=== PATIENT | female | born 1935 | race Asian ===

== ENCOUNTER 2017-03-17 13:05 | Inpatient (IN) | payer MEDICARE ==
--- NOTE | 2017-03-17 13:46 | ED Physician Chart ---
ED Chief Complaint/HPI - Patient Information Date Seen:: 03/17/17 Time Seen:: 13:20 Chief Complaint:: patient of both feet History of Present Illness:: Patient's had 8 out of 10 pain in both feet for 2 years. No trauma. She states she gets dizzy in the shower so she hasn't taken a shower more than one year. No recent falls. Historian:: Patient, Family Member Review:: Nurse's Note Reviewed ED Review of Systems - Review of Systems General/Constitutional: No fever, No chills Skin: No skin lesions Head: No headache Eyes: No loss of vision ENT: No earache Neck: No neck pain Cardio Vascular: No chest pain, No palpitations Pulmonary: No SOB GI: No nausea, No vomiting, No diarrhea G/U: No dysuria Musculoskeletal: Bone or joint pain Endocrine: No polyuria, No polydipsia Psychiatric: No prior psych history Hematopoietic: No bruising, No lymphadenopathy Allergic/Immuno: No urticaria Neurological: No syncope, No focal symptoms ED Past Medical History - Past Medical History Past Medical History: Asthma/COPD, Seizures Family History: None Social History: Non Smoker, No Alcohol Surgical History: Hysterectomy Psychiatricy History: None Medication: Reviewed ED Physical Exam - Physical Examination General/Constitutional: Well-developed, well-nourished, Alert, No distress Head: Atraumatic Eyes: Lids, conjuctiva normal, PERRL Other Eyes comments:: Arcus senilis Skin: Nl inspection, No rash, No skin lesions, No ecchymosis ENMT: External ears, nose nl, TM canals nl, Nasal exam nl, Lips, teeth, gums nl Neck: No nuchal rigidity Respiratory: Nl effort/Exclusion Other Respiratory comments:: 1 out of 4 mid and basilar rales and 1.5 out of 4 wheezing Cardio Vascular: RRR GI: No tenderness/rebounding/guarding : No CVA tenderness Other Extremities comments:: Left large toe is deviated laterally Neuro/Psych: Alert/oriented ED Septic Shock - . Is Septic Shock (SBP<90, OR Lactate>4 mmol\L) present?: No ED Reassessment (Disposition) - Reassessment Reassessment:: Patient ambulated normally during her stay in the emergency department. Patient was oriented to the correct year but not to the correct month stated it was August. Reassessment Condition:: Unchanged - Diagnosis Diagnosis:: Altered mental status - Patient Disposition Admitted to:: Med/Surg Spoke to:: Mustapha Vargas Admitting Medical Physician:: Mustapha Vargas Condition at Disposition:: Stable, Unchanged
[2017-03-17 13:56] LABS: % BASOPHILS 0.7 % (0.0-2.0); % EOSINOPHILS 14.3 % (0.0-5.0); % LYMPHOCYTES 24.7 % (20.0-50.0); % NEUTROPHILS 52.3 % (40.0-80.0); BASOPHILE ABSOLUTE 0.1 Th/cumm (0-0.2); EOSINOPHILE ABSOLUTE 1.1 Th/cmm (0.1-0.4); HEMATOCRIT 36.2 % (41.0-60); HEMOGLOBIN 12.2 gm/dL (12-16); LYMPHOCYTE ABSOLUTE 1.9 Th/cmm (1.5-3.0); MEAN CELL VOLUME 90.1 fl (81-100); MEAN CORPUSCULAR HEMOGLOBIN 30.3 pg (27.0-31.0); MEAN CORPUSCULAR HGB CONC 33.7 pg (28.0-36.0); MEAN PLATELET VOLUME 7.5 fl; MONOCYTE ABSOLUTE 0.6 Th/cmm (0.3-1.0); PLATELET COUNT 320 Th/cmm (150-400); RED BLOOD COUNT 4.01 Mil/cmm (3.80-5.20); RED CELL DISTRIBUTION WIDTH 12.4 % (11.5-20.0); WHITE BLOOD COUNT 7.7 Th/cmm (4.8-10.8)
[2017-03-17 14:12] LABS: ANION GAP 10.6 (7.0-16.0); BUN - UREA NITROGEN 31 mg/dL (7-25); CALCIUM SERUM 9.7 mg/dL (8.6-10.3); CARBON DIOXIDE 27.3 mEq/L (21.0-31.0); CHLORIDE 106 mEq/L (98-107); CREATININE - SERUM 0.8 mg/dL (0.6-1.2); GLUCOSE 106 mg/dL (70-105); MAGNESIUM 2.2 mg/dL (1.9-2.7); POTASSIUM SERUM 3.9 mEq/L (3.5-5.1); SODIUM SERUM 140 mEq/L (136-145)
[2017-03-17 14:34] LABS: URINE MICROSCOPIC INDICATED? YES; URINE SOURCE CLEAN C
[2017-03-17 14:45] LABS: URINE BILIRUBIN NEGATIVE (NEGATIVE); URINE BLOOD SMALL (NEGATIVE); URINE GLUCOSE (UA) NEGATIVE (NEGATIVE); URINE KETONE NEGATIVE (NEGATIVE); URINE LEUKOCYTE ESTERASE TRACE (NEGATIVE); URINE NITRATE NEGATIVE (NEGATIVE); URINE PH 6.5 (4.6 - 8.0); URINE PROTEIN NEGATIVE (NEGATIVE); URINE UROBILINOGEN 0.2 E.U./dL (0.2 - 1.0)
[2017-03-17 14:47] LABS: URINE CLARITY CLEAR (CLEAR); URINE COLOR YELLOW
[2017-03-17 15:25] LABS: URINE BACTERIA NONE SEEN /hpf (NONE SEEN); URINE EPITHELIAL CELLS FEW /lpf (FEW)
[2017-03-17] MEDS ORDERED: Non-Formulary Item 1 EA (Albuterol Sulfate [Proair Respiclick] 90 MCG) IH PRN (20:10)
[2017-03-17] MEDS: Albuterol Nebulizer 2.5mg/3mL HHN PRN (21:57)
[2017-03-18 00:15] VITALS: BP 136/74
[2017-03-18] MEDS ORDERED: Influenza Vaccine 0.5 mL Syr IM ONE (00:33)
[2017-03-18] MEDS ORDERED: Pneumococcal Vaccine 0.5 mL Vial IM ONE (00:33)
[2017-03-18] MEDS: Albuterol Nebulizer 2.5mg/3mL HHN PRN ×6 (01:17→20:43)
[2017-03-18 07:00] LABS: HEMATOCRIT 35.5 % (41.0-60); HEMOGLOBIN 12.1 gm/dL (12-16); MEAN CELL VOLUME 90.5 fl (81-100); MEAN CORPUSCULAR HEMOGLOBIN 30.9 pg (27.0-31.0); MEAN CORPUSCULAR HGB CONC 34.1 pg (28.0-36.0); MEAN PLATELET VOLUME 7.9 fl; PLATELET COUNT 322 Th/cmm (150-400); RED BLOOD COUNT 3.92 Mil/cmm (3.80-5.20); RED CELL DISTRIBUTION WIDTH 12.7 % (11.5-20.0); WHITE BLOOD COUNT 6.3 Th/cmm (4.8-10.8)
[2017-03-18 07:30] LABS: LYMPHOCYTE 19 % (20-50); MONOCYTE 12 % (2-10); NEUTROPHILS 54 % (40-80); TOTAL CELLS COUNTED 100
[2017-03-18 07:31] LABS: BASOPHIL 1 % (0-3); EOSINOPHIL 14 % (0-5); PLATELET ESTIMATE ADEQUATE (NORMAL)
[2017-03-18 07:45] LABS: ANION GAP 12.2 (7.0-16.0); BUN - UREA NITROGEN 20 mg/dL (7-25); CALCIUM SERUM 9.5 mg/dL (8.6-10.3); CARBON DIOXIDE 23.3 mEq/L (21.0-31.0); CHLORIDE 106 mEq/L (98-107); GLUCOSE 113 mg/dL (70-105); POTASSIUM SERUM 3.5 mEq/L (3.5-5.1); SODIUM SERUM 138 mEq/L (136-145)
[2017-03-18 07:59] LABS: CREATININE - SERUM 0.6 mg/dL (0.6-1.2)
--- NOTE | 2017-03-18 10:24 | Diagnostic Imaging Report ---
Carotid ultrasound HISTORY: Altered level of consciousness COMPARISON: None Technique: Longitudinal and transverse sonographic sector images of the carotid arteries were obtained with doppler analysis. FINDINGS: Exam of the right side demonstrates intimal thickening and mild generalized atherosclerotic vascular disease. Exam of the left side demonstrates intimal thickening and mild generalized atherosclerotic vascular disease. No evidence of elevated velocities or velocity ratios. Antegrade vertebral artery flow is demonstrated bilaterally. IMPRESSION: Mild bilateral atherosclerotic vascular disease. No evidence of hemodynamically significant stenosis.
--- NOTE | 2017-03-18 17:18 | Cardiology ---
03/18/2017 ECHOCARDIOGRAM REPORT The patient of Dr. Vargas. M-MODE ECHOCARDIOGRAM: Mitral valve, anterior leaflet of mitral valve shows normal excursion, EF velocity. Posterior leaflet of the mitral valve shows normal excursion. Left ventricular posterior shows increased thickness, normal excursion. Interventricular septum shows increased thickness, normal excursion, hypertrophy of the left ventricle, ejection fraction 55%. Left atrium normal. Aortic root shows normal dimension, normal excursion of aortic leaflets. CONCLUSION: Hypertrophy of the left ventricle, ejection fraction 55%. 2D echo on the same patient, long axis view showed normal-sized left ventricle with hypertrophy of the left ventricle. Left atrium normal. Aortic root shows normal dimension, normal excursion of aortic leaflets. Short axis view of mitral valve normal. Short axis view of aortic valve normal. Apical four chamber view showed normal-sized left ventricle, left atrium, right ventricle, right atrium, tricuspid and mitral valve. Ejection fraction 55%. CONCLUSION: Hypertrophy of the left ventricle, ejection fraction 55%. Doppler study showed trace mitral regurgitation, tricuspid regurgitation, pulmonary regurgitation, aortic regurgitation. [facility]# [id number]
--- NOTE | 2017-03-18 20:39 | History and Physical ---
History of Present Illness - HPI Chief Complaint: bilateral feet pain , weakness, frequent falls, poor oral intake HPI: This is a 81 year old female with who is well known to me from my clinic. Patient has been having frequent falls, confusion, and dizziness. Patient has not been able to take her medications. Vital Signs: Last Vital Signs Temp 96.8 F 03/18/17 04:00 Pulse 83 03/18/17 14:12 Resp 18 03/18/17 14:12 BP 129/59 03/18/17 04:00 Pulse Ox 94 03/18/17 14:12 Past Medical History Other History: asthma copd seizures - Past Surgical History Past Surgical History: Other (hysterectomy) Family Medical History - Family Member Mother History Unknown: Yes Social History Smoke: No Alcohol: None Drugs: None Lives: With Family Domestic Violence: Negative - Medications Home Medications: Home Medication Medication Instructions Recorded Type Albuterol Sulfate [Proair 90 mcg IH PRN PRN 03/17/17 History Respiclick] Levetiracetam 250 mg PO HS 03/17/17 History - Allergies Allergies/Adverse Reactions: Allergies Allergy/AdvReac Type Severity Reaction Status Date / Time No Known Allergies Allergy Verified 03/17/17 14:00 Review of Systems - Review of Systems Constitutional: Report: Weakness Eyes: Report: No Significant ENT: Report: No Significant Respiratory: Report: No Significant Cardiovascular: Report: No Significant Gastrointestinal: Report: No Significant Genitourinary: Report: No Significant Neurological: Report: Weakness Physical Exam - Physical Exam HEENT: Report: Ears Nose Throat within normal limits Neck: Report: Within normal limits Cardiovascular Systems: Report: +s1/s2 noted Respiratory: Report: Breath Sounds are within normal limits Abdomen: Report: Non-tender to palpation Back: Report: Inspection of back is within normal limits. Extremities: Report: Non-tender to palpation. 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 Monocytes % LIBRARY MEDIA TECHNICIAN Eosinophils % LIBRARY MEDIA TECHNICIAN Basophils % LIBRARY MEDIA TECHNICIAN Neutrophils (Manual) 54 Lymphocytes 19 L Monocytes 12 H Eosinophils 14 H Basophils 1 Platelet Estimate ADEQUATE Sodium 138 Potassium 3.5 Chloride 106 Carbon Dioxide 23.3 Anion Gap 12.2 BUN 20 Creatinine 0.6 Est GFR ( Amer) TNP Est GFR (Non-Af Amer) TNP BUN/Creatinine Ratio 33.3 Glucose 113 H Calcium 9.5 - Assessment Assessment: Current Active Problems Problem Status Onset POOR ORAL INTAKE WITH FOOT PAIN Acute failure to thrive altered mental status generalized weakness confusion htn copd - Plan Plan: neurology consultation cardiology consultation 2d echo fall precautions continue current orders
[2017-03-18] MEDS ORDERED: D5-0.45NS 1,000 ML IV SCH (20:40)
[2017-03-19] MEDS: Albuterol Nebulizer 2.5mg/3mL HHN PRN ×5 (02:18→23:18)
--- NOTE | 2017-03-19 07:45 | Consultation ---
DATE OF CONSULTATION: 03/18/2017 NEUROLOGY CONSULT The patient is an 81-year-old. The initial complaint of the patient was having lot of pain in the feet. However, the patient says she does not get any pain. Recently, also complained the patient did say that she fell in the shower. The patient is not taking showers recently. No recent fall. The patient apparently then noted to be confused. PAST MEDICAL HISTORY: Confusion. History of asthma. History of chronic obstructive pulmonary disease, seizures. No recent seizures. PAST SURGICAL HISTORY: Hysterectomy. SOCIAL HISTORY: Does not smoke or drink. REVIEW OF SYSTEMS: The patient will answer. She has no headache. Speech okay. The patient definitely disoriented, but able to answer questions. No chest pain, no shortness of breath. No cough, sputum, or hemoptysis. No abdominal pain. PHYSICAL EXAMINATION: VITAL SIGNS: Temperature 96.8, blood pressure 129/60, pulse is 73. NECK: Supple, no bruits. HEART: Sounds S1, S2. LUNGS: Clear. NEUROLOGIC: The patient is awake. She speaks Spanish. She gives me her name, her age. She does not know what day it is. She does not know what month. She does not know what year. She is able to name simple objects such as pen and glasses. CRANIAL: Pupils react to light. No facial weakness. MOTOR: She will lift both arms up. She will lift both legs up. Reflexes: 1-2+ upper extremity, about 2+ knees, one ankle. Gait: She actually walks quite well, able to get up by herself off the bed and walks without any aid. INVESTIGATIONS: Carotid Doppler is negative. No stenosis. LABORATORY DATA: WBC 6.3, hemoglobin 12.1, platelets normal. Sodium, potassium okay. UA, WBCs 2-5. ASSESSMENT: 1. Encephalopathy. 2. Dementia. 3. Neuropathy, paresthesias. 4. Asthma. 5. Seizures. PLAN: Continue present treatment. The patient is on Keppra, continue with that. The patient will have CT scan of the head, lab studies. Recommend patient follow up outpatient with Neurology. JOB# [id number]
[2017-03-19 08:11] LABS: HEMATOCRIT 35.6 % (41.0-60); MEAN CELL VOLUME 91.5 fl (81-100); MEAN CORPUSCULAR HEMOGLOBIN 30.7 pg (27.0-31.0); MEAN CORPUSCULAR HGB CONC 33.6 pg (28.0-36.0); PLATELET COUNT 268 Th/cmm (150-400); RED CELL DISTRIBUTION WIDTH 12.5 % (11.5-20.0); WHITE BLOOD COUNT 7.1 Th/cmm (4.8-10.8)
[2017-03-19 08:25] LABS: ALB/GLOB RATIO 1.2 (1.0-1.8); ALBUMIN 3.5 gm/dL (3.7-5.3); ALKALINE PHOSPHATASE 53 U/L (34-104); ANION GAP 8.6 (7.0-16.0); BILIRUBIN,TOTAL 0.4 mg/dL (0.3-1.0); BUN - UREA NITROGEN 20 mg/dL (7-25); CALCIUM SERUM 9.1 mg/dL (8.6-10.3); CARBON DIOXIDE 26.9 mEq/L (21.0-31.0); CHLORIDE 107 mEq/L (98-107); CREATININE - SERUM 0.6 mg/dL (0.6-1.2); GLUCOSE 121 mg/dL (70-105); POTASSIUM SERUM 3.5 mEq/L (3.5-5.1); SGOT 14 U/L (13-39); SGPT/ALT 8 U/L (7-52); SODIUM SERUM 139 mEq/L (136-145); TOTAL PROTEIN,SERUM 6.5 gm/dL (6.0-8.3)
[2017-03-19 09:04] LABS: BASOPHIL 2 % (0-3); EOSINOPHIL 17 % (0-5); LYMPHOCYTE 28 % (20-50); MONOCYTE 5 % (2-10); NEUTROPHILS 48 % (40-80); PLATELET ESTIMATE ADEQUATE (NORMAL)
--- NOTE | 2017-03-19 12:18 | Consultation ---
DATE OF CONSULTATION: 03/19/2017 REQUESTING CONSULTATION: Isidro Vargas MD REASON FOR CONSULTATION: Confusion. HISTORY OF PRESENT ILLNESS: This patient is an 81-year-old woman admitted over here for altered level of mental status. A psychiatric consultation is called to address the issue. Staff was spoken to. The patient is interviewed. The patient at this time is very drowsy and stating that she does not have any problem. She needs to go home. The patient is reported to have been confused for the past couple of years and lately it has been becoming difficult for the family to care for her because she has been possibly having a sundowning syndrome and has been acting out towards the end of the day. Sleep and appetite prior to the hospitalization are reported to be fair to okay. PAST PSYCHIATRIC HISTORY: Details are not known. MEDICAL HISTORY: Significant for the patient having history of asthma and obstructive pulmonary disease, and seizures. PAST SURGICAL HISTORY: Significant for hysterectomy. SOCIAL HISTORY: There is no history of any alcohol use. The patient has supportive family and family is reported to have been looking for placement of this patient because they are not able to care for her. The patient at this time is undergoing the neurological workup. MENTAL STATUS EXAMINATION: The patient is an 81-year-old, looking her stated age, superficially cooperative. Eye contact is poor. Mood is irritable. Affect is constricted. The patient is fixated on going home. The patient has paranoia, but denies any command hallucinations. The patient's short and long-term are noted to be impaired. The patient is not able to recall her date of and the reason why she has been in the hospital and the patient is stating that she is okay. DIAGNOSTIC IMPRESSION: Dementia and behavioral changes secondary to it, history of seizure disorder and asthma and chronic obstructive pulmonary disease. TREATMENT/PLAN: Plan to closely monitor the patient and use a lower dose of antipsychotic medication to help her with the agitation and sleep. There is 12.5 mg of the Seroquel and follow the patient with the supportive therapy. Once the patient is stabilized, the patient is going to be possibly placed in a Jail Facility. JOB# [id number]
--- NOTE | 2017-03-19 12:27 | Diagnostic Imaging Report ---
CT scan of the brain without intravenous contrast HISTORY: Stroke, CVA Total DLP equals 545 CTDI equals 32.1 Axial sections were obtained from the base of the skull to the vertex. There is enlargement of the ventricular system along with enlargement of cerebral sulci and subarachnoid cisterns reflecting atrophy. Hypodensity seen throughout the supratentorial periventricular white matter regions without mass effect. The findings may be associated with chronic small vessel ischemic disease. No acute intracerebral hemorrhage. Again, no mass effect or shift of midline structures. No extra-axial masses or abnormal fluid collections. IMPRESSION: 1. No acute focal abnormalities 2. Cerebral atrophy 3. Supratentorial white matter changes. The findings may be associated with chronic small vessel ischemic disease.
--- NOTE | 2017-03-19 17:33 | Internal Medicine Prog Note ---
Internal Medicine Subjective - Subjective Service Date: 03/19/17 Patient seen and examined:: with staff Patient is:: awake Per staff patient has:: tolerating meds Internal Medicine Objective - Results Result Diagrams: 03/19/17 07:40 03/19/17 07:40 Recent Labs: Laboratory Last Values WBC 7.1 Th/cmm (4.8-10.8) 03/19/17 07:40 RBC 3.90 Mil/cmm (3.80-5.20) 03/19/17 07:40 Hgb 12.0 gm/dL (12-16) 03/19/17 07:40 Hct 35.6 % (41.0-60) L 03/19/17 07:40 MCV 91.5 fl (81-100) 03/19/17 07:40 MCH 30.7 pg (27.0-31.0) 03/19/17 07:40 MCHC Differential 33.6 pg (28.0-36.0) 03/19/17 07:40 RDW 12.5 % (11.5-20.0) 03/19/17 07:40 Plt Count 268 Th/cmm (150-400) 03/19/17 07:40 MPV 8.0 fl 03/19/17 07:40 Neutrophils % FLY FISHING GUIDE 03/18/17 06:43 Lymphocytes % FLY FISHING GUIDE 03/18/17 06:43 Monocytes % FLY FISHING GUIDE 03/18/17 06:43 Eosinophils % FLY FISHING GUIDE 03/18/17 06:43 Basophils % FLY FISHING GUIDE 03/18/17 06:43 Neutrophils (Manual) 48 % (40-80) 03/19/17 07:40 Lymphocytes 28 % (20-50) 03/19/17 07:40 Monocytes 5 % (2-10) 03/19/17 07:40 Eosinophils 17 % (0-5) H 03/19/17 07:40 Basophils 2 % (0-3) 03/19/17 07:40 Platelet Estimate ADEQUATE (NORMAL) 03/19/17 07:40 ESR 48 mm/hr (0-30) H 03/19/17 07:40 Sodium 139 mEq/L (136-145) 03/19/17 07:40 Potassium 3.5 mEq/L (3.5-5.1) 03/19/17 07:40 Chloride 107 mEq/L (98-107) 03/19/17 07:40 Carbon Dioxide 26.9 mEq/L (21.0-31.0) 03/19/17 07:40 Anion Gap 8.6 (7.0-16.0) 03/19/17 07:40 BUN 20 mg/dL (7-25) 03/19/17 07:40 Creatinine 0.6 mg/dL (0.6-1.2) 03/19/17 07:40 Est GFR ( Amer) TNP 03/19/17 07:40 Est GFR (Non-Af Amer) TNP 03/19/17 07:40 BUN/Creatinine Ratio 33.3 03/19/17 07:40 Glucose 121 mg/dL (70-105) H 03/19/17 07:40 Calcium 9.1 mg/dL (8.6-10.3) 03/19/17 07:40 Magnesium 2.2 mg/dL (1.9-2.7) 03/17/17 10:49 Total Bilirubin 0.4 mg/dL (0.3-1.0) 03/19/17 07:40 AST 14 U/L (13-39) 03/19/17 07:40 ALT 8 U/L (7-52) 03/19/17 07:40 Alkaline Phosphatase 53 U/L (34-104) 03/19/17 07:40 C-Reactive Protein 0.5 mg/dL (0.0-0.9) 03/19/17 07:40 Total Protein 6.5 gm/dL (6.0-8.3) 03/19/17 07:40 Albumin 3.5 gm/dL (3.7-5.3) L 03/19/17 07:40 Globulin 3.0 gm/dL 03/19/17 07:40 Albumin/Globulin Ratio 1.2 (1.0-1.8) 03/19/17 07:40 Folic Acid >20.0 ng/mL (>3.0) 03/18/17 06:48 Urine Source CLEAN C 03/17/17 14:30 Urine Color YELLOW 03/17/17 14:30 Urine Clarity CLEAR (CLEAR) 03/17/17 14:30 Urine pH 6.5 (4.6 - 8.0) 03/17/17 14:30 Ur Specific [place] 1.015 (1.005-1.030) 03/17/17 14:30 Urine Protein NEGATIVE mg/dL (NEGATIVE) 03/17/17 14:30 Urine Glucose (UA) NEGATIVE mg/dL (NEGATIVE) 03/17/17 14:30 Urine Ketones NEGATIVE mg/dL (NEGATIVE) 03/17/17 14:30 Urine Blood SMALL (NEGATIVE) H 03/17/17 14:30 Urine Nitrate NEGATIVE (NEGATIVE) 03/17/17 14:30 Urine Bilirubin NEGATIVE (NEGATIVE) 03/17/17 14:30 Urine Urobilinogen 0.2 E.U./dL (0.2 - 1.0) 03/17/17 14:30 Ur Leukocyte Esterase TRACE (NEGATIVE) H 03/17/17 14:30 Urine RBC 2-5 /hpf (0-5) 03/17/17 14:30 Urine WBC 2-5 /hpf (0-5) 03/17/17 14:30 Ur Epithelial Cells FEW /lpf (FEW) 03/17/17 14:30 Urine Bacteria NONE SEEN /hpf (NONE SEEN) 03/17/17 14:30 - Physical Exam Vitals and I&O: Vital Signs Temp 98.1 F 03/19/17 15:35 Pulse 85 03/19/17 16:15 Resp 18 03/19/17 16:15 BP 169/70 03/19/17 15:35 Pulse Ox 96 03/19/17 16:15 Intake & Output 03/18/17 03/19/17 03/19/17 18:59 06:59 18:59 Intake Total 720 300 Balance 720 300 Weight (lbs) 110 lb 110 lb Intake: Oral 720 300 Other: # Voids 3 3 # Bowel Movements 0 Active Medications: Current Medications Albuterol Sulfate (Albuterol 2.5mg/3ml Neb Ud) 2.5 mg HHN Q4HRT PRN PRN Reason: Shortness of Breath Stop: 05/16/17 20:49 Last Admin: 03/19/17 16:15 Dose: 2.5 mg Dextrose/Sodium Chloride (D5-0.45ns) 1,000 mls @ 75 mls/hr IV .[id number] BALWINDER Stop: 05/17/17 20:39 Last Admin: 03/19/17 05:41 Dose: 75 mls/hr Levetiracetam (Keppra) 250 mg PO HS BALWINDER Stop: 05/16/17 20:59 Last Admin: 03/18/17 21:19 Dose: 250 mg Lorazepam (Ativan) 0.5 mg IVP Q4HR PRN; Protocol PRN Reason: Seizures Stop: 05/17/17 20:40 Last Admin: 03/19/17 15:28 Dose: 0.5 mg Methylprednisolone Sodium Succinate (Solu-Medrol) 100 mg IVP Q6HR PRN PRN Reason: Shortness of Breath or Wheeze Stop: 05/18/17 17:59 Last Admin: 03/19/17 14:23 Dose: 100 mg Quetiapine Fumarate (Seroquel) 12.5 mg PO HS BALWINDER PRN Reason: Protocol Stop: 05/18/17 20:59 General: alert HEENT: NC/AT, PERRLA Neck: Supple Lungs: CTAB Neurological: no change Internal Medicine Assmt/Plan - Assessment Assessment: failure to thrive altered mental status generalized weakness confusion htn copd - Plan Plan: ivf for hydration follow up labs in am continue current plan of care
--- NOTE | 2017-03-19 23:48 | Consultation ---
DATE OF CONSULTATION: 03/18/[address] Vargas. Date of consultation is 03/18/2017. HISTORY AND PHYSICAL: This is an 81-year-old female patient who had a fall in the bathroom. Following this, the patient has been complaining of pain in both the feet. The patient came to the Emergency Room complaining of shortness of breath. The patient had acute exacerbation of asthma. The patient is admitted. Cardiac consult requested. PAST MEDICAL HISTORY: Asthma, COPD, seizure disorder, dementia, peripheral neuropathy. FAMILY HISTORY: Unremarkable. SOCIAL HISTORY: No history of smoking, alcohol abuse. ALLERGIES: No known allergies. PHYSICAL EXAMINATION: VITAL SIGNS: Blood pressure 130/80, pulse 70, respirations 20. HEAD: Normocephalic. No lumps or bumps. EYES: Pupils equal, reactive to light. Fundi show AV nicking, sclerae white, conjunctivae pink. NECK: Carotid 2+. Normal upstroke. JVD 10 cm above sternal angle. Thyroid not palpable. Lymph nodes not palpable. CHEST: Shows increased AP diameter. No kyphosis, scoliosis. LUNGS: Bilateral bronchovesicular breath sounds. Bilateral wheezing, rhonchi, prolonged expiration. HEART: PMI fifth intercostal space with lateral to midclavicular line. S1, S2, S3, S4, soft systolic murmur. ABDOMEN: Soft. Liver and spleen not palpable. No organomegaly. Bowel sounds active. NEUROLOGIC: Unremarkable. EXTREMITIES: Peripheral pulse is 2+. No pedal edema. CLINICAL IMPRESSION: 1. Acute exacerbation of asthma. 2. Chronic obstructive pulmonary disease. 3. Hypertension. 4. Seizure disorder. 5. Dementia. 6. Peripheral neuropathy. PLAN: The patient to continue present care. The patient's echocardiogram showed normal ejection fraction with mild mitral regurgitation, tricuspid regurgitation, aortic regurgitation, pulmonary regurgitation. The patient to be started on steroids and handheld nebulizer. [facility]# [id number]
[2017-03-20 16:11] LABS: FOLIC ACID 17.9 ng/mL (>3.0)
--- NOTE | 2017-03-20 21:06 | Progress Notes ---
DATE: 03/20/2017 SUBJECTIVE: The patient was seen in her room having dinner. Per patient, she feels better. Denies any pain or discomfort at this time. Otherwise, the patient appears to be in no acute distress. OBJECTIVE: VITAL SIGNS: Temperature 96.8, heart rate of 99, respirations of 20, blood pressure 128/60, and 97% on room air. HEENT: Head is atraumatic and normocephalic. Eyes: Bilateral conjunctivae are clear. Bilateral pupils equally round and reactive. NECK: Supple. No JVD. CARDIOVASCULAR: S1 and S2 without murmur. PULMONARY: Clear to auscultation. GASTROINTESTINAL: Soft and nontender without guarding. Positive bowel sounds. MUSCULOSKELETAL: No clubbing. No cyanosis noted. ASSESSMENT: 1. Altered level of consciousness, resolved. 2. Dementia. 3. Hypertension. 4. Chronic obstructive pulmonary disease. PLAN: The patient is stable for discharge. The patient will be discharged to intermediate facility to go to [facility]. We will continue same medication and Dr. Vargas to follow the patient. Treatment plans were discussed with the patient's nurse. Treatment plans were discussed with Dr. Vargas. JOB# [id number]
--- NOTE | 2017-04-03 17:51 | Discharge Summary ---
DATE OF DISCHARGE: 03/20/2017 The patient was admitted on 03/17/2017, discharged on 03/20/2017. The patient was admitted because of increased agitation, history of recurrent falls, failure to thrive, confusion, history of hypertension and exacerbation of chronic obstructive pulmonary disease. The patient was worked up and the patient has had Neurology, Cardiology consultation. Echo was done and also physical therapy was instituted. The patient still has problem with the gait disorder and it was deemed that this patient should go to skilled care and the patient has a final diagnosis of history of recurrent fall, history of confusion, history of hypertension, history of COPD. The patient was sent to [place] where I will be following the patient. CONDITION AT THE TIME OF DISCHARGE: Stable. JOB# [id number]
== END 2017-03-20 19:26 | disposition home or self-care (01) | DRG 202 ==
LOC: ER 13:05 → MSI 18:30
PROVIDERS: ADMIT Internal Medicine; ATTEND Internal Medicine
DX: J45.901 Unspecified asthma with (acute) exacerbation (principal); G93.40 Encephalopathy, unspecified; G62.9 Polyneuropathy, unspecified; F03.91 Unspecified dementia, unspecified severity, with behavioral disturbance; R62.7 Adult failure to thrive; J44.9 Chronic obstructive pulmonary disease, unspecified; I08.3 Combined rheumatic disorders of mitral, aortic and tricuspid valves; G40.909 Epilepsy, unspecified, not intractable, without status epilepticus; I10 Essential (primary) hypertension; W18.30XA Fall on same level, unspecified, initial encounter; Y93.89 Activity, other specified; Y92.041 Bathroom in boarding-house as the place of occurrence of the external cause; Y99.8 Other external cause status; Z90.710 Acquired absence of both cervix and uterus; Z79.51 Long term (current) use of inhaled steroids
CPT/HCPCS: 36415-UA; 70450-TC; 80048-TC; 80053-TC; 81001-TC; 82607-90; 82746-90; 83735-TC; 85007-TC; 85025-TC; 85027-TC; 85652-TC; 86141-TC; 93005; 93880-TC; 94640; 94760; J2060; J2930; J7613; X3401; X3904; Z7610

== ENCOUNTER 2017-06-30 00:12 | Inpatient (IN) | payer MEDICARE ==
--- NOTE | 2017-06-30 00:54 | ED Physician Chart ---
ED Chief Complaint/HPI - Patient Information Date Seen:: 06/30/17 Time Seen:: 00:53 Chief Complaint:: Agitation History of Present Illness:: 81 yo female was brought from SNF to ER for evaluation of increased agitation. At ER, patient was noticed to have wheezing and cough. Allergies:: Allergies Allergy/AdvReac Type Severity Reaction Status Date / Time No Known Allergies Allergy Verified 03/17/17 14:00 ED Review of Systems - Review of Systems General/Constitutional: No fever Skin: No bruising Head: No headache Eyes: No pain ENT: No nasal drainage Neck: No neck pain Cardio Vascular: No chest pain Pulmonary: SOB, Cough, Wheezing GI: No nausea, No vomiting Musculoskeletal: No bone or joint pain Neurological: No focal symptoms, Weakness ED Past Medical History - Past Medical History Past Medical History: DM, Asthma/COPD, Seizures, Dementia, Other (CKD) Social History: Non Smoker, No Alcohol, No Drug Use Family Medical History - Family Member Mother History Unknown: Yes ED Physical Exam - Physical Examination General/Constitutional: Awake, Alert Head: Atraumatic Eyes: PERRL Skin: No ecchymosis ENMT: Nasal exam nl Neck: No nuchal rigidity Other Respiratory comments:: Wheezing bilateral lungs Cardio Vascular: RRR, No murmur, gallop, rubs, NL S1 S2 GI: No tenderness/rebounding/guarding Extremities: normal strength in all extremities Neuro/Psych: No focal deficits ED Labs/Radiology/EKG Results - Lab Results Results: Laboratory Last Values WBC 13.3 Th/cmm (4.8-10.8) H 06/30/17 00:57 RBC 3.92 Mil/cmm (3.80-5.20) 06/30/17 00:57 Hgb 11.4 gm/dL (12-16) L 06/30/17 00:57 Hct 34.5 % (41.0-60) L 06/30/17 00:57 MCV 88.0 fl (81-100) 06/30/17 00:57 MCH 29.0 pg (27.0-31.0) 06/30/17 00:57 MCHC Differential 33.0 pg (28.0-36.0) 06/30/17 00:57 RDW 13.5 % (11.5-20.0) 06/30/17 00:57 Plt Count 263 Th/cmm (150-400) 06/30/17 00:57 MPV 8.8 fl 06/30/17 00:57 Band Neutrophils % 2 % (0-10) 06/30/17 00:57 Neutrophils (Manual) 71 % (40-80) 06/30/17 00:57 Lymphocytes 20 % (20-50) 06/30/17 00:57 Monocytes 6 % (2-10) 06/30/17 00:57 Eosinophils 1 % (0-5) 06/30/17 00:57 Platelet Estimate ADEQUATE (NORMAL) 06/30/17 00:57 D-Dimer 3490 ng/mL (100-400) H 06/30/17 00:52 Specimen Source arterial 06/30/17 02:50 Sample Site Left Radial 06/30/17 02:50 pH 7.45 (7.35-7.45) 06/30/17 02:50 pCO2 42.0 mmHg (35.0-45.0) 06/30/17 02:50 pO2 61.0 mmHg (80.0-100.0) L 06/30/17 02:50 HCO3 28.5 mEq/L (20.0-26.0) H 06/30/17 02:50 Base Excess 4.7 mEq/L (-3.0-3.0) H 06/30/17 02:50 O2 Saturation 92.0 % (92.0-100.0) 06/30/17 02:50 Martinez Test YES 06/30/17 02:50 Vent Rate N/A 06/30/17 02:50 Inspired O2 21 06/30/17 02:50 Tidal Volume N/A 06/30/17 02:50 PEEP N/A 06/30/17 02:50 Pressure (ins/psv/peep) N/A 06/30/17 02:50 Critical Value ABROEDEL 06/30/17 02:50 Sodium 137 mEq/L (136-145) 06/30/17 00:57 Potassium 4.2 mEq/L (3.5-5.1) 06/30/17 00:57 Chloride 103 mEq/L (98-107) 06/30/17 00:57 Carbon Dioxide 27.8 mEq/L (21.0-31.0) 06/30/17 00:57 Anion Gap 10.4 (7.0-16.0) 06/30/17 00:57 BUN 16 mg/dL (7-25) 06/30/17 00:57 Creatinine 0.7 mg/dL (0.6-1.2) 06/30/17 00:57 Est GFR ( Amer) TNP 06/30/17 00:57 Est GFR (Non-Af Amer) TNP 06/30/17 00:57 BUN/Creatinine Ratio 22.9 06/30/17 00:57 Glucose 152 mg/dL (70-105) H 06/30/17 00:57 Whole Bld Lactic Acid 0.98 mmol/L (0.60-1.99) 06/30/17 00:57 Calcium 9.7 mg/dL (8.6-10.3) 06/30/17 00:57 Total Bilirubin 0.3 mg/dL (0.3-1.0) 06/30/17 00:57 AST 11 U/L (13-39) L 06/30/17 00:57 ALT 5 U/L (7-52) L 06/30/17 00:57 Alkaline Phosphatase 73 U/L (34-104) 06/30/17 00:57 Troponin I < 0.01 ng/mL (0.01-0.05) L 06/30/17 00:57 B-Natriuretic Peptide 82.3 pg/mL (5.0-100.0) 06/30/17 00:52 Total Protein 7.8 gm/dL (6.0-8.3) 06/30/17 00:57 Albumin 3.2 gm/dL (3.7-5.3) L 06/30/17 00:57 Globulin 4.6 gm/dL 06/30/17 00:57 Albumin/Globulin Ratio 0.7 (1.0-1.8) L 06/30/17 00:57 TSH 2.48 uIU/ml (0.34-5.60) 06/30/17 00:57 Urine Source RANDOM 06/30/17 00:20 Urine Color YELLOW 06/30/17 00:20 Urine Clarity CLEAR (CLEAR) 06/30/17 00:20 Urine pH 7.0 (4.6 - 8.0) 06/30/17 00:20 Ur Specific Severy 1.015 (1.005-1.030) 06/30/17 00:20 Urine Protein NEGATIVE mg/dL (NEGATIVE) 06/30/17 00:20 Urine Glucose (UA) NEGATIVE mg/dL (NEGATIVE) 06/30/17 00:20 Urine Ketones NEGATIVE mg/dL (NEGATIVE) 06/30/17 00:20 Urine Blood NEGATIVE (NEGATIVE) 06/30/17 00:20 Urine Nitrate NEGATIVE (NEGATIVE) 06/30/17 00:20 Urine Bilirubin NEGATIVE (NEGATIVE) 06/30/17 00:20 Urine Urobilinogen 0.2 E.U./dL (0.2 - 1.0) 06/30/17 00:20 Ur Leukocyte Esterase MODERATE (NEGATIVE) H 06/30/17 00:20 Urine RBC 0-2 /hpf (0-5) 06/30/17 00:20 Urine WBC 10-25 /hpf (0-5) H 06/30/17 00:20 Ur Epithelial Cells OCCASIONAL /lpf (FEW) 06/30/17 00:20 Urine Bacteria FEW /hpf (NONE SEEN) 06/30/17 00:20 - Radiology Results Results: CXR: increased interstitial lung markings, right side worse than the left ED Assessment - Assessment General Assessment: Hypoxic respiratory failure Leukocytosis Elevated D-Dimer Normocytic anemia UTI Assessment/Comments:: CBC, CMP, UA CXR, EKG ABG Jeb Antonio Admit to telemetry ED Septic Shock - . Is Septic Shock (SBP<90, OR Lactate>4 mmol\L) present?: No ED Reassessment (Disposition) - Reassessment Reassessment Condition:: Improved - Patient Disposition Discharge/Transfer:: Acute Care w/in [facility] hosp Admitting Medical Physician:: Mustapha Vargas ED Discharge Plan - Patient Disposition Admit/Discharge/Transfer: Acute Care w/in this hosp
[2017-06-30 01:07] LABS: URINE MICROSCOPIC INDICATED? YES; URINE SOURCE RANDOM
[2017-06-30 01:07] LABS: HEMATOCRIT 34.5 % (41.0-60); HEMOGLOBIN 11.4 gm/dL (12-16)
[2017-06-30] MEDS ORDERED: Albuterol/Ipratropium Neb 3 ML AERS HHN ONE ×2 (01:08→01:24)
[2017-06-30 01:13] LABS: MEAN PLATELET VOLUME 8.8 fl; PLATELET COUNT 263 Th/cmm (150-400); RED BLOOD COUNT 3.92 Mil/cmm (3.80-5.20); RED CELL DISTRIBUTION WIDTH 13.5 % (11.5-20.0)
[2017-06-30 01:14] LABS: URINE BILIRUBIN NEGATIVE (NEGATIVE); URINE BLOOD NEGATIVE (NEGATIVE); URINE GLUCOSE (UA) NEGATIVE (NEGATIVE); URINE KETONE NEGATIVE (NEGATIVE); URINE LEUKOCYTE ESTERASE MODERATE (NEGATIVE); URINE NITRATE NEGATIVE (NEGATIVE); URINE PROTEIN NEGATIVE (NEGATIVE); URINE UROBILINOGEN 0.2 E.U./dL (0.2 - 1.0)
[2017-06-30 01:15] LABS: MANUAL DIFF REQUIRED? YES; WHITE BLOOD COUNT 13.3 Th/cmm (4.8-10.8)
[2017-06-30 01:19] LABS: URINE CLARITY CLEAR (CLEAR); URINE COLOR YELLOW
[2017-06-30 01:20] LABS: URINE BACTERIA FEW /hpf (NONE SEEN); URINE EPITHELIAL CELLS OCCASIONAL /lpf (FEW); URINE RBC 0-2 /hpf (0-5)
[2017-06-30 01:22] LABS: ALB/GLOB RATIO 0.7 (1.0-1.8); ALBUMIN 3.2 gm/dL (3.7-5.3); ALKALINE PHOSPHATASE 73 U/L (34-104); ANION GAP 10.4 (7.0-16.0); BILIRUBIN,TOTAL 0.3 mg/dL (0.3-1.0); BUN - UREA NITROGEN 16 mg/dL (7-25); CALCIUM SERUM 9.7 mg/dL (8.6-10.3); CARBON DIOXIDE 27.8 mEq/L (21.0-31.0); CHLORIDE 103 mEq/L (98-107); CREATININE - SERUM 0.7 mg/dL (0.6-1.2); GLUCOSE 152 mg/dL (70-105); POTASSIUM SERUM 4.2 mEq/L (3.5-5.1); SGOT 11 U/L (13-39); SGPT/ALT 5 U/L (7-52); SODIUM SERUM 137 mEq/L (136-145); TOTAL PROTEIN,SERUM 7.8 gm/dL (6.0-8.3)
[2017-06-30] MEDS ORDERED: cefTRIAXone 1 GM in Sodium Chloride 0.9% 50 ML IV ONE (01:38)
[2017-06-30 01:45] LABS: BAND NEUTROPHILE 2 % (0-10); EOSINOPHIL 1 % (0-5); LYMPHOCYTE 20 % (20-50); MONOCYTE 6 % (2-10); NEUTROPHILS 71 % (40-80); TOTAL CELLS COUNTED 100
[2017-06-30 01:46] LABS: PLATELET ESTIMATE ADEQUATE (NORMAL)
[2017-06-30 03:12] LABS: ALLEN TEST YES; pH 7.45 (7.35-7.45)
[2017-06-30] MEDS ORDERED: IOHEXOL 300mgI/mL 100 ML VIAL ONE (03:45)
[2017-06-30] MEDS ORDERED: Piperacillin Sodium/Tazobact 2.25 gm Vial IV ONE (05:24)
[2017-06-30] MEDS ORDERED: Non-Formulary Item 1 EA (Glucagon,Human Recombinant [Glucagon Emergency Kit] 1 MG) IJ PRN (08:12)
--- NOTE | 2017-06-30 08:53 | Diagnostic Imaging Report ---
CHEST X-RAY: AP view INDICATION: Shortness of breath COMPARISON: None FINDINGS: Chronic lung changes are seen with increased interstitial lung markings bilaterally, right greater than left. No pleural effusions. Heart size is normal. Atherosclerosis is noted. Degenerative changes of the spine are noted. IMPRESSION: Chronic lung changes with increased interstitial lung markings, right greater than left, possibly due to interstitial infiltrates. Clinical correlation and follow-up is recommended. Correlation with old exams would also be helpful. Atherosclerotic vascular disease.
[2017-06-30] MEDS ORDERED: VTE Chemical Prophylaxis Screen/Admission MC PRN (09:01)
[2017-06-30] MEDS: Pantoprazole 40 mg EC Tab PO SCH (09:48)
[2017-06-30] MEDS: Budesonide 0.5 Mg/2 mL Ud HHN SCH ×2 (09:49→19:08)
[2017-06-30] MEDS ORDERED: Probiotic Screen MC PRN (09:56)
[2017-06-30] MEDS ORDERED: IOHEXOL 350mgI/mL 50mL Bottle IVP ONE (13:44)
--- NOTE | 2017-06-30 16:20 | Consultation ---
Consult Note - Consult Note Service Date: 06/30/17 Referring Physician: Mustapha Vargas Consult Note: PHYSICIAN Consultation Note: Date of Admission: 06/30/17 Purpose of Consultation: Leukocytosis or pneumonia. Chief Complaint: Patient ESTELA KING was admitted to location Intensive Care Unit with RULE OUT PULMONARY EMBOLISM. History of Present Illness:81 year male with a past medical history of COPD, obesity, hypertension, hyperlipidemia, brought from a [facility] residential for aggressive behavior and agitation. He was also complained of shortness of breath. A d-dimer was positive, he was admitted to the ICU for further care. Evaluation, his temperature was 98.1F and WBC count was 13,300. Chest x-ray showed increased markings right more than left. Suspect pneumonia. Rocephin IV given in the ER. Zosyn was started. ID consult was called for further evaluation and management. Past Medical History: Allergies Allergy/AdvReac Type Severity Reaction Status Date / Time No Known Allergies Allergy Verified 03/17/17 14:00 Vital Signs Temp 97.2 F 06/30/17 14:00 Pulse 72 06/30/17 14:00 Resp 18 06/30/17 14:00 BP 130/41 06/30/17 14:00 Pulse Ox 96 06/30/17 14:00 Intake & Output 06/29/17 06/30/17 06/30/17 18:59 06:59 18:59 Intake Total 50 50 Output Total 150 Balance -100 50 Weight (lbs) 54.431 kg Intake: Intake, IV Amount 50 50 Piperacillin Sodium/ 50 Tazobact 2.25 gm In Sodium Chloride 0.9% 50 ml @ 100 mls/hr IV Q6HR [facility] Rx#:[id number] cefTRIAXone 1 gm In 50 Sodium Chloride 0.9% 50 ml @ 100 mls/hr IV X1 ONE Rx#:[id number] Output: Urine 150 Other: # Voids 1 Weight Source Bedscale Laboratory Results - last 24 hr 06/30/17 02:50 Specimen Source arterial Sample Site Left Radial pH 7.45 pCO2 42.0 pO2 61.0 L HCO3 28.5 H Base Excess 4.7 H O2 Saturation 92.0 Martinez Test YES Vent Rate N/A Inspired O2 21 Tidal Volume N/A PEEP N/A Pressure (ins/psv/peep) N/A Critical Value ABROEDEL Home Medication Medication Instructions Recorded Type Acetaminophen [Tylenol] 650 mg PO Q4HR PRN 06/30/17 History Albuterol/Ipratropium Neb [Duoneb 3 ml HHN Q4H PRN 06/30/17 History Neb] Albuterol/Ipratropium Neb [Duoneb 3 ml HHN Q6HR 06/30/17 History Neb] Budesonide [Pulmicort] 0.5 mg IH Q12H 06/30/17 History Dextrose [Glucose Gel] 15 gm PO PRN PRN 06/30/17 History Glucagon,Human Recombinant 1 mg IJ PRN PRN 06/30/17 History [Glucagon Emergency Kit] Levetiracetam [Keppra] 250 mg PO HS 06/30/17 History Montelukast [Singulair] 10 mg PO HS 06/30/17 History Pantoprazole Sodium 40 mg PO DAILY 06/30/17 History QUEtiapine Fumarate [SEROquel] 12.5 mg PO HS 06/30/17 History Sitagliptin [Januvia] 50 mg PO DAILY 06/30/17 History Current Medications Generic Name Dose Route Start Last Admin Trade Name Freq PRN Reason Stop Dose Admin Acetaminophen 650 mg 06/30/17 08:12 Tylenol PO 08/29/17 08:11 Q4HR PRN Pain or Fever >101 Albuterol/Ipratropium 3 ml 06/30/17 08:12 Duoneb Neb HHN 08/29/17 08:11 Q4H PRN Shortness of Breath Budesonide 0.5 mg 06/30/17 08:15 06/30/17 09:49 Pulmicort N 08/29/17 08:14 0.5 mg Q12H BALWINDER Administration Dextrose 15 gm 06/30/17 08:12 Glutose 40% PO 08/29/17 08:11 UD PRN blood sugar < 60 Heparin Sodium (Porcine) 5,000 units 06/30/17 21:00 Heparin SUBQ 08/29/17 20:59 Q12H BALWINDER Piperacillin Sod/Tazobactam 50 mls @ 100 mls/hr 06/30/17 06:00 06/30/17 12:30 Sod 2.25 gm/ Sodium Chloride IV 08/29/17 05:59 Infused Q6HR BALWINDER Infusion Protocol Lactobacillus Rhamnosus 1 each 07/01/17 09:00 Culturelle 15b PO 08/30/17 08:59 DAILY BALWINDER Levetiracetam 250 mg 06/30/17 21:00 Keppra PO 08/29/17 20:59 HS BALWINDER Lorazepam 1 mg 06/30/17 07:05 06/30/17 15:21 Ativan IVP 08/29/17 07:04 1 mg Q6HR PRN Administration Agitation Protocol Methylprednisolone Sodium Succinate 80 mg 06/30/17 13:00 06/30/17 13:27 Solu-Medrol IV 08/29/17 12:59 80 mg Q8HR BALWINDER Administration Miscellaneous 1 mg 06/30/17 08:12 Glucagon,Human Recombinant [Glucagon Emergency Kit] IJ 08/29/17 08:11 UD PRN hypoglycemia Miscellaneous 1 ea 06/30/17 09:01 Vte Chemical Prophylaxis Screen/ Admission 08/29/17 09:00 PRN PRN PROTOCOL Miscellaneous 1 ea 06/30/17 09:56 Probiotic Screen 08/29/17 09:55 PRN PRN PROTOCOL Montelukast Sodium 10 mg 06/30/17 21:00 Singulair PO 08/29/17 20:59 HS BALWINEDR Pantoprazole Sodium 40 mg 06/30/17 09:00 06/30/17 09:48 Protonix PO 08/29/17 08:59 40 mg DAILY BALWINDER Administration Quetiapine Fumarate 12.5 mg 06/30/17 21:00 Seroquel PO 08/29/17 20:59 HS BALWINDER Protocol Sitagliptin Phosphate 50 mg 06/30/17 09:00 06/30/17 09:48 Januvia PO 08/29/17 08:59 50 mg DAILY BALWINDER Administration Review of Systems: A 12 point ROS was reviewed with the pertinent positive and negatives noted in the HPI. Social History Smoking Status Smoker, status unknown Family Medical History Unknown. Physical Exam: General: Comfortable, not in acute distress. Well-nourished well-developed. HEENT: Head: Normocephalic, atraumatic. Oral cavity: Moist, pink tongue. Eyes : Pallor is present icterus. Pupil PERRLA. EOMI. Neck: Supple, no JVD. No use of accessory neck muscles. Cardio: S1 and S2 within normal limits regular rhythm. Respiratory: Vesicular breath sound crackles present. Abdominal: Soft, nontender, nondistended Bowel sounds normoactive, present. Genital/Urinary: Deferred. Extremities: No cyanosis, no clubbing, no edema. Pulses are palpable in all 4 activities. Neurological: Alert, awake. Assessment: 1. Leukocytosis, reactive versus sepsis. 2. Pneumonia bilaterally. 3. Interstitial lung disease. 4. COPD. 5. Obesity. 6. Hypertension. 7. Hyperlipidemia. Plan: Continue Zosyn at this time. Thank you, Dr. Vargas, for involving me in taking care of this patient. Signed, Joey Sol M.D. [id number]
--- NOTE | 2017-06-30 17:13 | History & Physical ---
ADMIT DATE: 06/30/2017 HISTORY OF PRESENT ILLNESS: The patient is a very well known to me from before. The patient lives in [facility]. The patient apparently was very aggressive and short of breath, was brought to the Emergency Room, was evaluated and found to have a very high D-dimer and short of breath. The patient was admitted to ICU initially for evaluation and agitation. The patient is known to have history of multiple medical problems including hypertension, history of hyperlipidemia, and history of obesity and history of COPD. PHYSICAL EXAMINATION: GENERAL: Alert, oriented, elderly female. VITAL SIGNS: As noted in chart. HEAD: Normal. ENT: Normal. NECK: Supple. LUNGS: Bilateral rhonchi. CARDIOVASCULAR SYSTEM: S1, S2 heard. ABDOMEN: Soft. Bowel sounds are heard. CENTRAL NERVOUS SYSTEM: Decreased sensorium. Confusion. DIAGNOSES: Altered mental status, toxic metabolic encephalopathy, shortness of breath, rule out pulmonary embolism, bilateral wheezes, chronic obstructive pulmonary disease exacerbation, history of hyperlipidemia, history of obesity, psychosis. PLAN: The patient is being admitted and I will call the psych doctor as well as the Pulmonary doctor, Dr. Leone and I will follow the patient. JOB# [id number]
[2017-06-30] MEDS: Albuterol/Ipratropium Neb 3 ML AERS HHN PRN (19:08)
--- NOTE | 2017-07-01 00:37 | Consultation ---
DATE OF CONSULTATION: 06/30/[address] Vargas. Thank you very much Dr. Vargas for this consultation. HISTORY OF PRESENT ILLNESS: This is an 81-year-old female of longterm, presented with cough, congestion, and shortness of breath, was admitted for treatment and management. The patient has history of asthma, also as mentioned history of COPD. According to patient, she has never smoked before. Her main complaint is cough and congestion, pallor. PAST MEDICAL HISTORY: History of dementia. SOCIAL HISTORY: No history of smoking, drinking, drug use. REVIEW OF SYSTEMS: GENERAL: Some weakness and fatigue. CARDIOVASCULAR: No chest pain, no palpitation. GASTROINTESTINAL: No nausea or vomiting. GENITOURINARY: No dysuria or frequency. PHYSICAL EXAMINATION: GENERAL: Awake, alert, not in acute distress. VITAL SIGNS: Temperature is 97.3, pulse 84, respiration is 18, blood pressure 122/56, saturation 96%. HEENT: Atraumatic, normocephalic. Pupils reactive to light and accommodation. Ears, nose and throat, normal. NECK: Supple. No JVD. CHEST: There is diffuse wheezing and rhonchi bilaterally. HEART: Regular rate and rhythm. ABDOMEN: Soft. EXTREMITIES: No edema. LABORATORY DATA: WBC 13.3, hemoglobin 11.4, hematocrit 34.5, platelets 263. ABGs: pH 7.45, pCO2 of 42, pO2 61, bicarbonate 28, saturation is 92%. Sodium 137, potassium 4.2, BUN 16, creatinine 0.7. Troponin is negative. D-dimer is 3490. Chest x-ray showed some nodules and infiltrates on both lungs right than the left. IMPRESSION: 1. This is an 81-year-old female with acute asthma exacerbation, possible superimposed pneumonia. 2. Elevated D-dimer, not sure what exact from. The history is not consistent with pulmonary embolism, but there is a possibility. PLAN: 1. We will start IV Solu-Medrol. 2. Nebulized treatment. 3. The patient is going for CT angio to rule out pulmonary embolism and we will evaluate any structural abnormalities on the lung as well. Thank you very much. We will follow the patient with you. JOB# [id number] [facility]
[2017-07-01 05:28] LABS: HEMATOCRIT 34.2 % (41.0-60); HEMOGLOBIN 11.1 gm/dL (12-16); MEAN CELL VOLUME 86.7 fl (81-100); MEAN CORPUSCULAR HEMOGLOBIN 28.2 pg (27.0-31.0); MEAN CORPUSCULAR HGB CONC 32.6 pg (28.0-36.0); MEAN PLATELET VOLUME 9.2 fl; PLATELET COUNT 210 Th/cmm (150-400); RED BLOOD COUNT 3.94 Mil/cmm (3.80-5.20); RED CELL DISTRIBUTION WIDTH 13.3 % (11.5-20.0)
[2017-07-01 05:43] LABS: WHITE BLOOD COUNT 8.4 Th/cmm (4.8-10.8)
[2017-07-01 05:44] LABS: MANUAL DIFF REQUIRED? YES
[2017-07-01 05:47] LABS: ANION GAP 10.6 (7.0-16.0); BUN - UREA NITROGEN 21 mg/dL (7-25); CALCIUM SERUM 9.2 mg/dL (8.6-10.3); CARBON DIOXIDE 25.1 mEq/L (21.0-31.0); CHLORIDE 106 mEq/L (98-107); CREATININE - SERUM 0.6 mg/dL (0.6-1.2); GLUCOSE 161 mg/dL (70-105); POTASSIUM SERUM 3.7 mEq/L (3.5-5.1); SODIUM SERUM 138 mEq/L (136-145)
[2017-07-01 06:30] LABS: LYMPHOCYTE 16 % (20-50); MONOCYTE 3 % (2-10); NEUTROPHILS 81 % (40-80); PLATELET ESTIMATE ADEQUATE (NORMAL); TOTAL CELLS COUNTED 100
[2017-07-01] MEDS: Budesonide 0.5 Mg/2 mL Ud HHN SCH ×2 (07:24→19:18)
[2017-07-01] MEDS: Pantoprazole 40 mg EC Tab PO SCH (08:36)
[2017-07-01] MEDS: Lactobacillus Rhamnosus GG 15 Billion CFU CAP.SPRINK PO SCH (08:36)
--- NOTE | 2017-07-01 09:15 | Diagnostic Imaging Report ---
CT Chest PE study Indication: Shortness of breath Comparison: Chest x-ray 06/30/2017, Technique: Axial images were obtained from the base of the neck to the upper abdomen, following administration of IV contrast, PE protocol. Multiplanar reconstructions were made. total DLP: 252, CTDI25 FINDINGS: Exam is limited as patient was uncooperative. Borderline prominent mediastinal lymph nodes are noted. Mild to moderate atherosclerotic vascular disease is noted. Descending aorta measures up to 3.2 cm. No evidence of an aortic aneurysm. Heart size at the upper limits of normal. No pericardial effusion is identified. Assessment for pulmonary embolus is limited due to suboptimal contrast opacification. No gross central pulmonary embolus is identified. Note the distal subsegmental pulmonary embolus cannot be excluded. The lung louie demonstrate diffuse multifocal pulmonary infiltrates, right greater than left. Additional hypoventilatory and atelectatic changes of the lungs are also noted. No pleural effusions. The upper abdomen demonstrates a 2.5 cm left renal cyst. Degenerative changes of the spine are noted IMPRESSION: Limited exam due to suboptimal contrast opacification and as patient was uncooperative. No central pulmonary process identified. Note the small disc pulmonary emboli cannot be excluded. Please correlate with clinical findings. If indicated nuclear medicine VQ scan may also be obtained for further assessment. Diffuse bilateral pulmonary infiltrates suggestive of multifocal pneumonia. Mild to moderate atherosclerotic vascular disease Borderline prominent mediastinal lymph nodes, nonspecific. Left renal 2.5 cm cyst.
--- NOTE | 2017-07-01 11:06 | Consultation ---
DATE OF CONSULTATION: 07/01/2017 PHYSICIAN REQUESTING CONSULTATION: Dr. Vargas. REASON FOR CONSULTATION: Agitated behavior. HISTORY OF PRESENT ILLNESS: This patient is an 81-year-old woman, resident of a retirement facility. Information obtained by directly interviewing the patient as well as reviewing the admission papers. The patient has been admitted over here for shortness of breath and then the patient is currently in the ICU for stabilization. Chart is reviewed. The patient is interviewed. The patient is reported to have been having agitation and confusion, and a Psychiatric consultation is called. Upon reviewing the chart, the patient has been a little bit drowsy. Currently, the patient is on 12.5 mg of Seroquel at night time. The patient is reported to have multiple medical problems including hypertension, history of hyperlipidemia, obesity, and history of COPD and the patient is currently here being closely monitored for any pulmonary embolism, and the staff are reporting that the patient was agitated yesterday. PAST PSYCHIATRIC HISTORY: The patient denies any prior psychiatric hospitalizations. SOCIAL HISTORY: The patient is a resident of the retirement facility. MENTAL STATUS EXAMINATION: The patient is an 81-year-old, looking her stated age, superficially cooperative. Eye contact is poor. Mood is noted to be irritable. Affect is constricted. The patient is getting easily frustrated. Staff are reporting that the patient was very agitated yesterday and was trying to scratch her, but today, the patient seems to be drowsy. The patient has been asking for her family members. It seems that the staff had tried to contact the family members, but so far no one has responded. The patient's short and long-term are noted to be very poor. The patient is very agitated at this time. The patient is significant for dementia and the patient is going to be continued on the 12.5 mg of the Seroquel for her agitation. IMPRESSION: Dementia and behavioral change, secondary trait. PLAN: To continue the patient with the supportive therapy, encouraged the patient to verbalize the concerns rather than to act out. JOB# [id number]
[2017-07-01 15:58] VITALS: BP 136/62
--- NOTE | 2017-07-01 16:02 | General Progress Note ---
Objective - Results Result Diagrams: 07/01/17 04:22 07/01/17 04:22 Recent Labs: Laboratory Last Values WBC 8.4 Th/cmm (4.8-10.8) 07/01/17 04:22 RBC 3.94 Mil/cmm (3.80-5.20) 07/01/17 04:22 Hgb 11.1 gm/dL (12-16) L 07/01/17 04:22 Hct 34.2 % (41.0-60) L 07/01/17 04:22 MCV 86.7 fl (81-100) 07/01/17 04:22 MCH 28.2 pg (27.0-31.0) 07/01/17 04:22 MCHC Differential 32.6 pg (28.0-36.0) 07/01/17 04:22 RDW 13.3 % (11.5-20.0) 07/01/17 04:22 Plt Count 210 Th/cmm (150-400) 07/01/17 04:22 MPV 9.2 fl 07/01/17 04:22 Band Neutrophils % 2 % (0-10) 06/30/17 00:57 Neutrophils (Manual) 81 % (40-80) H 07/01/17 04:22 Lymphocytes 16 % (20-50) L 07/01/17 04:22 Monocytes 3 % (2-10) 07/01/17 04:22 Eosinophils 1 % (0-5) 06/30/17 00:57 Platelet Estimate ADEQUATE (NORMAL) 07/01/17 04:22 D-Dimer 3490 ng/mL (100-400) H 06/30/17 00:52 Specimen Source arterial 06/30/17 02:50 Sample Site Left Radial 06/30/17 02:50 pH 7.45 (7.35-7.45) 06/30/17 02:50 pCO2 42.0 mmHg (35.0-45.0) 06/30/17 02:50 pO2 61.0 mmHg (80.0-100.0) L 06/30/17 02:50 HCO3 28.5 mEq/L (20.0-26.0) H 06/30/17 02:50 Base Excess 4.7 mEq/L (-3.0-3.0) H 06/30/17 02:50 O2 Saturation 92.0 % (92.0-100.0) 06/30/17 02:50 Martinez Test YES 06/30/17 02:50 Vent Rate N/A 06/30/17 02:50 Inspired O2 21 06/30/17 02:50 Tidal Volume N/A 06/30/17 02:50 PEEP N/A 06/30/17 02:50 Pressure (ins/psv/peep) N/A 06/30/17 02:50 Critical Value ABROEDEL 06/30/17 02:50 Sodium 138 mEq/L (136-145) 07/01/17 04:22 Potassium 3.7 mEq/L (3.5-5.1) 07/01/17 04:22 Chloride 106 mEq/L (98-107) 07/01/17 04:22 Carbon Dioxide 25.1 mEq/L (21.0-31.0) 07/01/17 04:22 Anion Gap 10.6 (7.0-16.0) 07/01/17 04:22 BUN 21 mg/dL (7-25) 07/01/17 04:22 Creatinine 0.6 mg/dL (0.6-1.2) 07/01/17 04:22 Est GFR ( Amer) TNP 07/01/17 04:22 Est GFR (Non-Af Amer) TNP 07/01/17 04:22 BUN/Creatinine Ratio 35.0 07/01/17 04:22 Glucose 161 mg/dL (70-105) H 07/01/17 04:22 Whole Bld Lactic Acid 0.98 mmol/L (0.60-1.99) 06/30/17 00:57 Calcium 9.2 mg/dL (8.6-10.3) 07/01/17 04:22 Total Bilirubin 0.3 mg/dL (0.3-1.0) 06/30/17 00:57 AST 11 U/L (13-39) L 06/30/17 00:57 ALT 5 U/L (7-52) L 06/30/17 00:57 Alkaline Phosphatase 73 U/L (34-104) 06/30/17 00:57 Troponin I < 0.01 ng/mL (0.01-0.05) L 06/30/17 00:57 B-Natriuretic Peptide 82.3 pg/mL (5.0-100.0) 06/30/17 00:52 Total Protein 7.8 gm/dL (6.0-8.3) 06/30/17 00:57 Albumin 3.2 gm/dL (3.7-5.3) L 06/30/17 00:57 Globulin 4.6 gm/dL 06/30/17 00:57 Albumin/Globulin Ratio 0.7 (1.0-1.8) L 06/30/17 00:57 TSH 2.48 uIU/ml (0.34-5.60) 06/30/17 00:57 Urine Source RANDOM 06/30/17 00:20 Urine Color YELLOW 06/30/17 00:20 Urine Clarity CLEAR (CLEAR) 06/30/17 00:20 Urine pH 7.0 (4.6 - 8.0) 06/30/17 00:20 Ur Specific [place] 1.015 (1.005-1.030) 06/30/17 00:20 Urine Protein NEGATIVE mg/dL (NEGATIVE) 06/30/17 00:20 Urine Glucose (UA) NEGATIVE mg/dL (NEGATIVE) 06/30/17 00:20 Urine Ketones NEGATIVE mg/dL (NEGATIVE) 06/30/17 00:20 Urine Blood NEGATIVE (NEGATIVE) 06/30/17 00:20 Urine Nitrate NEGATIVE (NEGATIVE) 06/30/17 00:20 Urine Bilirubin NEGATIVE (NEGATIVE) 06/30/17 00:20 Urine Urobilinogen 0.2 E.U./dL (0.2 - 1.0) 06/30/17 00:20 Ur Leukocyte Esterase MODERATE (NEGATIVE) H 06/30/17 00:20 Urine RBC 0-2 /hpf (0-5) 06/30/17 00:20 Urine WBC 10-25 /hpf (0-5) H 06/30/17 00:20 Ur Epithelial Cells OCCASIONAL /lpf (FEW) 06/30/17 00:20 Urine Bacteria FEW /hpf (NONE SEEN) 06/30/17 00:20 - Physical Exam Vitals and I&O: Vital Signs Temp 97.3 F 07/01/17 15:00 Pulse 85 07/01/17 15:00 Resp 15 07/01/17 15:00 BP 136/62 07/01/17 15:58 Pulse Ox 95 07/01/17 15:00 Intake & Output 06/30/17 07/01/17 07/01/17 18:59 06:59 18:59 Intake Total 980 50 50 Output Total 300 Balance 980 -250 50 Weight (lbs) 54.97 kg 51.12 kg Intake: Intake, IV Amount 100 50 50 Piperacillin Sodium/ 100 50 50 Tazobact 2.25 gm In Sodium Chloride 0.9% 50 ml @ 100 mls/hr IV Q6HR [facility] Rx#:[id number] Oral 880 Output: Gastric Drainage 0 Urine 300 Stool 0 Urine/Stool Mix 0 Emesis 0 Hemodialysis 0 Other 0 Other: # Voids 5 0 # Bowel Movements 1 0 Stool Characteristics Soft Soft Weight Source Bedscale Bedscale Active Medications: Current Medications Acetaminophen (Tylenol) 650 mg PO Q4HR PRN PRN Reason: Pain or Fever >101 Stop: 08/29/17 08:11 Albuterol/Ipratropium (Duoneb Neb) 3 ml HHN Q4H PRN PRN Reason: Shortness of Breath Stop: 08/29/17 08:11 Last Admin: 06/30/17 19:08 Dose: 3 ml Budesonide (Pulmicort) 0.5 mg HHN Q12H [facility] Stop: 08/29/17 08:14 Last Admin: 07/01/17 07:24 Dose: 0.5 mg Dextrose (Glutose 40%) 15 gm PO UD PRN PRN Reason: blood sugar < 60 Stop: 08/29/17 08:11 Heparin Sodium (Porcine) (Heparin) 5,000 units SUBQ Q12H [facility] Stop: 08/29/17 20:59 Last Admin: 07/01/17 08:39 Dose: 5,000 units Piperacillin Sod/Tazobactam (Sod 2.25 gm/ Sodium Chloride) 50 mls @ 100 mls/hr IV Q6HR [facility] PRN Reason: Protocol Stop: 08/29/17 05:59 Last Infusion: 07/01/17 12:25 Dose: Infused Lactobacillus Rhamnosus (Culturelle 15b) 1 each PO DAILY [facility] Stop: 08/30/17 08:59 Last Admin: 07/01/17 08:36 Dose: 1 each Levetiracetam (Keppra) 250 mg PO HS [facility] Stop: 08/29/17 20:59 Last Admin: 06/30/17 23:00 Dose: 250 mg Lorazepam (Ativan) 1 mg IVP Q6HR PRN; Protocol PRN Reason: Agitation Stop: 08/29/17 07:04 Last Admin: 07/01/17 15:30 Dose: 1 mg Methylprednisolone Sodium Succinate (Solu-Medrol) 40 mg IVP Q8HR [facility] Stop: 08/30/17 15:14 Miscellaneous (Glucagon,Human Recombinant [Glucagon Emergency Kit]) 1 mg IJ UD PRN PRN Reason: hypoglycemia Stop: 08/29/17 08:11 Miscellaneous (Vte Chemical Prophylaxis Screen/ Admission) 1 ea [facility] PRN PRN PRN Reason: PROTOCOL Stop: 08/29/17 09:00 Miscellaneous (Probiotic Screen) 1 ea [facility] PRN PRN PRN Reason: PROTOCOL Stop: 08/29/17 09:55 Montelukast Sodium (Singulair) 10 mg PO HS [facility] Stop: 08/29/17 20:59 Last Admin: 06/30/17 21:14 Dose: 10 mg Pantoprazole Sodium (Protonix) 40 mg PO DAILY [facility] Stop: 08/29/17 08:59 Last Admin: 07/01/17 08:36 Dose: 40 mg Quetiapine Fumarate (Seroquel) 12.5 mg PO HS [facility] PRN Reason: Protocol Stop: 08/29/17 20:59 Last Admin: 06/30/17 21:17 Dose: 12.5 mg Quetiapine Fumarate (Seroquel) 12.5 mg PO BID [facility] PRN Reason: Protocol Stop: 08/30/17 16:59 Sitagliptin Phosphate (Januvia) 50 mg PO DAILY [facility] Stop: 08/29/17 08:59 Last Admin: 07/01/17 08:36 Dose: 50 mg
[2017-07-01] MEDS: methylPREDNISolone SS 40 mg Vial IVP SCH (22:54)
--- NOTE | 2017-07-01 23:35 | Infectious Disease Prog Note ---
Infectious Disease Subjective - Review of Systems Service Date: 07/01/17 Subjective: No new change, no fever, Infectious Disease Objective - Results Result Diagrams: 07/01/17 04:22 07/01/17 04:22 Recent Labs: Laboratory Last Values WBC 8.4 Th/cmm (4.8-10.8) 07/01/17 04:22 RBC 3.94 Mil/cmm (3.80-5.20) 07/01/17 04:22 Hgb 11.1 gm/dL (12-16) L 07/01/17 04:22 Hct 34.2 % (41.0-60) L 07/01/17 04:22 MCV 86.7 fl (81-100) 07/01/17 04:22 MCH 28.2 pg (27.0-31.0) 07/01/17 04:22 MCHC Differential 32.6 pg (28.0-36.0) 07/01/17 04:22 RDW 13.3 % (11.5-20.0) 07/01/17 04:22 Plt Count 210 Th/cmm (150-400) 07/01/17 04:22 MPV 9.2 fl 07/01/17 04:22 Band Neutrophils % 2 % (0-10) 06/30/17 00:57 Neutrophils (Manual) 81 % (40-80) H 07/01/17 04:22 Lymphocytes 16 % (20-50) L 07/01/17 04:22 Monocytes 3 % (2-10) 07/01/17 04:22 Eosinophils 1 % (0-5) 06/30/17 00:57 Platelet Estimate ADEQUATE (NORMAL) 07/01/17 04:22 D-Dimer 3490 ng/mL (100-400) H 06/30/17 00:52 Specimen Source arterial 06/30/17 02:50 Sample Site Left Radial 06/30/17 02:50 pH 7.45 (7.35-7.45) 06/30/17 02:50 pCO2 42.0 mmHg (35.0-45.0) 06/30/17 02:50 pO2 61.0 mmHg (80.0-100.0) L 06/30/17 02:50 HCO3 28.5 mEq/L (20.0-26.0) H 06/30/17 02:50 Base Excess 4.7 mEq/L (-3.0-3.0) H 06/30/17 02:50 O2 Saturation 92.0 % (92.0-100.0) 06/30/17 02:50 Martinez Test YES 06/30/17 02:50 Vent Rate N/A 06/30/17 02:50 Inspired O2 21 06/30/17 02:50 Tidal Volume N/A 06/30/17 02:50 PEEP N/A 06/30/17 02:50 Pressure (ins/psv/peep) N/A 06/30/17 02:50 Critical Value ABROEDEL 06/30/17 02:50 Sodium 138 mEq/L (136-145) 07/01/17 04:22 Potassium 3.7 mEq/L (3.5-5.1) 07/01/17 04:22 Chloride 106 mEq/L (98-107) 07/01/17 04:22 Carbon Dioxide 25.1 mEq/L (21.0-31.0) 07/01/17 04:22 Anion Gap 10.6 (7.0-16.0) 07/01/17 04:22 BUN 21 mg/dL (7-25) 07/01/17 04:22 Creatinine 0.6 mg/dL (0.6-1.2) 07/01/17 04:22 Est GFR ( Amer) TNP 07/01/17 04:22 Est GFR (Non-Af Amer) TNP 07/01/17 04:22 BUN/Creatinine Ratio 35.0 07/01/17 04:22 Glucose 161 mg/dL (70-105) H 07/01/17 04:22 Whole Bld Lactic Acid 0.98 mmol/L (0.60-1.99) 06/30/17 00:57 Calcium 9.2 mg/dL (8.6-10.3) 07/01/17 04:22 Total Bilirubin 0.3 mg/dL (0.3-1.0) 06/30/17 00:57 AST 11 U/L (13-39) L 06/30/17 00:57 ALT 5 U/L (7-52) L 06/30/17 00:57 Alkaline Phosphatase 73 U/L (34-104) 06/30/17 00:57 Troponin I < 0.01 ng/mL (0.01-0.05) L 06/30/17 00:57 B-Natriuretic Peptide 82.3 pg/mL (5.0-100.0) 06/30/17 00:52 Total Protein 7.8 gm/dL (6.0-8.3) 06/30/17 00:57 Albumin 3.2 gm/dL (3.7-5.3) L 06/30/17 00:57 Globulin 4.6 gm/dL 06/30/17 00:57 Albumin/Globulin Ratio 0.7 (1.0-1.8) L 06/30/17 00:57 TSH 2.48 uIU/ml (0.34-5.60) 06/30/17 00:57 Urine Source RANDOM 06/30/17 00:20 Urine Color YELLOW 06/30/17 00:20 Urine Clarity CLEAR (CLEAR) 06/30/17 00:20 Urine pH 7.0 (4.6 - 8.0) 06/30/17 00:20 Ur Specific [place] 1.015 (1.005-1.030) 06/30/17 00:20 Urine Protein NEGATIVE mg/dL (NEGATIVE) 06/30/17 00:20 Urine Glucose (UA) NEGATIVE mg/dL (NEGATIVE) 06/30/17 00:20 Urine Ketones NEGATIVE mg/dL (NEGATIVE) 06/30/17 00:20 Urine Blood NEGATIVE (NEGATIVE) 06/30/17 00:20 Urine Nitrate NEGATIVE (NEGATIVE) 06/30/17 00:20 Urine Bilirubin NEGATIVE (NEGATIVE) 06/30/17 00:20 Urine Urobilinogen 0.2 E.U./dL (0.2 - 1.0) 06/30/17 00:20 Ur Leukocyte Esterase MODERATE (NEGATIVE) H 06/30/17 00:20 Urine RBC 0-2 /hpf (0-5) 06/30/17 00:20 Urine WBC 10-25 /hpf (0-5) H 06/30/17 00:20 Ur Epithelial Cells OCCASIONAL /lpf (FEW) 06/30/17 00:20 Urine Bacteria FEW /hpf (NONE SEEN) 06/30/17 00:20 RPR NONREACTIVE (NONREACTIVE) 06/30/17 00:57 - Physical Exam Vitals and I&O: Vital Signs Temp 97.4 F 07/01/17 18:00 Pulse 64 07/01/17 19:12 Resp 18 07/01/17 19:12 BP 111/49 07/01/17 19:00 Pulse Ox 97 07/01/17 19:12 Intake & Output 07/01/17 07/01/17 07/02/17 06:59 18:59 06:59 Intake Total 50 900 Output Total 300 600 Balance -250 300 Weight (lbs) 51.12 kg 51.284 kg Intake: Intake, IV Amount 50 100 Piperacillin Sodium/ 50 100 Tazobact 2.25 gm In Sodium Chloride 0.9% 50 ml @ 100 mls/hr IV Q6HR [facility] Rx#:[id number] Oral 800 Output: Gastric Drainage 0 Urine 300 600 Stool 0 Urine/Stool Mix 0 Emesis 0 Hemodialysis 0 Other 0 Other: # Voids 0 # Bowel Movements 0 0 Stool Characteristics Soft Weight Source Bedscale Bedscale Active Medications: Current Medications Acetaminophen (Tylenol) 650 mg PO Q4HR PRN PRN Reason: Pain or Fever >101 Stop: 08/29/17 08:11 Albuterol/Ipratropium (Duoneb Neb) 3 ml HHN Q4H PRN PRN Reason: Shortness of Breath Stop: 08/29/17 08:11 Last Admin: 06/30/17 19:08 Dose: 3 ml Budesonide (Pulmicort) 0.5 mg HHN Q12H [facility] Stop: 08/29/17 08:14 Last Admin: 07/01/17 19:18 Dose: 0.5 mg Dextrose (Glutose 40%) 15 gm PO UD PRN PRN Reason: blood sugar < 60 Stop: 08/29/17 08:11 Heparin Sodium (Porcine) (Heparin) 5,000 units SUBQ Q12H [facility] Stop: 08/29/17 20:59 Last Admin: 07/01/17 22:54 Dose: 5,000 units Piperacillin Sod/Tazobactam (Sod 2.25 gm/ Sodium Chloride) 50 mls @ 100 mls/hr IV Q6HR [facility] PRN Reason: Protocol Stop: 08/29/17 05:59 Last Infusion: 07/01/17 17:55 Dose: Infused Lactobacillus Rhamnosus (Culturelle 15b) 1 each PO DAILY [facility] Stop: 08/30/17 08:59 Last Admin: 07/01/17 08:36 Dose: 1 each Levetiracetam (Keppra) 250 mg PO HS [facility] Stop: 08/29/17 20:59 Last Admin: 07/01/17 22:54 Dose: 250 mg Lorazepam (Ativan) 1 mg IVP Q6HR PRN; Protocol PRN Reason: Agitation Stop: 08/29/17 07:04 Last Admin: 07/01/17 15:30 Dose: 1 mg Methylprednisolone Sodium Succinate (Solu-Medrol) 40 mg IVP Q8HR [facility] Stop: 08/30/17 15:14 Last Admin: 07/01/17 22:54 Dose: 40 mg Miscellaneous (Glucagon,Human Recombinant [Glucagon Emergency Kit]) 1 mg IJ UD PRN PRN Reason: hypoglycemia Stop: 08/29/17 08:11 Miscellaneous (Vte Chemical Prophylaxis Screen/ Admission) 1 ea PRN PRN PRN Reason: PROTOCOL Stop: 08/29/17 09:00 Miscellaneous (Probiotic Screen) 1 ea PRN PRN PRN Reason: PROTOCOL Stop: 08/29/17 09:55 Montelukast Sodium (Singulair) 10 mg PO HS [facility] Stop: 08/29/17 20:59 Last Admin: 07/01/17 22:54 Dose: 10 mg Pantoprazole Sodium (Protonix) 40 mg PO DAILY [facility] Stop: 08/29/17 08:59 Last Admin: 07/01/17 08:36 Dose: 40 mg Quetiapine Fumarate (Seroquel) 12.5 mg PO BID [facility] PRN Reason: Protocol Stop: 08/30/17 16:59 Last Admin: 07/01/17 16:16 Dose: 12.5 mg Sitagliptin Phosphate (Januvia) 50 mg PO DAILY [facility] Stop: 08/29/17 08:59 Last Admin: 07/01/17 08:36 Dose: 50 mg General: no acute distress, well developed, well nourished HEENT: atraumatic, normocephalic, PERRLA, EOMI Neck: supple, no thyromegaly Cardiovascular: S1S2, regular Lungs: clear to auscultation bilaterally, clear to percussion Abdomen: soft, no tender, no distended, no rebound Extremities: no cyanosis, no clubbing, no edema Neurological: awake, alert Infectious Disease Assmt/Plan - Assessment Assessment: 1. Leukocytosis, reactive versus sepsis. 2. Pneumonia bilaterally. 3. Interstitial lung disease. 4. COPD. 5. Obesity. 6. Hypertension. 7. Hyperlipidemia. - Plan Plan: Continue Zosyn.
[2017-07-02] MEDS ORDERED: Piperacillin Sodium/Tazobact 2.25 gm Vial IV ONE ×2 (01:13→05:35)
[2017-07-02] MEDS: methylPREDNISolone SS 40 mg Vial IVP SCH ×3 (04:54→21:23)
[2017-07-02] MEDS: Budesonide 0.5 Mg/2 mL Ud HHN SCH ×3 (07:45→19:42)
[2017-07-02] MEDS: Lactobacillus Rhamnosus GG 15 Billion CFU CAP.SPRINK PO SCH (11:45)
[2017-07-02] MEDS: Pantoprazole 40 mg EC Tab PO SCH (11:45)
--- NOTE | 2017-07-02 14:07 | Infectious Disease Prog Note ---
Infectious Disease Subjective - Review of Systems Service Date: 07/02/17 Subjective: No new change, no fever, Infectious Disease Objective - Results Result Diagrams: 07/01/17 04:22 07/01/17 04:22 Recent Labs: Laboratory Last Values WBC 8.4 Th/cmm (4.8-10.8) 07/01/17 04:22 RBC 3.94 Mil/cmm (3.80-5.20) 07/01/17 04:22 Hgb 11.1 gm/dL (12-16) L 07/01/17 04:22 Hct 34.2 % (41.0-60) L 07/01/17 04:22 MCV 86.7 fl (81-100) 07/01/17 04:22 MCH 28.2 pg (27.0-31.0) 07/01/17 04:22 MCHC Differential 32.6 pg (28.0-36.0) 07/01/17 04:22 RDW 13.3 % (11.5-20.0) 07/01/17 04:22 Plt Count 210 Th/cmm (150-400) 07/01/17 04:22 MPV 9.2 fl 07/01/17 04:22 Band Neutrophils % 2 % (0-10) 06/30/17 00:57 Neutrophils (Manual) 81 % (40-80) H 07/01/17 04:22 Lymphocytes 16 % (20-50) L 07/01/17 04:22 Monocytes 3 % (2-10) 07/01/17 04:22 Eosinophils 1 % (0-5) 06/30/17 00:57 Platelet Estimate ADEQUATE (NORMAL) 07/01/17 04:22 D-Dimer 3490 ng/mL (100-400) H 06/30/17 00:52 Specimen Source arterial 06/30/17 02:50 Sample Site Left Radial 06/30/17 02:50 pH 7.45 (7.35-7.45) 06/30/17 02:50 pCO2 42.0 mmHg (35.0-45.0) 06/30/17 02:50 pO2 61.0 mmHg (80.0-100.0) L 06/30/17 02:50 HCO3 28.5 mEq/L (20.0-26.0) H 06/30/17 02:50 Base Excess 4.7 mEq/L (-3.0-3.0) H 06/30/17 02:50 O2 Saturation 92.0 % (92.0-100.0) 06/30/17 02:50 Martinez Test YES 06/30/17 02:50 Vent Rate N/A 06/30/17 02:50 Inspired O2 21 06/30/17 02:50 Tidal Volume N/A 06/30/17 02:50 PEEP N/A 06/30/17 02:50 Pressure (ins/psv/peep) N/A 06/30/17 02:50 Critical Value ABROEDEL 06/30/17 02:50 Sodium 138 mEq/L (136-145) 07/01/17 04:22 Potassium 3.7 mEq/L (3.5-5.1) 07/01/17 04:22 Chloride 106 mEq/L (98-107) 07/01/17 04:22 Carbon Dioxide 25.1 mEq/L (21.0-31.0) 07/01/17 04:22 Anion Gap 10.6 (7.0-16.0) 07/01/17 04:22 BUN 21 mg/dL (7-25) 07/01/17 04:22 Creatinine 0.6 mg/dL (0.6-1.2) 07/01/17 04:22 Est GFR ( Amer) TNP 07/01/17 04:22 Est GFR (Non-Af Amer) TNP 07/01/17 04:22 BUN/Creatinine Ratio 35.0 07/01/17 04:22 Glucose 161 mg/dL (70-105) H 07/01/17 04:22 Whole Bld Lactic Acid 0.98 mmol/L (0.60-1.99) 06/30/17 00:57 Calcium 9.2 mg/dL (8.6-10.3) 07/01/17 04:22 Total Bilirubin 0.3 mg/dL (0.3-1.0) 06/30/17 00:57 AST 11 U/L (13-39) L 06/30/17 00:57 ALT 5 U/L (7-52) L 06/30/17 00:57 Alkaline Phosphatase 73 U/L (34-104) 06/30/17 00:57 Troponin I < 0.01 ng/mL (0.01-0.05) L 06/30/17 00:57 B-Natriuretic Peptide 82.3 pg/mL (5.0-100.0) 06/30/17 00:52 Total Protein 7.8 gm/dL (6.0-8.3) 06/30/17 00:57 Albumin 3.2 gm/dL (3.7-5.3) L 06/30/17 00:57 Globulin 4.6 gm/dL 06/30/17 00:57 Albumin/Globulin Ratio 0.7 (1.0-1.8) L 06/30/17 00:57 TSH 2.48 uIU/ml (0.34-5.60) 06/30/17 00:57 Urine Source RANDOM 06/30/17 00:20 Urine Color YELLOW 06/30/17 00:20 Urine Clarity CLEAR (CLEAR) 06/30/17 00:20 Urine pH 7.0 (4.6 - 8.0) 06/30/17 00:20 Ur Specific [place] 1.015 (1.005-1.030) 06/30/17 00:20 Urine Protein NEGATIVE mg/dL (NEGATIVE) 06/30/17 00:20 Urine Glucose (UA) NEGATIVE mg/dL (NEGATIVE) 06/30/17 00:20 Urine Ketones NEGATIVE mg/dL (NEGATIVE) 06/30/17 00:20 Urine Blood NEGATIVE (NEGATIVE) 06/30/17 00:20 Urine Nitrate NEGATIVE (NEGATIVE) 06/30/17 00:20 Urine Bilirubin NEGATIVE (NEGATIVE) 06/30/17 00:20 Urine Urobilinogen 0.2 E.U./dL (0.2 - 1.0) 06/30/17 00:20 Ur Leukocyte Esterase MODERATE (NEGATIVE) H 06/30/17 00:20 Urine RBC 0-2 /hpf (0-5) 06/30/17 00:20 Urine WBC 10-25 /hpf (0-5) H 06/30/17 00:20 Ur Epithelial Cells OCCASIONAL /lpf (FEW) 06/30/17 00:20 Urine Bacteria FEW /hpf (NONE SEEN) 06/30/17 00:20 RPR NONREACTIVE (NONREACTIVE) 06/30/17 00:57 - Physical Exam Vitals and I&O: Vital Signs Temp 98.3 F 07/02/17 06:00 Pulse 66 07/02/17 07:45 Resp 18 07/02/17 07:45 BP 142/72 07/02/17 06:00 Pulse Ox 97 07/02/17 07:45 Intake & Output 07/01/17 07/02/17 07/02/17 18:59 06:59 18:59 Intake Total 900 220 Output Total 600 Balance 300 220 Weight (lbs) 51.284 kg 51.284 kg Intake: Intake, IV Amount 100 100 Piperacillin Sodium/ 100 100 Tazobact 2.25 gm In Sodium Chloride 0.9% 50 ml @ 100 mls/hr IV Q6HR [facility] Rx#:[id number] Oral 800 120 Output: Urine 600 Other: # Voids 1 # Bowel Movements 0 0 Weight Source Bedscale Bedscale Active Medications: Current Medications Acetaminophen (Tylenol) 650 mg PO Q4HR PRN PRN Reason: Pain or Fever >101 Stop: 08/29/17 08:11 Albuterol/Ipratropium (Duoneb Neb) 3 ml HHN Q4H PRN PRN Reason: Shortness of Breath Stop: 08/29/17 08:11 Last Admin: 06/30/17 19:08 Dose: 3 ml Budesonide (Pulmicort) 0.5 mg HHN Q12H [facility] Stop: 08/29/17 08:14 Last Admin: 07/02/17 07:45 Dose: 0.5 mg Dextrose (Glutose 40%) 15 gm PO UD PRN PRN Reason: blood sugar < 60 Stop: 08/29/17 08:11 Heparin Sodium (Porcine) (Heparin) 5,000 units SUBQ Q12H [facility] Stop: 08/29/17 20:59 Last Admin: 07/02/17 11:45 Dose: 5,000 units Piperacillin Sod/Tazobactam (Sod 2.25 gm/ Sodium Chloride) 50 mls @ 100 mls/hr IV Q6HR [facility] PRN Reason: Protocol Stop: 08/29/17 05:59 Last Admin: 07/02/17 12:04 Dose: 100 mls/hr Lactobacillus Rhamnosus (Culturelle 15b) 1 each PO DAILY [facility] Stop: 08/30/17 08:59 Last Admin: 07/02/17 11:45 Dose: 1 each Levetiracetam (Keppra) 250 mg PO HS [facility] Stop: 08/29/17 20:59 Last Admin: 07/01/17 22:54 Dose: 250 mg Lorazepam (Ativan) 1 mg IVP Q6HR PRN; Protocol PRN Reason: Agitation Stop: 08/29/17 07:04 Last Admin: 07/01/17 15:30 Dose: 1 mg Methylprednisolone Sodium Succinate (Solu-Medrol) 40 mg IVP Q8HR [facility] Stop: 08/30/17 15:14 Last Admin: 07/02/17 04:54 Dose: 40 mg Miscellaneous (Glucagon,Human Recombinant [Glucagon Emergency Kit]) 1 mg IJ UD PRN PRN Reason: hypoglycemia Stop: 08/29/17 08:11 Miscellaneous (Vte Chemical Prophylaxis Screen/ Admission) 1 ea PRN PRN PRN Reason: PROTOCOL Stop: 08/29/17 09:00 Miscellaneous (Probiotic Screen) 1 ea PRN PRN PRN Reason: PROTOCOL Stop: 08/29/17 09:55 Montelukast Sodium (Singulair) 10 mg PO HS BALWINDER Stop: 08/29/17 20:59 Last Admin: 07/01/17 22:54 Dose: 10 mg Pantoprazole Sodium (Protonix) 40 mg PO DAILY BALWINDER Stop: 08/29/17 08:59 Last Admin: 07/02/17 11:45 Dose: 40 mg Quetiapine Fumarate (Seroquel) 12.5 mg PO BID BALWINDER PRN Reason: Protocol Stop: 08/30/17 16:59 Last Admin: 07/02/17 11:45 Dose: 12.5 mg Sitagliptin Phosphate (Januvia) 50 mg PO DAILY BALWINDER Stop: 08/29/17 08:59 Last Admin: 07/02/17 11:46 Dose: 50 mg General: no acute distress, well developed, well nourished HEENT: atraumatic, normocephalic, PERRLA, EOMI Neck: supple, no thyromegaly Cardiovascular: S1S2, regular Lungs: clear to auscultation bilaterally, clear to percussion Abdomen: soft, no tender, no distended, no mass Extremities: no cyanosis, no clubbing Neurological: awake, alert Infectious Disease Assmt/Plan - Assessment Assessment: 1. Leukocytosis, reactive versus sepsis. 2. Pneumonia bilaterally. 3. Interstitial lung disease. 4. COPD. 5. Obesity. 6. Hypertension. 7. Hyperlipidemia. - Plan Plan: Continue Zosyn.
[2017-07-02] MEDS ORDERED: Budesonide 0.5 Mg/2 mL Ud HHN SCH (19:00)
--- NOTE | 2017-07-02 21:36 | General Progress Note ---
Subjective - Review of Systems Service Date: 07/02/17 Subjective: afebrile no overnight changes Objective - Results Result Diagrams: 07/01/17 04:22 07/01/17 04:22 Recent Labs: Laboratory Last Values WBC 8.4 Th/cmm (4.8-10.8) 07/01/17 04:22 RBC 3.94 Mil/cmm (3.80-5.20) 07/01/17 04:22 Hgb 11.1 gm/dL (12-16) L 07/01/17 04:22 Hct 34.2 % (41.0-60) L 07/01/17 04:22 MCV 86.7 fl (81-100) 07/01/17 04:22 MCH 28.2 pg (27.0-31.0) 07/01/17 04:22 MCHC Differential 32.6 pg (28.0-36.0) 07/01/17 04:22 RDW 13.3 % (11.5-20.0) 07/01/17 04:22 Plt Count 210 Th/cmm (150-400) 07/01/17 04:22 MPV 9.2 fl 07/01/17 04:22 Band Neutrophils % 2 % (0-10) 06/30/17 00:57 Neutrophils (Manual) 81 % (40-80) H 07/01/17 04:22 Lymphocytes 16 % (20-50) L 07/01/17 04:22 Monocytes 3 % (2-10) 07/01/17 04:22 Eosinophils 1 % (0-5) 06/30/17 00:57 Platelet Estimate ADEQUATE (NORMAL) 07/01/17 04:22 D-Dimer 3490 ng/mL (100-400) H 06/30/17 00:52 Specimen Source arterial 06/30/17 02:50 Sample Site Left Radial 06/30/17 02:50 pH 7.45 (7.35-7.45) 06/30/17 02:50 pCO2 42.0 mmHg (35.0-45.0) 06/30/17 02:50 pO2 61.0 mmHg (80.0-100.0) L 06/30/17 02:50 HCO3 28.5 mEq/L (20.0-26.0) H 06/30/17 02:50 Base Excess 4.7 mEq/L (-3.0-3.0) H 06/30/17 02:50 O2 Saturation 92.0 % (92.0-100.0) 06/30/17 02:50 Martinez Test YES 06/30/17 02:50 Vent Rate N/A 06/30/17 02:50 Inspired O2 21 06/30/17 02:50 Tidal Volume N/A 06/30/17 02:50 PEEP N/A 06/30/17 02:50 Pressure (ins/psv/peep) N/A 06/30/17 02:50 Critical Value ABROEDEL 06/30/17 02:50 Sodium 138 mEq/L (136-145) 07/01/17 04:22 Potassium 3.7 mEq/L (3.5-5.1) 07/01/17 04:22 Chloride 106 mEq/L (98-107) 07/01/17 04:22 Carbon Dioxide 25.1 mEq/L (21.0-31.0) 07/01/17 04:22 Anion Gap 10.6 (7.0-16.0) 07/01/17 04:22 BUN 21 mg/dL (7-25) 07/01/17 04:22 Creatinine 0.6 mg/dL (0.6-1.2) 07/01/17 04:22 Est GFR ( Amer) TNP 07/01/17 04:22 Est GFR (Non-Af Amer) TNP 07/01/17 04:22 BUN/Creatinine Ratio 35.0 07/01/17 04:22 Glucose 161 mg/dL (70-105) H 07/01/17 04:22 Whole Bld Lactic Acid 0.98 mmol/L (0.60-1.99) 06/30/17 00:57 Calcium 9.2 mg/dL (8.6-10.3) 07/01/17 04:22 Total Bilirubin 0.3 mg/dL (0.3-1.0) 06/30/17 00:57 AST 11 U/L (13-39) L 06/30/17 00:57 ALT 5 U/L (7-52) L 06/30/17 00:57 Alkaline Phosphatase 73 U/L (34-104) 06/30/17 00:57 Troponin I < 0.01 ng/mL (0.01-0.05) L 06/30/17 00:57 B-Natriuretic Peptide 82.3 pg/mL (5.0-100.0) 06/30/17 00:52 Total Protein 7.8 gm/dL (6.0-8.3) 06/30/17 00:57 Albumin 3.2 gm/dL (3.7-5.3) L 06/30/17 00:57 Globulin 4.6 gm/dL 06/30/17 00:57 Albumin/Globulin Ratio 0.7 (1.0-1.8) L 06/30/17 00:57 TSH 2.48 uIU/ml (0.34-5.60) 06/30/17 00:57 Urine Source RANDOM 06/30/17 00:20 Urine Color YELLOW 06/30/17 00:20 Urine Clarity CLEAR (CLEAR) 06/30/17 00:20 Urine pH 7.0 (4.6 - 8.0) 06/30/17 00:20 Ur Specific [place] 1.015 (1.005-1.030) 06/30/17 00:20 Urine Protein NEGATIVE mg/dL (NEGATIVE) 06/30/17 00:20 Urine Glucose (UA) NEGATIVE mg/dL (NEGATIVE) 06/30/17 00:20 Urine Ketones NEGATIVE mg/dL (NEGATIVE) 06/30/17 00:20 Urine Blood NEGATIVE (NEGATIVE) 06/30/17 00:20 Urine Nitrate NEGATIVE (NEGATIVE) 06/30/17 00:20 Urine Bilirubin NEGATIVE (NEGATIVE) 06/30/17 00:20 Urine Urobilinogen 0.2 E.U./dL (0.2 - 1.0) 06/30/17 00:20 Ur Leukocyte Esterase MODERATE (NEGATIVE) H 06/30/17 00:20 Urine RBC 0-2 /hpf (0-5) 06/30/17 00:20 Urine WBC 10-25 /hpf (0-5) H 06/30/17 00:20 Ur Epithelial Cells OCCASIONAL /lpf (FEW) 06/30/17 00:20 Urine Bacteria FEW /hpf (NONE SEEN) 06/30/17 00:20 RPR NONREACTIVE (NONREACTIVE) 06/30/17 00:57 - Physical Exam Vitals and I&O: Vital Signs Temp 98.0 F 07/02/17 16:00 Pulse 66 07/02/17 19:42 Resp 18 07/02/17 19:42 BP 127/60 07/02/17 16:00 Pulse Ox 88 07/02/17 19:42 Intake & Output 07/02/17 07/02/17 07/03/17 06:59 18:59 06:59 Intake Total 220 550 Balance 220 550 Weight (lbs) 51.284 kg 51.284 kg Intake: Intake, IV Amount 100 50 Piperacillin Sodium/ 100 50 Tazobact 2.25 gm In Sodium Chloride 0.9% 50 ml @ 100 mls/hr IV Q6HR [facility] Rx#:[id number] Oral 120 500 Other: # Voids 1 3 # Bowel Movements 0 0 Weight Source Bedscale Bedscale Active Medications: Current Medications Acetaminophen (Tylenol) 650 mg PO Q4HR PRN PRN Reason: Pain or Fever >101 Stop: 08/29/17 08:11 Albuterol/Ipratropium (Duoneb Neb) 3 ml HHN Q4H PRN PRN Reason: Shortness of Breath Stop: 08/29/17 08:11 Last Admin: 06/30/17 19:08 Dose: 3 ml Budesonide (Pulmicort) 0.5 mg HHN Q12H [facility] Stop: 08/29/17 08:14 Last Admin: 07/02/17 19:42 Dose: 0.5 mg Dextrose (Glutose 40%) 15 gm PO UD PRN PRN Reason: blood sugar < 60 Stop: 08/29/17 08:11 Heparin Sodium (Porcine) (Heparin) 5,000 units SUBQ Q12H [facility] Stop: 08/29/17 20:59 Last Admin: 07/02/17 21:19 Dose: 5,000 units Piperacillin Sod/Tazobactam (Sod 2.25 gm/ Sodium Chloride) 50 mls @ 100 mls/hr IV Q6HR [facility] PRN Reason: Protocol Stop: 08/29/17 05:59 Last Admin: 07/02/17 19:01 Dose: 100 mls/hr Lactobacillus Rhamnosus (Culturelle 15b) 1 each PO DAILY [facility] Stop: 08/30/17 08:59 Last Admin: 07/02/17 11:45 Dose: 1 each Levetiracetam (Keppra) 250 mg PO HS [facility] Stop: 08/29/17 20:59 Last Admin: 07/02/17 21:22 Dose: 250 mg Lorazepam (Ativan) 1 mg IVP Q6HR PRN; Protocol PRN Reason: Agitation Stop: 08/29/17 07:04 Last Admin: 07/01/17 15:30 Dose: 1 mg Methylprednisolone Sodium Succinate (Solu-Medrol) 40 mg IVP Q8HR [facility] Stop: 08/30/17 15:14 Last Admin: 07/02/17 21:23 Dose: 40 mg Miscellaneous (Glucagon,Human Recombinant [Glucagon Emergency Kit]) 1 mg IJ UD PRN PRN Reason: hypoglycemia Stop: 08/29/17 08:11 Miscellaneous (Vte Chemical Prophylaxis Screen/ Admission) 1 ea MC PRN PRN PRN Reason: PROTOCOL Stop: 08/29/17 09:00 Miscellaneous (Probiotic Screen) 1 ea PRN PRN PRN Reason: PROTOCOL Stop: 08/29/17 09:55 Montelukast Sodium (Singulair) 10 mg PO HS [facility] Stop: 08/29/17 20:59 Last Admin: 07/02/17 21:23 Dose: 10 mg Pantoprazole Sodium (Protonix) 40 mg PO DAILY [facility] Stop: 08/29/17 08:59 Last Admin: 07/02/17 11:45 Dose: 40 mg Quetiapine Fumarate (Seroquel) 12.5 mg PO BID [facility] PRN Reason: Protocol Stop: 08/30/17 16:59 Last Admin: 07/02/17 17:22 Dose: 12.5 mg Sitagliptin Phosphate (Januvia) 50 mg PO DAILY [facility] Stop: 08/29/17 08:59 Last Admin: 07/02/17 11:46 Dose: 50 mg General: No acute distress HEENT: PERRLA Neck: Supple Cardiovascular: Regular rate Lungs: Clear to auscultation Abdomen: Bowel sounds, Soft Assessment/Plan - Assessment Assessment: 1. Leukocytosis, reactive versus sepsis. 2. Pneumonia bilaterally. 3. Interstitial lung disease. 4. COPD. 5. Obesity. 6. Hypertension. 7. Hyperlipidemia. - Plan Plan: continue iv zosyn as per id cpm
[2017-07-03] MEDS: methylPREDNISolone SS 40 mg Vial IVP SCH ×3 (05:18→21:47)
[2017-07-03] MEDS: Budesonide 0.5 Mg/2 mL Ud HHN SCH ×2 (07:54→23:21)
[2017-07-03] MEDS: Pantoprazole 40 mg EC Tab PO SCH (10:25)
[2017-07-03] MEDS: Lactobacillus Rhamnosus GG 15 Billion CFU CAP.SPRINK PO SCH (10:25)
[2017-07-03] MEDS: INSULIN ASPART SLIDING SCALE 100 UNITS/ML UNIT SUBQ SCH (17:22)
[2017-07-03] MEDS: Albuterol/Ipratropium Neb 3 ML AERS HHN PRN (18:02)
--- NOTE | 2017-07-04 02:49 | Infectious Disease Prog Note ---
Infectious Disease Subjective - Review of Systems Service Date: 07/04/17 Subjective: No new change, no fever, Infectious Disease Objective - Results Result Diagrams: 07/01/17 04:22 07/01/17 04:22 Recent Labs: Laboratory Last Values WBC 8.4 Th/cmm (4.8-10.8) 07/01/17 04:22 RBC 3.94 Mil/cmm (3.80-5.20) 07/01/17 04:22 Hgb 11.1 gm/dL (12-16) L 07/01/17 04:22 Hct 34.2 % (41.0-60) L 07/01/17 04:22 MCV 86.7 fl (81-100) 07/01/17 04:22 MCH 28.2 pg (27.0-31.0) 07/01/17 04:22 MCHC Differential 32.6 pg (28.0-36.0) 07/01/17 04:22 RDW 13.3 % (11.5-20.0) 07/01/17 04:22 Plt Count 210 Th/cmm (150-400) 07/01/17 04:22 MPV 9.2 fl 07/01/17 04:22 Band Neutrophils % 2 % (0-10) 06/30/17 00:57 Neutrophils (Manual) 81 % (40-80) H 07/01/17 04:22 Lymphocytes 16 % (20-50) L 07/01/17 04:22 Monocytes 3 % (2-10) 07/01/17 04:22 Eosinophils 1 % (0-5) 06/30/17 00:57 Platelet Estimate ADEQUATE (NORMAL) 07/01/17 04:22 D-Dimer 3490 ng/mL (100-400) H 06/30/17 00:52 Specimen Source arterial 06/30/17 02:50 Sample Site Left Radial 06/30/17 02:50 pH 7.45 (7.35-7.45) 06/30/17 02:50 pCO2 42.0 mmHg (35.0-45.0) 06/30/17 02:50 pO2 61.0 mmHg (80.0-100.0) L 06/30/17 02:50 HCO3 28.5 mEq/L (20.0-26.0) H 06/30/17 02:50 Base Excess 4.7 mEq/L (-3.0-3.0) H 06/30/17 02:50 O2 Saturation 92.0 % (92.0-100.0) 06/30/17 02:50 Martinez Test YES 06/30/17 02:50 Vent Rate N/A 06/30/17 02:50 Inspired O2 21 06/30/17 02:50 Tidal Volume N/A 06/30/17 02:50 PEEP N/A 06/30/17 02:50 Pressure (ins/psv/peep) N/A 06/30/17 02:50 Critical Value ABROEDEL 06/30/17 02:50 Sodium 138 mEq/L (136-145) 07/01/17 04:22 Potassium 3.7 mEq/L (3.5-5.1) 07/01/17 04:22 Chloride 106 mEq/L (98-107) 07/01/17 04:22 Carbon Dioxide 25.1 mEq/L (21.0-31.0) 07/01/17 04:22 Anion Gap 10.6 (7.0-16.0) 07/01/17 04:22 BUN 21 mg/dL (7-25) 07/01/17 04:22 Creatinine 0.6 mg/dL (0.6-1.2) 07/01/17 04:22 Est GFR ( Amer) TNP 07/01/17 04:22 Est GFR (Non-Af Amer) TNP 07/01/17 04:22 BUN/Creatinine Ratio 35.0 07/01/17 04:22 Glucose 161 mg/dL (70-105) H 07/01/17 04:22 POC Glucose 167 MG/DL (70 - 105) H 07/03/17 16:52 Whole Bld Lactic Acid 0.98 mmol/L (0.60-1.99) 06/30/17 00:57 Calcium 9.2 mg/dL (8.6-10.3) 07/01/17 04:22 Total Bilirubin 0.3 mg/dL (0.3-1.0) 06/30/17 00:57 AST 11 U/L (13-39) L 06/30/17 00:57 ALT 5 U/L (7-52) L 06/30/17 00:57 Alkaline Phosphatase 73 U/L (34-104) 06/30/17 00:57 Troponin I < 0.01 ng/mL (0.01-0.05) L 06/30/17 00:57 B-Natriuretic Peptide 82.3 pg/mL (5.0-100.0) 06/30/17 00:52 Total Protein 7.8 gm/dL (6.0-8.3) 06/30/17 00:57 Albumin 3.2 gm/dL (3.7-5.3) L 06/30/17 00:57 Globulin 4.6 gm/dL 06/30/17 00:57 Albumin/Globulin Ratio 0.7 (1.0-1.8) L 06/30/17 00:57 TSH 2.48 uIU/ml (0.34-5.60) 06/30/17 00:57 Urine Source RANDOM 06/30/17 00:20 Urine Color YELLOW 06/30/17 00:20 Urine Clarity CLEAR (CLEAR) 06/30/17 00:20 Urine pH 7.0 (4.6 - 8.0) 06/30/17 00:20 Ur Specific [place] 1.015 (1.005-1.030) 06/30/17 00:20 Urine Protein NEGATIVE mg/dL (NEGATIVE) 06/30/17 00:20 Urine Glucose (UA) NEGATIVE mg/dL (NEGATIVE) 06/30/17 00:20 Urine Ketones NEGATIVE mg/dL (NEGATIVE) 06/30/17 00:20 Urine Blood NEGATIVE (NEGATIVE) 06/30/17 00:20 Urine Nitrate NEGATIVE (NEGATIVE) 06/30/17 00:20 Urine Bilirubin NEGATIVE (NEGATIVE) 06/30/17 00:20 Urine Urobilinogen 0.2 E.U./dL (0.2 - 1.0) 06/30/17 00:20 Ur Leukocyte Esterase MODERATE (NEGATIVE) H 06/30/17 00:20 Urine RBC 0-2 /hpf (0-5) 06/30/17 00:20 Urine WBC 10-25 /hpf (0-5) H 06/30/17 00:20 Ur Epithelial Cells OCCASIONAL /lpf (FEW) 06/30/17 00:20 Urine Bacteria FEW /hpf (NONE SEEN) 06/30/17 00:20 RPR NONREACTIVE (NONREACTIVE) 06/30/17 00:57 - Physical Exam Vitals and I&O: Vital Signs Temp 97.3 F 07/03/17 16:00 Pulse 60 07/03/17 18:02 Resp 18 07/03/17 23:21 BP 157/75 07/03/17 16:00 Pulse Ox 92 07/03/17 18:02 Intake & Output 07/03/17 07/03/17 07/04/17 06:59 18:59 06:59 Intake Total 200 100 300 Balance 200 100 300 Weight (lbs) 51.256 kg 51.256 kg Intake: Intake, IV Amount 150 100 Piperacillin Sodium/ 150 100 Tazobact 2.25 gm In Sodium Chloride 0.9% 50 ml @ 100 mls/hr IV Q6HR [facility] Rx#:[id number] Oral 50 100 Other 200 Other: # Voids 0 # Bowel Movements 0 Weight Source Bedscale Standing scale Active Medications: Current Medications Acetaminophen (Tylenol) 650 mg PO Q4HR PRN PRN Reason: Pain or Fever >101 Stop: 08/29/17 08:11 Albuterol/Ipratropium (Duoneb Neb) 3 ml HHN Q4H PRN PRN Reason: Shortness of Breath Stop: 08/29/17 08:11 Last Admin: 07/03/17 18:02 Dose: 3 ml Budesonide (Pulmicort) 0.5 mg HHN Q12H [facility] Stop: 08/29/17 08:14 Last Admin: 07/03/17 23:21 Dose: Not Given Dextrose (Glutose 40%) 15 gm PO UD PRN PRN Reason: blood sugar < 60 Stop: 08/29/17 08:11 Heparin Sodium (Porcine) (Heparin) 5,000 units SUBQ Q12H [facility] Stop: 08/29/17 20:59 Last Admin: 07/03/17 20:57 Dose: 5,000 units Piperacillin Sod/Tazobactam (Sod 2.25 gm/ Sodium Chloride) 50 mls @ 100 mls/hr IV Q6HR [facility] PRN Reason: Protocol Stop: 08/29/17 05:59 Last Admin: 07/04/17 00:13 Dose: 100 mls/hr Insulin Aspart (Novolog Insulin Sliding Scale) 0 units SUBQ BID [facility] PRN Reason: Protocol Stop: 09/01/17 16:59 Last Admin: 07/03/17 17:22 Dose: 2 units Lactobacillus Rhamnosus (Culturelle 15b) 1 each PO DAILY [facility] Stop: 08/30/17 08:59 Last Admin: 07/03/17 10:25 Dose: 1 each Levetiracetam (Keppra) 250 mg PO HS [facility] Stop: 08/29/17 20:59 Last Admin: 07/03/17 20:53 Dose: 250 mg Lorazepam (Ativan) 1 mg IVP Q6HR PRN; Protocol PRN Reason: Agitation Stop: 08/29/17 07:04 Last Admin: 07/01/17 15:30 Dose: 1 mg Methylprednisolone Sodium Succinate (Solu-Medrol) 40 mg IVP Q8HR [facility] Stop: 08/30/17 15:14 Last Admin: 07/03/17 21:47 Dose: 40 mg Miscellaneous (Glucagon,Human Recombinant [Glucagon Emergency Kit]) 1 mg IJ UD PRN PRN Reason: hypoglycemia Stop: 08/29/17 08:11 Miscellaneous (Vte Chemical Prophylaxis Screen/ Admission) 1 ea PRN PRN PRN Reason: PROTOCOL Stop: 08/29/17 09:00 Miscellaneous (Probiotic Screen) 1 ea PRN PRN PRN Reason: PROTOCOL Stop: 08/29/17 09:55 Montelukast Sodium (Singulair) 10 mg PO HS [facility] Stop: 08/29/17 20:59 Last Admin: 07/03/17 20:53 Dose: 10 mg Pantoprazole Sodium (Protonix) 40 mg PO DAILY [facility] Stop: 08/29/17 08:59 Last Admin: 07/03/17 10:25 Dose: 40 mg Quetiapine Fumarate (Seroquel) 12.5 mg PO BID [facility] PRN Reason: Protocol Stop: 08/30/17 16:59 Last Admin: 07/03/17 17:07 Dose: 12.5 mg Sitagliptin Phosphate (Januvia) 50 mg PO DAILY [facility] Stop: 08/29/17 08:59 Last Admin: 07/03/17 10:25 Dose: 50 mg General: no acute distress, well developed, well nourished HEENT: atraumatic, normocephalic, PERRLA, EOMI Neck: supple, no thyromegaly, no lymphadenopathy Cardiovascular: S1S2, regular Lungs: clear to auscultation bilaterally, clear to percussion Abdomen: soft, no tender, no distended, no mass Extremities: no cyanosis, no clubbing, no edema Neurological: awake, alert Skin: intact Infectious Disease Assmt/Plan - Assessment Assessment: 1. Leukocytosis, reactive versus sepsis. 2. Pneumonia bilaterally. 3. Interstitial lung disease. 4. COPD. 5. Obesity. 6. Hypertension. 7. Hyperlipidemia. - Plan Plan: Continue Zosyn. Nutritional Asmnt/Malnutr-PDOC - Dietary Evaluation Malnutrition Findings (Please click <Entered> for more info): Nutritional Asmnt/Malnutrition Start: 07/03/17 11: 02 Text: Status: Active Freq: Document 07/03/17 11:02 MIS (Rec: 07/03/17 11:07 MIS [place]- [id number]) Nutritional Asmnt/Malnutrition Patient General Information Diagnosis r/o pulmonary embolus (RFV) Pertinent Medical Hx/Surgical Hx obesity, COPD, HTN, hyperlipidemia Subjective Information Pt sittin up in bed stated good apptetite but could not answer other RD questions appropriately Current Diet Order/ Nutrition Support [facility] Pertinent Medications culturelle, solumedrol, protonix Pertinent Labs 07/01: Na 138, K 3.7, Cl 106, CO2 25.1, BUN 21, Cr 0.6, Ca 9 .2 glucose 161 Nutritional Hx/Data Height 1.57 m Height (Calculated Centimeters) 157.5 Current Weight (lbs) 52.98 kg Weight (Calculated Kilograms) 53.0 Weight (Calculated Grams) 14286.6 Body Mass Index (BMI) 21.3 Weight Status Approriate GI Symptoms GI Symptoms None Last BM 06/30 Cultural/Ethnic/Restorationism Belief unknown Usual diet at home unknown Skin Integrity/Comment: karlos score 16 Current %PO Fair (50-74%) Estimated Nutritional Goals BEE in Kcals: Using Current wt Calories/Kcals/Kg 25-30kcals/kg Kcals Calculated 1325-1590kcals/day Protein: Using Current wt Protein g/kg/kg Protein Calculated 53g/day Fluid: ml per MD Nutritional Problem 1. Problem Problem No nutrition diagnosis at this time Intervention/Recommendation Comments Recommend continuing [facility] diet Expected Outcomes/Goals Expected Outcomes/Goals PO intake 50-75% of meals
--- NOTE | 2017-07-04 02:55 | Infectious Disease Prog Note ---
Infectious Disease Subjective - Review of Systems Service Date: 07/03/17 Subjective: No new change, no fever, Infectious Disease Objective - Results Result Diagrams: 07/01/17 04:22 07/01/17 04:22 Recent Labs: Laboratory Last Values WBC 8.4 Th/cmm (4.8-10.8) 07/01/17 04:22 RBC 3.94 Mil/cmm (3.80-5.20) 07/01/17 04:22 Hgb 11.1 gm/dL (12-16) L 07/01/17 04:22 Hct 34.2 % (41.0-60) L 07/01/17 04:22 MCV 86.7 fl (81-100) 07/01/17 04:22 MCH 28.2 pg (27.0-31.0) 07/01/17 04:22 MCHC Differential 32.6 pg (28.0-36.0) 07/01/17 04:22 RDW 13.3 % (11.5-20.0) 07/01/17 04:22 Plt Count 210 Th/cmm (150-400) 07/01/17 04:22 MPV 9.2 fl 07/01/17 04:22 Band Neutrophils % 2 % (0-10) 06/30/17 00:57 Neutrophils (Manual) 81 % (40-80) H 07/01/17 04:22 Lymphocytes 16 % (20-50) L 07/01/17 04:22 Monocytes 3 % (2-10) 07/01/17 04:22 Eosinophils 1 % (0-5) 06/30/17 00:57 Platelet Estimate ADEQUATE (NORMAL) 07/01/17 04:22 D-Dimer 3490 ng/mL (100-400) H 06/30/17 00:52 Specimen Source arterial 06/30/17 02:50 Sample Site Left Radial 06/30/17 02:50 pH 7.45 (7.35-7.45) 06/30/17 02:50 pCO2 42.0 mmHg (35.0-45.0) 06/30/17 02:50 pO2 61.0 mmHg (80.0-100.0) L 06/30/17 02:50 HCO3 28.5 mEq/L (20.0-26.0) H 06/30/17 02:50 Base Excess 4.7 mEq/L (-3.0-3.0) H 06/30/17 02:50 O2 Saturation 92.0 % (92.0-100.0) 06/30/17 02:50 Martinez Test YES 06/30/17 02:50 Vent Rate N/A 06/30/17 02:50 Inspired O2 21 06/30/17 02:50 Tidal Volume N/A 06/30/17 02:50 PEEP N/A 06/30/17 02:50 Pressure (ins/psv/peep) N/A 06/30/17 02:50 Critical Value ABROEDEL 06/30/17 02:50 Sodium 138 mEq/L (136-145) 07/01/17 04:22 Potassium 3.7 mEq/L (3.5-5.1) 07/01/17 04:22 Chloride 106 mEq/L (98-107) 07/01/17 04:22 Carbon Dioxide 25.1 mEq/L (21.0-31.0) 07/01/17 04:22 Anion Gap 10.6 (7.0-16.0) 07/01/17 04:22 BUN 21 mg/dL (7-25) 07/01/17 04:22 Creatinine 0.6 mg/dL (0.6-1.2) 07/01/17 04:22 Est GFR ( Amer) TNP 07/01/17 04:22 Est GFR (Non-Af Amer) TNP 07/01/17 04:22 BUN/Creatinine Ratio 35.0 07/01/17 04:22 Glucose 161 mg/dL (70-105) H 07/01/17 04:22 POC Glucose 167 MG/DL (70 - 105) H 07/03/17 16:52 Whole Bld Lactic Acid 0.98 mmol/L (0.60-1.99) 06/30/17 00:57 Calcium 9.2 mg/dL (8.6-10.3) 07/01/17 04:22 Total Bilirubin 0.3 mg/dL (0.3-1.0) 06/30/17 00:57 AST 11 U/L (13-39) L 06/30/17 00:57 ALT 5 U/L (7-52) L 06/30/17 00:57 Alkaline Phosphatase 73 U/L (34-104) 06/30/17 00:57 Troponin I < 0.01 ng/mL (0.01-0.05) L 06/30/17 00:57 B-Natriuretic Peptide 82.3 pg/mL (5.0-100.0) 06/30/17 00:52 Total Protein 7.8 gm/dL (6.0-8.3) 06/30/17 00:57 Albumin 3.2 gm/dL (3.7-5.3) L 06/30/17 00:57 Globulin 4.6 gm/dL 06/30/17 00:57 Albumin/Globulin Ratio 0.7 (1.0-1.8) L 06/30/17 00:57 TSH 2.48 uIU/ml (0.34-5.60) 06/30/17 00:57 Urine Source RANDOM 06/30/17 00:20 Urine Color YELLOW 06/30/17 00:20 Urine Clarity CLEAR (CLEAR) 06/30/17 00:20 Urine pH 7.0 (4.6 - 8.0) 06/30/17 00:20 Ur Specific [place] 1.015 (1.005-1.030) 06/30/17 00:20 Urine Protein NEGATIVE mg/dL (NEGATIVE) 06/30/17 00:20 Urine Glucose (UA) NEGATIVE mg/dL (NEGATIVE) 06/30/17 00:20 Urine Ketones NEGATIVE mg/dL (NEGATIVE) 06/30/17 00:20 Urine Blood NEGATIVE (NEGATIVE) 06/30/17 00:20 Urine Nitrate NEGATIVE (NEGATIVE) 06/30/17 00:20 Urine Bilirubin NEGATIVE (NEGATIVE) 06/30/17 00:20 Urine Urobilinogen 0.2 E.U./dL (0.2 - 1.0) 06/30/17 00:20 Ur Leukocyte Esterase MODERATE (NEGATIVE) H 06/30/17 00:20 Urine RBC 0-2 /hpf (0-5) 06/30/17 00:20 Urine WBC 10-25 /hpf (0-5) H 06/30/17 00:20 Ur Epithelial Cells OCCASIONAL /lpf (FEW) 06/30/17 00:20 Urine Bacteria FEW /hpf (NONE SEEN) 06/30/17 00:20 RPR NONREACTIVE (NONREACTIVE) 06/30/17 00:57 - Physical Exam Vitals and I&O: Vital Signs Temp 97.3 F 07/03/17 16:00 Pulse 60 07/03/17 18:02 Resp 18 07/03/17 23:21 BP 157/75 07/03/17 16:00 Pulse Ox 92 07/03/17 18:02 Intake & Output 07/03/17 07/03/17 07/04/17 06:59 18:59 06:59 Intake Total 200 100 300 Balance 200 100 300 Weight (lbs) 51.256 kg 51.256 kg Intake: Intake, IV Amount 150 100 Piperacillin Sodium/ 150 100 Tazobact 2.25 gm In Sodium Chloride 0.9% 50 ml @ 100 mls/hr IV Q6HR [facility] Rx#:[id number] Oral 50 100 Other 200 Other: # Voids 0 # Bowel Movements 0 Weight Source Bedscale Standing scale Active Medications: Current Medications Acetaminophen (Tylenol) 650 mg PO Q4HR PRN PRN Reason: Pain or Fever >101 Stop: 08/29/17 08:11 Albuterol/Ipratropium (Duoneb Neb) 3 ml HHN Q4H PRN PRN Reason: Shortness of Breath Stop: 08/29/17 08:11 Last Admin: 07/03/17 18:02 Dose: 3 ml Budesonide (Pulmicort) 0.5 mg HHN Q12H [facility] Stop: 08/29/17 08:14 Last Admin: 07/03/17 23:21 Dose: Not Given Dextrose (Glutose 40%) 15 gm PO UD PRN PRN Reason: blood sugar < 60 Stop: 08/29/17 08:11 Heparin Sodium (Porcine) (Heparin) 5,000 units SUBQ Q12H [facility] Stop: 08/29/17 20:59 Last Admin: 07/03/17 20:57 Dose: 5,000 units Piperacillin Sod/Tazobactam (Sod 2.25 gm/ Sodium Chloride) 50 mls @ 100 mls/hr IV Q6HR [facility] PRN Reason: Protocol Stop: 08/29/17 05:59 Last Admin: 07/04/17 00:13 Dose: 100 mls/hr Insulin Aspart (Novolog Insulin Sliding Scale) 0 units SUBQ BID [facility] PRN Reason: Protocol Stop: 09/01/17 16:59 Last Admin: 07/03/17 17:22 Dose: 2 units Lactobacillus Rhamnosus (Culturelle 15b) 1 each PO DAILY [facility] Stop: 08/30/17 08:59 Last Admin: 07/03/17 10:25 Dose: 1 each Levetiracetam (Keppra) 250 mg PO HS [facility] Stop: 08/29/17 20:59 Last Admin: 07/03/17 20:53 Dose: 250 mg Lorazepam (Ativan) 1 mg IVP Q6HR PRN; Protocol PRN Reason: Agitation Stop: 08/29/17 07:04 Last Admin: 07/01/17 15:30 Dose: 1 mg Methylprednisolone Sodium Succinate (Solu-Medrol) 40 mg IVP Q8HR [facility] Stop: 08/30/17 15:14 Last Admin: 07/03/17 21:47 Dose: 40 mg Miscellaneous (Glucagon,Human Recombinant [Glucagon Emergency Kit]) 1 mg IJ UD PRN PRN Reason: hypoglycemia Stop: 08/29/17 08:11 Miscellaneous (Vte Chemical Prophylaxis Screen/ Admission) 1 ea PRN PRN PRN Reason: PROTOCOL Stop: 08/29/17 09:00 Miscellaneous (Probiotic Screen) 1 ea PRN PRN PRN Reason: PROTOCOL Stop: 08/29/17 09:55 Montelukast Sodium (Singulair) 10 mg PO HS [facility] Stop: 08/29/17 20:59 Last Admin: 07/03/17 20:53 Dose: 10 mg Pantoprazole Sodium (Protonix) 40 mg PO DAILY [facility] Stop: 08/29/17 08:59 Last Admin: 07/03/17 10:25 Dose: 40 mg Quetiapine Fumarate (Seroquel) 12.5 mg PO BID [facility] PRN Reason: Protocol Stop: 08/30/17 16:59 Last Admin: 07/03/17 17:07 Dose: 12.5 mg Sitagliptin Phosphate (Januvia) 50 mg PO DAILY [facility] Stop: 08/29/17 08:59 Last Admin: 07/03/17 10:25 Dose: 50 mg General: no acute distress HEENT: atraumatic, normocephalic, PERRLA, EOMI, moist mucous membrane Neck: supple, no thyromegaly, no lymphadenopathy Cardiovascular: S1S2, regular Lungs: clear to auscultation bilaterally, clear to percussion Abdomen: soft, no tender, no distended, no mass Extremities: no cyanosis, no clubbing, no edema Neurological: awake, alert Skin: intact Infectious Disease Assmt/Plan - Assessment Assessment: 1. Leukocytosis, reactive versus sepsis. 2. Pneumonia bilaterally. 3. Interstitial lung disease. 4. COPD. 5. Obesity. 6. Hypertension. 7. Hyperlipidemia. - Plan Plan: Continue Zosyn. Nutritional Asmnt/Malnutr-PDOC - Dietary Evaluation Malnutrition Findings (Please click <Entered> for more info): Nutritional Asmnt/Malnutrition Start: 07/03/17 11: 02 Text: Status: Active Freq: Document 07/03/17 11:02 MIS (Rec: 07/03/17 11:07 MIS [place]- [email or web address]) Nutritional Asmnt/Malnutrition Patient General Information Diagnosis r/o pulmonary embolus (RFV) Pertinent Medical Hx/Surgical Hx obesity, COPD, HTN, hyperlipidemia Subjective Information Pt sittin up in bed stated good apptetite but could not answer other RD questions appropriately Current Diet Order/ Nutrition Support [facility] Pertinent Medications culturelle, solumedrol, protonix Pertinent Labs 07/01: Na 138, K 3.7, Cl 106, CO2 25.1, BUN 21, Cr 0.6, Ca 9 .2 glucose 161 Nutritional Hx/Data Height 1.57 m Height (Calculated Centimeters) 157.5 Current Weight (lbs) 52.98 kg Weight (Calculated Kilograms) 53.0 Weight (Calculated Grams) 60879.6 Body Mass Index (BMI) 21.3 Weight Status Approriate GI Symptoms GI Symptoms None Last BM 06/30 Cultural/Ethnic/Denominational Belief unknown Usual diet at home unknown Skin Integrity/Comment: karlos score 16 Current %PO Fair (50-74%) Estimated Nutritional Goals BEE in Kcals: Using Current wt Calories/Kcals/Kg 25-30kcals/kg Kcals Calculated 1325-1590kcals/day Protein: Using Current wt Protein g/kg/kg Protein Calculated 53g/day Fluid: ml per MD Nutritional Problem 1. Problem Problem No nutrition diagnosis at this time Intervention/Recommendation Comments Recommend continuing [facility] diet Expected Outcomes/Goals Expected Outcomes/Goals PO intake 50-75% of meals
[2017-07-04] MEDS: methylPREDNISolone SS 40 mg Vial IVP SCH ×3 (05:21→20:56)
[2017-07-04] MEDS: Budesonide 0.5 Mg/2 mL Ud HHN SCH ×3 (07:40→21:05)
[2017-07-04] MEDS: Lactobacillus Rhamnosus GG 15 Billion CFU CAP.SPRINK PO SCH (09:25)
[2017-07-04] MEDS: Pantoprazole 40 mg EC Tab PO SCH (09:25)
[2017-07-04] MEDS: INSULIN ASPART SLIDING SCALE 100 UNITS/ML UNIT SUBQ SCH ×2 (09:26→17:24)
--- NOTE | 2017-07-04 11:36 | General Progress Note ---
Subjective - Review of Systems Events since last encounter: no change no fever Subjective: afebrile no overnight changes Objective - Results Result Diagrams: 07/01/17 04:22 07/01/17 04:22 Recent Labs: Laboratory Last Values WBC 8.4 Th/cmm (4.8-10.8) 07/01/17 04:22 RBC 3.94 Mil/cmm (3.80-5.20) 07/01/17 04:22 Hgb 11.1 gm/dL (12-16) L 07/01/17 04:22 Hct 34.2 % (41.0-60) L 07/01/17 04:22 MCV 86.7 fl (81-100) 07/01/17 04:22 MCH 28.2 pg (27.0-31.0) 07/01/17 04:22 MCHC Differential 32.6 pg (28.0-36.0) 07/01/17 04:22 RDW 13.3 % (11.5-20.0) 07/01/17 04:22 Plt Count 210 Th/cmm (150-400) 07/01/17 04:22 MPV 9.2 fl 07/01/17 04:22 Band Neutrophils % 2 % (0-10) 06/30/17 00:57 Neutrophils (Manual) 81 % (40-80) H 07/01/17 04:22 Lymphocytes 16 % (20-50) L 07/01/17 04:22 Monocytes 3 % (2-10) 07/01/17 04:22 Eosinophils 1 % (0-5) 06/30/17 00:57 Platelet Estimate ADEQUATE (NORMAL) 07/01/17 04:22 D-Dimer 3490 ng/mL (100-400) H 06/30/17 00:52 Specimen Source arterial 06/30/17 02:50 Sample Site Left Radial 06/30/17 02:50 pH 7.45 (7.35-7.45) 06/30/17 02:50 pCO2 42.0 mmHg (35.0-45.0) 06/30/17 02:50 pO2 61.0 mmHg (80.0-100.0) L 06/30/17 02:50 HCO3 28.5 mEq/L (20.0-26.0) H 06/30/17 02:50 Base Excess 4.7 mEq/L (-3.0-3.0) H 06/30/17 02:50 O2 Saturation 92.0 % (92.0-100.0) 06/30/17 02:50 Martinez Test YES 06/30/17 02:50 Vent Rate N/A 06/30/17 02:50 Inspired O2 21 06/30/17 02:50 Tidal Volume N/A 06/30/17 02:50 PEEP N/A 06/30/17 02:50 Pressure (ins/psv/peep) N/A 06/30/17 02:50 Critical Value ABROEDEL 06/30/17 02:50 Sodium 138 mEq/L (136-145) 07/01/17 04:22 Potassium 3.7 mEq/L (3.5-5.1) 07/01/17 04:22 Chloride 106 mEq/L (98-107) 07/01/17 04:22 Carbon Dioxide 25.1 mEq/L (21.0-31.0) 07/01/17 04:22 Anion Gap 10.6 (7.0-16.0) 07/01/17 04:22 BUN 21 mg/dL (7-25) 07/01/17 04:22 Creatinine 0.6 mg/dL (0.6-1.2) 07/01/17 04:22 Est GFR ( Amer) TNP 07/01/17 04:22 Est GFR (Non-Af Amer) TNP 07/01/17 04:22 BUN/Creatinine Ratio 35.0 07/01/17 04:22 Glucose 161 mg/dL (70-105) H 07/01/17 04:22 POC Glucose 105 MG/DL (70 - 105) 07/04/17 07:45 Whole Bld Lactic Acid 0.98 mmol/L (0.60-1.99) 06/30/17 00:57 Calcium 9.2 mg/dL (8.6-10.3) 07/01/17 04:22 Total Bilirubin 0.3 mg/dL (0.3-1.0) 06/30/17 00:57 AST 11 U/L (13-39) L 06/30/17 00:57 ALT 5 U/L (7-52) L 06/30/17 00:57 Alkaline Phosphatase 73 U/L (34-104) 06/30/17 00:57 Troponin I < 0.01 ng/mL (0.01-0.05) L 06/30/17 00:57 B-Natriuretic Peptide 82.3 pg/mL (5.0-100.0) 06/30/17 00:52 Total Protein 7.8 gm/dL (6.0-8.3) 06/30/17 00:57 Albumin 3.2 gm/dL (3.7-5.3) L 06/30/17:57 Globulin 4.6 gm/dL 06/30/17 00:57 Albumin/Globulin Ratio 0.7 (1.0-1.8) L 06/30/17 00:57 TSH 2.48 uIU/ml (0.34-5.60) 06/30/17:57 Urine Source RANDOM 06/30/17 00:20 Urine Color YELLOW 06/30/17 00:20 Urine Clarity CLEAR (CLEAR) 06/30/17 00:20 Urine pH 7.0 (4.6 - 8.0) 06/30/17 00:20 Ur Specific [place] 1.015 (1.005-1.030) 06/30/17 00:20 Urine Protein NEGATIVE mg/dL (NEGATIVE) 06/30/17 00:20 Urine Glucose (UA) NEGATIVE mg/dL (NEGATIVE) 06/30/17 00:20 Urine Ketones NEGATIVE mg/dL (NEGATIVE) 06/30/17 00:20 Urine Blood NEGATIVE (NEGATIVE) 06/30/17 00:20 Urine Nitrate NEGATIVE (NEGATIVE) 06/30/17 00:20 Urine Bilirubin NEGATIVE (NEGATIVE) 06/30/17 00:20 Urine Urobilinogen 0.2 E.U./dL (0.2 - 1.0) 06/30/17 00:20 Ur Leukocyte Esterase MODERATE (NEGATIVE) H 06/30/17 00:20 Urine RBC 0-2 /hpf (0-5) 06/30/17 00:20 Urine WBC 10-25 /hpf (0-5) H 06/30/17 00:20 Ur Epithelial Cells OCCASIONAL /lpf (FEW) 06/30/17 00:20 Urine Bacteria FEW /hpf (NONE SEEN) 06/30/17 00:20 RPR NONREACTIVE (NONREACTIVE) 06/30/17 00:57 - Physical Exam Vitals and I&O: Vital Signs Temp 97.3 F 07/03/17 16:00 Pulse 54 07/04/17 07:42 Resp 16 07/04/17 07:42 BP 157/75 07/03/17 16:00 Pulse Ox 93 07/04/17 07:42 Intake & Output 07/03/17 07/04/17 07/04/17 18:59 06:59 18:59 Intake Total 100 350 Balance 100 350 Weight (lbs) 51.256 kg Intake: Intake, IV Amount 100 50 Piperacillin Sodium/ 100 50 Tazobact 2.25 gm In Sodium Chloride 0.9% 50 ml @ 100 mls/hr IV Q6HR [facility] Rx#:[id number] Oral 100 Other 200 Other: Weight Source Standing scale Active Medications: Current Medications Acetaminophen (Tylenol) 650 mg PO Q4HR PRN PRN Reason: Pain or Fever >101 Stop: 08/29/17 08:11 Albuterol/Ipratropium (Duoneb Neb) 3 ml HHN Q4H PRN PRN Reason: Shortness of Breath Stop: 08/29/17 08:11 Last Admin: 07/03/17 18:02 Dose: 3 ml Budesonide (Pulmicort) 0.5 mg HHN Q12H [facility] Stop: 08/29/17 08:14 Last Admin: 07/04/17 07:40 Dose: 0.5 mg Dextrose (Glutose 40%) 15 gm PO UD PRN PRN Reason: blood sugar < 60 Stop: 08/29/17 08:11 Heparin Sodium (Porcine) (Heparin) 5,000 units SUBQ Q12H [facility] Stop: 08/29/17 20:59 Last Admin: 07/04/17 09:25 Dose: 5,000 units Piperacillin Sod/Tazobactam (Sod 2.25 gm/ Sodium Chloride) 50 mls @ 100 mls/hr IV Q6HR [facility] PRN Reason: Protocol Stop: 08/29/17 05:59 Last Admin: 07/04/17 05:28 Dose: 100 mls/hr Insulin Aspart (Novolog Insulin Sliding Scale) 0 units SUBQ BID [facility] PRN Reason: Protocol Stop: 09/01/17 16:59 Last Admin: 07/04/17 09:26 Dose: Not Given Lactobacillus Rhamnosus (Culturelle 15b) 1 each PO DAILY [facility] Stop: 08/30/17 08:59 Last Admin: 07/04/17 09:25 Dose: 1 each Levetiracetam (Keppra) 250 mg PO HS [facility] Stop: 08/29/17 20:59 Last Admin: 07/03/17 20:53 Dose: 250 mg Lorazepam (Ativan) 1 mg IVP Q6HR PRN; Protocol PRN Reason: Agitation Stop: 08/29/17 07:04 Last Admin: 07/04/17 11:09 Dose: 1 mg Methylprednisolone Sodium Succinate (Solu-Medrol) 40 mg IVP Q8HR [facility] Stop: 08/30/17 15:14 Last Admin: 07/04/17 05:21 Dose: 40 mg Miscellaneous (Glucagon,Human Recombinant [Glucagon Emergency Kit]) 1 mg IJ UD PRN PRN Reason: hypoglycemia Stop: 08/29/17 08:11 Miscellaneous (Vte Chemical Prophylaxis Screen/ Admission) 1 ea PRN PRN PRN Reason: PROTOCOL Stop: 08/29/17 09:00 Miscellaneous (Probiotic Screen) 1 ea PRN PRN PRN Reason: PROTOCOL Stop: 08/29/17 09:55 Montelukast Sodium (Singulair) 10 mg PO HS [facility] Stop: 08/29/17 20:59 Last Admin: 07/03/17 20:53 Dose: 10 mg Pantoprazole Sodium (Protonix) 40 mg PO DAILY [facility] Stop: 08/29/17 08:59 Last Admin: 07/04/17 09:25 Dose: 40 mg Quetiapine Fumarate (Seroquel) 12.5 mg PO BID [facility] PRN Reason: Protocol Stop: 08/30/17 16:59 Last Admin: 07/04/17 09:25 Dose: 12.5 mg Sitagliptin Phosphate (Januvia) 50 mg PO DAILY [facility] Stop: 08/29/17 08:59 Last Admin: 07/04/17 09:25 Dose: 50 mg General: No acute distress HEENT: PERRLA Neck: Supple Cardiovascular: Regular rate Lungs: Clear to auscultation Abdomen: Bowel sounds, Soft Assessment/Plan - Assessment Assessment: 1. Leukocytosis, reactive versus sepsis. 2. Pneumonia bilaterally. 3. Interstitial lung disease. 4. COPD. 5. Obesity. 6. Hypertension. 7. Hyperlipidemia. - Plan Plan: continue iv zosyn as per id cpm Nutritional Asmnt/Malnutr-PDOC - Dietary Evaluation Malnutrition Findings (Please click <Entered> for more info): Nutritional Asmnt/Malnutrition Start: 07/03/17 11: 02 Text: Status: Active Freq: Document 07/03/17 11:02 MIS (Rec: 07/03/17 11:07 MIS [place]- [email or web address]) Nutritional Asmnt/Malnutrition Patient General Information Diagnosis r/o pulmonary embolus (RFV) Pertinent Medical Hx/Surgical Hx obesity, COPD, HTN, hyperlipidemia Subjective Information Pt sittin up in bed stated good apptetite but could not answer other RD questions appropriately Current Diet Order/ Nutrition Support [facility] Pertinent Medications culturelle, solumedrol, protonix Pertinent Labs 07/01: Na 138, K 3.7, Cl 106, CO2 25.1, BUN 21, Cr 0.6, Ca 9 .2 glucose 161 Nutritional Hx/Data Height 1.57 m Height (Calculated Centimeters) 157.5 Current Weight (lbs) 52.98 kg Weight (Calculated Kilograms) 53.0 Weight (Calculated Grams) 89067.6 Body Mass Index (BMI) 21.3 Weight Status Approriate GI Symptoms GI Symptoms None Last BM 06/30 Cultural/Ethnic/Confucianist Belief unknown Usual diet at home unknown Skin Integrity/Comment: karlos score 16 Current %PO Fair (50-74%) Estimated Nutritional Goals BEE in Kcals: Using Current wt Calories/Kcals/Kg 25-30kcals/kg Kcals Calculated 1325-1590kcals/day Protein: Using Current wt Protein g/kg/kg Protein Calculated 53g/day Fluid: ml per MD Nutritional Problem 1. Problem Problem No nutrition diagnosis at this time Intervention/Recommendation Comments Recommend continuing [facility] diet Expected Outcomes/Goals Expected Outcomes/Goals PO intake 50-75% of meals
[2017-07-04] MEDS ORDERED: Codeine/Promethazine Susp 5 mL UDC PO PRN (16:09)
[2017-07-05] MEDS: methylPREDNISolone SS 40 mg Vial IVP SCH ×3 (05:18→22:08)
[2017-07-05 06:09] LABS: % EOSINOPHILS 0.1 % (0.0-5.0); % LYMPHOCYTES 18.6 % (20.0-50.0); % MONOCYTES 3.9 % (2.0-10.0); % NEUTROPHILS 77.4 % (40.0-80.0); HEMATOCRIT 35.1 % (41.0-60); LYMPHOCYTE ABSOLUTE 1.3 Th/cmm (1.5-3.0); MEAN CELL VOLUME 87.2 fl (81-100); MEAN CORPUSCULAR HEMOGLOBIN 29.7 pg (27.0-31.0); MEAN CORPUSCULAR HGB CONC 34.1 pg (28.0-36.0); MEAN PLATELET VOLUME 8.6 fl; MONOCYTE ABSOLUTE 0.3 Th/cmm (0.3-1.0); NEUTROPHILE ABSOLUTE 5.5 Th/cmm (1.8-8.0); PLATELET COUNT 207 Th/cmm (150-400); RED BLOOD COUNT 4.03 Mil/cmm (3.80-5.20); RED CELL DISTRIBUTION WIDTH 13.5 % (11.5-20.0); WHITE BLOOD COUNT 7.1 Th/cmm (4.8-10.8)
[2017-07-05 06:20] LABS: ANION GAP 9.9 (7.0-16.0); BUN - UREA NITROGEN 21 mg/dL (7-25); CALCIUM SERUM 8.8 mg/dL (8.6-10.3); CARBON DIOXIDE 27.6 mEq/L (21.0-31.0); CHLORIDE 103 mEq/L (98-107); CREATININE - SERUM 0.6 mg/dL (0.6-1.2); GLUCOSE 133 mg/dL (70-105); POTASSIUM SERUM 3.5 mEq/L (3.5-5.1); SODIUM SERUM 137 mEq/L (136-145)
[2017-07-05] MEDS: Budesonide 0.5 Mg/2 mL Ud HHN SCH (07:52)
[2017-07-05] MEDS: Lactobacillus Rhamnosus GG 15 Billion CFU CAP.SPRINK PO SCH (09:36)
[2017-07-05] MEDS: Pantoprazole 40 mg EC Tab PO SCH (09:36)
--- NOTE | 2017-07-05 10:03 | Diagnostic Imaging Report ---
Exam: Chest x-ray HISTORY: Shortness of breath Findings: Frontal examination of chest upright was reviewed compared to prior study 06/27/2017 demonstrates ill-defined left basilar peribronchial infiltrate. The costophrenic angles are clear bony thorax intact. Mediastinal structures midline. The aortic arch calcified. impression: ill-defined left basilar infiltrate follow-up dictation recommended
[2017-07-05] MEDS: INSULIN ASPART SLIDING SCALE 100 UNITS/ML UNIT SUBQ SCH ×2 (10:11→17:11)
--- NOTE | 2017-07-05 11:00 | General Progress Note ---
Subjective - Review of Systems Events since last encounter: no change no fever Subjective: afebrile no overnight changes Objective - Results Result Diagrams: 07/05/17 05:30 07/05/17 05:30 Recent Labs: Laboratory Last Values WBC 7.1 Th/cmm (4.8-10.8) 07/05/17 05:30 RBC 4.03 Mil/cmm (3.80-5.20) 07/05/17 05:30 Hgb 12.0 gm/dL (12-16) 07/05/17 05:30 Hct 35.1 % (41.0-60) L 07/05/17 05:30 MCV 87.2 fl (81-100) 07/05/17 05:30 MCH 29.7 pg (27.0-31.0) 07/05/17 05:30 MCHC Differential 34.1 pg (28.0-36.0) 07/05/17 05:30 RDW 13.5 % (11.5-20.0) 07/05/17 05:30 Plt Count 207 Th/cmm (150-400) 07/05/17 05:30 MPV 8.6 fl 07/05/17 05:30 Neutrophils % 77.4 % (40.0-80.0) 07/05/17 05:30 Band Neutrophils % 2 % (0-10) 06/30/17 00:57 Lymphocytes % 18.6 % (20.0-50.0) L 07/05/17 05:30 Monocytes % 3.9 % (2.0-10.0) 07/05/17 05:30 Eosinophils % 0.1 % (0.0-5.0) 07/05/17 05:30 Basophils % 0.0 % (0.0-2.0) 07/05/17 05:30 Neutrophils (Manual) 81 % (40-80) H 07/01/17 04:22 Lymphocytes 16 % (20-50) L 07/01/17 04:22 Monocytes 3 % (2-10) 07/01/17 04:22 Eosinophils 1 % (0-5) 06/30/17 00:57 Platelet Estimate ADEQUATE (NORMAL) 07/01/17 04:22 D-Dimer 3490 ng/mL (100-400) H 06/30/17 00:52 Specimen Source arterial 06/30/17 02:50 Sample Site Left Radial 06/30/17 02:50 pH 7.45 (7.35-7.45) 06/30/17 02:50 pCO2 42.0 mmHg (35.0-45.0) 06/30/17 02:50 pO2 61.0 mmHg (80.0-100.0) L 06/30/17 02:50 HCO3 28.5 mEq/L (20.0-26.0) H 06/30/17 02:50 Base Excess 4.7 mEq/L (-3.0-3.0) H 06/30/17 02:50 O2 Saturation 92.0 % (92.0-100.0) 06/30/17 02:50 Martinez Test YES 06/30/17 02:50 Vent Rate N/A 06/30/17 02:50 Inspired O2 21 06/30/17 02:50 Tidal Volume N/A 06/30/17 02:50 PEEP N/A 06/30/17 02:50 Pressure (ins/psv/peep) N/A 06/30/17 02:50 Critical Value ABROEDEL 06/30/17 02:50 Sodium 137 mEq/L (136-145) 07/05/17 05:30 Potassium 3.5 mEq/L (3.5-5.1) 07/05/17 05:30 Chloride 103 mEq/L (98-107) 07/05/17 05:30 Carbon Dioxide 27.6 mEq/L (21.0-31.0) 07/05/17 05:30 Anion Gap 9.9 (7.0-16.0) 07/05/17 05:30 BUN 21 mg/dL (7-25) 07/05/17 05:30 Creatinine 0.6 mg/dL (0.6-1.2) 07/05/17 05:30 Est GFR ( Amer) TNP 07/05/17 05:30 Est GFR (Non-Af Amer) TNP 07/05/17 05:30 BUN/Creatinine Ratio 35.0 07/05/17 05:30 Glucose 133 mg/dL (70-105) H 07/05/17 05:30 POC Glucose 267 MG/DL (70 - 105) H 07/05/17 09:40 Whole Bld Lactic Acid 0.98 mmol/L (0.60-1.99) 06/30/17 00:57 Calcium 8.8 mg/dL (8.6-10.3) 07/05/17 05:30 Total Bilirubin 0.3 mg/dL (0.3-1.0) 06/30/17 00:57 AST 11 U/L (13-39) L 06/30/17 00:57 ALT 5 U/L (7-52) L 06/30/17 00:57 Alkaline Phosphatase 73 U/L (34-104) 06/30/17 00:57 Troponin I < 0.01 ng/mL (0.01-0.05) L 06/30/17 00:57 B-Natriuretic Peptide 82.3 pg/mL (5.0-100.0) 06/30/17 00:52 Total Protein 7.8 gm/dL (6.0-8.3) 06/30/17 00:57 Albumin 3.2 gm/dL (3.7-5.3) L 06/30/17 00:57 Globulin 4.6 gm/dL 06/30/17 00:57 Albumin/Globulin Ratio 0.7 (1.0-1.8) L 06/30/17 00:57 TSH 2.48 uIU/ml (0.34-5.60) 06/30/17 00:57 Urine Source RANDOM 06/30/17 00:20 Urine Color YELLOW 06/30/17 00:20 Urine Clarity CLEAR (CLEAR) 06/30/17 00:20 Urine pH 7.0 (4.6 - 8.0) 06/30/17 00:20 Ur Specific [place] 1.015 (1.005-1.030) 06/30/17 00:20 Urine Protein NEGATIVE mg/dL (NEGATIVE) 06/30/17 00:20 Urine Glucose (UA) NEGATIVE mg/dL (NEGATIVE) 06/30/17 00:20 Urine Ketones NEGATIVE mg/dL (NEGATIVE) 06/30/17 00:20 Urine Blood NEGATIVE (NEGATIVE) 06/30/17 00:20 Urine Nitrate NEGATIVE (NEGATIVE) 06/30/17 00:20 Urine Bilirubin NEGATIVE (NEGATIVE) 06/30/17 00:20 Urine Urobilinogen 0.2 E.U./dL (0.2 - 1.0) 06/30/17 00:20 Ur Leukocyte Esterase MODERATE (NEGATIVE) H 06/30/17 00:20 Urine RBC 0-2 /hpf (0-5) 06/30/17 00:20 Urine WBC 10-25 /hpf (0-5) H 06/30/17 00:20 Ur Epithelial Cells OCCASIONAL /lpf (FEW) 06/30/17 00:20 Urine Bacteria FEW /hpf (NONE SEEN) 06/30/17 00:20 RPR NONREACTIVE (NONREACTIVE) 06/30/17 00:57 - Physical Exam Vitals and I&O: Vital Signs Temp 97.6 F 07/05/17 08:00 Pulse 70 07/05/17 08:00 Resp 18 07/05/17 08:00 BP 158/89 07/05/17 08:00 Pulse Ox 96 07/05/17 08:00 Intake & Output 07/04/17 07/05/17 07/05/17 18:59 06:59 18:59 Intake Total 600 50 Balance 600 50 Weight (lbs) 51.256 kg Intake: Intake, IV Amount 100 50 Piperacillin Sodium/ 100 50 Tazobact 2.25 gm In Sodium Chloride 0.9% 50 ml @ 100 mls/hr IV Q6HR [facility] Rx#:[id number] Oral 500 Other: # Voids 2 # Bowel Movements 0 Weight Source Bedscale Active Medications: Current Medications Acetaminophen (Tylenol) 650 mg PO Q4HR PRN PRN Reason: Pain or Fever >101 Stop: 08/29/17 08:11 Albuterol/Ipratropium (Duoneb Neb) 3 ml HHN Q4H PRN PRN Reason: Shortness of Breath Stop: 08/29/17 08:11 Last Admin: 07/03/17 18:02 Dose: 3 ml Budesonide (Pulmicort) 0.5 mg HHN Q12H [facility] Stop: 08/29/17 08:14 Last Admin: 07/05/17 07:52 Dose: 0.5 mg Dextrose (Glutose 40%) 15 gm PO UD PRN PRN Reason: blood sugar < 60 Stop: 08/29/17 08:11 Heparin Sodium (Porcine) (Heparin) 5,000 units SUBQ Q12H [facility] Stop: 08/29/17 20:59 Last Admin: 07/05/17 09:34 Dose: 5,000 units Piperacillin Sod/Tazobactam (Sod 2.25 gm/ Sodium Chloride) 50 mls @ 100 mls/hr IV Q6HR [facility] PRN Reason: Protocol Stop: 08/29/17 05:59 Last Admin: 07/05/17 05:18 Dose: 100 mls/hr Insulin Aspart (Novolog Insulin Sliding Scale) 0 units SUBQ BID [facility] PRN Reason: Protocol Stop: 09/01/17 16:59 Last Admin: 07/05/17 10:11 Dose: 6 units Lactobacillus Rhamnosus (Culturelle 15b) 1 each PO DAILY [facility] Stop: 08/30/17 08:59 Last Admin: 07/05/17 09:36 Dose: 1 each Levetiracetam (Keppra) 250 mg PO HS [facility] Stop: 08/29/17 20:59 Last Admin: 07/04/17 21:06 Dose: Not Given Lorazepam (Ativan) 1 mg IVP Q6HR PRN; Protocol PRN Reason: Agitation Stop: 08/29/17 07:04 Last Admin: 07/04/17 20:56 Dose: 1 mg Methylprednisolone Sodium Succinate (Solu-Medrol) 40 mg IVP Q8HR [facility] Stop: 08/30/17 15:14 Last Admin: 07/05/17 05:18 Dose: 40 mg Miscellaneous (Glucagon,Human Recombinant [Glucagon Emergency Kit]) 1 mg IJ UD PRN PRN Reason: hypoglycemia Stop: 08/29/17 08:11 Miscellaneous (Vte Chemical Prophylaxis Screen/ Admission) 1 ea PRN PRN PRN Reason: PROTOCOL Stop: 08/29/17 09:00 Miscellaneous (Probiotic Screen) 1 ea MC PRN PRN PRN Reason: PROTOCOL Stop: 08/29/17 09:55 Montelukast Sodium (Singulair) 10 mg PO HS [facility] Stop: 08/29/17 20:59 Last Admin: 07/04/17 21:06 Dose: Not Given Pantoprazole Sodium (Protonix) 40 mg PO DAILY [facility] Stop: 08/29/17 08:59 Last Admin: 07/05/17 09:36 Dose: 40 mg Promethazine HCl/Codeine (Phenergan W/Cod Susp) 5 ml PO Q4H PRN PRN Reason: Cough Stop: 07/26/18 16:08 Quetiapine Fumarate (Seroquel) 12.5 mg PO BID [facility] PRN Reason: Protocol Stop: 08/30/17 16:59 Last Admin: 07/05/17 09:36 Dose: 12.5 mg Sitagliptin Phosphate (Januvia) 50 mg PO DAILY [facility] Stop: 08/29/17 08:59 Last Admin: 07/05/17 09:35 Dose: 50 mg General: No acute distress HEENT: PERRLA Neck: Supple Cardiovascular: Regular rate Lungs: Clear to auscultation Abdomen: Bowel sounds, Soft Assessment/Plan - Assessment Assessment: 1. Leukocytosis, reactive versus sepsis. 2. Pneumonia bilaterally. 3. Interstitial lung disease. 4. COPD. 5. Obesity. 6. Hypertension. 7. Hyperlipidemia. - Plan Plan: continue iv zosyn as per id cpm Nutritional Asmnt/Malnutr-PDOC - Dietary Evaluation Malnutrition Findings (Please click <Entered> for more info): Nutritional Asmnt/Malnutrition Start: 07/03/17 11: 02 Text: Status: Active Freq: Document 07/03/17 11:02 MIS (Rec: 07/03/17 11:07 MIS MILTON- [id number]) Nutritional Asmnt/Malnutrition Patient General Information Diagnosis r/o pulmonary embolus (RFV) Pertinent Medical Hx/Surgical Hx obesity, COPD, HTN, hyperlipidemia Subjective Information Pt sittin up in bed stated good apptetite but could not answer other RD questions appropriately Current Diet Order/ Nutrition Support CCHO Pertinent Medications culturelle, solumedrol, protonix Pertinent Labs 07/01: Na 138, K 3.7, Cl 106, CO2 25.1, BUN 21, Cr 0.6, Ca 9 .2 glucose 161 Nutritional Hx/Data Height 1.57 m Height (Calculated Centimeters) 157.5 Current Weight (lbs) 52.98 kg Weight (Calculated Kilograms) 53.0 Weight (Calculated Grams) 34117.6 Body Mass Index (BMI) 21.3 Weight Status Approriate GI Symptoms GI Symptoms None Last BM 06/30 Cultural/Ethnic/M[employer]on Belief unknown Usual diet at home unknown Skin Integrity/Comment: karlos score 16 Current %PO Fair (50-74%) Estimated Nutritional Goals BEE in Kcals: Using Current wt Calories/Kcals/Kg 25-30kcals/kg Kcals Calculated 1325-1590kcals/day Protein: Using Current wt Protein g/kg/kg Protein Calculated 53g/day Fluid: ml per MD Nutritional Problem 1. Problem Problem No nutrition diagnosis at this time Intervention/Recommendation Comments Recommend continuing [facility] diet Expected Outcomes/Goals Expected Outcomes/Goals PO intake 50-75% of meals
[2017-07-06] MEDS: Budesonide 0.5 Mg/2 mL Ud HHN SCH (07:17)
[2017-07-06] MEDS: Lactobacillus Rhamnosus GG 15 Billion CFU CAP.SPRINK PO SCH (10:07)
[2017-07-06] MEDS: Pantoprazole 40 mg EC Tab PO SCH (10:08)
[2017-07-06] MEDS: methylPREDNISolone SS 40 mg Vial IVP SCH (10:08)
[2017-07-06] MEDS: INSULIN ASPART SLIDING SCALE 100 UNITS/ML UNIT SUBQ SCH ×2 (10:20→17:11)
--- NOTE | 2017-07-06 13:29 | Infectious Disease Prog Note ---
Infectious Disease Subjective - Review of Systems Service Date: 07/06/17 Subjective: No new change, no fever, Infectious Disease Objective - Results Result Diagrams: 07/05/17 05:30 07/05/17 05:30 Recent Labs: Laboratory Last Values WBC 7.1 Th/cmm (4.8-10.8) 07/05/17 05:30 RBC 4.03 Mil/cmm (3.80-5.20) 07/05/17 05:30 Hgb 12.0 gm/dL (12-16) 07/05/17 05:30 Hct 35.1 % (41.0-60) L 07/05/17 05:30 MCV 87.2 fl (81-100) 07/05/17 05:30 MCH 29.7 pg (27.0-31.0) 07/05/17 05:30 MCHC Differential 34.1 pg (28.0-36.0) 07/05/17 05:30 RDW 13.5 % (11.5-20.0) 07/05/17 05:30 Plt Count 207 Th/cmm (150-400) 07/05/17 05:30 MPV 8.6 fl 07/05/17 05:30 Neutrophils % 77.4 % (40.0-80.0) 07/05/17 05:30 Band Neutrophils % 2 % (0-10) 06/30/17 00:57 Lymphocytes % 18.6 % (20.0-50.0) L 07/05/17 05:30 Monocytes % 3.9 % (2.0-10.0) 07/05/17 05:30 Eosinophils % 0.1 % (0.0-5.0) 07/05/17 05:30 Basophils % 0.0 % (0.0-2.0) 07/05/17 05:30 Neutrophils (Manual) 81 % (40-80) H 07/01/17 04:22 Lymphocytes 16 % (20-50) L 07/01/17 04:22 Monocytes 3 % (2-10) 07/01/17 04:22 Eosinophils 1 % (0-5) 06/30/17 00:57 Platelet Estimate ADEQUATE (NORMAL) 07/01/17 04:22 D-Dimer 3490 ng/mL (100-400) H 06/30/17 00:52 Specimen Source arterial 05/23/18 02:50 Sample Site Left Radial 06/30/17 02:50 pH 7.45 (7.35-7.45) 06/30/17 02:50 pCO2 42.0 mmHg (35.0-45.0) 06/30/17 02:50 pO2 61.0 mmHg (80.0-100.0) L 06/30/17 02:50 HCO3 28.5 mEq/L (20.0-26.0) H 06/30/17 02:50 Base Excess 4.7 mEq/L (-3.0-3.0) H 06/30/17 02:50 O2 Saturation 92.0 % (92.0-100.0) 06/30/17 02:50 Martinez Test YES 06/30/17 02:50 Vent Rate N/A 06/30/17 02:50 Inspired O2 21 06/30/17 02:50 Tidal Volume N/A 06/30/17 02:50 PEEP N/A 06/30/17 02:50 Pressure (ins/psv/peep) N/A 06/30/17 02:50 Critical Value ABROEDEL 06/30/17 02:50 Sodium 137 mEq/L (136-145) 07/05/17 05:30 Potassium 3.5 mEq/L (3.5-5.1) 07/05/17 05:30 Chloride 103 mEq/L (98-107) 07/05/17 05:30 Carbon Dioxide 27.6 mEq/L (21.0-31.0) 07/05/17 05:30 Anion Gap 9.9 (7.0-16.0) 07/05/17 05:30 BUN 21 mg/dL (7-25) 07/05/17 05:30 Creatinine 0.6 mg/dL (0.6-1.2) 07/05/17 05:30 Est GFR ( Amer) TNP 07/05/17 05:30 Est GFR (Non-Af Amer) TNP 07/05/17 05:30 BUN/Creatinine Ratio 35.0 07/05/17 05:30 Glucose 133 mg/dL (70-105) H 07/05/17 05:30 POC Glucose 205 MG/DL (70 - 105) H 07/06/17 10:15 Whole Bld Lactic Acid 0.98 mmol/L (0.60-1.99) 06/30/17 00:57 Calcium 8.8 mg/dL (8.6-10.3) 07/05/17 05:30 Total Bilirubin 0.3 mg/dL (0.3-1.0) 06/30/17 00:57 AST 11 U/L (13-39) L 06/30/17 00:57 ALT 5 U/L (7-52) L 06/30/17 00:57 Alkaline Phosphatase 73 U/L (34-104) 06/30/17 00:57 Troponin I < 0.01 ng/mL (0.01-0.05) L 06/30/17 00:57 B-Natriuretic Peptide 82.3 pg/mL (5.0-100.0) 06/30/17 00:52 Total Protein 7.8 gm/dL (6.0-8.3) 06/30/17 00:57 Albumin 3.2 gm/dL (3.7-5.3) L 06/30/17 00:57 Globulin 4.6 gm/dL 06/30/17 00:57 Albumin/Globulin Ratio 0.7 (1.0-1.8) L 06/30/17 00:57 TSH 2.48 uIU/ml (0.34-5.60) 06/30/17 00:57 Urine Source RANDOM 06/30/17 00:20 Urine Color YELLOW 06/30/17 00:20 Urine Clarity CLEAR (CLEAR) 06/30/17 00:20 Urine pH 7.0 (4.6 - 8.0) 06/30/17 00:20 Ur Specific [place] 1.015 (1.005-1.030) 06/30/17 00:20 Urine Protein NEGATIVE mg/dL (NEGATIVE) 06/30/17 00:20 Urine Glucose (UA) NEGATIVE mg/dL (NEGATIVE) 06/30/17 00:20 Urine Ketones NEGATIVE mg/dL (NEGATIVE) 06/30/17 00:20 Urine Blood NEGATIVE (NEGATIVE) 06/30/17 00:20 Urine Nitrate NEGATIVE (NEGATIVE) 06/30/17 00:20 Urine Bilirubin NEGATIVE (NEGATIVE) 06/30/17 00:20 Urine Urobilinogen 0.2 E.U./dL (0.2 - 1.0) 06/30/17 00:20 Ur Leukocyte Esterase MODERATE (NEGATIVE) H 06/30/17 00:20 Urine RBC 0-2 /hpf (0-5) 06/30/17 00:20 Urine WBC 10-25 /hpf (0-5) H 06/30/17 00:20 Ur Epithelial Cells OCCASIONAL /lpf (FEW) 06/30/17 00:20 Urine Bacteria FEW /hpf (NONE SEEN) 06/30/17 00:20 RPR NONREACTIVE (NONREACTIVE) 06/30/17 00:57 - Physical Exam Vitals and I&O: Vital Signs Temp 97.6 F 07/06/17 04:00 Pulse 57 07/06/17 07:56 Resp 18 07/06/17 07:56 BP 141/86 07/06/17 04:00 Pulse Ox 93 07/06/17 07:56 Intake & Output 07/05/17 07/06/17 07/06/17 18:59 06:59 18:59 Intake Total 300 100 Balance 300 100 Weight (lbs) 51.256 kg 51.256 kg Intake: Intake, IV Amount 100 100 Piperacillin Sodium/ 100 100 Tazobact 2.25 gm In Sodium Chloride 0.9% 50 ml @ 100 mls/hr IV Q6HR [facility] Rx#:[id number] Oral 200 Other: # Bowel Movements 1 Weight Source Bedscale Bedscale Active Medications: Current Medications Acetaminophen (Tylenol) 650 mg PO Q4HR PRN PRN Reason: Pain or Fever >101 Stop: 08/29/17 08:11 Albuterol/Ipratropium (Duoneb Neb) 3 ml HHN Q4H PRN PRN Reason: Shortness of Breath Stop: 08/29/17 08:11 Last Admin: 07/03/17 18:02 Dose: 3 ml Budesonide (Pulmicort) 0.5 mg HHN Q12H [facility] Stop: 08/29/17 08:14 Last Admin: 07/06/17 07:17 Dose: 0.5 mg Dextrose (Glutose 40%) 15 gm PO UD PRN PRN Reason: blood sugar < 60 Stop: 08/29/17 08:11 Heparin Sodium (Porcine) (Heparin) 5,000 units SUBQ Q12H [facility] Stop: 08/29/17 20:59 Last Admin: 07/06/17 10:08 Dose: 5,000 units Piperacillin Sod/Tazobactam (Sod 2.25 gm/ Sodium Chloride) 50 mls @ 100 mls/hr IV Q6HR [facility] PRN Reason: Protocol Stop: 07/06/17 14:00 Last Admin: 07/06/17 13:01 Dose: 100 mls/hr Piperacillin Sod/Tazobactam (Sod 2.25 gm/ Dextrose) 50 mls @ 100 mls/hr IV Q6HR [facility] Stop: 09/04/17 17:59 Insulin Aspart (Novolog Insulin Sliding Scale) 0 units SUBQ BID [facility] PRN Reason: Protocol Stop: 09/01/17 16:59 Last Admin: 07/06/17 10:20 Dose: 4 units Lactobacillus Rhamnosus (Culturelle 15b) 1 each PO DAILY [facility] Stop: 08/30/17 08:59 Last Admin: 07/06/17 10:07 Dose: 1 each Levetiracetam (Keppra) 250 mg PO HS [facility] Stop: 08/29/17 20:59 Last Admin: 07/05/17 22:09 Dose: 250 mg Lorazepam (Ativan) 1 mg IVP Q6HR PRN; Protocol PRN Reason: Agitation Stop: 08/29/17 07:04 Last Admin: 07/05/17 17:49 Dose: 1 mg Methylprednisolone Sodium Succinate (Solu-Medrol) 40 mg IVP Q12HR [facility] Stop: 09/03/17 20:59 Last Admin: 07/06/17 10:08 Dose: 40 mg Miscellaneous (Glucagon,Human Recombinant [Glucagon Emergency Kit]) 1 mg IJ UD PRN PRN Reason: hypoglycemia Stop: 08/29/17 08:11 Miscellaneous (Vte Chemical Prophylaxis Screen/ Admission) 1 ea MC PRN PRN PRN Reason: PROTOCOL Stop: 08/29/17 09:00 Miscellaneous (Probiotic Screen) 1 ea MC PRN PRN PRN Reason: PROTOCOL Stop: 08/29/17 09:55 Montelukast Sodium (Singulair) 10 mg PO HS [facility] Stop: 08/29/17 20:59 Last Admin: 07/05/17 22:08 Dose: 10 mg Pantoprazole Sodium (Protonix) 40 mg PO DAILY [facility] Stop: 08/29/17 08:59 Last Admin: 07/06/17 10:08 Dose: 40 mg Promethazine HCl/Codeine (Phenergan W/Cod Susp) 5 ml PO Q4H PRN PRN Reason: Cough Stop: 09/02/17 16:08 Last Admin: 07/05/17 12:48 Dose: 5 ml Quetiapine Fumarate (Seroquel) 12.5 mg PO BID [facility] PRN Reason: Protocol Stop: 08/30/17 16:59 Last Admin: 07/06/17 10:08 Dose: 12.5 mg Sitagliptin Phosphate (Januvia) 50 mg PO DAILY [facility] Stop: 08/29/17 08:59 Last Admin: 07/06/17 10:08 Dose: 50 mg General: no acute distress, well developed, well nourished HEENT: atraumatic, normocephalic, PERRLA, EOMI Neck: supple, no thyromegaly Cardiovascular: S1S2, regular Lungs: clear to auscultation bilaterally, clear to percussion Abdomen: soft, no tender, no distended Extremities: no cyanosis, no clubbing, no edema Neurological: awake, alert, oriented Skin: intact Infectious Disease Assmt/Plan - Assessment Assessment: 1. Leukocytosis, reactive versus sepsis. 2. Pneumonia bilaterally. 3. Interstitial lung disease. 4. COPD. 5. Obesity. 6. Hypertension. 7. Hyperlipidemia. - Plan Plan: Continue Zosyn. Nutritional Asmnt/Malnutr-PDOC - Dietary Evaluation Malnutrition Findings (Please click <Entered> for more info): Nutritional Asmnt/Malnutrition Start: 07/03/17 11: 02 Text: Status: Active Freq: Document 07/03/17 11:02 MIS (Rec: 07/03/17 11:07 MIS [place]- [id number]) Nutritional Asmnt/Malnutrition Patient General Information Diagnosis r/o pulmonary embolus (RFV) Pertinent Medical Hx/Surgical Hx obesity, COPD, HTN, hyperlipidemia Subjective Information Pt sittin up in bed stated good apptetite but could not answer other RD questions appropriately Current Diet Order/ Nutrition Support CCHO Pertinent Medications culturelle, solumedrol, protonix Pertinent Labs 07/01: Na 138, K 3.7, Cl 106, CO2 25.1, BUN 21, Cr 0.6, Ca 9 .2 glucose 161 Nutritional Hx/Data Height 1.57 m Height (Calculated Centimeters) 157.5 Current Weight (lbs) 52.98 kg Weight (Calculated Kilograms) 53.0 Weight (Calculated Grams) 12157.6 Body Mass Index (BMI) 21.3 Weight Status Approriate GI Symptoms GI Symptoms None Last BM 06/30 Cultural/Ethnic/[employer] Belief unknown Usual diet at home unknown Skin Integrity/Comment: karlos score 16 Current %PO Fair (50-74%) Estimated Nutritional Goals BEE in Kcals: Using Current wt Calories/Kcals/Kg 25-30kcals/kg Kcals Calculated 1325-1590kcals/day Protein: Using Current wt Protein g/kg/kg Protein Calculated 53g/day Fluid: ml per MD Nutritional Problem 1. Problem Problem No nutrition diagnosis at this time Intervention/Recommendation Comments Recommend continuing [facility] diet Expected Outcomes/Goals Expected Outcomes/Goals PO intake 50-75% of meals
[2017-07-06] MEDS ORDERED: methylPREDNISolone SS 40 mg Vial IVP SCH (21:00)
== END 2017-07-06 20:31 | DRG 871 ==
LOC: ER 00:12 → GERO 02:30 → ICU 02:55 → MSI 07-01 19:59
PROVIDERS: ADMIT Internal Medicine; ATTEND Internal Medicine
DX: A41.9 Sepsis, unspecified organism (principal); G92 Toxic encephalopathy; J18.9 Pneumonia, unspecified organism; J96.91 Respiratory failure, unspecified with hypoxia; J44.1 Chronic obstructive pulmonary disease with (acute) exacerbation; N39.0 Urinary tract infection, site not specified; J45.901 Unspecified asthma with (acute) exacerbation; J44.0 Chronic obstructive pulmonary disease with (acute) lower respiratory infection; F03.91 Unspecified dementia, unspecified severity, with behavioral disturbance; R56.9 Unspecified convulsions; N18.9 Chronic kidney disease, unspecified; E11.22 Type 2 diabetes mellitus with diabetic chronic kidney disease; D64.9 Anemia, unspecified; I12.9 Hypertensive chronic kidney disease with stage 1 through stage 4 chronic kidney disease, or unspecified chronic kidney disease; E78.5 Hyperlipidemia, unspecified; E66.9 Obesity, unspecified; F29 Unspecified psychosis not due to a substance or known physiological condition; Z68.20 Body mass index [BMI] 20.0-20.9, adult
CPT/HCPCS: 36415-UA; 71045-TC; 71275-TC; 80048-TC; 80053-TC; 81001-TC; 82803-TC; 82948-90; 83605; 83880-TC; 84443-TC; 84484-TC; 85007-TC; 85025-TC; 85027-TC; 85379-TC; 86592-TC; 87086-90; 93005; 94640; 94760; J0696; J1644; J1815; J2060; J2543; J2920; J2930; J7040; Q9967; Z7610

== ENCOUNTER 2017-07-06 20:32 | Inpatient (IN) | payer MEDICARE ==
[2017-07-06] MEDS ORDERED: Magnesium Hydroxide (MOM) 30 mL UDC PO PRN (22:19)
[2017-07-06] MEDS ORDERED: Maalox 30 mL Cup PO PRN (22:19)
[2017-07-06] MEDS ORDERED: GLUCAGON HCl 1 MG KIT IVP PRN (22:32)
[2017-07-06] MEDS ORDERED: Albuterol/Ipratropium Neb 3 ML AERS HHN PRN (22:32)
[2017-07-06 22:48] VITALS: BP 139/96
[2017-07-07] MEDS: Albuterol/Ipratropium Neb 3 ML AERS HHN SCH ×4 (01:00→19:27)
[2017-07-07] MEDS: Budesonide 0.5 Mg/2 mL Ud HHN SCH ×2 (07:17→19:27)
[2017-07-07] MEDS: Pantoprazole 40 mg EC Tab PO SCH (09:23)
[2017-07-07] MEDS: Multivitamin Tab PO SCH (09:23)
--- NOTE | 2017-07-07 16:31 | History & Physical ---
ADMIT DATE: 07/06/2017 HISTORY OF PRESENT ILLNESS: This patient is very well known to me. The patient is known to have history of COPD, history of asthma, history of hypertension, history of osteoarthritis, history of osteoporosis, and history of psychosis. The patient stays at [facility]. The patient was very agitated, was brought in here, the patient had a lot of wheezing including a decrease in saturation. The patient was treated. Pulmonary doctor, Dr. Leone saw the patient. The patient gradually improved. The patient is in stable condition, still agitated and the patient was transferred to Geropsych Unit where I will be following the patient along with Dr. King. PAST MEDICAL HISTORY: As enumerated above. PAST SURGICAL HISTORY: As enumerated above. FAMILY HISTORY: Unremarkable. PHYSICAL EXAMINATION: HEAD: Normal. ENT: Normal. NECK: Supple, nontender. LUNGS: Clear. Bilateral rhonchi. CARDIOVASCULAR SYSTEM: S1, S2 heard. ABDOMEN: Soft. Bowel sounds are heard. CENTRAL NERVOUS SYSTEM: Grossly normal. DIAGNOSIS: Chronic obstructive pulmonary disease, improving; bronchitis, improving; pneumonia, improving; history of psychosis was made. The patient is admitted, and I will follow along with Dr. King. JOB# [id number]
--- NOTE | 2017-07-08 00:29 | Psychosocial Evaluation ---
DATE OF SERVICE: 07/07/2017 IDENTIFYING DATA: The patient is an 81-year-old admitted here on a voluntary basis in view of her acute agitation. SUBJECTIVE: Staff was spoken to. The patient is known to me from the previous consultation on the ICU. Chart is reviewed. The patient is interviewed. The patient is initially admitted for shortness of breath and the patient has been getting easily agitated and striking out at the staff members and the patient has been placed on Seroquel, which was gradually increased to 25 mg. PAST PSYCHIATRIC HISTORY: None. MEDICAL HISTORY AND PHYSICAL EXAMINATION: Requested to be done by Dr. Vargas. SOCIAL HISTORY: The patient is at the custodial facility. STRENGTH AND ASSETS: The patient is motivated. MENTAL STATUS EXAMINATION: The patient is an 81-year-old, looking her stated age, superficially cooperative. Eye contact is fair. Mood is irritable. Affect is constricted. Insight and judgment reveal limited. Impulse control is also noted to be limited. The patient is getting easily agitated and frustrated. The patient is alert and awake. The patient's short term memory is noted to be poor, also the long-term memory. The patient's insight and judgment are noted to be very much impaired. The patient has a tendency to get scream and yell when she does not get her way. DIAGNOSTIC IMPRESSION: 1. Dementia and behavioral change, secondary trait. 1B: Psychotic disorder, not otherwise specified. PLAN: To continue the patient with supportive therapy and continue her with the Seroquel that has been ordered and the Seroquel is going to be gradually increased to some 12.5 mg to 25 mg and the patient is going to be followed up with the supportive therapy. ESTIMATED LENGTH OF STAY: 5-7 days. DISCHARGE CRITERIA: When she no longer is threat to self or others and be able to cope up with the stress. JOB# [id number]
[2017-07-08] MEDS: Albuterol/Ipratropium Neb 3 ML AERS HHN SCH ×4 (01:04→19:43)
[2017-07-08] MEDS: Budesonide 0.5 Mg/2 mL Ud HHN SCH ×2 (06:57→19:47)
[2017-07-08] MEDS: Multivitamin Tab PO SCH (09:59)
[2017-07-08] MEDS: Pantoprazole 40 mg EC Tab PO SCH (09:59)
--- NOTE | 2017-07-08 11:38 | General Progress Note ---
Subjective - Review of Systems Events since last encounter: patient awake irritable denies pain Objective - Physical Exam Vitals and I&O: Vital Signs Temp 97.7 F 07/08/17 06:26 Pulse 81 07/08/17 07:07 Resp 18 07/08/17 07:07 BP 112/61 07/08/17 06:26 Pulse Ox 96 07/08/17 07:07 Intake & Output 07/07/17 07/08/17 07/08/17 18:59 06:59 18:59 Intake Total 1200 120 Balance 1200 120 Intake: Oral 1200 120 Other: # Voids 3 3 # Bowel Movements 1 Active Medications: Current Medications Acetaminophen (Tylenol) 650 mg PO Q4HR PRN PRN Reason: Mild Pain / Temp above 100 Stop: 09/04/17 22:18 Al Hydrox/Mg Hydrox/Simethicone (Maalox) 30 ml PO Q4HR PRN PRN Reason: GI DISTRESS Stop: 09/04/17 22:18 Albuterol/Ipratropium (Duoneb Neb) 3 ml HHN Q6HRT BALWINDER Stop: 09/05/17 00:59 Last Admin: 07/08/17 06:57 Dose: 3 ml Albuterol/Ipratropium (Duoneb Neb) 3 ml HHN Q4HRT PRN PRN Reason: Shortness of Breath Stop: 09/04/17 22:31 Budesonide (Pulmicort) 0.5 mg HHN Q12H BALWINDER Stop: 09/04/17 22:44 Last Admin: 07/08/17 06:57 Dose: 0.5 mg Dextrose (Glutose 40%) 15 gm PO PRN PRN PRN Reason: blood sugar < 60 Stop: 09/04/17 22:31 Glucagon (Glucagen) 1 mg IVP PRN PRN PRN Reason: hypoglycemia Levetiracetam (Keppra) 250 mg PO HS BALWINDER Stop: 09/05/17 20:59 Last Admin: 07/07/17 20:58 Dose: 250 mg Lorazepam (Ativan) 0.5 mg PO Q4HR PRN; Protocol PRN Reason: Anxiety Stop: 08/05/17 22:18 Last Admin: 07/08/17 09:59 Dose: 0.5 mg Magnesium Hydroxide (Milk Of Magnesia) 30 ml PO HS PRN PRN Reason: Constipation Montelukast Sodium (Singulair) 10 mg PO HS BALWINDER Stop: 09/05/17 20:59 Last Admin: 07/07/17 20:58 Dose: 10 mg Multivitamins/Vitamin C (Theragran) 1 tab PO DAILY BALWINDER Stop: 09/05/17 08:59 Last Admin: 07/08/17 09:59 Dose: 1 tab Pantoprazole Sodium (Protonix) 40 mg PO DAILY BALWINDER Stop: 09/05/17 08:59 Last Admin: 07/08/17 09:59 Dose: 40 mg Quetiapine Fumarate (Seroquel) 25 mg PO HS BALWINDER; Protocol Stop: 09/05/17 20:59 Last Admin: 07/07/17 20:58 Dose: 25 mg Sitagliptin Phosphate (Januvia) 50 mg PO DAILY BALWINDER Stop: 09/05/17 08:59 Last Admin: 07/08/17 09:59 Dose: 50 mg Zolpidem Tartrate (Ambien) 5 mg PO HS PRN PRN Reason: Insomnia Stop: 09/04/17 22:18 Last Admin: 07/07/17 20:58 Dose: 5 mg General: No acute distress HEENT: Atraumatic, PERRLA, EOMI Neck: Supple, JVD Cardiovascular: Regular rate, Normal S1, Normal S2 Lungs: Other (rales ), no Clear to auscultation Assessment/Plan - Problem List Patient Problems: All Active Problems Bronchitis (Acute) J40 H/O psychosis (Acute) Z86.59 Pneumonia (Acute) J18.9 - Plan Plan: as per psych will monitor cpm
[2017-07-09] MEDS: Albuterol/Ipratropium Neb 3 ML AERS HHN SCH ×4 (00:09→18:51)
--- NOTE | 2017-07-09 03:23 | Progress Notes ---
DATE: 07/08/2017 SUBJECTIVE: Staff was spoken to. The patient is interviewed. Mood is noted to be depressed. Affect is constricted. The patient is isolative and withdrawn. The patient is stating that she has been awaiting for a phone call or visit from the family members and no one has showed up. The patient is getting easily frustrated and irritable. The patient is currently maintained on 25 mg of the Seroquel at night time and has been able to tolerate. No major side effects to the medications are noted. ASSESSMENT: The patient is demented and impulsive. PLAN: To continue the patient with the supportive therapy and followup. JOB# [id number]
[2017-07-09] MEDS: Budesonide 0.5 Mg/2 mL Ud HHN SCH ×2 (07:18→18:51)
[2017-07-09] MEDS: Pantoprazole 40 mg EC Tab PO SCH (08:30)
[2017-07-09] MEDS: Multivitamin Tab PO SCH (08:30)
--- NOTE | 2017-07-09 22:54 | Progress Notes ---
DATE: 07/09/2017 SUBJECTIVE: Staff was spoken to. The patient is interviewed. Mood is noted to be irritable. Affect is constricted. The patient has been talking about her son. The patient is stating that she has been waiting for him and he has not shown and she has been getting easily irritable and angry. The patient is currently on 25 mg of the Seroquel and has been able to tolerate the medication. ASSESSMENT: The patient is still depressed. PLAN: To continue the patient with the supportive therapy and followup. JOB# [id number]
[2017-07-10] MEDS: Albuterol/Ipratropium Neb 3 ML AERS HHN SCH ×4 (00:37→19:19)
[2017-07-10] MEDS: Budesonide 0.5 Mg/2 mL Ud HHN SCH ×2 (06:57→19:19)
[2017-07-10] MEDS: Multivitamin Tab PO SCH (08:24)
[2017-07-10] MEDS: Pantoprazole 40 mg EC Tab PO SCH (08:25)
--- NOTE | 2017-07-10 16:44 | Consultation ---
DATE OF CONSULTATION: 07/09/2017 REFERRING PHYSICIAN: Kecia King MD TYPE OF CONSULTATION: Psychology. HISTORY OF PRESENT ILLNESS: The patient is an 81-year-old female. The patient is being admitted due to acute agitation. The following is by review of the medical record and by the patient's self-report. The patient has had a previous hospitalization here on the medical unit, specifically in ICU, but the patient according to the staff at her facility has been getting easily agitated as well as striking out at staff members. The patient denies this behavior. The patient presents as somewhat confused at the time of this clinical interview. She denied any suicidal ideation, plan or intention. PAST MEDICAL HISTORY: Please see history and physical by Dr. Vargas. PAST PSYCHIATRIC HISTORY: No record available at the time of this clinical interview. SUBSTANCE ABUSE HISTORY: The patient denies any history. PSYCHOSOCIAL HISTORY: The patient is a resident at [facility]. The patient did not answer questions about occupational or educational history or denominational affiliation. The patient did not answer questions about history of physical or sexual abuse or any legal problems. MENTAL STATUS EXAMINATION: The patient appears to be her stated age. The patient's attitude is superficially cooperative. Speech is spontaneous. Eye contact is fair. Mood is irritable. Affect is constricted. The patient denied any auditory or visual hallucinations or any delusions. The patient's behavior is easily agitated on the unit. Impulse control is poor. Concentration is poor. The patient did not participate in the memory assessment, however short term memory seems to be impaired. Long-term memory needs further evaluation. The patient did not participate in the interpretation of proverbs. Sensorium is alert and oriented to person and place. Insight is poor. Judgment is compromised. DIAGNOSTIC IMPRESSION: AXIS I: 1. Dementia with behavioral disturbance. 2. Psychotic disorder, not otherwise specified. AXIS II: Deferred. AXIS III: Please see history and physical by Dr. Vargas. TREATMENT PLAN: The patient has been seen by Dr. King for psychiatric evaluation and for the management of the patient's psychotropic medications. We will provide supportive psychotherapy to include reality orientation, reality differentiation and reality integration. We will provide coping strategies for phase of life issues. We will provide a de-escalation skill as well as stress management to encourage the patient to be able to demonstrate emotional and self-regulation and to increase the patient's frustration tolerance. We will provide motivational enhancement for the patient to follow through with staff direction and become compliant and stay compliant with all aspects of her care and treatment. Thank you, Dr. King for this consult and the opportunity to participate with you in this patient's care. JOB# [id number] [place]
--- NOTE | 2017-07-10 16:45 | Internal Medicine Prog Note ---
Internal Medicine Subjective - Subjective Service Date: 07/10/17 Patient seen and examined:: with staff Patient is:: awake Internal Medicine Objective - Physical Exam Vitals and I&O: Vital Signs Temp 97 F 07/09/17 20:38 Pulse 86 07/10/17 13:21 Resp 16 07/10/17 13:21 BP 90/55 07/09/17 20:38 Pulse Ox 97 07/10/17 13:21 Intake & Output 07/09/17 07/10/17 07/10/17 18:59 06:59 18:59 Intake Total 1200 240 Balance 1200 240 Intake: Oral 1200 240 Other: # Voids 3 1 # Bowel Movements 1 Active Medications: Current Medications Acetaminophen (Tylenol) 650 mg PO Q4HR PRN PRN Reason: Mild Pain / Temp above 100 Stop: 09/04/17 22:18 Last Admin: 07/09/17 23:44 Dose: 650 mg Al Hydrox/Mg Hydrox/Simethicone (Maalox) 30 ml PO Q4HR PRN PRN Reason: GI DISTRESS Stop: 09/04/17 22:18 Albuterol/Ipratropium (Duoneb Neb) 3 ml HHN Q6HRT [facility] Stop: 09/05/17 00:59 Last Admin: 07/10/17 13:21 Dose: 3 ml Albuterol/Ipratropium (Duoneb Neb) 3 ml HHN Q4HRT PRN PRN Reason: Shortness of Breath Stop: 09/04/17 22:31 Budesonide (Pulmicort) 0.5 mg HHN Q12H [facility] Stop: 09/04/17 22:44 Last Admin: 07/10/17 06:57 Dose: 0.5 mg Dextrose (Glutose 40%) 15 gm PO PRN PRN PRN Reason: blood sugar < 60 Stop: 09/04/17 22:31 Glucagon (Glucagen) 1 mg IVP PRN PRN PRN Reason: hypoglycemia Levetiracetam (Keppra) 250 mg PO HS [facility] Stop: 09/05/17 20:59 Last Admin: 07/09/17 21:05 Dose: 250 mg Lorazepam (Ativan) 0.5 mg PO Q4HR PRN; Protocol PRN Reason: Anxiety Stop: 08/05/17 22:18 Last Admin: 07/09/17 23:44 Dose: 0.5 mg Magnesium Hydroxide (Milk Of Magnesia) 30 ml PO HS PRN PRN Reason: Constipation Montelukast Sodium (Singulair) 10 mg PO HS [facility] Stop: 09/05/17 20:59 Last Admin: 07/09/17 21:05 Dose: 10 mg Multivitamins/Vitamin C (Theragran) 1 tab PO DAILY [facility] Stop: 09/05/17 08:59 Last Admin: 07/10/17 08:24 Dose: 1 tab Pantoprazole Sodium (Protonix) 40 mg PO DAILY [facility] Stop: 09/05/17 08:59 Last Admin: 07/10/17 08:25 Dose: 40 mg Quetiapine Fumarate (Seroquel) 25 mg PO HS [facility]; Protocol Stop: 09/05/17 20:59 Last Admin: 07/09/17 21:05 Dose: 25 mg Sitagliptin Phosphate (Januvia) 50 mg PO DAILY [facility] Stop: 09/05/17 08:59 Last Admin: 07/10/17 08:25 Dose: 50 mg Zolpidem Tartrate (Ambien) 5 mg PO HS PRN PRN Reason: Insomnia Stop: 09/04/17 22:18 Last Admin: 07/08/17 21:11 Dose: 5 mg General: alert HEENT: NC/AT, PERRLA Neck: Supple Lungs: CTAB Cardiovascular: RRR, without murmur Neurological: alert Internal Medicine Assmt/Plan - Assessment Assessment: COPD PSYCHOSIS - Plan Plan: SUPPLEMENTAL OXYGEN NEEDED CONTINUE CURRENT PLAN OF CARE
--- NOTE | 2017-07-10 18:44 | Progress Notes ---
DATE: 07/10/2017 PSYCHIATRIC PROGRESS NOTE SUBJECTIVE: Staff was spoken to. The patient is interviewed. Mood is noted to be irritable. Affect is constricted. The patient continues to be paranoid, but the aggressive behavior has been coming down. No side effects to the medications are noted. The patient has been able to participate in the groups and verbalize the concerns, but continues to be paranoid. Screaming and yelling has been coming down. The patient is currently on Seroquel and has been able to tolerate the medication. JOB# [id number]
[2017-07-11] MEDS: Albuterol/Ipratropium Neb 3 ML AERS HHN SCH ×4 (01:10→19:07)
[2017-07-11] MEDS: Budesonide 0.5 Mg/2 mL Ud HHN SCH ×2 (06:41→19:06)
[2017-07-11] MEDS: Pantoprazole 40 mg EC Tab PO SCH (09:00)
[2017-07-11] MEDS: Multivitamin Tab PO SCH (09:00)
--- NOTE | 2017-07-11 10:13 | General Progress Note ---
Subjective - Review of Systems Events since last encounter: awake in no distress Objective - Physical Exam Vitals and I&O: Vital Signs Temp 98.3 F 07/11/17 06:36 Pulse 77 07/11/17 06:55 Resp 16 07/11/17 06:55 BP 118/83 07/11/17 06:36 Pulse Ox 95 07/11/17 06:55 Intake & Output 07/10/17 07/11/17 07/11/17 18:59 06:59 18:59 Intake Total 1200 120 Balance 1200 120 Intake: Oral 1200 120 Other: # Voids 3 3 Active Medications: Current Medications Acetaminophen (Tylenol) 650 mg PO Q4HR PRN PRN Reason: Mild Pain / Temp above 100 Stop: 09/04/17 22:18 Last Admin: 07/09/17 23:44 Dose: 650 mg Al Hydrox/Mg Hydrox/Simethicone (Maalox) 30 ml PO Q4HR PRN PRN Reason: GI DISTRESS Stop: 09/04/17 22:18 Albuterol/Ipratropium (Duoneb Neb) 3 ml HHN Q6HRT [facility] Stop: 09/05/17 00:59 Last Admin: 07/11/17 06:41 Dose: 3 ml Albuterol/Ipratropium (Duoneb Neb) 3 ml HHN Q4HRT PRN PRN Reason: Shortness of Breath Stop: 09/04/17 22:31 Budesonide (Pulmicort) 0.5 mg HHN Q12H [facility] Stop: 09/04/17 22:44 Last Admin: 07/11/17 06:41 Dose: 0.5 mg Dextrose (Glutose 40%) 15 gm PO PRN PRN PRN Reason: blood sugar < 60 Stop: 09/04/17 22:31 Glucagon (Glucagen) 1 mg IVP PRN PRN PRN Reason: hypoglycemia Levetiracetam (Keppra) 250 mg PO HS [facility] Stop: 09/05/17 20:59 Last Admin: 07/10/17 21:12 Dose: 250 mg Lorazepam (Ativan) 0.5 mg PO Q4HR PRN; Protocol PRN Reason: Anxiety Stop: 08/05/17 22:18 Last Admin: 07/10/17 21:13 Dose: 0.5 mg Magnesium Hydroxide (Milk Of Magnesia) 30 ml PO HS PRN PRN Reason: Constipation Montelukast Sodium (Singulair) 10 mg PO HS [facility] Stop: 09/05/17 20:59 Last Admin: 07/10/17 21:12 Dose: 10 mg Multivitamins/Vitamin C (Theragran) 1 tab PO DAILY [facility] Stop: 09/05/17 08:59 Last Admin: 07/11/17 09:00 Dose: 1 tab Pantoprazole Sodium (Protonix) 40 mg PO DAILY [facility] Stop: 09/05/17 08:59 Last Admin: 07/11/17 09:00 Dose: 40 mg Quetiapine Fumarate (Seroquel) 25 mg PO HS [facility]; Protocol Stop: 09/05/17 20:59 Last Admin: 07/10/17 21:12 Dose: 25 mg Sitagliptin Phosphate (Januvia) 50 mg PO DAILY [facility] Stop: 09/05/17 08:59 Last Admin: 07/11/17 09:00 Dose: 50 mg Zolpidem Tartrate (Ambien) 5 mg PO HS PRN PRN Reason: Insomnia Stop: 09/04/17 22:18 Last Admin: 07/08/17 21:11 Dose: 5 mg General: No acute distress HEENT: Atraumatic, PERRLA, EOMI Neck: Supple, JVD Cardiovascular: Regular rate, Normal S1, Normal S2 Lungs: Other (rales ), no Clear to auscultation Assessment/Plan - Problem List Patient Problems: All Active Problems Bronchitis (Acute) J40 H/O psychosis (Acute) Z86.59 Pneumonia (Acute) J18.9 - Plan Plan: as per psych will monitor cpm
--- NOTE | 2017-07-11 13:32 | Progress Notes ---
DATE: 07/11/2017 PSYCHIATRIC PROGRESS NOTE SUBJECTIVE: Staff was spoken to. The patient is interviewed. Mood is noted to be depressed. Affect is constricted. The patient has been having difficult time to cope with the stress. The patient's coping skills are noted to be poor. The patient is very upset today. No side effects to the medications are noted. The patient is stating that she was expecting a call from the family and no one came to visit and she is upset about it. ASSESSMENT: The patient is still paranoid and agitated. PLAN: To continue the patient with supportive therapy. I encouraged the patient to verbalize the concerns rather than to act out. JOB# [id number]
[2017-07-12] MEDS: Pantoprazole 40 mg EC Tab PO SCH ×2 (00:55→08:24)
[2017-07-12] MEDS: Albuterol/Ipratropium Neb 3 ML AERS HHN SCH ×3 (07:09→19:10)
[2017-07-12] MEDS: Budesonide 0.5 Mg/2 mL Ud HHN SCH ×2 (07:09→19:13)
[2017-07-12] MEDS: Multivitamin Tab PO SCH (08:24)
[2017-07-12] MEDS ORDERED: IOHEXOL 300mgI/mL 50 ML VIAL ONE (10:26)
--- NOTE | 2017-07-13 00:09 | Progress Notes ---
DATE: 07/12/2017 PSYCHIATRIC PROGRESS NOTE SUBJECTIVE: Staff was spoken to. The patient is interviewed. Mood is noted to be irritable. Affect is constricted. Coping skills are noted to be very poor. The patient has been having difficult time towards the end of the day. The patient has been sundowning. The patient gets easily irritable, angry and patient has no clue that she is in the hospital and has constantly been asking for her son. ASSESSMENT: The patient is still paranoid and demented. PLAN: To start the patient with Aricept 5 mg on a daily basis and encouraged the patient to verbalize the concerns rather than to act out. JOB# [id number]
[2017-07-13] MEDS: Albuterol/Ipratropium Neb 3 ML AERS HHN SCH ×4 (00:30→19:54)
[2017-07-13] MEDS: Budesonide 0.5 Mg/2 mL Ud HHN SCH ×2 (07:19→19:54)
[2017-07-13] MEDS: Pantoprazole 40 mg EC Tab PO SCH (08:20)
[2017-07-13] MEDS: Multivitamin Tab PO SCH (08:20)
--- NOTE | 2017-07-13 21:58 | General Progress Note ---
Subjective - Review of Systems Service Date: 07/13/17 Subjective: awake, alert, nad Objective - Physical Exam Vitals and I&O: Vital Signs Temp 98.9 F 07/13/17 20:50 Pulse 93 07/13/17 20:50 Resp 20 07/13/17 20:50 BP 149/78 07/13/17 20:50 Pulse Ox 94 07/13/17 20:50 Intake & Output 07/13/17 07/13/17 07/14/17 06:59 18:59 06:59 Intake Total 600 1200 240 Balance 600 1200 240 Intake: Oral 600 1200 240 Other: # Voids 1 3 1 # Bowel Movements 0 1 Stool Characteristics Soft Active Medications: Current Medications Acetaminophen (Tylenol) 650 mg PO Q4HR PRN PRN Reason: Mild Pain / Temp above 100 Stop: 09/04/17 22:18 Last Admin: 07/09/17 23:44 Dose: 650 mg Al Hydrox/Mg Hydrox/Simethicone (Maalox) 30 ml PO Q4HR PRN PRN Reason: GI DISTRESS Stop: 09/04/17 22:18 Albuterol/Ipratropium (Duoneb Neb) 3 ml HHN Q6HRT [facility] Stop: 09/05/17 00:59 Last Admin: 07/13/17 19:54 Dose: 3 ml Albuterol/Ipratropium (Duoneb Neb) 3 ml HHN Q4HRT PRN PRN Reason: Shortness of Breath Stop: 09/04/17 22:31 Budesonide (Pulmicort) 0.5 mg HHN Q12H [facility] Stop: 09/04/17 22:44 Last Admin: 07/13/17 19:54 Dose: Not Given Dextrose (Glutose 40%) 15 gm PO PRN PRN PRN Reason: blood sugar < 60 Stop: 09/04/17 22:31 Donepezil HCl (Aricept) 5 mg PO DAILY [facility] Stop: 09/11/17 08:59 Last Admin: 07/13/17 08:20 Dose: 5 mg Glucagon (Glucagen) 1 mg IVP PRN PRN PRN Reason: hypoglycemia Levetiracetam (Keppra) 250 mg PO HS [facility] Stop: 09/05/17 20:59 Last Admin: 07/13/17 20:34 Dose: 250 mg Lorazepam (Ativan) 0.5 mg PO Q4HR PRN; Protocol PRN Reason: Anxiety Stop: 08/05/17 22:18 Last Admin: 07/13/17 20:35 Dose: 0.5 mg Magnesium Hydroxide (Milk Of Magnesia) 30 ml PO HS PRN PRN Reason: Constipation Memantine (Namenda) 5 mg PO BID [facility] Stop: 09/11/17 08:59 Last Admin: 07/13/17 16:37 Dose: 5 mg Montelukast Sodium (Singulair) 10 mg PO HS [facility] Stop: 09/05/17 20:59 Last Admin: 07/13/17 20:34 Dose: 10 mg Multivitamins/Vitamin C (Theragran) 1 tab PO DAILY [facility] Stop: 09/05/17 08:59 Last Admin: 07/13/17 08:20 Dose: 1 tab Pantoprazole Sodium (Protonix) 40 mg PO DAILY [facility] Stop: 09/05/17 08:59 Last Admin: 07/13/17 08:20 Dose: 40 mg Quetiapine Fumarate (Seroquel) 25 mg PO HS [facility]; Protocol Stop: 09/05/17 20:59 Last Admin: 07/13/17 20:34 Dose: 25 mg Sitagliptin Phosphate (Januvia) 50 mg PO DAILY [facility] Stop: 09/05/17 08:59 Last Admin: 07/13/17 08:20 Dose: 50 mg Zolpidem Tartrate (Ambien) 5 mg PO HS PRN PRN Reason: Insomnia Stop: 09/04/17 22:18 Last Admin: 07/13/17 20:35 Dose: 5 mg General: No acute distress HEENT: Atraumatic, PERRLA, EOMI Neck: Supple, JVD Cardiovascular: Regular rate, Normal S1, Normal S2 Lungs: Other (rales ), no Clear to auscultation Assessment/Plan - Problem List Patient Problems: All Active Problems Bronchitis (Acute) J40 H/O psychosis (Acute) Z86.59 Pneumonia (Acute) J18.9 - Plan Plan: as per psych will monitor cpm Nutritional Asmnt/Malnutr-PDOC - Dietary Evaluation Malnutrition Findings (Please click <Entered> for more info): Nutritional Asmnt/Malnutrition Start: 07/12/17 17: 12 Text: Status: Complete Freq: Protocol: Document 07/12/17 17:12 LCHENG (Rec: 07/12/17 17:29 [email or web address]) Nutritional Asmnt/Malnutrition Patient General Information Nutritional Screening Low Risk Diagnosis psychosis Pertinent Medical Hx/Surgical Hx CHOPD, asthma, HTN, OA, osteoporosis, psychosis Subjective Information Pt seen sitting on bed having lunch. Pt reported good appetite, food is good. Current Diet Order/ Nutrition Support regular Pertinent Medications protonix, seroquel, theragran Pertinent Labs no lab Nutritional Hx/Data Height 1.57 m Height (Calculated Centimeters) 157.5 Current Weight (lbs) 51.256 kg Weight (Calculated Kilograms) 51.3 Weight (Calculated Grams) 69827.9 [place] Body Weight 110 Body Mass Index (BMI) 20.6 Weight Status Approriate GI Symptoms GI Symptoms None Last BM 6/ Difficult in: None Skin Integrity/Comment: intact Current %PO Good (75-100%) Estimated Nutritional Goals BEE in Kcals: Using Current wt Calories/Kcals/Kg 25-30 Kcals Calculated 7609-3258 Protein: Using Current wt Protein g/k Protein Calculated 51 Fluid: ml 1275-1530ml (1ml/kcal) Nutritional Problem No current Nutrition Prob Problem N/A Malnutrition Alert Is there a minimum of two criteria No selected? Query Text:Check all the applicable criteria. A minimum of two criteria are recommended for diagnosis of either severe or non-severe malnutrition. Malnutrition Related to Morbid Obesity Malnutrition related to morbid obesity No Intervention/Recommendation Comments 1. Continue with cregular diet as ordered. 2. Monitor PO intake, wt, labs and skin integrity 3. F/U as low risk in 7 days, 07/19 Expected Outcomes/Goals Expected Outcomes/Goals 1. PO intake to meet at least 75% of nutritional needs. 2. Wt stability, skin to remain intact, labs to approach WNL.
--- NOTE | 2017-07-13 22:39 | Progress Notes ---
DATE: 07/13/2017 SUBJECTIVE: Staff was spoken to. The patient is interviewed. Mood is noted be irritable. Affect is constricted. The patient has been having paranoia. The patient is stating that she has been waiting for the family and no one is showing. The patient's coping skills are noted to be very poor. ASSESSMENT: The patient is still impulsive and paranoid and demented. PLAN: To continue the patient with the supportive therapy followup. JOB# [id number]
[2017-07-14] MEDS: Albuterol/Ipratropium Neb 3 ML AERS HHN SCH ×4 (01:00→20:07)
[2017-07-14] MEDS: Budesonide 0.5 Mg/2 mL Ud HHN SCH ×2 (07:26→20:15)
[2017-07-14] MEDS: Multivitamin Tab PO SCH (08:53)
[2017-07-14] MEDS: Pantoprazole 40 mg EC Tab PO SCH (08:53)
--- NOTE | 2017-07-14 15:35 | General Progress Note ---
Subjective - Review of Systems Service Date: 07/14/17 Subjective: awake, alert Objective - Physical Exam Vitals and I&O: Vital Signs Temp 97.7 F 07/14/17 06:18 Pulse 76 07/14/17 13:52 Resp 18 07/14/17 13:52 BP 110/58 07/14/17 06:18 Pulse Ox 95 07/14/17 13:52 Intake & Output 07/13/17 07/14/17 07/14/17 18:59 06:59 18:59 Intake Total 1200 360 Balance 1200 360 Intake: Oral 1200 360 Other: # Voids 3 1 # Bowel Movements 1 0 Stool Characteristics Soft Active Medications: Current Medications Acetaminophen (Tylenol) 650 mg PO Q4HR PRN PRN Reason: Mild Pain / Temp above 100 Stop: 09/04/17 22:18 Last Admin: 07/09/17 23:44 Dose: 650 mg Al Hydrox/Mg Hydrox/Simethicone (Maalox) 30 ml PO Q4HR PRN PRN Reason: GI DISTRESS Stop: 09/04/17 22:18 Albuterol/Ipratropium (Duoneb Neb) 3 ml HHN Q6HRT [facility] Stop: 09/05/17 00:59 Last Admin: 07/14/17 13:50 Dose: 3 ml Albuterol/Ipratropium (Duoneb Neb) 3 ml HHN Q4HRT PRN PRN Reason: Shortness of Breath Stop: 09/04/17 22:31 Budesonide (Pulmicort) 0.5 mg HHN Q12H [facility] Stop: 09/04/17 22:44 Last Admin: 07/13/17 19:54 Dose: Not Given Dextrose (Glutose 40%) 15 gm PO PRN PRN PRN Reason: blood sugar < 60 Stop: 09/04/17 22:31 Donepezil HCl (Aricept) 5 mg PO DAILY [facility] Stop: 09/11/17 08:59 Last Admin: 07/14/17 08:53 Dose: 5 mg Glucagon (Glucagen) 1 mg IVP PRN PRN PRN Reason: hypoglycemia Levetiracetam (Keppra) 250 mg PO HS [facility] Stop: 09/05/17 20:59 Last Admin: 07/13/17 20:34 Dose: 250 mg Lorazepam (Ativan) 0.5 mg PO Q4HR PRN; Protocol PRN Reason: Anxiety Stop: 08/05/17 22:18 Last Admin: 07/13/17 20:35 Dose: 0.5 mg Magnesium Hydroxide (Milk Of Magnesia) 30 ml PO HS PRN PRN Reason: Constipation Memantine (Namenda) 5 mg PO BID [facility] Stop: 09/11/17 08:59 Last Admin: 07/14/17 08:53 Dose: 5 mg Montelukast Sodium (Singulair) 10 mg PO HS [facility] Stop: 09/05/17 20:59 Last Admin: 07/13/17 20:34 Dose: 10 mg Multivitamins/Vitamin C (Theragran) 1 tab PO DAILY [facility] Stop: 09/05/17 08:59 Last Admin: 07/14/17 08:53 Dose: 1 tab Pantoprazole Sodium (Protonix) 40 mg PO DAILY [facility] Stop: 09/05/17 08:59 Last Admin: 07/14/17 08:53 Dose: 40 mg Quetiapine Fumarate (Seroquel) 25 mg PO HS [facility]; Protocol Stop: 09/05/17 20:59 Last Admin: 07/13/17 20:34 Dose: 25 mg Sitagliptin Phosphate (Januvia) 50 mg PO DAILY [facility] Stop: 09/05/17 08:59 Last Admin: 07/14/17 08:53 Dose: 50 mg Zolpidem Tartrate (Ambien) 5 mg PO HS PRN PRN Reason: Insomnia Stop: 09/04/17 22:18 Last Admin: 07/13/17 20:35 Dose: 5 mg General: Alert, No acute distress HEENT: Atraumatic, PERRLA, EOMI Neck: Supple, JVD Cardiovascular: Regular rate, Normal S1, Normal S2 Lungs: Other (rales ), no Clear to auscultation Neurological: Normal gait Assessment/Plan - Problem List Patient Problems: All Active Problems Bronchitis (Acute) J40 H/O psychosis (Acute) Z86.59 Pneumonia (Acute) J18.9 - Plan Plan: as per psych cpm monitor vitals Nutritional Asmnt/Malnutr-PDOC - Dietary Evaluation Malnutrition Findings (Please click <Entered> for more info): Nutritional Asmnt/Malnutrition Start: 07/12/17 17: 12 Text: Status: Complete Freq: Protocol: Document 07/12/17 17:12 [facility] (Rec: 07/12/17 17:29 [facility] [email or web address]) Nutritional Asmnt/Malnutrition Patient General Information Nutritional Screening Low Risk Diagnosis psychosis Pertinent Medical Hx/Surgical Hx CHOPD, asthma, HTN, OA, osteoporosis, psychosis Subjective Information Pt seen sitting on bed having lunch. Pt reported good appetite, food is good. Current Diet Order/ Nutrition Support regular Pertinent Medications protonix, seroquel, theragran Pertinent Labs no lab Nutritional Hx/Data Height 1.57 m Height (Calculated Centimeters) 157.5 Current Weight (lbs) 51.256 kg Weight (Calculated Kilograms) 51.3 Weight (Calculated Grams) 38229.9 [place] Body Weight 110 Body Mass Index (BMI) 20.6 Weight Status Approriate GI Symptoms GI Symptoms None Last BM 6/ Difficult in: None Skin Integrity/Comment: intact Current %PO Good (75-100%) Estimated Nutritional Goals BEE in Kcals: Using Current wt Calories/Kcals/Kg 25-30 Kcals Calculated 4021-5135 Protein: Using Current wt Protein g/k Protein Calculated 51 Fluid: ml 1275-1530ml (1ml/kcal) Nutritional Problem No current Nutrition Prob Problem N/A Malnutrition Alert Is there a minimum of two criteria No selected? Query Text:Check all the applicable criteria. A minimum of two criteria are recommended for diagnosis of either severe or non-severe malnutrition. Malnutrition Related to Morbid Obesity Malnutrition related to morbid obesity No Intervention/Recommendation Comments 1. Continue with cregular diet as ordered. 2. Monitor PO intake, wt, labs and skin integrity 3. F/U as low risk in 7 days, 07/19 Expected Outcomes/Goals Expected Outcomes/Goals 1. PO intake to meet at least 75% of nutritional needs. 2. Wt stability, skin to remain intact, labs to approach WNL.
--- NOTE | 2017-07-14 22:00 | Progress Notes ---
DATE: 07/14/2017 PSYCHIATRIC PROGRESS NOTE SUBJECTIVE: Staff was spoken to. The patient is interviewed. Mood is noted to be irritable. Affect is constricted. Coping skills are noted to be poor. The patient has been still demented and confused. The patient has been going into other people's rooms, tried to give the massage to them. ASSESSMENT: The patient is still impulsive, paranoid and demented. PLAN: To continue the patient with the Seroquel. Encouraged the patient to verbalize the concerns rather than to act out. JOB# [id number]
[2017-07-15] MEDS: Albuterol/Ipratropium Neb 3 ML AERS HHN SCH ×4 (00:58→19:27)
[2017-07-15] MEDS: Budesonide 0.5 Mg/2 mL Ud HHN SCH ×2 (07:25→19:27)
[2017-07-15] MEDS: Multivitamin Tab PO SCH (09:17)
[2017-07-15] MEDS: Pantoprazole 40 mg EC Tab PO SCH (09:17)
--- NOTE | 2017-07-15 12:17 | General Progress Note ---
Subjective - Review of Systems Service Date: 07/15/17 Subjective: awake, alert no distress Objective - Physical Exam Vitals and I&O: Vital Signs Temp 97.4 F 07/15/17 06:33 Pulse 76 07/15/17 07:38 Resp 18 07/15/17 07:38 BP 129/72 07/15/17 06:33 Pulse Ox 98 07/15/17 07:38 Intake & Output 07/14/17 07/15/17 07/15/17 18:59 06:59 18:59 Intake Total 540 Balance 540 Intake: Oral 540 Other: # Voids 2 Active Medications: Current Medications Acetaminophen (Tylenol) 650 mg PO Q4HR PRN PRN Reason: Mild Pain / Temp above 100 Stop: 09/04/17 22:18 Last Admin: 07/09/17 23:44 Dose: 650 mg Al Hydrox/Mg Hydrox/Simethicone (Maalox) 30 ml PO Q4HR PRN PRN Reason: GI DISTRESS Stop: 09/04/17 22:18 Albuterol/Ipratropium (Duoneb Neb) 3 ml HHN Q6HRT [facility] Stop: 09/05/17 00:59 Last Admin: 07/15/17 07:25 Dose: 3 ml Albuterol/Ipratropium (Duoneb Neb) 3 ml HHN Q4HRT PRN PRN Reason: Shortness of Breath Stop: 09/04/17 22:31 Budesonide (Pulmicort) 0.5 mg HHN Q12H [facility] Stop: 09/04/17 22:44 Last Admin: 07/15/17 07:25 Dose: 0.5 mg Dextrose (Glutose 40%) 15 gm PO PRN PRN PRN Reason: blood sugar < 60 Stop: 09/04/17 22:31 Donepezil HCl (Aricept) 5 mg PO DAILY [facility] Stop: 09/11/17 08:59 Last Admin: 07/15/17 09:17 Dose: 5 mg Glucagon (Glucagen) 1 mg IVP PRN PRN PRN Reason: hypoglycemia Levetiracetam (Keppra) 250 mg PO HS [facility] Stop: 09/05/17 20:59 Last Admin: 07/14/17 20:33 Dose: 250 mg Lorazepam (Ativan) 0.5 mg PO Q4HR PRN; Protocol PRN Reason: Anxiety Stop: 08/05/17 22:18 Last Admin: 07/13/17 20:35 Dose: 0.5 mg Magnesium Hydroxide (Milk Of Magnesia) 30 ml PO HS PRN PRN Reason: Constipation Memantine (Namenda) 5 mg PO BID [facility] Stop: 09/11/17 08:59 Last Admin: 07/15/17 09:17 Dose: 5 mg Montelukast Sodium (Singulair) 10 mg PO HS [facility] Stop: 09/05/17 20:59 Last Admin: 07/14/17 20:33 Dose: 10 mg Multivitamins/Vitamin C (Theragran) 1 tab PO DAILY [facility] Stop: 09/05/17 08:59 Last Admin: 07/15/17 09:17 Dose: 1 tab Pantoprazole Sodium (Protonix) 40 mg PO DAILY [facility] Stop: 09/05/17 08:59 Last Admin: 07/15/17 09:17 Dose: 40 mg Quetiapine Fumarate (Seroquel) 25 mg PO HS [facility]; Protocol Stop: 09/05/17 20:59 Last Admin: 07/14/17 20:32 Dose: 25 mg Sitagliptin Phosphate (Januvia) 50 mg PO DAILY [facility] Stop: 09/05/17 08:59 Last Admin: 07/15/17 09:17 Dose: 50 mg Zolpidem Tartrate (Ambien) 5 mg PO HS PRN PRN Reason: Insomnia Stop: 09/04/17 22:18 Last Admin: 07/14/17 20:33 Dose: 5 mg General: Alert, No acute distress HEENT: Atraumatic, PERRLA, EOMI Neck: Supple, JVD Cardiovascular: Regular rate, Normal S1, Normal S2 Lungs: Other (rales ), no Clear to auscultation Abdomen: Bowel sounds Neurological: Normal gait Assessment/Plan - Problem List Patient Problems: All Active Problems Bronchitis (Acute) J40 H/O psychosis (Acute) Z86.59 Pneumonia (Acute) J18.9 - Plan Plan: as per psych cpm monitor vitals Nutritional Asmnt/Malnutr-PDOC - Dietary Evaluation Malnutrition Findings (Please click <Entered> for more info): Nutritional Asmnt/Malnutrition Start: 07/12/17 17: 12 Text: Status: Complete Freq: Protocol: Document 07/12/17 17:12 [facility] (Rec: 07/12/17 17:29 [facility] [email or web address]) Nutritional Asmnt/Malnutrition Patient General Information Nutritional Screening Low Risk Diagnosis psychosis Pertinent Medical Hx/Surgical Hx CHOPD, asthma, HTN, OA, osteoporosis, psychosis Subjective Information Pt seen sitting on bed having lunch. Pt reported good appetite, food is good. Current Diet Order/ Nutrition Support regular Pertinent Medications protonix, seroquel, theragran Pertinent Labs no lab Nutritional Hx/Data Height 1.57 m Height (Calculated Centimeters) 157.5 Current Weight (lbs) 51.256 kg Weight (Calculated Kilograms) 51.3 Weight (Calculated Grams) 33675.9 [place] Body Weight 110 Body Mass Index (BMI) 20.6 Weight Status Approriate GI Symptoms GI Symptoms None Last BM 6/ Difficult in: None Skin Integrity/Comment: intact Current %PO Good (75-100%) Estimated Nutritional Goals BEE in Kcals: Using Current wt Calories/Kcals/Kg 25-30 Kcals Calculated 4395-4787 Protein: Using Current wt Protein g/k Protein Calculated 51 Fluid: ml 1275-1530ml (1ml/kcal) Nutritional Problem No current Nutrition Prob Problem N/A Malnutrition Alert Is there a minimum of two criteria No selected? Query Text:Check all the applicable criteria. A minimum of two criteria are recommended for diagnosis of either severe or non-severe malnutrition. Malnutrition Related to Morbid Obesity Malnutrition related to morbid obesity No Intervention/Recommendation Comments 1. Continue with cregular diet as ordered. 2. Monitor PO intake, wt, labs and skin integrity 3. F/U as low risk in 7 days, 07/19 Expected Outcomes/Goals Expected Outcomes/Goals 1. PO intake to meet at least 75% of nutritional needs. 2. Wt stability, skin to remain intact, labs to approach WNL.
[2017-07-16] MEDS: Albuterol/Ipratropium Neb 3 ML AERS HHN SCH ×4 (00:48→19:34)
--- NOTE | 2017-07-16 01:41 | Progress Notes ---
DATE: 07/15/2017 PSYCHIATRIC PROGRESS NOTE SUBJECTIVE: Staff was spoken to. The patient is interviewed. Mood is noted to be less irritable. The patient has been having the sundowners. The patient has been doing fairly well during the daytime, but towards the evening the patient has been getting confused and getting into other people's rooms. No side effects to the medications are noted at this time. The patient has been pacing on the unit and not able to contract for safety. Currently, the patient is on 25 mg of the Seroquel. PLAN: To continue the patient with the supportive therapy. I encouraged the patient to verbalize the concerns rather than to act out. JOB# [id number]
[2017-07-16] MEDS: Budesonide 0.5 Mg/2 mL Ud HHN SCH ×2 (07:20→19:34)
[2017-07-16] MEDS: Pantoprazole 40 mg EC Tab PO SCH ×2 (09:15→09:30)
[2017-07-16] MEDS: Multivitamin Tab PO SCH (09:30)
--- NOTE | 2017-07-16 11:42 | Internal Medicine Prog Note ---
Internal Medicine Subjective - Subjective Service Date: 07/16/17 Patient is:: awake Per staff patient has:: tolerating meds Internal Medicine Objective - Physical Exam Vitals and I&O: Vital Signs Temp 98 F 07/16/17 06:37 Pulse 77 07/16/17 07:20 Resp 20 07/16/17 07:20 BP 130/72 07/16/17 06:37 Pulse Ox 97 07/16/17 07:20 Intake & Output 07/15/17 07/16/17 07/16/17 18:59 06:59 18:59 Intake Total 1200 120 Balance 1200 120 Intake: Oral 1200 120 Other: # Voids 4 3 Active Medications: Current Medications Acetaminophen (Tylenol) 650 mg PO Q4HR PRN PRN Reason: Mild Pain / Temp above 100 Stop: 09/04/17 22:18 Last Admin: 07/09/17 23:44 Dose: 650 mg Al Hydrox/Mg Hydrox/Simethicone (Maalox) 30 ml PO Q4HR PRN PRN Reason: GI DISTRESS Stop: 09/04/17 22:18 Albuterol/Ipratropium (Duoneb Neb) 3 ml HHN Q6HRT [facility] Stop: 09/05/17 00:59 Last Admin: 07/16/17 07:20 Dose: 3 ml Albuterol/Ipratropium (Duoneb Neb) 3 ml HHN Q4HRT PRN PRN Reason: Shortness of Breath Stop: 09/04/17 22:31 Budesonide (Pulmicort) 0.5 mg HHN Q12H [facility] Stop: 09/04/17 22:44 Last Admin: 07/16/17 07:20 Dose: 0.5 mg Dextrose (Glutose 40%) 15 gm PO PRN PRN PRN Reason: blood sugar < 60 Stop: 09/04/17 22:31 Donepezil HCl (Aricept) 5 mg PO DAILY [facility] Stop: 09/11/17 08:59 Last Admin: 07/16/17 09:30 Dose: Not Given Glucagon (Glucagen) 1 mg IVP PRN PRN PRN Reason: hypoglycemia Levetiracetam (Keppra) 250 mg PO HS [facility] Stop: 09/05/17 20:59 Last Admin: 07/15/17 21:08 Dose: 250 mg Lorazepam (Ativan) 0.5 mg PO Q4HR PRN; Protocol PRN Reason: Anxiety Stop: 08/05/17 22:18 Last Admin: 07/16/17 11:24 Dose: 0.5 mg Magnesium Hydroxide (Milk Of Magnesia) 30 ml PO HS PRN PRN Reason: Constipation Memantine (Namenda) 5 mg PO BID [facility] Stop: 09/11/17 08:59 Last Admin: 07/16/17 09:30 Dose: Not Given Montelukast Sodium (Singulair) 10 mg PO HS [facility] Stop: 09/05/17 20:59 Last Admin: 07/15/17 21:11 Dose: Not Given Multivitamins/Vitamin C (Theragran) 1 tab PO DAILY [facility] Stop: 09/05/17 08:59 Last Admin: 07/16/17 09:30 Dose: Not Given Pantoprazole Sodium (Protonix) 40 mg PO DAILY [facility] Stop: 09/05/17 08:59 Last Admin: 07/16/17 09:30 Dose: Not Given Quetiapine Fumarate (Seroquel) 25 mg PO HS [facility]; Protocol Stop: 09/05/17 20:59 Last Admin: 07/15/17 21:11 Dose: Not Given Sitagliptin Phosphate (Januvia) 50 mg PO DAILY [facility] Stop: 09/05/17 08:59 Last Admin: 07/16/17 09:30 Dose: Not Given Zolpidem Tartrate (Ambien) 5 mg PO HS PRN PRN Reason: Insomnia Stop: 09/04/17 22:18 Last Admin: 07/14/17 20:33 Dose: 5 mg General: alert HEENT: NC/AT, PERRLA Neck: Supple Lungs: CTAB Cardiovascular: RRR, without murmur Neurological: alert Internal Medicine Assmt/Plan - Assessment Assessment: COPD PSYCHOSIS - Plan Plan: SUPPLEMENTAL OXYGEN NEEDED CONTINUE CURRENT PLAN OF CARE Nutritional Asmnt/Malnutr-PDOC - Dietary Evaluation Malnutrition Findings (Please click <Entered> for more info): Nutritional Asmnt/Malnutrition Start: 07/12/17 17: 12 Text: Status: Complete Freq: Protocol: Document 07/12/17 17:12 [facility] (Rec: 07/12/17 17:29 [facility] [email or web address]) Nutritional Asmnt/Malnutrition Patient General Information Nutritional Screening Low Risk Diagnosis psychosis Pertinent Medical Hx/Surgical Hx CHOPD, asthma, HTN, OA, osteoporosis, psychosis Subjective Information Pt seen sitting on bed having lunch. Pt reported good appetite, food is good. Current Diet Order/ Nutrition Support regular Pertinent Medications protonix, seroquel, theragran Pertinent Labs no lab Nutritional Hx/Data Height 5 ft 2 in Height (Calculated Centimeters) 157.5 Current Weight (lbs) 113 lb Weight (Calculated Kilograms) 51.3 Weight (Calculated Grams) 08242.9 [place] Body Weight 110 Body Mass Index (BMI) 20.6 Weight Status Approriate GI Symptoms GI Symptoms None Last BM 6/ Difficult in: None Skin Integrity/Comment: intact Current %PO Good (75-100%) Estimated Nutritional Goals BEE in Kcals: Using Current wt Calories/Kcals/Kg 25-30 Kcals Calculated 1719-9032 Protein: Using Current wt Protein g/k Protein Calculated 51 Fluid: ml 1275-1530ml (1ml/kcal) Nutritional Problem No current Nutrition Prob Problem N/A Malnutrition Alert Is there a minimum of two criteria No selected? Query Text:Check all the applicable criteria. A minimum of two criteria are recommended for diagnosis of either severe or non-severe malnutrition. Malnutrition Related to Morbid Obesity Malnutrition related to morbid obesity No Intervention/Recommendation Comments 1. Continue with cregular diet as ordered. 2. Monitor PO intake, wt, labs and skin integrity 3. F/U as low risk in 7 days, 07/19 Expected Outcomes/Goals Expected Outcomes/Goals 1. PO intake to meet at least 75% of nutritional needs. 2. Wt stability, skin to remain intact, labs to approach WNL.
[2017-07-16] MEDS ORDERED: Haloperidol Lactate 5 mg/mL 1mL Vial ONE (15:20)
[2017-07-16] MEDS ORDERED: Haloperidol Lactate 5 mg/mL 1mL Vial IM ONE (15:20)
[2017-07-17] MEDS: Albuterol/Ipratropium Neb 3 ML AERS HHN SCH ×4 (01:30→19:36)
--- NOTE | 2017-07-17 01:57 | Progress Notes ---
DATE: 07/16/2017 SUBJECTIVE: Staff was spoken to. The patient is interviewed. Mood is noted to be irritable. Affect is constricted. The patient has been gotten out of control and the patient initially was given 1 mg of Ativan that did not calm her down. Later, she had to be given a dose of Ativan along with Haldol, the patient then started to relax. The patient is having severe sundowning. ASSESSMENT: The patient is still confused and agitated. PLAN: To continue the patient with the supportive therapy and follow up. JOB# [id number]
[2017-07-17] MEDS: Budesonide 0.5 Mg/2 mL Ud HHN SCH ×2 (06:45→19:25)
--- NOTE | 2017-07-17 07:07 | Progress Notes ---
DATE: 07/17/2017 SUBJECTIVE: The patient was seen in her room, lying in the bed. The patient is asleep, but easily arousable. The patient appears to be guarded and confused. Otherwise, the patient is in no acute distress. OBJECTIVE VITAL SIGNS: Temperature 98.4, heart rate 78, blood pressure 105/73, respirations 29, 100% on room air. HEENT: Head is atraumatic and normocephalic. Eyes: Bilateral conjunctivae are clear. Bilateral pupils are equally round and reactive. NECK: Supple. No JVD. CARDIOVASCULAR: S1 and S2, without murmur. PULMONARY: Clear to auscultation. GASTROINTESTINAL: Soft and nontender without guarding. Positive bowel sounds. MUSCULOSKELETAL: No clubbing, no cyanosis noted. ASSESSMENT: 1. Dementia. 2. Chronic obstructive pulmonary disease. PLAN: We will keep the patient inpatient psychiatric unit. We will follow up with a psychiatrist to monitor the patient's condition and behavior. Treatment plans were discussed with the patient's nurse. Treatment plans were discussed with Dr. Vargas. JOB# [id number]
[2017-07-17] MEDS: Pantoprazole 40 mg EC Tab PO SCH (08:24)
[2017-07-17] MEDS: Multivitamin Tab PO SCH (08:25)
--- NOTE | 2017-07-17 13:40 | Progress Notes ---
DATE: 07/17/2017 PSYCHIATRIC PROGRESS NOTE SUBJECTIVE: Staff was spoken to. The patient is interviewed. Mood is noted to be irritable. Affect is constricted. The patient had been out of control yesterday and has been having owners, but this morning she seems to be doing a little bit better. No side effects to the medications are noted. The patient is being closely monitored. ASSESSMENT: The patient is still confused and demented and awaiting placement. PLAN: To continue the patient with the supportive therapy and followup. JOB# [id number]
[2017-07-18] MEDS: Albuterol/Ipratropium Neb 3 ML AERS HHN SCH ×4 (01:07→19:23)
[2017-07-18] MEDS: Pantoprazole 40 mg EC Tab PO SCH (08:49)
[2017-07-18] MEDS: Multivitamin Tab PO SCH (08:51)
--- NOTE | 2017-07-18 10:41 | General Progress Note ---
Subjective - Review of Systems Service Date: 07/18/17 Subjective: awake, alert denies pain Objective - Physical Exam Vitals and I&O: Vital Signs Temp 98.4 F 07/18/17 06:21 Pulse 66 07/18/17 06:36 Resp 16 07/18/17 06:36 BP 108/48 07/18/17 06:21 Pulse Ox 95 07/18/17 06:36 Intake & Output 07/17/17 07/18/17 07/18/17 18:59 06:59 18:59 Intake Total 1650 720 Balance 1650 720 Intake: Oral 1650 720 Other: # Voids 2 1 # Bowel Movements 0 Stool Characteristics Soft Active Medications: Current Medications Acetaminophen (Tylenol) 650 mg PO Q4HR PRN PRN Reason: Mild Pain / Temp above 100 Stop: 09/04/17 22:18 Last Admin: 07/09/17 23:44 Dose: 650 mg Al Hydrox/Mg Hydrox/Simethicone (Maalox) 30 ml PO Q4HR PRN PRN Reason: GI DISTRESS Stop: 09/04/17 22:18 Albuterol/Ipratropium (Duoneb Neb) 3 ml HHN Q6HRT [facility] Stop: 09/05/17 00:59 Last Admin: 07/18/17 06:23 Dose: 3 ml Albuterol/Ipratropium (Duoneb Neb) 3 ml HHN Q4HRT PRN PRN Reason: Shortness of Breath Stop: 09/04/17 22:31 Budesonide (Pulmicort) 0.5 mg HHN Q12H [facility] Stop: 09/04/17 22:44 Last Admin: 07/17/17 19:25 Dose: 0.5 mg Dextrose (Glutose 40%) 15 gm PO PRN PRN PRN Reason: blood sugar < 60 Stop: 09/04/17 22:31 Donepezil HCl (Aricept) 5 mg PO DAILY [facility] Stop: 09/11/17 08:59 Last Admin: 07/18/17 08:51 Dose: 5 mg Glucagon (Glucagen) 1 mg IVP PRN PRN PRN Reason: hypoglycemia Levetiracetam (Keppra) 250 mg PO HS [facility] Stop: 09/05/17 20:59 Last Admin: 07/17/17 21:01 Dose: 250 mg Lorazepam (Ativan) 0.5 mg PO Q4HR PRN; Protocol PRN Reason: Anxiety Stop: 08/05/17 22:18 Last Admin: 07/17/17 08:25 Dose: 0.5 mg Magnesium Hydroxide (Milk Of Magnesia) 30 ml PO HS PRN PRN Reason: Constipation Memantine (Namenda) 5 mg PO BID [facility] Stop: 09/11/17 08:59 Last Admin: 07/18/17 08:49 Dose: 5 mg Montelukast Sodium (Singulair) 10 mg PO HS [facility] Stop: 09/05/17 20:59 Last Admin: 07/17/17 21:02 Dose: 10 mg Multivitamins/Vitamin C (Theragran) 1 tab PO DAILY [facility] Stop: 09/05/17 08:59 Last Admin: 07/18/17 08:51 Dose: 1 tab Pantoprazole Sodium (Protonix) 40 mg PO DAILY [facility] Stop: 09/05/17 08:59 Last Admin: 07/18/17 08:49 Dose: 40 mg Quetiapine Fumarate (Seroquel) 25 mg PO HS [facility]; Protocol Stop: 09/05/17 20:59 Last Admin: 07/17/17 21:02 Dose: 25 mg Sitagliptin Phosphate (Januvia) 50 mg PO DAILY [facility] Stop: 09/05/17 08:59 Last Admin: 07/18/17 08:51 Dose: 50 mg Zolpidem Tartrate (Ambien) 5 mg PO HS PRN PRN Reason: Insomnia Stop: 09/04/17 22:18 Last Admin: 07/17/17 21:02 Dose: 5 mg General: Alert, No acute distress HEENT: Atraumatic, PERRLA, EOMI Neck: Supple, JVD Cardiovascular: Regular rate, Normal S1, Normal S2 Lungs: Other (rales ), no Clear to auscultation Abdomen: Bowel sounds Neurological: Normal gait Assessment/Plan - Problem List Patient Problems: All Active Problems Bronchitis (Acute) J40 H/O psychosis (Acute) Z86.59 Pneumonia (Acute) J18.9 - Plan Plan: as per psych cpm monitor vitals Nutritional Asmnt/Malnutr-PDOC - Dietary Evaluation Malnutrition Findings (Please click <Entered> for more info): Nutritional Asmnt/Malnutrition Start: 07/12/17 17: 12 Text: Status: Complete Freq: Protocol: Document 07/12/17 17:12 [facility] (Rec: 07/12/17 17:29 [facility] [email or web address]) Nutritional Asmnt/Malnutrition Patient General Information Nutritional Screening Low Risk Diagnosis psychosis Pertinent Medical Hx/Surgical Hx CHOPD, asthma, HTN, OA, osteoporosis, psychosis Subjective Information Pt seen sitting on bed having lunch. Pt reported good appetite, food is good. Current Diet Order/ Nutrition Support regular Pertinent Medications protonix, seroquel, theragran Pertinent Labs no lab Nutritional Hx/Data Height 1.57 m Height (Calculated Centimeters) 157.5 Current Weight (lbs) 51.256 kg Weight (Calculated Kilograms) 51.3 Weight (Calculated Grams) 92321.9 [place] Body Weight 110 Body Mass Index (BMI) 20.6 Weight Status Approriate GI Symptoms GI Symptoms None Last BM 6/3 Difficult in: None Skin Integrity/Comment: intact Current %PO Good (75-100%) Estimated Nutritional Goals BEE in Kcals: Using Current wt Calories/Kcals/Kg 25-30 Kcals Calculated 4883-1617 Protein: Using Current wt Protein g/k Protein Calculated 51 Fluid: ml 1275-1530ml (1ml/kcal) Nutritional Problem No current Nutrition Prob Problem N/A Malnutrition Alert Is there a minimum of two criteria No selected? Query Text:Check all the applicable criteria. A minimum of two criteria are recommended for diagnosis of either severe or non-severe malnutrition. Malnutrition Related to Morbid Obesity Malnutrition related to morbid obesity No Intervention/Recommendation Comments 1. Continue with cregular diet as ordered. 2. Monitor PO intake, wt, labs and skin integrity 3. F/U as low risk in 7 days, 07/19 Expected Outcomes/Goals Expected Outcomes/Goals 1. PO intake to meet at least 75% of nutritional needs. 2. Wt stability, skin to remain intact, labs to approach WNL.
--- NOTE | 2017-07-18 17:56 | Progress Notes ---
DATE: 07/18/2017 PSYCHIATRIC PROGRESS NOTE SUBJECTIVE: Staff was spoken to. The patient is interviewed. Mood is noted to be less irritable. Affect is appropriate. The patient has paranoia, sundowning is a major concern with this, but no major behavioral problems are noted today. ASSESSMENT: The patient is stabilizing. PLAN: To continue the patient with the current medications. I encouraged the patient to verbalize the concerns rather than to act out. [place]ERT[place]# [id number]
[2017-07-18] MEDS: Budesonide 0.5 Mg/2 mL Ud HHN SCH (19:25)
[2017-07-19] MEDS: Budesonide 0.5 Mg/2 mL Ud HHN SCH (07:00)
[2017-07-19] MEDS: Albuterol/Ipratropium Neb 3 ML AERS HHN SCH ×2 (07:24→13:33)
[2017-07-19] MEDS: Pantoprazole 40 mg EC Tab PO SCH (09:14)
[2017-07-19] MEDS: Multivitamin Tab PO SCH (09:14)
--- NOTE | 2017-07-19 14:58 | General Progress Note ---
Subjective - Review of Systems Service Date: 07/19/17 Subjective: awake, alert denies sob Objective - Physical Exam Vitals and I&O: Vital Signs Temp 97.9 F 07/19/17 06:20 Pulse 76 07/19/17 13:35 Resp 18 07/19/17 13:35 BP 125/71 07/19/17 06:20 Pulse Ox 98 07/19/17 13:35 Intake & Output 07/18/17 07/19/17 07/19/17 18:59 06:59 18:59 Intake Total 1000 360 Balance 1000 360 Intake: Oral 1000 360 Other: # Voids 4 1 # Bowel Movements 0 0 Stool Characteristics Soft Soft Formed Active Medications: Current Medications Acetaminophen (Tylenol) 650 mg PO Q4HR PRN PRN Reason: Mild Pain / Temp above 100 Stop: 09/04/17 22:18 Last Admin: 07/19/17 06:40 Dose: 650 mg Al Hydrox/Mg Hydrox/Simethicone (Maalox) 30 ml PO Q4HR PRN PRN Reason: GI DISTRESS Stop: 09/04/17 22:18 Albuterol/Ipratropium (Duoneb Neb) 3 ml HHN Q6HRT [facility] Stop: 09/05/17 00:59 Last Admin: 07/19/17 13:33 Dose: 3 ml Albuterol/Ipratropium (Duoneb Neb) 3 ml HHN Q4HRT PRN PRN Reason: Shortness of Breath Stop: 09/04/17 22:31 Budesonide (Pulmicort) 0.5 mg HHN Q12H [facility] Stop: 09/04/17 22:44 Last Admin: 07/19/17 07:00 Dose: 0.5 mg Dextrose (Glutose 40%) 15 gm PO PRN PRN PRN Reason: blood sugar < 60 Stop: 09/04/17 22:31 Donepezil HCl (Aricept) 5 mg PO DAILY [facility] Stop: 09/11/17 08:59 Last Admin: 07/19/17 09:14 Dose: 5 mg Glucagon (Glucagen) 1 mg IVP PRN PRN PRN Reason: hypoglycemia Levetiracetam (Keppra) 250 mg PO HS [facility] Stop: 09/05/17 20:59 Last Admin: 07/18/17 20:58 Dose: 250 mg Lorazepam (Ativan) 0.5 mg PO Q4HR PRN; Protocol PRN Reason: Anxiety Stop: 08/05/17 22:18 Last Admin: 07/19/17 12:58 Dose: 0.5 mg Magnesium Hydroxide (Milk Of Magnesia) 30 ml PO HS PRN PRN Reason: Constipation Memantine (Namenda) 5 mg PO BID [facility] Stop: 09/11/17 08:59 Last Admin: 07/19/17 09:14 Dose: 5 mg Montelukast Sodium (Singulair) 10 mg PO HS [facility] Stop: 09/05/17 20:59 Last Admin: 07/18/17 20:59 Dose: 10 mg Multivitamins/Vitamin C (Theragran) 1 tab PO DAILY [facility] Stop: 09/05/17 08:59 Last Admin: 07/19/17 09:14 Dose: 1 tab Pantoprazole Sodium (Protonix) 40 mg PO DAILY [facility] Stop: 09/05/17 08:59 Last Admin: 07/19/17 09:14 Dose: 40 mg Quetiapine Fumarate (Seroquel) 25 mg PO HS [facility]; Protocol Stop: 09/05/17 20:59 Last Admin: 07/18/17 20:59 Dose: 25 mg Sitagliptin Phosphate (Januvia) 50 mg PO DAILY [facility] Stop: 09/05/17 08:59 Last Admin: 07/19/17 09:14 Dose: 50 mg Zolpidem Tartrate (Ambien) 5 mg PO HS PRN PRN Reason: Insomnia Stop: 09/04/17 22:18 Last Admin: 07/18/17 20:58 Dose: 5 mg General: Alert, No acute distress HEENT: Atraumatic, PERRLA, EOMI Neck: Supple, JVD Cardiovascular: Regular rate, Normal S1, Normal S2 Lungs: Other (rales ), no Clear to auscultation Abdomen: Bowel sounds Neurological: Normal gait Assessment/Plan - Problem List Patient Problems: All Active Problems Bronchitis (Acute) J40 H/O psychosis (Acute) Z86.59 Pneumonia (Acute) J18.9 - Plan Plan: as per psych cpm monitor vitals Nutritional Asmnt/Malnutr-PDOC - Dietary Evaluation Malnutrition Findings (Please click <Entered> for more info): Nutritional Asmnt/Malnutrition Start: 07/12/17 17: 12 Text: Status: Complete Freq: Protocol: Document 07/12/17 17:12 [facility] (Rec: 07/12/17 17:29 [email or web address]) Nutritional Asmnt/Malnutrition Patient General Information Nutritional Screening Low Risk Diagnosis psychosis Pertinent Medical Hx/Surgical Hx CHOPD, asthma, HTN, OA, osteoporosis, psychosis Subjective Information Pt seen sitting on bed having lunch. Pt reported good appetite, food is good. Current Diet Order/ Nutrition Support regular Pertinent Medications protonix, seroquel, theragran Pertinent Labs no lab Nutritional Hx/Data Height 1.57 m Height (Calculated Centimeters) 157.5 Current Weight (lbs) 51.256 kg Weight (Calculated Kilograms) 51.3 Weight (Calculated Grams) 35215.9 [place] Body Weight 110 Body Mass Index (BMI) 20.6 Weight Status Approriate GI Symptoms GI Symptoms None Last BM 6/3 Difficult in: None Skin Integrity/Comment: intact Current %PO Good (75-100%) Estimated Nutritional Goals BEE in Kcals: Using Current wt Calories/Kcals/Kg 25-30 Kcals Calculated 7586-3260 Protein: Using Current wt Protein g/k Protein Calculated 51 Fluid: ml 1275-1530ml (1ml/kcal) Nutritional Problem No current Nutrition Prob Problem N/A Malnutrition Alert Is there a minimum of two criteria No selected? Query Text:Check all the applicable criteria. A minimum of two criteria are recommended for diagnosis of either severe or non-severe malnutrition. Malnutrition Related to Morbid Obesity Malnutrition related to morbid obesity No Intervention/Recommendation Comments 1. Continue with cregular diet as ordered. 2. Monitor PO intake, wt, labs and skin integrity 3. F/U as low risk in 7 days, 07/19 Expected Outcomes/Goals Expected Outcomes/Goals 1. PO intake to meet at least 75% of nutritional needs. 2. Wt stability, skin to remain intact, labs to approach WNL.
--- NOTE | 2017-07-19 20:40 | Progress Notes ---
DATE: 07/19/2017 SUBJECTIVE: Staff was spoken to. The patient is interviewed. Mood is noted to be anxious. Affect is appropriate. Not suicidal or homicidal. Insight and judgment at this time are noted to be improving. Impulse control is noted to be fair. ASSESSMENT: The patient is stabilizing. PLAN: To discharge the patient today for followup on an outpatient basis. JOB# [id number]
== END 2017-07-19 16:55 | DRG 884 ==
LOC: GERO 20:32
PROVIDERS: ADMIT Psychiatry & Neurology Psychiatry; ATTEND Psychiatry & Neurology Psychiatry
DX: F03.91 Unspecified dementia, unspecified severity, with behavioral disturbance (principal); J18.9 Pneumonia, unspecified organism; J44.0 Chronic obstructive pulmonary disease with (acute) lower respiratory infection; F29 Unspecified psychosis not due to a substance or known physiological condition; M81.0 Age-related osteoporosis without current pathological fracture; M19.90 Unspecified osteoarthritis, unspecified site; I10 Essential (primary) hypertension
CPT/HCPCS: 94640; 94760; G0410; J1630; J2060; Q9967; Z7610

== ENCOUNTER 2017-09-05 20:34 | Inpatient (IN) | payer MEDICARE ==
[2017-09-05 21:09] LABS: % EOSINOPHILS 3.2 % (0.0-5.0); % LYMPHOCYTES 34.6 % (20.0-50.0); % NEUTROPHILS 53.2 % (40.0-80.0); BASOPHILE ABSOLUTE 0.1 Th/cumm (0-0.2); EOSINOPHILE ABSOLUTE 0.2 Th/cmm (0.1-0.4); HEMATOCRIT 33.2 % (41.0-60); HEMOGLOBIN 11.4 gm/dL (12-16); LYMPHOCYTE ABSOLUTE 2.7 Th/cmm (1.5-3.0); MEAN CELL VOLUME 85.8 fl (81-100); MEAN CORPUSCULAR HEMOGLOBIN 29.4 pg (27.0-31.0); MEAN CORPUSCULAR HGB CONC 34.3 pg (28.0-36.0); MEAN PLATELET VOLUME 6.6 fl; MONOCYTE ABSOLUTE 0.6 Th/cmm (0.3-1.0); NEUTROPHILE ABSOLUTE 4.2 Th/cmm (1.8-8.0); PLATELET COUNT 374 Th/cmm (150-400); RED BLOOD COUNT 3.87 Mil/cmm (3.80-5.20); RED CELL DISTRIBUTION WIDTH 13.8 % (11.5-20.0); WHITE BLOOD COUNT 7.8 Th/cmm (4.8-10.8)
[2017-09-05 21:15] LABS: URINE MICROSCOPIC INDICATED? YES; URINE SOURCE CLEAN C
[2017-09-05 21:16] LABS: URINE BILIRUBIN NEGATIVE (NEGATIVE); URINE BLOOD NEGATIVE (NEGATIVE); URINE GLUCOSE (UA) NEGATIVE (NEGATIVE); URINE KETONE NEGATIVE (NEGATIVE); URINE LEUKOCYTE ESTERASE SMALL (NEGATIVE); URINE NITRATE NEGATIVE (NEGATIVE); URINE PH 6.5 (4.6 - 8.0); URINE PROTEIN NEGATIVE (NEGATIVE); URINE UROBILINOGEN 0.2 E.U./dL (0.2 - 1.0)
[2017-09-05 21:17] LABS: URINE CLARITY CLEAR (CLEAR); URINE COLOR YELLOW
[2017-09-05 21:20] LABS: URINE BACTERIA 1+ /hpf (NONE SEEN); URINE EPITHELIAL CELLS FEW /lpf (FEW); URINE FINE GRANULAR CAST 0-2 /lpf (NONE SEEN); URINE RBC 0-2 /hpf (0-5)
[2017-09-05 21:25] LABS: ALBUMIN 3.4 gm/dL (3.7-5.3); ALKALINE PHOSPHATASE 71 U/L (34-104); BILIRUBIN,TOTAL 0.3 mg/dL (0.3-1.0); BUN - UREA NITROGEN 25 mg/dL (7-25); CALCIUM SERUM 9.9 mg/dL (8.6-10.3); CARBON DIOXIDE 29.4 mEq/L (21.0-31.0); CHLORIDE 102 mEq/L (98-107); CREATININE - SERUM 0.8 mg/dL (0.6-1.2); GLUCOSE 105 mg/dL (70-105); MAGNESIUM 2.2 mg/dL (1.9-2.7); PHOSPHOROUS 4.5 mg/dL (2.5-5.0); POTASSIUM SERUM 4.4 mEq/L (3.5-5.1); SGOT 11 U/L (13-39); SGPT/ALT 7 U/L (7-52); SODIUM SERUM 138 mEq/L (136-145); TOTAL PROTEIN,SERUM 6.9 gm/dL (6.0-8.3)
[2017-09-05 21:29] LABS: AMPHETAMINE URINE NEGATIVE (NEGATIVE); BARBITURATES URINE NEGATIVE (NEGATIVE); BENZODIAZEPINES QUAL URINE POSITIVE (NEGATIVE); CANNABINOID THC NEGATIVE (NEGATIVE); COCAINE METABOLITE QUAL URINE NEGATIVE (NEGATIVE); METHADONE URINE NEGATIVE (NEGATIVE); METHAMPHETAMINES QUAL URINE NEGATIVE (NEGATIVE); OPIATES (MORPHINE) QUAL. URINE NEGATIVE (NEGATIVE); PHENCYCLIDINE (PCP) URINE NEGATIVE (NEGATIVE); TRICYCLICS (TCA) QUAL. URINE POSITIVE (NEGATIVE)
[2017-09-05] MEDS ORDERED: Dextrose 50% 50 mL Abboject IVP STA (22:29)
[2017-09-05] MEDS ORDERED: Dextrose 10% 1,000 ML IV SCH (22:30)
--- NOTE | 2017-09-05 23:05 | ED Physician Chart ---
ED Chief Complaint/HPI - Patient Information Date Seen:: 09/05/17 Time Seen:: 20:37 Chief Complaint:: generalized weakness & low BP History of Present Illness:: generalized weakness & low BP Allergies:: Allergies Allergy/AdvReac Type Severity Reaction Status Date / Time No Known Allergies Allergy Verified 03/17/17 14:00 Vitals:: Vital Signs - 8 hr 09/05/17 20:37 Temp 97.8 F HR 58 RR 18 BP 131/62 O2 Sat % 98 ED Review of Systems - Review of Systems General/Constitutional: Weakness, Other (low blood pressure) Skin: No skin lesions, No rash, No bruising Head: No headache, No light-headedness Eyes: No loss of vision, No pain, No diplopia ENT: No earache, No nasal drainage, No sore throat, No tinnitus Neck: No neck pain, No swelling, No thyromegaly, No stiffness, No mass noted Cardio Vascular: No chest pain, No palpitations, No PND, No orthopnea, No edema Pulmonary: No SOB, No cough, No sputum, No wheezing GI: No nausea, No vomiting, No diarrhea, No pain, No melena, No hematochezia, No constipation, No hematemesis G/U: No dysuria, No frequency, No hematuria Musculoskeletal: No bone or joint pain, No back pain, No muscle pain Endocrine: No polyuria, No polydipsia Psychiatric: No prior psych history, No depression, No anxiety, No suicidal ideation Hematopoietic: No bruising, No lymphadenopathy Allergic/Immuno: No urticaria, No angioedema Neurological: No syncope, No focal symptoms, No weakness, No paresthesia, No headache, No seizure, No dizziness, No confusion, No vertigo ED Past Medical History - Past Medical History Past Medical History: DM, Asthma/COPD, Dementia, Other (unsteadiness on feet; GERD without esophagitis; epilepsy, unspecified, not intractable, without status epilepticus; schizophrenia, unspecified; anxiety disorder, unspecified; 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 ) Family Medical History - Family Member Mother History Unknown: Yes Ethnicity: Unknown Living Status: Unknown ED Physical Exam - Physical Examination General/Constitutional: Awake, Well-developed, well-nourished, Alert, No distress, GCS 15, Non-toxic appearing, Ambulatory Head: Atraumatic Eyes: Lids, conjuctiva normal, PERRL, EOMI Skin: Nl inspection, No rash, No skin lesions, No ecchymosis, Well hydrated, No lymphadenopathy ENMT: External ears, nose nl, Nasal exam nl, Lips, teeth, gums nl Neck: Nontender, Full ROM w/o pain, No JVD, No nuchal rigidity, No bruit, No mass, No stridor Respiratory: Nl effort/Exclusion, Clear to Auscultation, No Wheeze/Rhonchi/Rales Cardio Vascular: RRR, No murmur, gallop, rubs, NL S1 S2 GI: No tenderness/rebounding/guarding, No organomegaly, No hernia, Normal BS's, Nondistended, No mass/bruits, No McBurney tenderness : No CVA tenderness Extremities: No tenderness or effusion, Full ROM, No edema, Normal digits & nails Neuro/Psych: Alert/oriented, Mood normal Other Neuro/Psych comments:: chronic weakness in BLE at 5- bilaterally. at her mental status baseline. Misc: Normal back, No paraspinal tenderness ED Labs/Radiology/EKG Results - Lab Results Results: Laboratory Tests 09/05/17 09/05/17 09/05/17 20:53 21:00 21:00 WBC 7.8 RBC 3.87 Hgb 11.4 L Hct 33.2 L MCV 85.8 MCH 29.4 MCHC Differential 34.3 RDW 13.8 Plt Count 374 MPV 6.6 Neutrophils % 53.2 Lymphocytes % 34.6 Monocytes % 8.0 Eosinophils % 3.2 Basophils % 1.0 Sodium 138 Potassium 4.4 Chloride 102 Carbon Dioxide 29.4 Anion Gap 11.0 BUN 25 Creatinine 0.8 Est GFR ( Amer) TNP Est GFR (Non-Af Amer) TNP BUN/Creatinine Ratio 31.3 Glucose 105 POC Glucose 98 Calcium 9.9 Phosphorus 4.5 Magnesium 2.2 Total Bilirubin 0.3 AST 11 L ALT 7 Alkaline Phosphatase 71 Troponin I Total Protein 6.9 Albumin 3.4 L Globulin 3.5 Albumin/Globulin Ratio 1.0 TSH Urine Source Urine Color Urine Clarity Urine pH Ur Specific Rainbow Urine Protein Urine Glucose (UA) Urine Ketones Urine Blood Urine Nitrate Urine Bilirubin Urine Urobilinogen Ur Leukocyte Esterase Urine RBC Urine WBC Ur Epithelial Cells Urine Bacteria Fine Granular Casts Urine Opiates Screen Urine Methadone Screen Ur Barbiturates Screen Ur Tricyclics Screen Ur Phencyclidine Scrn Amphetamines Screen U Methamphetamines Scrn U Benzodiazepines Scrn U Cocaine Metab Screen U Cannabinoids Screen 09/05/17 09/05/17 09/05/17 21:00 21:00 21:00 WBC RBC Hgb Hct MCV MCH MCHC Differential RDW Plt Count MPV Neutrophils % Lymphocytes % Monocytes % Eosinophils % Basophils % Sodium Potassium Chloride Carbon Dioxide Anion Gap BUN Creatinine Est GFR ( Amer) Est GFR (Non-Af Amer) BUN/Creatinine Ratio Glucose POC Glucose Calcium Phosphorus Magnesium Total Bilirubin AST ALT Alkaline Phosphatase Troponin I Total Protein Albumin Globulin Albumin/Globulin Ratio TSH 4.85 Urine Source CLEAN C Urine Color YELLOW Urine Clarity CLEAR Urine pH 6.5 Ur Specific Rainbow 1.010 Urine Protein NEGATIVE Urine Glucose (UA) NEGATIVE Urine Ketones NEGATIVE Urine Blood NEGATIVE Urine Nitrate NEGATIVE Urine Bilirubin NEGATIVE Urine Urobilinogen 0.2 Ur Leukocyte Esterase SMALL H Urine RBC 0-2 Urine WBC 2-5 Ur Epithelial Cells FEW Urine Bacteria 1+ H Fine Granular Casts 0-2 H Urine Opiates Screen NEGATIVE Urine Methadone Screen NEGATIVE Ur Barbiturates Screen NEGATIVE Ur Tricyclics Screen POSITIVE H Ur Phencyclidine Scrn NEGATIVE Amphetamines Screen NEGATIVE U Methamphetamines Scrn NEGATIVE U Benzodiazepines Scrn POSITIVE H U Cocaine Metab Screen NEGATIVE U Cannabinoids Screen NEGATIVE 09/05/17 21:00 WBC RBC Hgb Hct MCV MCH MCHC Differential RDW Plt Count MPV Neutrophils % Lymphocytes % Monocytes % Eosinophils % Basophils % Sodium Potassium Chloride Carbon Dioxide Anion Gap BUN Creatinine Est GFR ( Amer) Est GFR (Non-Af Amer) BUN/Creatinine Ratio Glucose POC Glucose Calcium Phosphorus Magnesium Total Bilirubin AST ALT Alkaline Phosphatase Troponin I < 0.01 L Total Protein Albumin Globulin Albumin/Globulin Ratio TSH Urine Source Urine Color Urine Clarity Urine pH Ur Specific Rainbow Urine Protein Urine Glucose (UA) Urine Ketones Urine Blood Urine Nitrate Urine Bilirubin Urine Urobilinogen Ur Leukocyte Esterase Urine RBC Urine WBC Ur Epithelial Cells Urine Bacteria Fine Granular Casts Urine Opiates Screen Urine Methadone Screen Ur Barbiturates Screen Ur Tricyclics Screen Ur Phencyclidine Scrn Amphetamines Screen U Methamphetamines Scrn U Benzodiazepines Scrn U Cocaine Metab Screen U Cannabinoids Screen ED Assessment - Assessment General Assessment: EKG from 9:40:58 p.m. normal sinus rhythm, flipped t wave in V1. Movement artifact in V4. EKG from 9:31:17 p.m. normal sinus rhythm, flipped t wave in V1. Movement artifact in V5. Assessment/Comments:: spoke to Dr. Vargas, patient's primary care physician who is going to admit the patient. Orders given to Shagufta Lopez at 11:15 p.m. ED Septic Shock - . Is Septic Shock (SBP<90, OR Lactate>4 mmol\L) present?: No - <6hrs of presentation: Vital Signs: Vital Signs - 8 hr 09/05/17 20:37 Temp 97.8 F HR 58 RR 18 BP 131/62 O2 Sat % 98 ED Reassessment (Disposition) - Reassessment Reassessment Condition:: Improved - Diagnosis Diagnosis:: Generalized weakness Hypotension Urinary Tract Infection Unspecified schizophrenia, psychosis Epilepsy - Patient Disposition Discharge/Transfer:: Acute Care w/in this hosp
[2017-09-05] MEDS ORDERED: Sodium Chloride 0.9% 1,000 ML IV SCH (23:19)
[2017-09-06] MEDS ORDERED: Piperacillin Sodium/Tazobact 3.375 gm Vial IV ONE (02:02)
[2017-09-06] MEDS: Sodium Chloride 0.9% 1,000 ML IV SCH ×3 (02:19→17:31)
[2017-09-06 02:49] VITALS: BP 140/60
[2017-09-06 06:43] LABS: % BASOPHILS 1.1 % (0.0-2.0); % EOSINOPHILS 3.2 % (0.0-5.0); % LYMPHOCYTES 23.5 % (20.0-50.0); % MONOCYTES 7.9 % (2.0-10.0); % NEUTROPHILS 64.3 % (40.0-80.0); BASOPHILE ABSOLUTE 0.1 Th/cumm (0-0.2); EOSINOPHILE ABSOLUTE 0.3 Th/cmm (0.1-0.4); HEMATOCRIT 32.5 % (41.0-60); HEMOGLOBIN 11.1 gm/dL (12-16); LYMPHOCYTE ABSOLUTE 1.9 Th/cmm (1.5-3.0); MEAN CELL VOLUME 85.8 fl (81-100); MEAN CORPUSCULAR HEMOGLOBIN 29.4 pg (27.0-31.0); MEAN CORPUSCULAR HGB CONC 34.2 pg (28.0-36.0); MEAN PLATELET VOLUME 7.4 fl; MONOCYTE ABSOLUTE 0.6 Th/cmm (0.3-1.0); NEUTROPHILE ABSOLUTE 5.1 Th/cmm (1.8-8.0); PLATELET COUNT 327 Th/cmm (150-400); RED BLOOD COUNT 3.79 Mil/cmm (3.80-5.20)
[2017-09-06 06:59] LABS: ALB/GLOB RATIO 0.9 (1.0-1.8); ALBUMIN 3.2 gm/dL (3.7-5.3); ALKALINE PHOSPHATASE 64 U/L (34-104); ANION GAP 11.2 (7.0-16.0); BILIRUBIN,TOTAL 0.3 mg/dL (0.3-1.0); BUN - UREA NITROGEN 16 mg/dL (7-25); CALCIUM SERUM 9.3 mg/dL (8.6-10.3); CARBON DIOXIDE 26.2 mEq/L (21.0-31.0); CHLORIDE 103 mEq/L (98-107); CHOLESTEROL 149 mg/dL (<200); CREATININE - SERUM 0.6 mg/dL (0.6-1.2); GLUCOSE 98 mg/dL (70-105); HDL -HIGH DENSITY LIPOPROTEIN 67 mg/dL (23-92); POTASSIUM SERUM 3.4 mEq/L (3.5-5.1); SGOT 11 U/L (13-39); SGPT/ALT 8 U/L (7-52); SODIUM SERUM 137 mEq/L (136-145); TOTAL PROTEIN,SERUM 6.6 gm/dL (6.0-8.3); TRIGLYCERIDES 110 mg/dL (<150)
--- NOTE | 2017-09-06 07:32 | Diagnostic Imaging Report ---
Portable chest x-ray Time: 2120 hours History: Shortness of breath Allowing for portable technique the heart size is normal. No focal pulmonary parenchymal processes. No hilar or mediastinal abnormalities. Impression: No acute abnormalities.
[2017-09-06] MEDS ORDERED: Maalox 30 mL Cup PO PRN (08:44)
[2017-09-06] MEDS ORDERED: Magnesium Hydroxide (MOM) 30 mL UDC PO PRN (08:44)
[2017-09-06] MEDS ORDERED: Albuterol/Ipratropium Neb 3 ML AERS HHN PRN (08:44)
[2017-09-06] MEDS ORDERED: GLUCAGON HCl 1 MG KIT IM PRN (08:44)
--- NOTE | 2017-09-06 13:05 | Consultation ---
Consult Note - Consult Note Service Date: 08/30/17 Referring Physician: Mustapha Vargas Consult Note: PHYSICIAN Consultation Note: Date of Admission: 09/05/17 Purpose of Consultation: Sepsis. Chief Complaint: Patient ESTELA KING was admitted to [facility] with GENERALIZED WEAKNESS,UTI,HYPOTENSION. History of Present Illness: 81-year-old female with a past medical history of diabetes mellitus type 2, asthma, dementia, GERD, epilepsy, schizophrenia, anxiety disorder, psychosis was brought from her facility for low-grade pressure. It was associated with a change in mental status. On initial evaluation, her temperature was 97.8F and WBC count was 7800. Urinalysis showed a leukoesterase positive and bacteria plus. She was diagnosed UTI and started on Zosyn. Further information is not available. Past Medical History: diabetes mellitus type 2, asthma, dementia, GERD, epilepsy, schizophrenia, anxiety disorder, psychosis Allergies Allergy/AdvReac Type Severity Reaction Status Date / Time No Known Allergies Allergy Verified 03/17/17 14:00 Vital Signs Temp 97.4 F 09/06/17 11:59 Pulse 63 09/06/17 11:59 Resp 18 09/06/17 11:59 BP 131/61 09/06/17 11:59 Pulse Ox 99 09/06/17 11:59 Intake & Output 09/05/17 09/06/17 09/06/17 18:59 06:59 18:59 Intake Total 290 Balance 290 Weight (lbs) 54.431 kg Intake: Intake, IV Amount 50 Piperacillin Sodium/ 50 Tazobact 3.375 gm In Sodium Chloride 0.9% 50 ml @ 100 mls/hr IV Q8HR [facility] Rx#:[id number] Oral 240 Other: # Voids 2 # Bowel Movements 0 Weight Source Bedscale Laboratory Results - last 24 hr 09/05/17 09/05/17 09/05/17 20:53 21:00 21:00 WBC 7.8 RBC 3.87 Hgb 11.4 L Hct 33.2 L MCV 85.8 MCH 29.4 MCHC Differential 34.3 RDW 13.8 Plt Count 374 MPV 6.6 Neutrophils % 53.2 Lymphocytes % 34.6 Monocytes % 8.0 Eosinophils % 3.2 Basophils % 1.0 Sodium 138 Potassium 4.4 Chloride 102 Carbon Dioxide 29.4 Anion Gap 11.0 BUN 25 Creatinine 0.8 Est GFR ( Amer) TNP Est GFR (Non-Af Amer) TNP BUN/Creatinine Ratio 31.3 Glucose 105 POC Glucose 98 Calcium 9.9 Phosphorus 4.5 Magnesium 2.2 Total Bilirubin 0.3 AST 11 L ALT 7 Alkaline Phosphatase 71 Troponin I Total Protein 6.9 Albumin 3.4 L Globulin 3.5 Albumin/Globulin Ratio 1.0 Triglycerides Cholesterol LDL Cholesterol Direct HDL Cholesterol TSH Urine Source Urine Color Urine Clarity Urine pH Ur Specific Mccoy Urine Protein Urine Glucose (UA) Urine Ketones Urine Blood Urine Nitrate Urine Bilirubin Urine Urobilinogen Ur Leukocyte Esterase Urine RBC Urine WBC Ur Epithelial Cells Urine Bacteria Fine Granular Casts Urine Opiates Screen Urine Methadone Screen Ur Barbiturates Screen Ur Tricyclics Screen Ur Phencyclidine Scrn Amphetamines Screen U Methamphetamines Scrn U Benzodiazepines Scrn U Cocaine Metab Screen U Cannabinoids Screen 09/05/17 09/05/17 09/05/17 21:00 21:00 21:00 WBC RBC Hgb Hct MCV MCH MCHC Differential RDW Plt Count MPV Neutrophils % Lymphocytes % Monocytes % Eosinophils % Basophils % Sodium Potassium Chloride Carbon Dioxide Anion Gap BUN Creatinine Est GFR ( Amer) Est GFR (Non-Af Amer) BUN/Creatinine Ratio Glucose POC Glucose Calcium Phosphorus Magnesium Total Bilirubin AST ALT Alkaline Phosphatase Troponin I Total Protein Albumin Globulin Albumin/Globulin Ratio Triglycerides Cholesterol LDL Cholesterol Direct HDL Cholesterol TSH 4.85 Urine Source CLEAN C Urine Color YELLOW Urine Clarity CLEAR Urine pH 6.5 Ur Specific Mccoy 1.010 Urine Protein NEGATIVE Urine Glucose (UA) NEGATIVE Urine Ketones NEGATIVE Urine Blood NEGATIVE Urine Nitrate NEGATIVE Urine Bilirubin NEGATIVE Urine Urobilinogen 0.2 Ur Leukocyte Esterase SMALL H Urine RBC 0-2 Urine WBC 2-5 Ur Epithelial Cells FEW Urine Bacteria 1+ H Fine Granular Casts 0-2 H Urine Opiates Screen NEGATIVE Urine Methadone Screen NEGATIVE Ur Barbiturates Screen NEGATIVE Ur Tricyclics Screen POSITIVE H Ur Phencyclidine Scrn NEGATIVE Amphetamines Screen NEGATIVE U Methamphetamines Scrn NEGATIVE U Benzodiazepines Scrn POSITIVE H U Cocaine Metab Screen NEGATIVE U Cannabinoids Screen NEGATIVE 09/05/17 09/06/17 09/06/17 21:00 00:59 06:30 WBC 8.0 RBC 3.79 L Hgb 11.1 L Hct 32.5 L MCV 85.8 MCH 29.4 MCHC Differential 34.2 RDW 14.0 Plt Count 327 MPV 7.4 Neutrophils % 64.3 Lymphocytes % 23.5 Monocytes % 7.9 Eosinophils % 3.2 Basophils % 1.1 Sodium Potassium Chloride Carbon Dioxide Anion Gap BUN Creatinine Est GFR ( Amer) Est GFR (Non-Af Amer) BUN/Creatinine Ratio Glucose POC Glucose 100 Calcium Phosphorus Magnesium Total Bilirubin AST ALT Alkaline Phosphatase Troponin I < 0.01 L Total Protein Albumin Globulin Albumin/Globulin Ratio Triglycerides Cholesterol LDL Cholesterol Direct HDL Cholesterol TSH Urine Source Urine Color Urine Clarity Urine pH Ur Specific Mccoy Urine Protein Urine Glucose (UA) Urine Ketones Urine Blood Urine Nitrate Urine Bilirubin Urine Urobilinogen Ur Leukocyte Esterase Urine RBC Urine WBC Ur Epithelial Cells Urine Bacteria Fine Granular Casts Urine Opiates Screen Urine Methadone Screen Ur Barbiturates Screen Ur Tricyclics Screen Ur Phencyclidine Scrn Amphetamines Screen U Methamphetamines Scrn U Benzodiazepines Scrn U Cocaine Metab Screen U Cannabinoids Screen 09/06/17 06:30 WBC RBC Hgb Hct MCV MCH MCHC Differential RDW Plt Count MPV Neutrophils % Lymphocytes % Monocytes % Eosinophils % Basophils % Sodium 137 Potassium 3.4 L Chloride 103 Carbon Dioxide 26.2 Anion Gap 11.2 BUN 16 Creatinine 0.6 Est GFR ( Amer) TNP Est GFR (Non-Af Amer) TNP BUN/Creatinine Ratio 26.7 Glucose 98 POC Glucose Calcium 9.3 Phosphorus Magnesium Total Bilirubin 0.3 AST 11 L ALT 8 Alkaline Phosphatase 64 Troponin I Total Protein 6.6 Albumin 3.2 L Globulin 3.4 Albumin/Globulin Ratio 0.9 L Triglycerides 110 Cholesterol 149 LDL Cholesterol Direct 66 L HDL Cholesterol 67 TSH Urine Source Urine Color Urine Clarity Urine pH Ur Specific Mccoy Urine Protein Urine Glucose (UA) Urine Ketones Urine Blood Urine Nitrate Urine Bilirubin Urine Urobilinogen Ur Leukocyte Esterase Urine RBC Urine WBC Ur Epithelial Cells Urine Bacteria Fine Granular Casts Urine Opiates Screen Urine Methadone Screen Ur Barbiturates Screen Ur Tricyclics Screen Ur Phencyclidine Scrn Amphetamines Screen U Methamphetamines Scrn U Benzodiazepines Scrn U Cocaine Metab Screen U Cannabinoids Screen Home Medication Medication Instructions Recorded Type Acetaminophen [Tylenol] 650 mg PO Q4HR PRN tab 07/19/17 Rx Al Hyd/Mg Hyd/Simethicone [Maalox] 30 ml PO Q4HR PRN udc 07/19/17 Rx Albuterol/Ipratropium Neb [Duoneb 3 ml HHN Q4HRT PRN aers 07/19/17 Rx Neb] Albuterol/Ipratropium Neb [Duoneb 3 ml HHN Q6HRT aers 07/19/17 Rx Neb] Budesonide [Pulmicort] 0.5 mg HHN Q12H ud 07/19/17 Rx Dextrose Oral Gel [Glutose 40%] 15 gm PO PRN PRN tube 07/19/17 Rx Donepezil Hcl [Aricept] 5 mg PO DAILY tab 07/19/17 Rx Levetiracetam [Keppra] 250 mg PO HS tab 07/19/17 Rx Magnesium Hydroxide [Milk of 30 ml PO HS PRN udc 07/19/17 Rx Magnesia] Memantine [Namenda] 5 mg PO BID tab 07/19/17 Rx Montelukast [Singulair] 10 mg PO HS tab 07/19/17 Rx Multivitamin [Theragran] 1 tab PO DAILY tab 07/19/17 Rx Pantoprazole [Protonix] 40 mg PO DAILY ect 07/19/17 Rx QUEtiapine Fumarate [SEROquel] 25 mg PO HS tab 07/19/17 Rx Sitagliptin [Januvia] 50 mg PO DAILY tab 07/19/17 Rx GLUCAGON HCl [Glucagen] 1 mg IM PRN PRN 09/05/17 History Insulin Human Regular [NovoLIN R] 1 units SUBQ BIDAC PRN 09/05/17 History Melatonin 6 mg PO HS 09/05/17 History Current Medications Generic Name Dose Route Start Last Admin Trade Name Freq PRN Reason Stop Dose Admin Acetaminophen 650 mg 09/06/17 08:44 Tylenol PO 11/05/17 08:43 Q4HR PRN Mild Pain / Temp above 100 Al Hydrox/Mg Hydrox/Simethicone 30 ml 09/06/17 08:44 Maalox PO 11/05/17 08:43 Q4HR PRN GI DISTRESS Albuterol/Ipratropium 3 ml 09/06/17 08:44 Duoneb Neb HHN 11/05/17 08:43 Q4HRT PRN Shortness of Breath Albuterol/Ipratropium 3 ml 09/06/17 13:00 Duoneb Neb HHN 11/05/17 12:59 Q6HRT [facility] Budesonide 0.5 mg 09/06/17 19:00 Pulmicort HHN 11/05/17 18:59 Q12HRT [facility] Dextrose 15 gm 09/06/17 08:44 Glutose 40% PO 11/05/17 08:43 PRN PRN blood sugar < 60 Donepezil HCl 5 mg 09/06/17 12:00 Aricept PO 11/05/17 11:59 DAILY [facility] Glucagon 1 mg 09/06/17 08:44 Glucagen IM 11/05/17 08:43 PRN PRN hypoglycemia BS below 60 Sodium Chloride 1,000 mls @ 125 mls/hr 09/06/17 00:52 09/06/17 02:19 Nacl 0.9% IV 11/05/17 00:51 125 mls/hr .Q8H [facility] Administration Piperacillin Sod/Tazobactam 50 mls @ 100 mls/hr 09/06/17 02:00 09/06/17 02:49 Sod 3.375 gm/ Sodium Chloride IV 11/05/17 01:59 Infused Q8HR [facility] Infusion Insulin Aspart 0 units 09/06/17 16:30 Novolog Insulin Sliding Scale SUBQ 11/05/17 16:29 BIDAC [facility] Protocol Levetiracetam 250 mg 09/06/17 21:00 Keppra PO 11/05/17 20:59 HS [facility] Magnesium Hydroxide 30 ml 09/06/17 08:44 Milk Of Magnesia PO 11/05/17 08:43 HS PRN Constipation Memantine 5 mg 09/06/17 12:00 Namenda PO 11/05/17 11:59 BID [facility] Miscellaneous 6 mg 09/06/17 21:00 Melatonin [Melatonin] PO 11/05/17 20:59 HS [facility] Montelukast Sodium 10 mg 09/06/17 21:00 Singulair PO 11/05/17 20:59 HS [facility] Multivitamins/Vitamin C 1 tab 09/06/17 12:00 Theragran PO 11/05/17 11:59 DAILY [facility] Pantoprazole Sodium 40 mg 09/06/17 12:00 Protonix PO 11/05/17 11:59 DAILY [facility] Quetiapine Fumarate 25 mg 09/06/17 21:00 Seroquel PO 11/05/17 20:59 HS [facility] Protocol Sitagliptin Phosphate 50 mg 09/06/17 09:00 Januvia PO 11/05/17 08:59 DAILY [facility] Review of Systems: A 12 point ROS was reviewed with the pertinent positive and negatives noted in the HPI. Social History Smoking Status Unknown if ever smoked Drug Use No Alcohol Use No Family Medical History Family Medical History Start: 09/05/17 23: 59 Freq: ONCE Status: Active Protocol: Document 09/06/17 00:15 STEVEN (Rec: 09/06/17 02:44 STEVEN KARINE- [id number]) Family Medical History Mother History Unknown Yes Physical Exam: General: Comfortable not in acute distress. HEENT: Head: Normocephalic, atraumatic. Oral cavity: Moist, pink tongue. Eyes : No pallor and icterus. PERRLA. Neck: Supple, no JVD. Muscles. Cardio: S1 and S2 within normal with regular rhythm Distended. Respiratory: CTAP Abdominal: Soft nontender nondistended bowel sounds present Genital/Urinary: Extremities: No sinus no clubbing or edema. Neurological: Alert, awake.,oriented x 3, no focal neurodeficit. Assessment: 1. UTI 2. Dementia. 3. DM2. 4. Seizure disorder. Plan: Change antibiotics to Rocephin. Signed, Joey Sol M.D. [id number]
[2017-09-06] MEDS: Albuterol/Ipratropium Neb 3 ML AERS HHN SCH ×2 (13:52→19:12)
[2017-09-06] MEDS: Pantoprazole 40 mg EC Tab PO SCH (14:33)
[2017-09-06] MEDS: Multivitamin Tab PO SCH (14:33)
--- NOTE | 2017-09-06 15:33 | History & Physical ---
ADMIT DATE: 09/06/2017 CHIEF COMPLAINT: Weakness and hypotension. HISTORY OF PRESENT ILLNESS: This is an 81-year-old female admitted to the telemetry unit due to a 1-day history of low blood pressure. Apparently, the patient's diastolic pressure was at 43. The patient was also noted with increased weakness. For this reason, the patient is admitted here to telemetry unit for further management. PAST MEDICAL HISTORY: Diabetes, asthma, dementia, GERD, epilepsy, schizophrenia, anxiety, psychosis. PAST SURGICAL HISTORY: FAMILY HISTORY: Noncontributory. SOCIAL HISTORY: The patient is a jail resident, requiring 24-hour nursing care. REVIEW OF SYSTEMS: Unable to obtain due to patient's mental status. PHYSICAL EXAMINATION: GENERAL: Awake with confusion in no apparent distress. VITAL SIGNS: Temperature 97.4, heart rate 63, blood pressure 131/61, respirations 18, O2 99%. HEENT: Head; normocephalic, atraumatic. NECK: Supple. No mass. LUNGS: Clear bilaterally. ABDOMEN: Soft, nontender. LABORATORY DATA: WBC 8.0, H and H 11.1/33.5, platelet of 327. Sodium 137, potassium 3.4, chloride 103, BUN 16, creatinine 0.6. DIAGNOSTIC DATA: The patient had a chest x-ray done, impression is no acute abnormalities. ASSESSMENT: Generalized weakness, hypotension, which is currently stable. Diabetes, dementia, history of epilepsy, asthma and chronic obstructive pulmonary disease, and acute urinary tract infection. PLAN: We will get ID on the case as well as Psychiatry on the case. We will get CT of the head without contrast. Seizure precautions will be initiated. Keep patient on IV fluids for hydration.. Keep the patient on Zosyn 3.375 grams IV q. 8. We will continue to follow this patient. JOB# [id number]
[2017-09-06] MEDS: INSULIN ASPART SLIDING SCALE 100 UNITS/ML UNIT SUBQ SCH (17:28)
[2017-09-06] MEDS: Budesonide 0.5 Mg/2 mL Ud HHN SCH (19:12)
[2017-09-06] MEDS ORDERED: Non-Formulary Item 1 EA (Melatonin [Melatonin] 6 MG) PO SCH (21:00)
[2017-09-07] MEDS: Albuterol/Ipratropium Neb 3 ML AERS HHN SCH ×4 (00:58→18:57)
[2017-09-07 06:39] LABS: % BASOPHILS 1.8 % (0.0-2.0); % EOSINOPHILS 4.2 % (0.0-5.0); % LYMPHOCYTES 24.4 % (20.0-50.0); % MONOCYTES 8.4 % (2.0-10.0); % NEUTROPHILS 61.2 % (40.0-80.0); BASOPHILE ABSOLUTE 0.1 Th/cumm (0-0.2); EOSINOPHILE ABSOLUTE 0.3 Th/cmm (0.1-0.4); HEMATOCRIT 32.5 % (41.0-60); HEMOGLOBIN 10.9 gm/dL (12-16); LYMPHOCYTE ABSOLUTE 1.6 Th/cmm (1.5-3.0); MEAN CORPUSCULAR HEMOGLOBIN 28.9 pg (27.0-31.0); MEAN CORPUSCULAR HGB CONC 33.7 pg (28.0-36.0); MONOCYTE ABSOLUTE 0.5 Th/cmm (0.3-1.0); PLATELET COUNT 300 Th/cmm (150-400); RED BLOOD COUNT 3.78 Mil/cmm (3.80-5.20); RED CELL DISTRIBUTION WIDTH 13.8 % (11.5-20.0); WHITE BLOOD COUNT 6.5 Th/cmm (4.8-10.8)
[2017-09-07 06:58] LABS: ANION GAP 9.7 (7.0-16.0); BUN - UREA NITROGEN 18 mg/dL (7-25); CALCIUM SERUM 9.4 mg/dL (8.6-10.3); CARBON DIOXIDE 26.9 mEq/L (21.0-31.0); CHLORIDE 101 mEq/L (98-107); CREATININE - SERUM 0.6 mg/dL (0.6-1.2); GLUCOSE 114 mg/dL (70-105); POTASSIUM SERUM 3.6 mEq/L (3.5-5.1); SODIUM SERUM 134 mEq/L (136-145)
[2017-09-07] MEDS: INSULIN ASPART SLIDING SCALE 100 UNITS/ML UNIT SUBQ SCH ×2 (07:26→17:15)
[2017-09-07] MEDS: Budesonide 0.5 Mg/2 mL Ud HHN SCH ×2 (07:44→18:57)
--- NOTE | 2017-09-07 08:38 | Diagnostic Imaging Report ---
CT scan of the brain without intravenous contrast HISTORY: Seizure Total DLP equals 587 CTDI equals 33.7 Axial sections were obtained from the base of the skull to the vertex. There is prominence/enlargement of the ventricular system size. Associated enlargement of cerebral sulci and subarachnoid cisterns. Findings are consistent with changes of generalized cerebral atrophy. No acute parenchymal abnormalities. No acute cerebral hemorrhage. Hypodensity is seen within the supratentorial white matter regions without mass effect. The findings may be associated with chronic small vessel ischemic disease. No extra-axial masses or abnormal fluid collections. IMPRESSION: 1. No acute abnormalities 2. Cerebral atrophy 3. Supratentorial white matter changes that may reflect chronic small vessel ischemic disease
[2017-09-07] MEDS: Multivitamin Tab PO SCH (09:58)
[2017-09-07] MEDS: Pantoprazole 40 mg EC Tab PO SCH (09:58)
--- NOTE | 2017-09-07 12:56 | Internal Medicine Prog Note ---
Internal Medicine Subjective - Subjective Service Date: 09/07/17 Patient seen and examined:: with staff Patient is:: awake, verbal Per staff patient has:: tolerating meds Internal Medicine Objective - Results Result Diagrams: 09/07/17 05:45 09/07/17 05:45 Recent Labs: Laboratory Last Values WBC 6.5 Th/cmm (4.8-10.8) 09/07/17 05:45 RBC 3.78 Mil/cmm (3.80-5.20) L 09/07/17 05:45 Hgb 10.9 gm/dL (12-16) L 09/07/17 05:45 Hct 32.5 % (41.0-60) L 09/07/17 05:45 MCV 86.0 fl (81-100) 09/07/17 05:45 MCH 28.9 pg (27.0-31.0) 09/07/17 05:45 MCHC Differential 33.7 pg (28.0-36.0) 09/07/17 05:45 RDW 13.8 % (11.5-20.0) 09/07/17 05:45 Plt Count 300 Th/cmm (150-400) 09/07/17 05:45 MPV 8.0 fl 09/07/17 05:45 Neutrophils % 61.2 % (40.0-80.0) 09/07/17 05:45 Lymphocytes % 24.4 % (20.0-50.0) 09/07/17 05:45 Monocytes % 8.4 % (2.0-10.0) 09/07/17 05:45 Eosinophils % 4.2 % (0.0-5.0) 09/07/17 05:45 Basophils % 1.8 % (0.0-2.0) 09/07/17 05:45 Sodium 134 mEq/L (136-145) L 09/07/17 05:45 Potassium 3.6 mEq/L (3.5-5.1) 09/07/17 05:45 Chloride 101 mEq/L (98-107) 09/07/17 05:45 Carbon Dioxide 26.9 mEq/L (21.0-31.0) 09/07/17 05:45 Anion Gap 9.7 (7.0-16.0) 09/07/17 05:45 BUN 18 mg/dL (7-25) 09/07/17 05:45 Creatinine 0.6 mg/dL (0.6-1.2) 09/07/17 05:45 Est GFR ( Amer) TNP 09/07/17 05:45 Est GFR (Non-Af Amer) TNP 09/07/17 05:45 BUN/Creatinine Ratio 30.0 09/07/17 05:45 Glucose 114 mg/dL (70-105) H 09/07/17 05:45 POC Glucose 105 MG/DL (70 - 105) 09/07/17 07:15 Calcium 9.4 mg/dL (8.6-10.3) 09/07/17 05:45 Phosphorus 4.5 mg/dL (2.5-5.0) 09/05/17 21:00 Magnesium 2.2 mg/dL (1.9-2.7) 09/05/17 21:00 Total Bilirubin 0.3 mg/dL (0.3-1.0) 09/06/17 06:30 AST 11 U/L (13-39) L 09/06/17 06:30 ALT 8 U/L (7-52) 09/06/17 06:30 Alkaline Phosphatase 64 U/L (34-104) 09/06/17 06:30 Troponin I < 0.01 ng/mL (0.01-0.05) L 09/05/17 21:00 Total Protein 6.6 gm/dL (6.0-8.3) 09/06/17 06:30 Albumin 3.2 gm/dL (3.7-5.3) L 09/06/17 06:30 Globulin 3.4 gm/dL 09/06/17 06:30 Albumin/Globulin Ratio 0.9 (1.0-1.8) L 09/06/17 06:30 Triglycerides 110 mg/dL (<150) 09/06/17 06:30 Cholesterol 149 mg/dL (<200) 09/06/17 06:30 LDL Cholesterol Direct 66 mg/dL (75-193) L 09/06/17 06:30 HDL Cholesterol 67 mg/dL (23-92) 09/06/17 06:30 TSH 4.85 uIU/ml (0.34-5.60) 09/05/17 21:00 Urine Source CLEAN C 09/05/17 21:00 Urine Color YELLOW 09/05/17 21:00 Urine Clarity CLEAR (CLEAR) 09/05/17 21:00 Urine pH 6.5 (4.6 - 8.0) 09/05/17 21:00 Ur Specific [place] 1.010 (1.005-1.030) 09/05/17 21:00 Urine Protein NEGATIVE mg/dL (NEGATIVE) 09/05/17 21:00 Urine Glucose (UA) NEGATIVE mg/dL (NEGATIVE) 09/05/17 21:00 Urine Ketones NEGATIVE mg/dL (NEGATIVE) 09/05/17 21:00 Urine Blood NEGATIVE (NEGATIVE) 09/05/17 21:00 Urine Nitrate NEGATIVE (NEGATIVE) 09/05/17 21:00 Urine Bilirubin NEGATIVE (NEGATIVE) 09/05/17 21:00 Urine Urobilinogen 0.2 E.U./dL (0.2 - 1.0) 09/05/17 21:00 Ur Leukocyte Esterase SMALL (NEGATIVE) H 09/05/17 21:00 Urine RBC 0-2 /hpf (0-5) 09/05/17 21:00 Urine WBC 2-5 /hpf (0-5) 09/05/17 21:00 Ur Epithelial Cells FEW /lpf (FEW) 09/05/17 21:00 Urine Bacteria 1+ /hpf (NONE SEEN) H 09/05/17 21:00 Fine Granular Casts 0-2 /lpf (NONE SEEN) H 09/05/17 21:00 Urine Opiates Screen NEGATIVE (NEGATIVE) 09/05/17 21:00 Urine Methadone Screen NEGATIVE (NEGATIVE) 09/05/17 21:00 Ur Barbiturates Screen NEGATIVE (NEGATIVE) 09/05/17 21:00 Ur Tricyclics Screen POSITIVE (NEGATIVE) H 09/05/17 21:00 Ur Phencyclidine Scrn NEGATIVE (NEGATIVE) 09/05/17 21:00 Amphetamines Screen NEGATIVE (NEGATIVE) 09/05/17 21:00 U Methamphetamines Scrn NEGATIVE (NEGATIVE) 09/05/17 21:00 U Benzodiazepines Scrn POSITIVE (NEGATIVE) H 09/05/17 21:00 U Cocaine Metab Screen NEGATIVE (NEGATIVE) 09/05/17 21:00 U Cannabinoids Screen NEGATIVE (NEGATIVE) 09/05/17 21:00 - Physical Exam Vitals and I&O: Vital Signs Temp 98 F 09/07/17 08:00 Pulse 68 09/07/17 08:00 Resp 18 09/07/17 08:00 BP 146/63 09/07/17 08:00 Pulse Ox 98 09/07/17 08:00 Intake & Output 09/06/17 09/07/17 09/07/17 18:59 06:59 18:59 Intake Total 1366.667 240 Balance 1366.667 240 Weight (lbs) 120 lb Intake: Intake, IV Amount 1366.667 Sodium Chloride 0.9% 1, 1366.667 000 ml @ 125 mls/hr IV . Q8H [facility] Rx#:[id number] Oral 240 Other: # Voids 2 Weight Source Bedscale Active Medications: Current Medications Acetaminophen (Tylenol) 650 mg PO Q4HR PRN PRN Reason: Mild Pain / Temp above 100 Stop: 11/05/17 08:43 Last Admin: 09/07/17 12:50 Dose: 650 mg Al Hydrox/Mg Hydrox/Simethicone (Maalox) 30 ml PO Q4HR PRN PRN Reason: GI DISTRESS Stop: 11/05/17 08:43 Albuterol/Ipratropium (Duoneb Neb) 3 ml HHN Q4HRT PRN PRN Reason: Shortness of Breath Stop: 11/05/17 08:43 Albuterol/Ipratropium (Duoneb Neb) 3 ml HHN Q6HRT [facility] Stop: 11/05/17 12:59 Last Admin: 09/07/17 07:44 Dose: 3 ml Budesonide (Pulmicort) 0.5 mg HHN Q12HRT [facility] Stop: 11/05/17 18:59 Last Admin: 09/07/17 07:44 Dose: 0.5 mg Dextrose (Glutose 40%) 15 gm PO PRN PRN PRN Reason: blood sugar < 60 Stop: 11/05/17 08:43 Donepezil HCl (Aricept) 5 mg PO DAILY [facility] Stop: 11/05/17 11:59 Last Admin: 09/07/17 09:58 Dose: 5 mg Glucagon (Glucagen) 1 mg IM PRN PRN PRN Reason: hypoglycemia BS below 60 Stop: 11/05/17 08:43 Sodium Chloride (Nacl 0.9%) 1,000 mls @ 125 mls/hr IV .Q8H [facility] Stop: 11/05/17 00:51 Last Admin: 09/06/17 17:31 Dose: 125 mls/hr Ceftriaxone Sodium 1 gm/ (Dextrose) 50 mls @ 100 mls/hr IV Q24H [facility] Stop: 11/05/17 17:59 Insulin Aspart (Novolog Insulin Sliding Scale) 0 units SUBQ BIDAC [facility]; Protocol Stop: 11/05/17 16:29 Last Admin: 09/07/17 07:26 Dose: Not Given Levetiracetam (Keppra) 250 mg PO HS [facility] Stop: 11/05/17 20:59 Last Admin: 09/06/17 21:22 Dose: 250 mg Lorazepam (Ativan) 1 mg IVP Q8HR PRN; Protocol PRN Reason: Agitation Stop: 11/05/17 23:03 Last Admin: 09/07/17 00:15 Dose: 1 mg Magnesium Hydroxide (Milk Of Magnesia) 30 ml PO HS PRN PRN Reason: Constipation Stop: 11/05/17 08:43 Memantine (Namenda) 5 mg PO BID [facility] Stop: 11/05/17 11:59 Last Admin: 09/07/17 09:58 Dose: 5 mg Montelukast Sodium (Singulair) 10 mg PO HS [facility] Stop: 11/05/17 20:59 Last Admin: 09/06/17 21:22 Dose: 10 mg Multivitamins/Vitamin C (Theragran) 1 tab PO DAILY [facility] Stop: 11/05/17 11:59 Last Admin: 09/07/17 09:58 Dose: 1 tab Pantoprazole Sodium (Protonix) 40 mg PO DAILY [facility] Stop: 11/05/17 11:59 Last Admin: 09/07/17 09:58 Dose: 40 mg Quetiapine Fumarate (Seroquel) 25 mg PO HS [facility]; Protocol Stop: 11/05/17 20:59 Last Admin: 09/06/17 21:00 Dose: Not Given Sitagliptin Phosphate (Januvia) 50 mg PO DAILY [facility] Stop: 11/05/17 08:59 Last Admin: 09/07/17 09:58 Dose: 50 mg Temazepam (Restoril) 15 mg PO HS PRN; Protocol PRN Reason: Insomnia Stop: 11/05/17 23:02 Last Admin: 09/06/17 23:36 Dose: 15 mg General: alert HEENT: NC/AT, PERRLA Neck: Supple Lungs: CTAB Cardiovascular: RRR, Normal S1, Normal S2 Abdomen: soft, non-tender, non-distended Neurological: alert Internal Medicine Assmt/Plan - Assessment Assessment: generalized weakness hypotension-resolved dm dementia asthma copd acute uti - Plan Plan: fall precautions continue ivabx follow up labs in am continue current plan of care
[2017-09-07] MEDS ORDERED: Hydrocodone/APAP 5mg/325mg Tab PO PRN (13:25)
[2017-09-08] MEDS: Albuterol/Ipratropium Neb 3 ML AERS HHN SCH ×3 (01:00→12:01)
[2017-09-08] MEDS: Sodium Chloride 0.9% 1,000 ML IV SCH (02:43)
[2017-09-08] MEDS: Budesonide 0.5 Mg/2 mL Ud HHN SCH (07:13)
[2017-09-08] MEDS: INSULIN ASPART SLIDING SCALE 100 UNITS/ML UNIT SUBQ SCH (08:15)
[2017-09-08] MEDS: Pantoprazole 40 mg EC Tab PO SCH (09:17)
[2017-09-08] MEDS: Multivitamin Tab PO SCH (09:17)
--- NOTE | 2017-09-08 11:45 | Infectious Disease Prog Note ---
Infectious Disease Subjective - Review of Systems Service Date: 09/08/17 Subjective: Doing well, no fever. Infectious Disease Objective - Results Result Diagrams: 09/07/17 05:45 09/07/17 05:45 Recent Labs: Laboratory Last Values WBC 6.5 Th/cmm (4.8-10.8) 09/07/17 05:45 RBC 3.78 Mil/cmm (3.80-5.20) L 09/07/17 05:45 Hgb 10.9 gm/dL (12-16) L 09/07/17 05:45 Hct 32.5 % (41.0-60) L 09/07/17 05:45 MCV 86.0 fl (81-100) 09/07/17 05:45 MCH 28.9 pg (27.0-31.0) 09/07/17 05:45 MCHC Differential 33.7 pg (28.0-36.0) 09/07/17 05:45 RDW 13.8 % (11.5-20.0) 09/07/17 05:45 Plt Count 300 Th/cmm (150-400) 09/07/17 05:45 MPV 8.0 fl 09/07/17 05:45 Neutrophils % 61.2 % (40.0-80.0) 09/07/17 05:45 Lymphocytes % 24.4 % (20.0-50.0) 09/07/17 05:45 Monocytes % 8.4 % (2.0-10.0) 09/07/17 05:45 Eosinophils % 4.2 % (0.0-5.0) 09/07/17 05:45 Basophils % 1.8 % (0.0-2.0) 09/07/17 05:45 Sodium 134 mEq/L (136-145) L 09/07/17 05:45 Potassium 3.6 mEq/L (3.5-5.1) 09/07/17 05:45 Chloride 101 mEq/L (98-107) 09/07/17 05:45 Carbon Dioxide 26.9 mEq/L (21.0-31.0) 09/07/17 05:45 Anion Gap 9.7 (7.0-16.0) 09/07/17 05:45 BUN 18 mg/dL (7-25) 09/07/17 05:45 Creatinine 0.6 mg/dL (0.6-1.2) 09/07/17 05:45 Est GFR ( Amer) TNP 09/07/17 05:45 Est GFR (Non-Af Amer) TNP 09/07/17 05:45 BUN/Creatinine Ratio 30.0 09/07/17 05:45 Glucose 114 mg/dL (70-105) H 09/07/17 05:45 POC Glucose 106 MG/DL (70 - 105) H 09/08/17 06:59 Calcium 9.4 mg/dL (8.6-10.3) 09/07/17 05:45 Phosphorus 4.5 mg/dL (2.5-5.0) 09/05/17 21:00 Magnesium 2.2 mg/dL (1.9-2.7) 09/05/17 21:00 Total Bilirubin 0.3 mg/dL (0.3-1.0) 09/06/17 06:30 AST 11 U/L (13-39) L 09/06/17 06:30 ALT 8 U/L (7-52) 09/06/17 06:30 Alkaline Phosphatase 64 U/L (34-104) 09/06/17 06:30 Troponin I < 0.01 ng/mL (0.01-0.05) L 09/05/17 21:00 Total Protein 6.6 gm/dL (6.0-8.3) 09/06/17 06:30 Albumin 3.2 gm/dL (3.7-5.3) L 09/06/17 06:30 Globulin 3.4 gm/dL 09/06/17 06:30 Albumin/Globulin Ratio 0.9 (1.0-1.8) L 09/06/17 06:30 Triglycerides 110 mg/dL (<150) 09/06/17 06:30 Cholesterol 149 mg/dL (<200) 09/06/17 06:30 LDL Cholesterol Direct 66 mg/dL (75-193) L 09/06/17 06:30 HDL Cholesterol 67 mg/dL (23-92) 09/06/17 06:30 TSH 4.85 uIU/ml (0.34-5.60) 09/05/17 21:00 Urine Source CLEAN C 09/05/17 21:00 Urine Color YELLOW 09/05/17 21:00 Urine Clarity CLEAR (CLEAR) 09/05/17 21:00 Urine pH 6.5 (4.6 - 8.0) 09/05/17 21:00 Ur Specific [place] 1.010 (1.005-1.030) 09/05/17 21:00 Urine Protein NEGATIVE mg/dL (NEGATIVE) 09/05/17 21:00 Urine Glucose (UA) NEGATIVE mg/dL (NEGATIVE) 09/05/17 21:00 Urine Ketones NEGATIVE mg/dL (NEGATIVE) 09/05/17 21:00 Urine Blood NEGATIVE (NEGATIVE) 09/05/17 21:00 Urine Nitrate NEGATIVE (NEGATIVE) 09/05/17 21:00 Urine Bilirubin NEGATIVE (NEGATIVE) 09/05/17 21:00 Urine Urobilinogen 0.2 E.U./dL (0.2 - 1.0) 09/05/17 21:00 Ur Leukocyte Esterase SMALL (NEGATIVE) H 09/05/17 21:00 Urine RBC 0-2 /hpf (0-5) 09/05/17 21:00 Urine WBC 2-5 /hpf (0-5) 09/05/17 21:00 Ur Epithelial Cells FEW /lpf (FEW) 09/05/17 21:00 Urine Bacteria 1+ /hpf (NONE SEEN) H 09/05/17 21:00 Fine Granular Casts 0-2 /lpf (NONE SEEN) H 09/05/17 21:00 Urine Opiates Screen NEGATIVE (NEGATIVE) 09/05/17 21:00 Urine Methadone Screen NEGATIVE (NEGATIVE) 09/05/17 21:00 Ur Barbiturates Screen NEGATIVE (NEGATIVE) 09/05/17 21:00 Ur Tricyclics Screen POSITIVE (NEGATIVE) H 09/05/17 21:00 Ur Phencyclidine Scrn NEGATIVE (NEGATIVE) 09/05/17 21:00 Amphetamines Screen NEGATIVE (NEGATIVE) 09/05/17 21:00 U Methamphetamines Scrn NEGATIVE (NEGATIVE) 09/05/17 21:00 U Benzodiazepines Scrn POSITIVE (NEGATIVE) H 09/05/17 21:00 U Cocaine Metab Screen NEGATIVE (NEGATIVE) 09/05/17 21:00 U Cannabinoids Screen NEGATIVE (NEGATIVE) 09/05/17 21:00 - Physical Exam Vitals and I&O: Vital Signs Temp 96.5 F 09/08/17 09:21 Pulse 71 09/08/17 09:21 Resp 18 09/08/17 11:08 BP 142/60 09/08/17 09:21 Pulse Ox 96 09/08/17 09:21 Intake & Output 09/07/17 09/08/17 09/08/17 18:59 06:59 18:59 Intake Total 600 200 Balance 600 200 Weight (lbs) 54.431 kg 55.792 kg Intake: Oral 600 200 Other: # Voids 3 2 Weight Source Bedscale Bedscale Active Medications: Current Medications Acetaminophen (Tylenol) 650 mg PO Q4HR PRN PRN Reason: Mild Pain / Temp above 100 Stop: 11/05/17 08:43 Last Admin: 09/07/17 12:50 Dose: 650 mg Acetaminophen/Hydrocodone Bitart ([place] 5mg/325mg) 1 tab PO Q8H PRN PRN Reason: Pain (Moderate) Stop: 11/06/17 13:24 Al Hydrox/Mg Hydrox/Simethicone (Maalox) 30 ml PO Q4HR PRN PRN Reason: GI DISTRESS Stop: 11/05/17 08:43 Albuterol/Ipratropium (Duoneb Neb) 3 ml HHN Q4HRT PRN PRN Reason: Shortness of Breath Stop: 11/05/17 08:43 Albuterol/Ipratropium (Duoneb Neb) 3 ml HHN Q6HRT [facility] Stop: 11/05/17 12:59 Last Admin: 09/08/17 07:19 Dose: 3 ml Budesonide (Pulmicort) 0.5 mg HHN Q12HRT [facility] Stop: 11/05/17 18:59 Last Admin: 09/08/17 07:13 Dose: 0.5 mg Dextrose (Glutose 40%) 15 gm PO PRN PRN PRN Reason: blood sugar < 60 Stop: 11/05/17 08:43 Donepezil HCl (Aricept) 5 mg PO DAILY [facility] Stop: 11/05/17 11:59 Last Admin: 09/08/17 09:17 Dose: 5 mg Glucagon (Glucagen) 1 mg IM PRN PRN PRN Reason: hypoglycemia BS below 60 Stop: 11/05/17 08:43 Sodium Chloride (Nacl 0.9%) 1,000 mls @ 125 mls/hr IV .Q8H [facility] Stop: 11/05/17 00:51 Last Admin: 09/08/17 02:43 Dose: 125 mls/hr Ceftriaxone Sodium 1 gm/ (Dextrose) 50 mls @ 100 mls/hr IV Q24H [facility] Stop: 11/05/17 17:59 Insulin Aspart (Novolog Insulin Sliding Scale) 0 units SUBQ BIDAC [facility]; Protocol Stop: 11/05/17 16:29 Last Admin: 09/08/17 08:15 Dose: Not Given Levetiracetam (Keppra) 250 mg PO HS [facility] Stop: 11/05/17 20:59 Last Admin: 09/07/17 20:59 Dose: 250 mg Lorazepam (Ativan) 1 mg IVP Q8HR PRN; Protocol PRN Reason: Agitation Stop: 11/05/17 23:03 Last Admin: 09/07/17 21:19 Dose: 1 mg Magnesium Hydroxide (Milk Of Magnesia) 30 ml PO HS PRN PRN Reason: Constipation Stop: 11/05/17 08:43 Memantine (Namenda) 5 mg PO BID [facility] Stop: 11/05/17 11:59 Last Admin: 09/08/17 09:17 Dose: 5 mg Montelukast Sodium (Singulair) 10 mg PO HS [facility] Stop: 11/05/17 20:59 Last Admin: 09/07/17 20:59 Dose: 10 mg Multivitamins/Vitamin C (Theragran) 1 tab PO DAILY [facility] Stop: 11/05/17 11:59 Last Admin: 09/08/17 09:17 Dose: 1 tab Pantoprazole Sodium (Protonix) 40 mg PO DAILY [facility] Stop: 11/05/17 11:59 Last Admin: 09/08/17 09:17 Dose: 40 mg Quetiapine Fumarate (Seroquel) 25 mg PO HS [facility]; Protocol Stop: 11/05/17 20:59 Last Admin: 09/07/17 20:59 Dose: 25 mg Sitagliptin Phosphate (Januvia) 50 mg PO DAILY [facility] Stop: 11/05/17 08:59 Last Admin: 09/08/17 09:17 Dose: 50 mg Temazepam (Restoril) 15 mg PO HS PRN; Protocol PRN Reason: Insomnia Stop: 11/05/17 23:02 Last Admin: 09/06/17 23:36 Dose: 15 mg General: no acute distress, well developed, well nourished HEENT: atraumatic, normocephalic, PERRLA Neck: supple, no thyromegaly Cardiovascular: S1S2, regular Lungs: clear to auscultation bilaterally, clear to percussion Abdomen: soft, no tender, no distended, no mass Extremities: no cyanosis, no clubbing Neurological: awake, alert, oriented Skin: intact Infectious Disease Assmt/Plan - Assessment Assessment: 1. UTI 2. Dementia. 3. DM2. 4. Seizure disorder. - Plan Plan: Continue Rocephin
--- NOTE | 2017-09-08 12:00 | General Progress Note ---
Subjective - Review of Systems Events since last encounter: no fever no signs of pain Objective - Results Result Diagrams: 09/07/17 05:45 09/07/17 05:45 Recent Labs: Laboratory Last Values WBC 6.5 Th/cmm (4.8-10.8) 09/07/17 05:45 RBC 3.78 Mil/cmm (3.80-5.20) L 09/07/17 05:45 Hgb 10.9 gm/dL (12-16) L 09/07/17 05:45 Hct 32.5 % (41.0-60) L 09/07/17 05:45 MCV 86.0 fl (81-100) 09/07/17 05:45 MCH 28.9 pg (27.0-31.0) 09/07/17 05:45 MCHC Differential 33.7 pg (28.0-36.0) 09/07/17 05:45 RDW 13.8 % (11.5-20.0) 09/07/17 05:45 Plt Count 300 Th/cmm (150-400) 09/07/17 05:45 MPV 8.0 fl 09/07/17 05:45 Neutrophils % 61.2 % (40.0-80.0) 09/07/17 05:45 Lymphocytes % 24.4 % (20.0-50.0) 09/07/17 05:45 Monocytes % 8.4 % (2.0-10.0) 09/07/17 05:45 Eosinophils % 4.2 % (0.0-5.0) 09/07/17 05:45 Basophils % 1.8 % (0.0-2.0) 09/07/17 05:45 Sodium 134 mEq/L (136-145) L 09/07/17 05:45 Potassium 3.6 mEq/L (3.5-5.1) 09/07/17 05:45 Chloride 101 mEq/L (98-107) 09/07/17 05:45 Carbon Dioxide 26.9 mEq/L (21.0-31.0) 09/07/17 05:45 Anion Gap 9.7 (7.0-16.0) 09/07/17 05:45 BUN 18 mg/dL (7-25) 09/07/17 05:45 Creatinine 0.6 mg/dL (0.6-1.2) 09/07/17 05:45 Est GFR ( Amer) TNP 09/07/17 05:45 Est GFR (Non-Af Amer) TNP 09/07/17 05:45 BUN/Creatinine Ratio 30.0 09/07/17 05:45 Glucose 114 mg/dL (70-105) H 09/07/17 05:45 POC Glucose 106 MG/DL (70 - 105) H 09/08/17 06:59 Calcium 9.4 mg/dL (8.6-10.3) 09/07/17 05:45 Phosphorus 4.5 mg/dL (2.5-5.0) 09/05/17 21:00 Magnesium 2.2 mg/dL (1.9-2.7) 09/05/17 21:00 Total Bilirubin 0.3 mg/dL (0.3-1.0) 09/06/17 06:30 AST 11 U/L (13-39) L 09/06/17 06:30 ALT 8 U/L (7-52) 09/06/17 06:30 Alkaline Phosphatase 64 U/L (34-104) 09/06/17 06:30 Troponin I < 0.01 ng/mL (0.01-0.05) L 09/05/17 21:00 Total Protein 6.6 gm/dL (6.0-8.3) 09/06/17 06:30 Albumin 3.2 gm/dL (3.7-5.3) L 09/06/17 06:30 Globulin 3.4 gm/dL 09/06/17 06:30 Albumin/Globulin Ratio 0.9 (1.0-1.8) L 09/06/17 06:30 Triglycerides 110 mg/dL (<150) 09/06/17 06:30 Cholesterol 149 mg/dL (<200) 09/06/17 06:30 LDL Cholesterol Direct 66 mg/dL (75-193) L 09/06/17 06:30 HDL Cholesterol 67 mg/dL (23-92) 09/06/17 06:30 TSH 4.85 uIU/ml (0.34-5.60) 09/05/17 21:00 Urine Source CLEAN C 09/05/17 21:00 Urine Color YELLOW 09/05/17 21:00 Urine Clarity CLEAR (CLEAR) 09/05/17 21:00 Urine pH 6.5 (4.6 - 8.0) 09/05/17 21:00 Ur Specific [place] 1.010 (1.005-1.030) 09/05/17 21:00 Urine Protein NEGATIVE mg/dL (NEGATIVE) 09/05/17 21:00 Urine Glucose (UA) NEGATIVE mg/dL (NEGATIVE) 09/05/17 21:00 Urine Ketones NEGATIVE mg/dL (NEGATIVE) 09/05/17 21:00 Urine Blood NEGATIVE (NEGATIVE) 09/05/17 21:00 Urine Nitrate NEGATIVE (NEGATIVE) 09/05/17 21:00 Urine Bilirubin NEGATIVE (NEGATIVE) 09/05/17 21:00 Urine Urobilinogen 0.2 E.U./dL (0.2 - 1.0) 09/05/17 21:00 Ur Leukocyte Esterase SMALL (NEGATIVE) H 09/05/17 21:00 Urine RBC 0-2 /hpf (0-5) 09/05/17 21:00 Urine WBC 2-5 /hpf (0-5) 09/05/17 21:00 Ur Epithelial Cells FEW /lpf (FEW) 09/05/17 21:00 Urine Bacteria 1+ /hpf (NONE SEEN) H 09/05/17 21:00 Fine Granular Casts 0-2 /lpf (NONE SEEN) H 09/05/17 21:00 Urine Opiates Screen NEGATIVE (NEGATIVE) 09/05/17 21:00 Urine Methadone Screen NEGATIVE (NEGATIVE) 09/05/17 21:00 Ur Barbiturates Screen NEGATIVE (NEGATIVE) 09/05/17 21:00 Ur Tricyclics Screen POSITIVE (NEGATIVE) H 09/05/17 21:00 Ur Phencyclidine Scrn NEGATIVE (NEGATIVE) 09/05/17 21:00 Amphetamines Screen NEGATIVE (NEGATIVE) 09/05/17 21:00 U Methamphetamines Scrn NEGATIVE (NEGATIVE) 09/05/17 21:00 U Benzodiazepines Scrn POSITIVE (NEGATIVE) H 09/05/17 21:00 U Cocaine Metab Screen NEGATIVE (NEGATIVE) 09/05/17 21:00 U Cannabinoids Screen NEGATIVE (NEGATIVE) 09/05/17 21:00 - Physical Exam Vitals and I&O: Vital Signs Temp 96.5 F 09/08/17 09:21 Pulse 71 09/08/17 09:21 Resp 18 09/08/17 11:08 BP 142/60 09/08/17 09:21 Pulse Ox 96 09/08/17 09:21 Intake & Output 09/07/17 09/08/17 09/08/17 18:59 06:59 18:59 Intake Total 600 200 Balance 600 200 Weight (lbs) 54.431 kg 55.792 kg Intake: Oral 600 200 Other: # Voids 3 2 Weight Source Bedscale Bedscale Active Medications: Current Medications Acetaminophen (Tylenol) 650 mg PO Q4HR PRN PRN Reason: Mild Pain / Temp above 100 Stop: 11/05/17 08:43 Last Admin: 09/07/17 12:50 Dose: 650 mg Acetaminophen/Hydrocodone Bitart ([place] 5mg/325mg) 1 tab PO Q8H PRN PRN Reason: Pain (Moderate) Stop: 11/06/17 13:24 Al Hydrox/Mg Hydrox/Simethicone (Maalox) 30 ml PO Q4HR PRN PRN Reason: GI DISTRESS Stop: 11/05/17 08:43 Albuterol/Ipratropium (Duoneb Neb) 3 ml HHN Q4HRT PRN PRN Reason: Shortness of Breath Stop: 11/05/17 08:43 Albuterol/Ipratropium (Duoneb Neb) 3 ml HHN Q6HRT [facility] Stop: 11/05/17 12:59 Last Admin: 09/08/17 07:19 Dose: 3 ml Budesonide (Pulmicort) 0.5 mg HHN Q12HRT [facility] Stop: 11/05/17 18:59 Last Admin: 09/08/17 07:13 Dose: 0.5 mg Dextrose (Glutose 40%) 15 gm PO PRN PRN PRN Reason: blood sugar < 60 Stop: 11/05/17 08:43 Donepezil HCl (Aricept) 5 mg PO DAILY [facility] Stop: 11/05/17 11:59 Last Admin: 09/08/17 09:17 Dose: 5 mg Glucagon (Glucagen) 1 mg IM PRN PRN PRN Reason: hypoglycemia BS below 60 Stop: 11/05/17 08:43 Sodium Chloride (Nacl 0.9%) 1,000 mls @ 125 mls/hr IV .Q8H [facility] Stop: 11/05/17 00:51 Last Admin: 09/08/17 02:43 Dose: 125 mls/hr Ceftriaxone Sodium 1 gm/ (Dextrose) 50 mls @ 100 mls/hr IV Q24H [facility] Stop: 11/05/17 17:59 Insulin Aspart (Novolog Insulin Sliding Scale) 0 units SUBQ BIDAC [facility]; Protocol Stop: 11/05/17 16:29 Last Admin: 09/08/17 08:15 Dose: Not Given Levetiracetam (Keppra) 250 mg PO HS [facility] Stop: 11/05/17 20:59 Last Admin: 09/07/17 20:59 Dose: 250 mg Lorazepam (Ativan) 1 mg IVP Q8HR PRN; Protocol PRN Reason: Agitation Stop: 11/05/17 23:03 Last Admin: 09/07/17 21:19 Dose: 1 mg Magnesium Hydroxide (Milk Of Magnesia) 30 ml PO HS PRN PRN Reason: Constipation Stop: 11/05/17 08:43 Memantine (Namenda) 5 mg PO BID [facility] Stop: 11/05/17 11:59 Last Admin: 09/08/17 09:17 Dose: 5 mg Montelukast Sodium (Singulair) 10 mg PO HS [facility] Stop: 11/05/17 20:59 Last Admin: 09/07/17 20:59 Dose: 10 mg Multivitamins/Vitamin C (Theragran) 1 tab PO DAILY [facility] Stop: 11/05/17 11:59 Last Admin: 09/08/17 09:17 Dose: 1 tab Pantoprazole Sodium (Protonix) 40 mg PO DAILY [facility] Stop: 11/05/17 11:59 Last Admin: 09/08/17 09:17 Dose: 40 mg Quetiapine Fumarate (Seroquel) 25 mg PO HS [facility]; Protocol Stop: 11/05/17 20:59 Last Admin: 09/07/17 20:59 Dose: 25 mg Sitagliptin Phosphate (Januvia) 50 mg PO DAILY [facility] Stop: 11/05/17 08:59 Last Admin: 09/08/17 09:17 Dose: 50 mg Temazepam (Restoril) 15 mg PO HS PRN; Protocol PRN Reason: Insomnia Stop: 11/05/17 23:02 Last Admin: 09/06/17 23:36 Dose: 15 mg
[2017-09-08 16:15] LABS: % EOSINOPHILS 2.3 % (0.0-5.0); % LYMPHOCYTES 26.4 % (20.0-50.0); % MONOCYTES 1.7 % (2.0-10.0); % NEUTROPHILS 69.6 % (40.0-80.0); EOSINOPHILE ABSOLUTE 0.2 Th/cmm (0.1-0.4); HEMATOCRIT 35.9 % (41.0-60); HEMOGLOBIN 11.8 gm/dL (12-16); LYMPHOCYTE ABSOLUTE 2.3 Th/cmm (1.5-3.0); MEAN CORPUSCULAR HEMOGLOBIN 28.6 pg (27.0-31.0); MEAN CORPUSCULAR HGB CONC 32.9 pg (28.0-36.0); MEAN PLATELET VOLUME 6.9 fl; MONOCYTE ABSOLUTE 0.2 Th/cmm (0.3-1.0); NEUTROPHILE ABSOLUTE 6.2 Th/cmm (1.8-8.0); PLATELET COUNT 181 Th/cmm (150-400); RED BLOOD COUNT 4.13 Mil/cmm (3.80-5.20); RED CELL DISTRIBUTION WIDTH 13.7 % (11.5-20.0); WHITE BLOOD COUNT 8.9 Th/cmm (4.8-10.8)
[2017-09-08 16:35] LABS: ANION GAP 11.2 (7.0-16.0); BUN - UREA NITROGEN 19 mg/dL (7-25); CALCIUM SERUM 9.7 mg/dL (8.6-10.3); CARBON DIOXIDE 23.8 mEq/L (21.0-31.0); CHLORIDE 103 mEq/L (98-107); CREATININE - SERUM 0.8 mg/dL (0.6-1.2); GLUCOSE 142 mg/dL (70-105); SODIUM SERUM 134 mEq/L (136-145)
== END 2017-09-08 17:25 | DRG 314 ==
LOC: ER 20:34 → TELE 23:40 → MSI 09-07 13:15
PROVIDERS: ADMIT Internal Medicine; ATTEND Internal Medicine
DX: I95.9 Hypotension, unspecified (principal); G93.40 Encephalopathy, unspecified; N39.0 Urinary tract infection, site not specified; E11.9 Type 2 diabetes mellitus without complications; F03.90 Unspecified dementia, unspecified severity, without behavioral disturbance, psychotic disturbance, mood disturbance, and anxiety; J44.9 Chronic obstructive pulmonary disease, unspecified; K21.9 Gastro-esophageal reflux disease without esophagitis; G40.909 Epilepsy, unspecified, not intractable, without status epilepticus; F20.9 Schizophrenia, unspecified; F29 Unspecified psychosis not due to a substance or known physiological condition; F41.9 Anxiety disorder, unspecified; Z79.4 Long term (current) use of insulin
CPT/HCPCS: 36415-UA; 70450-TC; 71045-TC; 80048-TC; 80053-TC; 80061-TC; 80299-90; 80307; 81001-TC; 82948-90; 83735-TC; 84100-TC; 84443-TC; 84484-TC; 85025-TC; 87086-90; 93005; 94640; 94760; 96374; 96376; J0696; J1815; J2060; J2543; J7030; Z7610

== ENCOUNTER 2018-11-18 15:15 | Inpatient (IN) | payer MEDICARE, MEDICAID ==
[2018-11-18] MEDS ORDERED: Magnesium Hydroxide (MOM) 30 mL UDC PO PRN (17:07)
[2018-11-18] MEDS ORDERED: Maalox 30 mL Cup PO PRN (17:07)
[2018-11-19] MEDS ORDERED: Hydrocodone/APAP 5mg/325mg Tab PO PRN (04:56)
[2018-11-19] MEDS ORDERED: Maalox 30 mL Cup PO PRN (04:56)
[2018-11-19] MEDS ORDERED: Albuterol/Ipratropium Neb 3 ML AERS HHN PRN (04:56)
[2018-11-19] MEDS ORDERED: GLUCAGON HCl 1 MG KIT IM PRN (05:16)
[2018-11-19] MEDS: INSULIN LISPRO SLIDING SCALE 100 UNITS/ML UNIT SUBQ SCH ×4 (07:08→21:00)
[2018-11-19] MEDS: Budesonide 0.5 Mg/2 mL Ud HHN SCH ×2 (08:12→18:40)
[2018-11-19] MEDS: Pantoprazole 40 mg EC Tab PO SCH (08:14)
[2018-11-19] MEDS: Multivitamin Tab PO SCH (08:14)
--- NOTE | 2018-11-19 16:03 | History and Physical ---
History of Present Illness - HPI Chief Complaint: 83 y/o female patient was transferred from [facility] and put on 5150 due to Hostile behavior towards staff and is gravely disabled. HPI: 83 y/o female patient was admitted to [facility] and put on 5150 due to Hostile behavior towards staff and is gravely disabled. Patient had been recently diagnosed with Pneumonia, Psychosis and Mild anemia. Patient has history of Psychosis, Dementia, Asthma/Copd, Osteomyelitis, Gerd, Cognitive communication deficit. Patient had an ER assessment done and a complete workup was done. Patient was diagnosed with Improving, Pneumonia, Mild anemia and Psychosis. Patient will have Psych consult and Psych management per Dr. Díaz. I will follow, treat and monitor patient. Patient will continue current treatment plan as ordered. 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: Dementia GI: Report: GERD Psych: Report: Psychosis Musculoskeletal: Report: Weakness, Other (Hx of Osteomyelitis.) Infectious Disease: Report: No Pertinent Hx Renal/: Report: No Pertinent Hx Endocrine: Report: Diabetes Dermatology: Report: No Pertinent Hx - Past Surgical History Past Surgical History: No pertinent Hx Family Medical History - Family Member Mother History Unknown: Yes Ethnicity: Unknown Living Status: Unknown Social History Smoke: No Alcohol: None Drugs: None Lives: [facility] Domestic Violence: Negative Health Maintenance Health Maintenance: Other (Please see chart.) - Medications Home Medications: Home Medication Medication Instructions Recorded Type Melatonin 6 mg PO HS 09/05/17 History Naproxen Sodium 220 mg PO BID 04/08/18 History Acetaminophen [Tylenol] 650 mg PO Q4HR PRN tab 04/14/18 Rx Al Hyd/Mg Hyd/Simethicone [Maalox] 30 ml PO Q4HR PRN udc 04/14/18 Rx Albuterol/Ipratropium Neb [Duoneb 3 ml HHN Q4HRT PRN aers 04/14/18 Rx Neb] Budesonide [Pulmicort] 0.5 mg HHN BIDRT ud 04/14/18 Rx Dextrose Oral Gel [Glutose 40%] 15 gm PO PRN PRN tube 04/14/18 Rx Donepezil Hcl [Aricept] 5 mg PO HS tab 04/14/18 Rx GLUCAGON HCl [Glucagen] 1 mg IM PRN PRN kit 04/14/18 Rx Hydrocodone/APAP 5mg/325mg [[place] 1 tab PO Q8HR PRN tab 04/14/18 Rx 5mg/325mg] Insulin Aspart Sliding Scale See Protocol SUBQ BIDAC PRN unit 04/14/18 Rx [NovoLOG INSULIN SLIDING SCALE] Levetiracetam [Keppra] 250 mg PO HS tab 04/14/18 Rx Magnesium Hydroxide [Milk of 30 ml PO HS PRN udc 04/14/18 Rx Magnesia] Memantine [Namenda] 5 mg PO BID tab 04/14/18 Rx Montelukast [Singulair] 10 mg PO HS tab 04/14/18 Rx Multivitamin [Theragran] 1 tab PO DAILY tab 04/14/18 Rx Pantoprazole [Protonix] 40 mg PO DAILY@0730 ect 04/14/18 Rx QUEtiapine Fumarate [SEROquel] 25 mg PO HS tab 04/14/18 Rx Sitagliptin [Januvia] 50 mg PO DAILY tab 04/14/18 Rx Zolpidem Tartrate [Ambien] 5 mg PO HS PRN tab 04/14/18 Rx Other Medications: Please see medication reconciliation sheet. - Allergies Allergies/Adverse Reactions: Allergies Allergy/AdvReac Type Severity Reaction Status Date / Time No Known Allergies Allergy Verified 03/17/17 14:00 Review of Systems - Review of Systems Review of Systems: Patient is very aggressive, hostile behavior. Constitutional: Report: Weakness Eyes: Report: No Significant ENT: Report: No Significant Respiratory: Report: Cough Cardiovascular: Report: No Significant Gastrointestinal: Report: No Significant Genitourinary: Report: No Significant Musculoskeletal: Report: No Significant Skin: Report: No Significant Neurological: Report: Weakness, Confusion Physical Exam - Physical Exam HEENT: Report: Ears Nose Throat within normal limits Neck: Report: Within normal limits Cardiovascular Systems: Report: +s1/s2 noted Respiratory: Report: Other (Pneumonia, Hx of Asthma.) Abdomen: Report: Non-tender to palpation Back: Report: Inspection of back is within normal limits. Skin: Report: Color of skin is within normal limits Neuro/Psych: Report: Other (Agitated mood.) - Lab Results All Lab Results last 24 hours: Laboratory Results - last 24 hr 11/18/18 11/18/18 11/19/18 16:43 20:22 06:35 POC Glucose 132 H 112 H 97 11/19/18 11:35 POC Glucose 96 - Assessment Assessment: Psychosis/Hallucinating. Pneumonia, improving. Asthma/Copd, stable. Dementia. Mild Anemia. History of Diabetes Mellitus. History of Osteomyelitis. History of Gerd. History of Cognitive communication deficit. - Plan Plan: Continuation of care Psych management per psych. Monitor vitals, labs. Respiratory and Pulmonary support. Monitor diet/nutritional support. Pain management. Accu-check daily,continue DM meds as directed. Continue current treatment plan as ordered.
[2018-11-19] MEDS ORDERED: Non-Formulary Item 1 EA (Melatonin [Melatonin] 6 MG) PO SCH (21:00)
[2018-11-20] MEDS: Pantoprazole 40 mg EC Tab PO SCH (06:47)
[2018-11-20] MEDS: Budesonide 0.5 Mg/2 mL Ud HHN SCH ×2 (08:06→18:38)
[2018-11-20] MEDS: INSULIN LISPRO SLIDING SCALE 100 UNITS/ML UNIT SUBQ SCH ×4 (08:09→20:59)
[2018-11-20] MEDS: Multivitamin Tab PO SCH (08:54)
--- NOTE | 2018-11-20 20:33 | Internal Medicine Prog Note ---
Internal Medicine Subjective - Subjective Patient is:: asleep, eyes closed, in bed Per staff patient has:: no adverse event, no episodes of fall Internal Medicine Objective - Results Recent Labs: Laboratory Last Values POC Glucose 117 MG/DL (70 - 105) H 11/20/18 16:50 - Physical Exam Vitals and I&O: Vital Signs Temp 97.6 F 11/20/18 15:15 Pulse 57 11/20/18 15:15 Resp 18 11/20/18 15:15 BP 110/54 11/20/18 15:15 Pulse Ox 96 11/20/18 15:15 Intake & Output 11/20/18 11/20/18 11/21/18 06:59 18:59 06:59 Intake Total 240 900 Output Total 1 Balance 239 900 Intake: Oral 240 900 Output: Urine/Stool Mix 1 Other: # Voids 1 3 # Bowel Movements 1 Active Medications: Current Medications Acetaminophen (Tylenol) 650 mg PO Q4HR PRN PRN Reason: Mild Pain / Temp above 100 Stop: 01/18/19 04:55 Acetaminophen/Hydrocodone Bitart ([place] 5mg/325mg) 1 tab PO Q8H PRN PRN Reason: Pain (Moderate) 4-7 Stop: 01/18/19 04:55 Al Hydrox/Mg Hydrox/Simethicone (Maalox) 30 ml PO Q4HR PRN PRN Reason: GI DISTRESS Stop: 01/17/19 17:06 Albuterol/Ipratropium (Duoneb Neb) 3 ml HHN Q4HRT PRN PRN Reason: Shortness of Breath Stop: 01/18/19 04:55 Budesonide (Pulmicort) 0.5 mg HHN BIDRT [facility] Stop: 01/18/19 06:59 Last Admin: 11/20/18 18:38 Dose: Not Given Dextrose (Glutose 40%) 18.75 gm PO PRN PRN PRN Reason: Blood Glucose less than 70 Stop: 01/18/19 05:15 Donepezil HCl (Aricept) 5 mg PO HS [facility] Stop: 01/18/19 20:59 Last Admin: 11/19/18 22:02 Dose: 5 mg Glucagon (Glucagen) 1 mg IM PRN PRN PRN Reason: Blood Glucose less than 70 Stop: 01/18/19 05:15 Insulin Human Lispro (Humalog Insulin Sliding Scale) 0 units SUBQ ACHS [facility]; Protocol Stop: 01/18/19 07:29 Last Admin: 11/20/18 17:02 Dose: Not Given Levetiracetam (Keppra) 250 mg PO HS [facility] Stop: 01/18/19 20:59 Last Admin: 11/19/18 22:03 Dose: 250 mg Lorazepam (Ativan) 0.5 mg PO Q4HR PRN; Protocol PRN Reason: Agitation Stop: 01/17/19 17:10 Magnesium Hydroxide (Milk Of Magnesia) 30 ml PO HS PRN PRN Reason: Constipation Memantine (Namenda) 5 mg PO BID [facility] Stop: 01/18/19 08:59 Last Admin: 11/20/18 17:21 Dose: 5 mg Montelukast Sodium (Singulair) 10 mg PO HS [facility] Stop: 01/18/19 20:59 Last Admin: 11/19/18 22:02 Dose: 10 mg Multivitamins/Vitamin C (Theragran) 1 tab PO DAILY [facility] Stop: 01/18/19 08:59 Last Admin: 11/20/18 08:54 Dose: 1 tab Naproxen (Naprosyn) 250 mg PO BID [facility] Stop: 01/18/19 08:59 Last Admin: 11/20/18 17:21 Dose: 250 mg Pantoprazole Sodium (Protonix) 40 mg PO DAILY@0730 [facility] Stop: 01/18/19 07:29 Last Admin: 11/20/18 06:47 Dose: 40 mg Quetiapine Fumarate (Seroquel) 25 mg PO HS [facility]; Protocol Stop: 01/17/19 20:59 Last Admin: 11/19/18 22:02 Dose: 25 mg Sitagliptin Phosphate (Januvia) 50 mg PO DAILY [facility] Stop: 01/18/19 08:59 Last Admin: 11/20/18 08:53 Dose: 50 mg Zolpidem Tartrate (Ambien) 5 mg PO HS PRN PRN Reason: Insomnia Stop: 01/17/19 20:55 Last Admin: 11/19/18 22:03 Dose: 5 mg General: demented, NAD HEENT: NC/AT Neck: Supple, No JVD Lungs: other (no acute respiratory distress) Cardiovascular: Normal S1, Normal S2 Abdomen: soft Internal Medicine Assmt/Plan - Assessment Assessment: Psychosis/Hallucinating. Pneumonia, improving. Asthma/Copd, stable. Dementia. Mild Anemia. History of Diabetes Mellitus. History of Osteomyelitis. History of Gerd. History of Cognitive communication deficit. - Plan Plan: Continue current treatment plan. Monitor Labs. Continue current medications Continue to monitor VS Monitor Diet/Nutritional support. Psych management per Psychiatry. Pain Management. PT/OT prnSafety precaution, Fall precaution, frequent nursing round. Supportive care. \ Continue collaborating with consulting specialists, case management and nursing team
--- NOTE | 2018-11-20 21:38 | Progress Notes ---
DATE: 11/20/2018 SUBJECTIVE: The patient was seen and evaluated. The patient's chart reviewed. This is a psychiatric followup note, covering for Dr. Jolley. Today on [id number] evaluation, the patient denies any complications. Denies any side effects to medications. She does not know why she is here. She does not know what kind of place this is. She does report it is her home and continues to believe that this is her home. MENTAL STATUS EXAMINATION: Poor cognition, disorganized, and irritable. ASSESSMENT AND PLAN: The patient is an 83-year-old female with a history of dementia with behavior disturbances and confused where she is, unable to form a safe plan. We will continue monitoring and evaluating with the recent augmentation in medication which includes Aricept 5 mg and Seroquel and Namenda. JOB# [id number]
--- NOTE | 2018-11-21 01:58 | Psychiatric Evaluation ---
DATE OF SERVICE: 11/19/[address] Jolley. CHIEF COMPLAINT: "Why am I here?" HISTORY OF PRESENT ILLNESS: An 83-year-old female brought in here on a 5150. The patient had been agitated, severe mood swings and hostile towards staff, brought in here from her longterm. She has a history of diabetes, UTI, and pneumonia. Today on [id number] evaluation, the patient is easily irritable, anxious, minimally interactive with the interview, mostly preoccupied about who she is and why she is here. When I asked her where she is coming from, she reports "I live here." Then, if I explain this is a hospital, she reports, "No, I live here." PAST MEDICAL HISTORY: Diabetes, UTI, history of pneumonia, currently on antibiotics. Medical illnesses also include COPD and osteomyelitis per medical records from [facility]. PAST PSYCHIATRIC HISTORY: History of dementia. FAMILY HISTORY: Denied. SOCIAL HISTORY: Currently living in a longterm. LEGAL HISTORY: None. Denies any illicit drug use or alcohol and denies any abuse. CURRENT MEDICATIONS: She is on Seroquel 25 mg p.o. at bedtime, Keppra, melatonin, Aricept 10 mg a day, fluoride, Januvia, naproxen. MENTAL STATUS EXAMINATION: Easily irritable, anxious, congruent, disorganized, oriented to person. She believes this is her home and that Abhijeet Zeng is the president. ALLERGIES TO MEDICATIONS: NKDA. PRIMARY DIAGNOSIS: Dementia with behavior disturbance. SECONDARY DIAGNOSES: Dementia with behavior disorder; delirium from urinary tract infection, improving. PLAN: 1. Admit the patient. 2. Medical team to continue evaluating the patient's UTI. We will continue with antibiotics. We will continue with the current medication regimen as she continues to reach steady state. STRENGTHS: Good support system. WEAKNESSES: Poor coping skills. ESTIMATED STAY: Between 5-10 days. JOB# [id number]
[2018-11-21] MEDS: INSULIN LISPRO SLIDING SCALE 100 UNITS/ML UNIT SUBQ SCH ×4 (06:38→21:00)
[2018-11-21] MEDS: Pantoprazole 40 mg EC Tab PO SCH (06:38)
[2018-11-21] MEDS: Budesonide 0.5 Mg/2 mL Ud HHN SCH ×2 (06:39→18:03)
[2018-11-21] MEDS: Multivitamin Tab PO SCH (08:30)
--- NOTE | 2018-11-21 10:26 | Internal Medicine Prog Note ---
Internal Medicine Subjective - Subjective Service Date: 11/21/18 Patient seen and examined:: with staff Patient is:: awake, verbal, agitated, confused Patient Complaints of:: other (Hx of UTI) Per staff patient has:: no adverse event, no episodes of fall Internal Medicine Objective - Results Recent Labs: Laboratory Last Values POC Glucose 117 MG/DL (70 - 105) H 11/20/18 16:50 - Physical Exam Vitals and I&O: Vital Signs Temp 96.8 F 11/21/18 06:40 Pulse 61 11/21/18 06:40 Resp 18 11/21/18 06:40 BP 126/61 11/21/18 06:40 Pulse Ox 95 11/21/18 06:40 Intake & Output 11/20/18 11/21/18 11/21/18 18:59 06:59 18:59 Intake Total 900 120 Balance 900 120 Intake: Oral 900 120 Other: # Voids 3 3 # Bowel Movements 1 0 Active Medications: Current Medications Acetaminophen (Tylenol) 650 mg PO Q4HR PRN PRN Reason: Mild Pain / Temp above 100 Stop: 01/18/19 04:55 Acetaminophen/Hydrocodone Bitart ([place] 5mg/325mg) 1 tab PO Q8H PRN PRN Reason: Pain (Moderate) 4-7 Stop: 01/18/19 04:55 Al Hydrox/Mg Hydrox/Simethicone (Maalox) 30 ml PO Q4HR PRN PRN Reason: GI DISTRESS Stop: 01/17/19 17:06 Albuterol/Ipratropium (Duoneb Neb) 3 ml HHN Q4HRT PRN PRN Reason: Shortness of Breath Stop: 01/18/19 04:55 Budesonide (Pulmicort) 0.5 mg HHN BIDRT [facility] Stop: 01/18/19 06:59 Last Admin: 11/21/18 06:39 Dose: 0.5 mg Dextrose (Glutose 40%) 18.75 gm PO PRN PRN PRN Reason: Blood Glucose less than 70 Stop: 01/18/19 05:15 Donepezil HCl (Aricept) 5 mg PO HS [facility] Stop: 01/18/19 20:59 Last Admin: 11/20/18 20:58 Dose: 5 mg Glucagon (Glucagen) 1 mg IM PRN PRN PRN Reason: Blood Glucose less than 70 Stop: 01/18/19 05:15 Insulin Human Lispro (Humalog Insulin Sliding Scale) 0 units SUBQ ACHS [facility]; Protocol Stop: 01/18/19 07:29 Last Admin: 11/21/18 06:38 Dose: Not Given Levetiracetam (Keppra) 250 mg PO HS [facility] Stop: 01/18/19 20:59 Last Admin: 11/20/18 20:59 Dose: 250 mg Lorazepam (Ativan) 0.5 mg PO Q4HR PRN; Protocol PRN Reason: Agitation Stop: 01/17/19 17:10 Magnesium Hydroxide (Milk Of Magnesia) 30 ml PO HS PRN PRN Reason: Constipation Memantine (Namenda) 5 mg PO BID [facility] Stop: 01/18/19 08:59 Last Admin: 11/21/18 08:30 Dose: 5 mg Montelukast Sodium (Singulair) 10 mg PO HS [facility] Stop: 01/18/19 20:59 Last Admin: 11/20/18 20:58 Dose: 10 mg Multivitamins/Vitamin C (Theragran) 1 tab PO DAILY [facility] Stop: 01/18/19 08:59 Last Admin: 11/21/18 08:30 Dose: 1 tab Naproxen (Naprosyn) 250 mg PO BID [facility] Stop: 01/18/19 08:59 Last Admin: 11/21/18 08:30 Dose: 250 mg Pantoprazole Sodium (Protonix) 40 mg PO DAILY@0730 [facility] Stop: 01/18/19 07:29 Last Admin: 11/21/18 06:38 Dose: 40 mg Quetiapine Fumarate (Seroquel) 25 mg PO HS [facility]; Protocol Stop: 01/17/19 20:59 Last Admin: 11/20/18 20:58 Dose: 25 mg Sitagliptin Phosphate (Januvia) 50 mg PO DAILY [facility] Stop: 01/18/19 08:59 Last Admin: 11/21/18 08:30 Dose: 50 mg Zolpidem Tartrate (Ambien) 5 mg PO HS PRN PRN Reason: Insomnia Stop: 01/17/19 20:55 Last Admin: 11/19/18 22:03 Dose: 5 mg Physical Exam: Patient is very agitated, severe mood swings, hostile towards staff, danger to self and others, needs close monitoring. General: demented, NAD HEENT: NC/AT Neck: Supple, No JVD Lungs: other (no acute respiratory distress) Cardiovascular: Normal S1, Normal S2 Abdomen: soft Extremities: clear Neurological: no change, disorganized Internal Medicine Assmt/Plan - Assessment Assessment: 5150 Hold. Psychosis/Hallucinating. Pneumonia, improving. Asthma/Copd, stable. Dementia. Mild Anemia. History of Diabetes Mellitus. History of Osteomyelitis. History of Gerd. History of Cognitive communication deficit. - Plan Plan: Continuation of care Psych management per psych. Continue present antibiotics and meds as directed. Monitor vitals, urinalysis, labs. Respiratory and Pulmonary support prn. Monitor diet/nutritional support. Pain management. Accu-check daily,continue DM meds as directed. Continue current treatment plan as ordered. Nutritional Asmnt/Malnutr-PDOC - Dietary Evaluation Malnutrition Findings (Please click <Entered> for more info): see orders.
[2018-11-21 12:52] VITALS: BP 147/73
--- NOTE | 2018-11-21 20:19 | Progress Notes ---
DATE: 11/21/2018 SUBJECTIVE: Case was discussed with staff of the patient, reviewed records. An 83-year-old female who was readmitted on 11/18/2018, on a hold. The patient has been agitated with severe mood swings, hostile towards staff, brought in here from snf. She has a history of diabetes, UTI infection, and pneumonia. The patient was easily agitated, irritable, anxious, minimally interactive, mostly preoccupied about who she is and why she is here. She reported that she believes that she lives here. She is unpredictable, impulsive, demented, and confused. She came from a nursing facility. No side effects with the medication, no sedation, no nausea. She is on Namenda 5 mg twice a day, Seroquel 25 mg at bedtime and Aricept 5 mg at bedtime and no side effects with the medication, no sedation, no nausea, no extrapyramidal symptoms. We will continue outpatient group therapy, milieu therapy, and adjust medication as needed. JOB# [id number]
--- NOTE | 2018-11-21 20:34 | Progress Notes ---
DATE: 11/21/2018 Case was discussed with staff of the patient, reviewed records. This is an 83-year-old female who was admitted on 11/18/2018 on a hold. She has been agitated with severe mood swings hostile towards staff. She came from a nursing facility with history of diabetes, infection, pneumonia. She was very agitated, unable to make safe plan for self-care, demented, confused. She lives in a nursing facility, was seen by Dr. Brantley. The patient was restarted on her medication, Aricept 5 mg at bedtime and Seroquel 25 mg at bedtime with no side effects, no sedation, no nausea. She is also on Namenda 5 mg twice a day. Continues to be unpredictable, impulsive, needing redirection. Continues to have poor insight. We will continue to work with the patient in group therapy, milieu therapy, adjust medication as needed. JOB# [id number]
[2018-11-22] MEDS: Budesonide 0.5 Mg/2 mL Ud HHN SCH ×2 (06:50→18:19)
[2018-11-22] MEDS: Pantoprazole 40 mg EC Tab PO SCH (06:51)
[2018-11-22] MEDS: INSULIN LISPRO SLIDING SCALE 100 UNITS/ML UNIT SUBQ SCH ×4 (07:43→21:23)
[2018-11-22] MEDS: Multivitamin Tab PO SCH (08:43)
--- NOTE | 2018-11-22 15:01 | Progress Notes ---
DATE: 11/22/2018 Case was discussed with staff of the patient, reviewed records. The patient continues to be easily agitated, confused, continues to have poor insight, unable to make safe plan for self-care, easily agitated, depressed. No side effects with the medication, no sedation, no nausea, no extrapyramidal symptoms. We will continue outpatient group therapy, milieu therapy, and adjust medications as needed. [facility]# [id number]
--- NOTE | 2018-11-22 16:14 | Internal Medicine Prog Note ---
Internal Medicine Subjective - Subjective Service Date: 11/22/18 Patient is:: awake, verbal, agitated, confused Patient Complaints of:: other (Hx of UTI) Per staff patient has:: no adverse event, no episodes of fall Internal Medicine Objective - Results Recent Labs: Laboratory Last Values POC Glucose 71 MG/DL (70 - 105) 11/22/18 12:02 - Physical Exam Vitals and I&O: Vital Signs Temp 97.6 F 11/22/18 14:00 Pulse 68 11/22/18 14:00 Resp 20 11/22/18 14:00 BP 144/95 11/22/18 14:00 Pulse Ox 98 11/22/18 14:00 Intake & Output 11/21/18 11/22/18 11/22/18 18:59 06:59 18:59 Intake Total 900 420 Balance 900 420 Intake: Oral 900 420 Other: # Voids 3 2 # Bowel Movements 1 0 Stool Characteristics Formed Active Medications: Current Medications Acetaminophen (Tylenol) 650 mg PO Q4HR PRN PRN Reason: Mild Pain / Temp above 100 Stop: 01/18/19 04:55 Acetaminophen/Hydrocodone Bitart ([place] 5mg/325mg) 1 tab PO Q8H PRN PRN Reason: Pain (Moderate) 4-7 Stop: 01/18/19 04:55 Al Hydrox/Mg Hydrox/Simethicone (Maalox) 30 ml PO Q4HR PRN PRN Reason: GI DISTRESS Stop: 01/17/19 17:06 Albuterol/Ipratropium (Duoneb Neb) 3 ml HHN Q4HRT PRN PRN Reason: Shortness of Breath Stop: 01/18/19 04:55 Budesonide (Pulmicort) 0.5 mg HHN BIDRT [facility] Stop: 01/18/19 06:59 Last Admin: 11/22/18 06:50 Dose: Not Given Dextrose (Glutose 40%) 18.75 gm PO PRN PRN PRN Reason: Blood Glucose less than 70 Stop: 01/18/19 05:15 Donepezil HCl (Aricept) 5 mg PO HS [facility] Stop: 01/18/19 20:59 Last Admin: 11/21/18 21:13 Dose: 5 mg Glucagon (Glucagen) 1 mg IM PRN PRN PRN Reason: Blood Glucose less than 70 Stop: 01/18/19 05:15 Insulin Human Lispro (Humalog Insulin Sliding Scale) 0 units SUBQ ACHS [facility]; Protocol Stop: 01/18/19 07:29 Last Admin: 11/22/18 12:31 Dose: Not Given Levetiracetam (Keppra) 250 mg PO HS [facility] Stop: 01/18/19 20:59 Last Admin: 11/21/18 21:14 Dose: 250 mg Lorazepam (Ativan) 0.5 mg PO Q4HR PRN; Protocol PRN Reason: Agitation Stop: 01/17/19 17:10 Last Admin: 11/21/18 21:14 Dose: 0.5 mg Magnesium Hydroxide (Milk Of Magnesia) 30 ml PO HS PRN PRN Reason: Constipation Memantine (Namenda) 5 mg PO BID [facility] Stop: 01/18/19 08:59 Last Admin: 11/22/18 08:43 Dose: 5 mg Montelukast Sodium (Singulair) 10 mg PO HS [facility] Stop: 01/18/19 20:59 Last Admin: 11/21/18 21:14 Dose: 10 mg Multivitamins/Vitamin C (Theragran) 1 tab PO DAILY [facility] Stop: 01/18/19 08:59 Last Admin: 11/22/18 08:43 Dose: 1 tab Naproxen (Naprosyn) 250 mg PO BID [facility] Stop: 01/18/19 08:59 Last Admin: 11/22/18 08:43 Dose: 250 mg Pantoprazole Sodium (Protonix) 40 mg PO DAILY@0730 [facility] Stop: 01/18/19 07:29 Last Admin: 11/22/18 06:51 Dose: 40 mg Quetiapine Fumarate (Seroquel) 25 mg PO HS [facility]; Protocol Stop: 01/17/19 20:59 Last Admin: 11/21/18 21:14 Dose: 25 mg Sitagliptin Phosphate (Januvia) 50 mg PO DAILY [facility] Stop: 01/18/19 08:59 Last Admin: 11/22/18 08:43 Dose: 50 mg Zolpidem Tartrate (Ambien) 5 mg PO HS PRN PRN Reason: Insomnia Stop: 01/17/19 20:55 Last Admin: 11/21/18 21:14 Dose: 5 mg General: demented, NAD HEENT: NC/AT Neck: Supple, No JVD Lungs: other (no acute respiratory distress) Cardiovascular: Normal S1, Normal S2 Abdomen: soft Extremities: clear Neurological: no change, disorganized Internal Medicine Assmt/Plan - Assessment Assessment: Psychosis/Hallucinating. Pneumonia, improving. Asthma/Copd, stable. Dementia. Mild Anemia. History of Diabetes Mellitus. History of Osteomyelitis. History of Gerd. History of Cognitive communication deficit. - Plan Plan: Continue current treatment plan. Monitor Labs. Continue current medications Continue to monitor VS Monitor Diet/Nutritional support. Psych management per Psychiatry. Pain Management. PT/OT prnSafety precaution, Fall precaution, frequent nursing round. Supportive care. \ Continue collaborating with consulting specialists, case management and nursing team
[2018-11-23] MEDS: Pantoprazole 40 mg EC Tab PO SCH (06:54)
[2018-11-23] MEDS: Budesonide 0.5 Mg/2 mL Ud HHN SCH (06:54)
[2018-11-23] MEDS: INSULIN LISPRO SLIDING SCALE 100 UNITS/ML UNIT SUBQ SCH ×4 (06:56→21:05)
[2018-11-23] MEDS: Multivitamin Tab PO SCH (08:56)
--- NOTE | 2018-11-23 15:10 | Progress Notes ---
DATE: 11/23/2018 Case was discussed with staff of the patient, reviewed records. The patient continues to be agitated, confused, continues to have poor insight, unable to make safe plan for self-care, unpredictable, impulsive, needing redirection, compliant with the medication with no side effects, does not know why she is here. She is on Aricept 5 mg at bedtime, Lipitor, Namenda 5 mg twice a day. We will continue outpatient group therapy, milieu therapy, adjust medication as needed. [facility]# [id number]
--- NOTE | 2018-11-23 15:16 | Internal Medicine Prog Note ---
Internal Medicine Subjective - Subjective Service Date: 11/23/18 Patient seen and examined:: with staff Patient is:: awake, verbal, agitated, confused Patient Complaints of:: other (Hx of UTI) Per staff patient has:: no adverse event, no episodes of fall Internal Medicine Objective - Results Recent Labs: Laboratory Last Values POC Glucose 94 MG/DL (70 - 105) 11/23/18 12:07 - Physical Exam Vitals and I&O: Vital Signs Temp 97.6 F 11/23/18 06:36 Pulse 71 11/23/18 06:36 Resp 18 11/23/18 08:00 BP 116/63 11/23/18 06:36 Pulse Ox 97 11/23/18 06:36 Intake & Output 11/22/18 11/23/18 11/23/18 18:59 06:59 18:59 Intake Total 120 Balance 120 Intake: Oral 120 Other: # Voids 2 1 # Bowel Movements 0 0 Stool Characteristics Formed Active Medications: Current Medications Acetaminophen (Tylenol) 650 mg PO Q4HR PRN PRN Reason: Mild Pain / Temp above 100 Stop: 01/18/19 04:55 Acetaminophen/Hydrocodone Bitart ([place] 5mg/325mg) 1 tab PO Q8H PRN PRN Reason: Pain (Moderate) 4-7 Stop: 01/18/19 04:55 Al Hydrox/Mg Hydrox/Simethicone (Maalox) 30 ml PO Q4HR PRN PRN Reason: GI DISTRESS Stop: 01/17/19 17:06 Albuterol/Ipratropium (Duoneb Neb) 3 ml HHN Q4HRT PRN PRN Reason: Shortness of Breath Stop: 01/18/19 04:55 Budesonide (Pulmicort) 0.5 mg HHN BIDRT [facility] Stop: 01/18/19 06:59 Last Admin: 11/23/18 06:54 Dose: Not Given Dextrose (Glutose 40%) 18.75 gm PO PRN PRN PRN Reason: Blood Glucose less than 70 Stop: 01/18/19 05:15 Donepezil HCl (Aricept) 5 mg PO HS [facility] Stop: 01/18/19 20:59 Last Admin: 11/22/18 20:54 Dose: 5 mg Glucagon (Glucagen) 1 mg IM PRN PRN PRN Reason: Blood Glucose less than 70 Stop: 01/18/19 05:15 Insulin Human Lispro (Humalog Insulin Sliding Scale) 0 units SUBQ ACHS [facility]; Protocol Stop: 01/18/19 07:29 Last Admin: 11/23/18 12:12 Dose: Not Given Levetiracetam (Keppra) 250 mg PO HS [facility] Stop: 01/18/19 20:59 Last Admin: 11/22/18 20:54 Dose: 250 mg Lorazepam (Ativan) 0.5 mg PO Q4HR PRN; Protocol PRN Reason: Agitation Stop: 01/17/19 17:10 Last Admin: 11/21/18 21:14 Dose: 0.5 mg Magnesium Hydroxide (Milk Of Magnesia) 30 ml PO HS PRN PRN Reason: Constipation Memantine (Namenda) 5 mg PO BID [facility] Stop: 01/18/19 08:59 Last Admin: 11/23/18 08:56 Dose: 5 mg Montelukast Sodium (Singulair) 10 mg PO HS [facility] Stop: 01/18/19 20:59 Last Admin: 11/22/18 20:54 Dose: 10 mg Multivitamins/Vitamin C (Theragran) 1 tab PO DAILY [facility] Stop: 01/18/19 08:59 Last Admin: 11/23/18 08:56 Dose: 1 tab Naproxen (Naprosyn) 250 mg PO BID [facility] Stop: 01/18/19 08:59 Last Admin: 11/23/18 09:01 Dose: 250 mg Pantoprazole Sodium (Protonix) 40 mg PO DAILY@0730 [facility] Stop: 01/18/19 07:29 Last Admin: 11/23/18 06:54 Dose: 40 mg Quetiapine Fumarate (Seroquel) 25 mg PO HS [facility]; Protocol Stop: 01/17/19 20:59 Last Admin: 11/22/18 20:54 Dose: 25 mg Sitagliptin Phosphate (Januvia) 50 mg PO DAILY [facility] Stop: 01/18/19 08:59 Last Admin: 11/23/18 08:56 Dose: 50 mg Zolpidem Tartrate (Ambien) 5 mg PO HS PRN PRN Reason: Insomnia Stop: 01/17/19 20:55 Last Admin: 11/22/18 20:54 Dose: 5 mg Physical Exam: Patient is still confused and easily agitated. General: demented, NAD HEENT: NC/AT Neck: Supple, No JVD Lungs: other (no acute respiratory distress) Cardiovascular: Normal S1, Normal S2 Abdomen: soft Extremities: clear Neurological: no change, disorganized Internal Medicine Assmt/Plan - Assessment Assessment: 5150 Hold. Psychosis/Hallucinating. Pneumonia, improving. Asthma/Copd, stable. Dementia. Mild Anemia. History of Diabetes Mellitus. History of Osteomyelitis. History of Gerd. History of Cognitive communication deficit. - Plan Plan: Continuation of care Psych management per psych. Continue present antibiotics and meds as directed. Monitor vitals, urinalysis, labs. Respiratory and Pulmonary support prn. Monitor diet/nutritional support. Pain management. Accu-check daily,continue DM meds as directed. Continue present care management. Nutritional Asmnt/Malnutr-PDOC - Dietary Evaluation Malnutrition Findings (Please click <Entered> for more info): see orders.
[2018-11-24] MEDS: Budesonide 0.5 Mg/2 mL Ud HHN SCH ×2 (06:01→18:29)
[2018-11-24] MEDS: INSULIN LISPRO SLIDING SCALE 100 UNITS/ML UNIT SUBQ SCH ×4 (06:33→20:37)
[2018-11-24] MEDS: Pantoprazole 40 mg EC Tab PO SCH (06:33)
[2018-11-24] MEDS: Multivitamin Tab PO SCH (08:31)
--- NOTE | 2018-11-24 13:08 | Progress Notes ---
DATE: 11/24/2018 Case was discussed with staff of the patient, reviewed records. The patient continues to be confused, continues to have poor insight, unable to make safe plan for self-care. Continues to be unpredictable, impulsive, needing redirection. No side effects with the medication, no sedation, no nausea, no extrapyramidal symptoms. I will be increasing her Namenda to 10 mg twice a day to help decrease her confusion. We will continue outpatient group therapy, milieu therapy, adjust medication as needed. [facility]# [id number]
--- NOTE | 2018-11-24 15:29 | Internal Medicine Prog Note ---
Internal Medicine Subjective - Subjective Service Date: 11/24/18 Patient is:: awake, verbal, agitated, confused Patient Complaints of:: other (Hx of UTI) Per staff patient has:: no adverse event, no episodes of fall Internal Medicine Objective - Results Recent Labs: Laboratory Last Values POC Glucose 162 MG/DL (70 - 105) H 11/23/18 16:35 - Physical Exam Vitals and I&O: Vital Signs Temp 98.0 F 11/24/18 14:00 Pulse 63 11/24/18 14:00 Resp 18 11/24/18 14:00 BP 122/60 11/24/18 14:00 Pulse Ox 97 11/24/18 14:00 Intake & Output 11/23/18 11/24/18 11/24/18 18:59 06:59 18:59 Intake Total 1250 120 Balance 1250 120 Intake: Oral 1250 120 Other: # Voids 3 Active Medications: Current Medications Acetaminophen (Tylenol) 650 mg PO Q4HR PRN PRN Reason: Mild Pain / Temp above 100 Stop: 01/18/19 04:55 Acetaminophen/Hydrocodone Bitart ([place] 5mg/325mg) 1 tab PO Q8H PRN PRN Reason: Pain (Moderate) 4-7 Stop: 01/18/19 04:55 Al Hydrox/Mg Hydrox/Simethicone (Maalox) 30 ml PO Q4HR PRN PRN Reason: GI DISTRESS Stop: 01/17/19 17:06 Albuterol/Ipratropium (Duoneb Neb) 3 ml HHN Q4HRT PRN PRN Reason: Shortness of Breath Stop: 01/18/19 04:55 Budesonide (Pulmicort) 0.5 mg HHN BIDRT [facility] Stop: 01/18/19 06:59 Last Admin: 11/24/18 06:01 Dose: 0.5 mg Dextrose (Glutose 40%) 18.75 gm PO PRN PRN PRN Reason: Blood Glucose less than 70 Stop: 01/18/19 05:15 Donepezil HCl (Aricept) 5 mg PO HS [facility] Stop: 01/18/19 20:59 Last Admin: 11/23/18 21:04 Dose: 5 mg Glucagon (Glucagen) 1 mg IM PRN PRN PRN Reason: Blood Glucose less than 70 Stop: 01/18/19 05:15 Insulin Human Lispro (Humalog Insulin Sliding Scale) 0 units SUBQ ACHS [facility]; Protocol Stop: 01/18/19 07:29 Last Admin: 11/24/18 11:38 Dose: Not Given Levetiracetam (Keppra) 250 mg PO HS [facility] Stop: 01/18/19 20:59 Last Admin: 11/23/18 21:05 Dose: 250 mg Lorazepam (Ativan) 0.5 mg PO Q4HR PRN; Protocol PRN Reason: Agitation Stop: 01/17/19 17:10 Last Admin: 11/21/18 21:14 Dose: 0.5 mg Magnesium Hydroxide (Milk Of Magnesia) 30 ml PO HS PRN PRN Reason: Constipation Memantine (Namenda) 10 mg PO BID [facility] Stop: 01/23/19 16:59 Montelukast Sodium (Singulair) 10 mg PO HS [facility] Stop: 01/18/19 20:59 Last Admin: 11/23/18 21:06 Dose: 10 mg Multivitamins/Vitamin C (Theragran) 1 tab PO DAILY [facility] Stop: 01/18/19 08:59 Last Admin: 11/24/18 08:31 Dose: 1 tab Naproxen (Naprosyn) 250 mg PO BID [facility] Stop: 01/18/19 08:59 Last Admin: 11/24/18 08:42 Dose: 250 mg Pantoprazole Sodium (Protonix) 40 mg PO DAILY@0730 [facility] Stop: 01/18/19 07:29 Last Admin: 11/24/18 06:33 Dose: 40 mg Quetiapine Fumarate (Seroquel) 25 mg PO HS [facility]; Protocol Stop: 01/17/19 20:59 Last Admin: 11/23/18 21:06 Dose: 25 mg Sitagliptin Phosphate (Januvia) 50 mg PO DAILY [facility] Stop: 01/18/19 08:59 Last Admin: 11/24/18 08:31 Dose: 50 mg Zolpidem Tartrate (Ambien) 5 mg PO HS PRN PRN Reason: Insomnia Stop: 01/17/19 20:55 Last Admin: 11/23/18 21:07 Dose: 5 mg General: demented, NAD HEENT: NC/AT Neck: Supple, No JVD Lungs: other (no acute respiratory distress) Cardiovascular: Normal S1, Normal S2 Abdomen: soft Extremities: clear Neurological: no change, disorganized Internal Medicine Assmt/Plan - Assessment Assessment: Psychosis/Hallucinating. Pneumonia, improving. Asthma/Copd, stable. Dementia. Mild Anemia. History of Diabetes Mellitus. History of Osteomyelitis. History of Gerd. History of Cognitive communication deficit. - Plan Plan: Continue current treatment plan. Monitor Labs. Continue current medications Continue to monitor VS Monitor Diet/Nutritional support. Psych management per Psychiatry. Pain Management. PT/OT prnSafety precaution, Fall precaution, frequent nursing round. Supportive care. \ Continue collaborating with consulting specialists, case management and nursing team
[2018-11-25] MEDS: Budesonide 0.5 Mg/2 mL Ud HHN SCH ×2 (06:16→18:26)
[2018-11-25] MEDS: INSULIN LISPRO SLIDING SCALE 100 UNITS/ML UNIT SUBQ SCH ×4 (06:31→20:54)
[2018-11-25] MEDS: Pantoprazole 40 mg EC Tab PO SCH (06:32)
[2018-11-25] MEDS: Multivitamin Tab PO SCH (09:50)
--- NOTE | 2018-11-25 14:17 | Internal Medicine Prog Note ---
Internal Medicine Subjective - Subjective Service Date: 11/25/18 Patient is:: awake, verbal, agitated, confused Patient Complaints of:: other (Hx of UTI) Per staff patient has:: no adverse event, no episodes of fall Internal Medicine Objective - Results Recent Labs: Laboratory Last Values POC Glucose 162 MG/DL (70 - 105) H 11/23/18 16:35 - Physical Exam Vitals and I&O: Vital Signs Temp 98.3 F 11/25/18 05:45 Pulse 57 11/25/18 05:45 Resp 18 11/25/18 07:57 BP 115/57 11/25/18 05:45 Pulse Ox 96 11/25/18 05:45 Intake & Output 11/24/18 11/25/18 11/25/18 18:59 06:59 18:59 Intake Total 1100 1200 Balance 1100 1200 Intake: Oral 1100 1200 Other: # Voids 3 2 # Bowel Movements 0 Active Medications: Current Medications Acetaminophen (Tylenol) 650 mg PO Q4HR PRN PRN Reason: Mild Pain (Scale 1-3) Stop: 01/18/19 04:55 Acetaminophen (Tylenol) 650 mg PO Q4H PRN PRN Reason: TEMP ABOVE 100 Stop: 01/24/19 09:48 Acetaminophen/Hydrocodone Bitart ([place] 5mg/325mg) 1 tab PO Q8H PRN PRN Reason: Pain (Moderate) 4-7 Stop: 01/18/19 04:55 Al Hydrox/Mg Hydrox/Simethicone (Maalox) 30 ml PO Q4HR PRN PRN Reason: GI DISTRESS Stop: 01/17/19 17:06 Albuterol/Ipratropium (Duoneb Neb) 3 ml HHN Q4HRT PRN PRN Reason: Shortness of Breath Stop: 01/18/19 04:55 Budesonide (Pulmicort) 0.5 mg HHN BIDRT [facility] Stop: 01/18/19 06:59 Last Admin: 11/25/18 06:16 Dose: 0.5 mg Dextrose (Glutose 40%) 18.75 gm PO PRN PRN PRN Reason: Blood Glucose less than 70 Stop: 01/18/19 05:15 Donepezil HCl (Aricept) 5 mg PO HS [facility] Stop: 01/18/19 20:59 Last Admin: 11/24/18 20:37 Dose: 5 mg Glucagon (Glucagen) 1 mg IM PRN PRN PRN Reason: Blood Glucose less than 70 Stop: 01/18/19 05:15 Insulin Human Lispro (Humalog Insulin Sliding Scale) 0 units SUBQ ACHS [facility]; Protocol Stop: 01/18/19 07:29 Last Admin: 11/25/18 11:34 Dose: Not Given Levetiracetam (Keppra) 250 mg PO HS [facility] Stop: 01/18/19 20:59 Last Admin: 11/24/18 20:37 Dose: 250 mg Lorazepam (Ativan) 0.5 mg PO Q4HR PRN; Protocol PRN Reason: Agitation Stop: 01/17/19 17:10 Last Admin: 11/21/18 21:14 Dose: 0.5 mg Magnesium Hydroxide (Milk Of Magnesia) 30 ml PO HS PRN PRN Reason: Constipation Memantine (Namenda) 10 mg PO BID [facility] Stop: 01/23/19 16:59 Last Admin: 11/25/18 09:50 Dose: 10 mg Montelukast Sodium (Singulair) 10 mg PO HS [facility] Stop: 01/18/19 20:59 Last Admin: 11/24/18 20:37 Dose: 10 mg Multivitamins/Vitamin C (Theragran) 1 tab PO DAILY [facility] Stop: 01/18/19 08:59 Last Admin: 11/25/18 09:50 Dose: 1 tab Naproxen (Naprosyn) 250 mg PO BID [facility] Stop: 01/18/19 08:59 Last Admin: 11/25/18 09:50 Dose: 250 mg Pantoprazole Sodium (Protonix) 40 mg PO DAILY@0730 [facility] Stop: 01/18/19 07:29 Last Admin: 11/25/18 06:32 Dose: 40 mg Quetiapine Fumarate (Seroquel) 25 mg PO HS [facility]; Protocol Stop: 01/17/19 20:59 Last Admin: 11/24/18 20:38 Dose: 25 mg Sitagliptin Phosphate (Januvia) 50 mg PO DAILY [facility] Stop: 01/18/19 08:59 Last Admin: 11/25/18 09:50 Dose: 50 mg Zolpidem Tartrate (Ambien) 5 mg PO HS PRN PRN Reason: Insomnia Stop: 01/17/19 20:55 Last Admin: 11/24/18 20:38 Dose: 5 mg General: demented, NAD HEENT: NC/AT Neck: Supple, No JVD Lungs: other (no acute respiratory distress) Cardiovascular: Normal S1, Normal S2 Abdomen: soft Extremities: clear Neurological: no change, disorganized Internal Medicine Assmt/Plan - Assessment Assessment: Psychosis/Hallucinating. Pneumonia, improving. Asthma/Copd, stable. Dementia. Mild Anemia. History of Diabetes Mellitus. History of Osteomyelitis. History of Gerd. History of Cognitive communication deficit. - Plan Plan: Continue current treatment plan. Monitor Labs. Continue current medications Continue to monitor VS Monitor Diet/Nutritional support. Psych management per Psychiatry. Pain Management. PT/OT prnSafety precaution, Fall precaution, frequent nursing round. Supportive care. \ Continue collaborating with consulting specialists, case management and nursing team Nutritional Asmnt/Malnutr-PDOC - Dietary Evaluation Malnutrition Findings (Please click <Entered> for more info): Nutritional Asmnt/Malnutrition Start: 11/24/18 16: 39 Text: Status: Complete Freq: Protocol: Document 11/24/18 16:39 QIANA (Rec: 11/24/18 16:42 QIANA [id number]) Nutritional Asmnt/Malnutrition Patient General Information Nutritional Screening Low Risk Diagnosis Psychosis Pertinent Medical Hx/Surgical Hx Pneumonia, Psychosis, Mild Anemia, Dementia, Asthma/COPD, Osteomyelitis, GERD, Cognitive Communication Deficit, DM Subjective Information Pt is a 83-year-old female admitted on 11/18 d/t 5150 hold with hostile behavior toward staff. Pt is eating 75- 100% of meals Per Meal/ Nutrition Activity Record. Dietary is currently providing an estimated 2600 kcals and 106 gm Pro, per Pt PO intake this is providing an estimated 2275 kcals and 93gm Pro to meet 100+% kcal and 100+% Pro needs. Anthropometrics HT: 52 WT: 135 LB (61.36 kg) BMI: 24.69 (Normal) GI/ Skin Integrity GI: WNL, Flat, Soft, Non- tender BM: 11/20 x1 I/O: 1370/Not Noted Skin: WNL, Intact Mariano: 22 Diet Order: Regular Estimated Energy Needs: ( Geriatric, CBW) 3136-6649 kcals (25-30 kcals/ kg) 61-74g Pro (1.0-1.2 g/kg) 3756-8971 ml (25-30 ml/kg) Current Diet Order/ Nutrition Support Regular Pertinent Medications Maalox (PRN), Albuterol (PRN), Glutose 40% (PRN), Glucagon ( PRN), INS-SS, MOM (PRN), Theragran, Protonix, Januvia Pertinent Labs POC Glucose (11/22-11/23): 71, 112, 118, 96, 94, 162 Nutritional Hx/Data Height 5 ft 2 in Height (Calculated Centimeters) 157.5 Current Weight (lbs) 135 lb Weight (Calculated Kilograms) 61.2 Weight (Calculated Grams) 76828.0 [place] Body Weight 110 LB (50 kg) % [place] Body Weight 123 Body Mass Index (BMI) 24.7 Weight Status Approriate GI Symptoms GI Symptoms None Last BM 11/20 x1 Skin Integrity/Comment: Skin: WNL, Intact Mariano: 22 Current %PO Good (75-100%) Estimated Nutritional Goals BEE in Kcals: Using Current wt Calories/Kcals/Kg 25-30 Kcals Calculated 9311-7457 Protein: Using Current wt Protein g/k.0-1.2 Protein Calculated 61-74 Fluid: ml 9336-1849 ml (25-30 ml/kg) Nutritional Problem 1. Problem Problem Impaired nutrient utilization Etiology r/t endocrine dysfunction Signs/Symptoms: aeb Hx DM, POC Glucose (11/22- 11/23): 71, 112, 118, 96, 94, 162. Malnutrition Related to Morbid Obesity Malnutrition related to morbid obesity No Intervention/Recommendation Comments 1. Continue with Regular diet as ordered. 2. Consider adding CCHO to Diet Rx if BG levels do not trend WNL. Expected Outcomes/Goals Expected Outcomes/Goals 1. PO intake to continue to meet >75% of nutritional needs . 2. Monitor PO intake, wt, nutrition related labs to trend WNL, and skin integrity. 3. F/U as low risk in 7-10 days, 12/02-12/04
--- NOTE | 2018-11-26 02:26 | Progress Notes ---
DATE: 11/25/2018 Case was discussed with staff of the patient, reviewed records. The patient continues to be confused, unable to make safe plan for self-care. Continues to be unpredictable, impulsive, needing redirection. She is sleeping well, eating well. Confused, easily agitated. No side effects with the medication, no sedation, no nausea, no extrapyramidal symptoms. I initiated her, she is on Aricept 5 mg at bedtime. Her Namenda dose was increased yesterday to 10 mg twice a day, Seroquel 25 mg at bedtime. We will continue to work with the patient in group therapy, milieu therapy, and adjust her medication as needed. JOB# [id number]
[2018-11-26] MEDS: INSULIN LISPRO SLIDING SCALE 100 UNITS/ML UNIT SUBQ SCH ×4 (06:42→20:47)
[2018-11-26] MEDS: Pantoprazole 40 mg EC Tab PO SCH (06:52)
[2018-11-26] MEDS: Multivitamin Tab PO SCH (08:19)
--- NOTE | 2018-11-26 11:19 | Progress Notes ---
DATE: 11/26/2018 SUBJECTIVE: The patient was seen in her room, eating breakfast. The patient appears to be guarded, easily gets frustrated, episodes of behavioral outburst and impulsive behavior. The patient needs a lot of redirection. Otherwise, the patient appears to be in no acute distress. OBJECTIVE: VITAL SIGNS: Temperature 98, heart rate 62, blood pressure 128/68, respirations 20, 98% on room air. HEENT: Head is atraumatic and normocephalic. Eyes: Bilateral conjunctivae are clear. Bilaterally, pupils are equally round and reactive. NECK: Supple. No JVD. CARDIOVASCULAR: S1 and S2, without murmur. PULMONARY: Clear to auscultation. GASTROINTESTINAL: Soft and nontender without guarding. Positive bowel sounds. MUSCULOSKELETAL: No clubbing. No cyanosis noted. ASSESSMENT: 1. Dementia. 2. Asthma. 3. Osteoarthritis. 4. History of diabetes. 5. Gastroesophageal reflux disease. PLAN: We will continue to keep the patient inpatient to Psychiatric Unit. We will follow up with a psychiatrist to monitor the patient's condition and behavior. We will put the patient on fall precaution. Treatment plans were discussed with the patient's nurse. Treatment plans were discussed with Dr. Vargas. JOB# [id number]
--- NOTE | 2018-11-26 15:31 | Internal Medicine Prog Note ---
Internal Medicine Subjective - Subjective Service Date: 11/26/18 Patient seen and examined:: with staff Patient is:: awake, verbal, agitated, confused Patient Complaints of:: other (Hx of UTI) Per staff patient has:: no adverse event, no episodes of fall Internal Medicine Objective - Results Recent Labs: Laboratory Last Values POC Glucose 162 MG/DL (70 - 105) H 11/23/18 16:35 - Physical Exam Vitals and I&O: Vital Signs Temp 98.0 F 11/26/18 05:51 Pulse 62 11/26/18 05:51 Resp 20 11/26/18 05:51 BP 128/68 11/26/18 05:51 Pulse Ox 98 11/26/18 05:51 Intake & Output 11/25/18 11/26/18 11/26/18 18:59 06:59 18:59 Intake Total 120 Balance 120 Intake: Oral 120 Other: # Voids 2 # Bowel Movements 0 Active Medications: Current Medications Acetaminophen (Tylenol) 650 mg PO Q4HR PRN PRN Reason: Mild Pain (Scale 1-3) Stop: 01/18/19 04:55 Acetaminophen (Tylenol) 650 mg PO Q4H PRN PRN Reason: TEMP ABOVE 100 Stop: 01/24/19 09:48 Acetaminophen/Hydrocodone Bitart ([place] 5mg/325mg) 1 tab PO Q8H PRN PRN Reason: Pain (Moderate) 4-7 Stop: 01/18/19 04:55 Al Hydrox/Mg Hydrox/Simethicone (Maalox) 30 ml PO Q4HR PRN PRN Reason: GI DISTRESS Stop: 01/17/19 17:06 Albuterol/Ipratropium (Duoneb Neb) 3 ml HHN Q4HRT PRN PRN Reason: Shortness of Breath Stop: 01/18/19 04:55 Budesonide (Pulmicort) 0.5 mg HHN BIDRT [facility] Stop: 01/18/19 06:59 Last Admin: 11/25/18 18:26 Dose: 0.5 mg Dextrose (Glutose 40%) 18.75 gm PO PRN PRN PRN Reason: Blood Glucose less than 70 Stop: 01/18/19 05:15 Donepezil HCl (Aricept) 5 mg PO HS [facility] Stop: 01/18/19 20:59 Last Admin: 11/25/18 20:52 Dose: 5 mg Glucagon (Glucagen) 1 mg IM PRN PRN PRN Reason: Blood Glucose less than 70 Stop: 01/18/19 05:15 Insulin Human Lispro (Humalog Insulin Sliding Scale) 0 units SUBQ ACHS [facility]; Protocol Stop: 01/18/19 07:29 Last Admin: 11/26/18 11:18 Dose: Not Given Levetiracetam (Keppra) 250 mg PO HS [facility] Stop: 01/18/19 20:59 Last Admin: 11/25/18 20:52 Dose: 250 mg Lorazepam (Ativan) 0.5 mg PO Q4HR PRN; Protocol PRN Reason: Agitation Stop: 01/17/19 17:10 Last Admin: 11/21/18 21:14 Dose: 0.5 mg Magnesium Hydroxide (Milk Of Magnesia) 30 ml PO HS PRN PRN Reason: Constipation Memantine (Namenda) 10 mg PO BID [facility] Stop: 01/23/19 16:59 Last Admin: 11/26/18 08:19 Dose: 10 mg Montelukast Sodium (Singulair) 10 mg PO HS [facility] Stop: 01/18/19 20:59 Last Admin: 11/25/18 20:52 Dose: 10 mg Multivitamins/Vitamin C (Theragran) 1 tab PO DAILY [facility] Stop: 01/18/19 08:59 Last Admin: 11/26/18 08:19 Dose: 1 tab Naproxen (Naprosyn) 250 mg PO BID [facility] Stop: 01/18/19 08:59 Last Admin: 11/26/18 08:19 Dose: 250 mg Pantoprazole Sodium (Protonix) 40 mg PO DAILY@0730 [facility] Stop: 01/18/19 07:29 Last Admin: 11/26/18 06:52 Dose: 40 mg Quetiapine Fumarate (Seroquel) 25 mg PO HS [facility]; Protocol Stop: 01/17/19 20:59 Last Admin: 11/25/18 20:52 Dose: 25 mg Sitagliptin Phosphate (Januvia) 50 mg PO DAILY [facility] Stop: 01/18/19 08:59 Last Admin: 11/26/18 11:17 Dose: 50 mg Zolpidem Tartrate (Ambien) 5 mg PO HS PRN PRN Reason: Insomnia Stop: 01/17/19 20:55 Last Admin: 11/26/18 00:52 Dose: 5 mg Physical Exam: Patient is easily agitated, having episodes of screaming and impulsive behavior. General: demented, NAD HEENT: NC/AT Neck: Supple, No JVD Lungs: other (no acute respiratory distress) Cardiovascular: Normal S1, Normal S2 Abdomen: soft Extremities: clear Neurological: no change, disorganized Internal Medicine Assmt/Plan - Assessment Assessment: 5150 Hold. Psychosis/Hallucinating. Pneumonia, improving. Asthma/Copd, stable. Dementia. Mild Anemia. History of Diabetes Mellitus. History of Osteomyelitis. History of Gerd. History of Cognitive communication deficit. - Plan Plan: Continuation of care Psych management per psych. Continue present antibiotics and meds as directed. Monitor vitals, urinalysis, labs. Respiratory and Pulmonary support prn. Monitor diet/nutritional support. Pain management. Accu-check daily,continue DM meds as directed. Continue present care management. Nutritional Asmnt/Malnutr-PDOC - Dietary Evaluation Malnutrition Findings (Please click <Entered> for more info): Nutritional Asmnt/Malnutrition Start: 11/24/18 16: 39 Text: Status: Complete Freq: Protocol: Document 11/24/18 16:39 QIANA (Rec: 11/24/18 16:42 QIANA [email or web address]) Nutritional Asmnt/Malnutrition Patient General Information Nutritional Screening Low Risk Diagnosis Psychosis Pertinent Medical Hx/Surgical Hx Pneumonia, Psychosis, Mild Anemia, Dementia, Asthma/COPD, Osteomyelitis, GERD, Cognitive Communication Deficit, DM Subjective Information Pt is a 83-year-old female admitted on 11/18 d/t 5150 hold with hostile behavior toward staff. Pt is eating 75- 100% of meals Per Meal/ Nutrition Activity Record. Dietary is currently providing an estimated 2600 kcals and 106 gm Pro, per Pt PO intake this is providing an estimated 2275 kcals and 93gm Pro to meet 100+% kcal and 100+% Pro needs. Anthropometrics HT: 52 WT: 135 LB (61.36 kg) BMI: 24.69 (Normal) GI/ Skin Integrity GI: WNL, Flat, Soft, Non- tender BM: 11/20 x1 I/O: 1370/Not Noted Skin: WNL, Intact Mariano: 22 Diet Order: Regular Estimated Energy Needs: ( Geriatric, CBW) 6165-9357 kcals (25-30 kcals/ kg) 61-74g Pro (1.0-1.2 g/kg) 7270-3342 ml (25-30 ml/kg) Current Diet Order/ Nutrition Support Regular Pertinent Medications Maalox (PRN), Albuterol (PRN), Glutose 40% (PRN), Glucagon ( PRN), INS-SS, MOM (PRN), Theragran, Protonix, Januvia Pertinent Labs POC Glucose (11/22-11/23): 71, 112, 118, 96, 94, 162 Nutritional Hx/Data Height 1.57 m Height (Calculated Centimeters) 157.5 Current Weight (lbs) 61.235 kg Weight (Calculated Kilograms) 61.2 Weight (Calculated Grams) 61727.0 [place] Body Weight 110 LB (50 kg) % [place] Body Weight 123 Body Mass Index (BMI) 24.7 Weight Status Approriate GI Symptoms GI Symptoms None Last BM 11/20 x1 Skin Integrity/Comment: Skin: WNL, Intact Mariano: 22 Current %PO Good (75-100%) Estimated Nutritional Goals BEE in Kcals: Using Current wt Calories/Kcals/Kg 25-30 Kcals Calculated 7359-8817 Protein: Using Current wt Protein g/k.0-1.2 Protein Calculated 61-74 Fluid: ml 5659-1724 ml (25-30 ml/kg) Nutritional Problem 1. Problem Problem Impaired nutrient utilization Etiology r/t endocrine dysfunction Signs/Symptoms: aeb Hx DM, POC Glucose (11/22- 11/23): 71, 112, 118, 96, 94, 162. Malnutrition Related to Morbid Obesity Malnutrition related to morbid obesity No Intervention/Recommendation Comments 1. Continue with Regular diet as ordered. 2. Consider adding CCHO to Diet Rx if BG levels do not trend WNL. Expected Outcomes/Goals Expected Outcomes/Goals 1. PO intake to continue to meet >75% of nutritional needs . 2. Monitor PO intake, wt, nutrition related labs to trend WNL, and skin integrity. 3. F/U as low risk in 7-10 days, 12/02-12/04
[2018-11-26] MEDS: Budesonide 0.5 Mg/2 mL Ud HHN SCH (19:00)
--- NOTE | 2018-11-26 19:47 | Progress Notes ---
DATE: 11/26/2018 Dr. Mckeon is covering for Dr. Jolley. Chart reviewed and the patient interviewed. Also discussed the patient's condition with the staff and reviewed records and labs. The patient is still forgetful and confused. She kept asking the same question over and over to staff. The patient also is still required a breathing treatment. On the other hand, no seizure problems and the patient continued to take Keppra 250 mg every bedtime. She also needs lots of redirections. ASSESSMENT: The patient is still confused, but less agitated. TREATMENT PLAN: Continue Seroquel 25 mg at bedtime as well as Aricept 5 mg at bedtime and Namenda 10 mg twice a day. Also, continue monitoring behavior and continue to follow up. JOB# [id number]
[2018-11-27] MEDS: Pantoprazole 40 mg EC Tab PO SCH (06:43)
[2018-11-27] MEDS: INSULIN LISPRO SLIDING SCALE 100 UNITS/ML UNIT SUBQ SCH ×4 (06:43→20:15)
[2018-11-27] MEDS: Budesonide 0.5 Mg/2 mL Ud HHN SCH ×2 (06:43→19:48)
[2018-11-27] MEDS: Multivitamin Tab PO SCH (09:29)
--- NOTE | 2018-11-27 13:27 | Internal Medicine Prog Note ---
Internal Medicine Subjective - Subjective Service Date: 11/27/18 Patient seen and examined:: with staff Patient is:: awake, verbal, agitated, confused Patient Complaints of:: other (Hx of UTI) Per staff patient has:: no adverse event, no episodes of fall Internal Medicine Objective - Results Recent Labs: Laboratory Last Values POC Glucose 88 MG/DL (70 - 105) 11/27/18 06:07 - Physical Exam Vitals and I&O: Vital Signs Temp 97 F 11/27/18 06:39 Pulse 65 11/27/18 06:39 Resp 18 11/27/18 06:39 BP 128/60 11/27/18 06:39 Pulse Ox 99 11/27/18 06:39 Intake & Output 11/26/18 11/27/18 11/27/18 18:59 06:59 18:59 Intake Total 240 Balance 240 Intake: Oral 240 Other: # Voids 1 # Bowel Movements 0 Active Medications: Current Medications Acetaminophen (Tylenol) 650 mg PO Q4HR PRN PRN Reason: Mild Pain (Scale 1-3) Stop: 01/18/19 04:55 Acetaminophen (Tylenol) 650 mg PO Q4H PRN PRN Reason: TEMP ABOVE 100 Stop: 01/24/19 09:48 Acetaminophen/Hydrocodone Bitart ([place] 5mg/325mg) 1 tab PO Q8H PRN PRN Reason: Pain (Moderate) 4-7 Stop: 01/18/19 04:55 Al Hydrox/Mg Hydrox/Simethicone (Maalox) 30 ml PO Q4HR PRN PRN Reason: GI DISTRESS Stop: 01/17/19 17:06 Albuterol/Ipratropium (Duoneb Neb) 3 ml HHN Q4HRT PRN PRN Reason: Shortness of Breath Stop: 01/18/19 04:55 Budesonide (Pulmicort) 0.5 mg HHN BIDRT [facility] Stop: 01/18/19 06:59 Last Admin: 11/27/18 06:43 Dose: 0.5 mg Dextrose (Glutose 40%) 18.75 gm PO PRN PRN PRN Reason: Blood Glucose less than 70 Stop: 01/18/19 05:15 Donepezil HCl (Aricept) 10 mg PO HS [facility] Stop: 01/26/19 20:59 Glucagon (Glucagen) 1 mg IM PRN PRN PRN Reason: Blood Glucose less than 70 Stop: 01/18/19 05:15 Insulin Human Lispro (Humalog Insulin Sliding Scale) 0 units SUBQ ACHS [facility]; Protocol Stop: 01/18/19 07:29 Last Admin: 11/27/18 12:00 Dose: Not Given Levetiracetam (Keppra) 250 mg PO HS [facility] Stop: 01/18/19 20:59 Last Admin: 11/26/18 20:46 Dose: 250 mg Lorazepam (Ativan) 0.5 mg PO Q4HR PRN; Protocol PRN Reason: Agitation Stop: 01/17/19 17:10 Last Admin: 11/21/18 21:14 Dose: 0.5 mg Magnesium Hydroxide (Milk Of Magnesia) 30 ml PO HS PRN PRN Reason: Constipation Memantine (Namenda) 10 mg PO BID [facility] Stop: 01/23/19 16:59 Last Admin: 11/27/18 09:29 Dose: 10 mg Montelukast Sodium (Singulair) 10 mg PO HS [facility] Stop: 01/18/19 20:59 Last Admin: 11/26/18 20:46 Dose: 10 mg Multivitamins/Vitamin C (Theragran) 1 tab PO DAILY [facility] Stop: 01/18/19 08:59 Last Admin: 11/27/18 09:29 Dose: 1 tab Naproxen (Naprosyn) 250 mg PO BID [facility] Stop: 01/18/19 08:59 Last Admin: 11/27/18 09:29 Dose: Not Given Pantoprazole Sodium (Protonix) 40 mg PO DAILY@0730 [facility] Stop: 01/18/19 07:29 Last Admin: 11/27/18 06:43 Dose: 40 mg Quetiapine Fumarate (Seroquel) 25 mg PO HS [facility]; Protocol Stop: 01/17/19 20:59 Last Admin: 11/26/18 20:46 Dose: 25 mg Sitagliptin Phosphate (Januvia) 50 mg PO DAILY [facility] Stop: 01/18/19 08:59 Last Admin: 11/27/18 09:29 Dose: 50 mg Zolpidem Tartrate (Ambien) 5 mg PO HS PRN PRN Reason: Insomnia Stop: 01/17/19 20:55 Last Admin: 11/26/18 00:52 Dose: 5 mg Physical Exam: Patient is has increased memory loss, remains very confused, less agitated. General: demented, NAD HEENT: NC/AT Neck: Supple, No JVD Lungs: other (no acute respiratory distress) Cardiovascular: Normal S1, Normal S2 Abdomen: soft Extremities: clear Neurological: no change, disorganized Internal Medicine Assmt/Plan - Assessment Assessment: 5150 Hold. Psychosis/Hallucinating. Pneumonia, improving. Asthma/Copd, stable. Dementia. Mild Anemia. History of Diabetes Mellitus. History of Osteomyelitis. History of Gerd. History of Cognitive communication deficit. - Plan Plan: Continuation of care Psych management per psych. Continue present antibiotics and meds as directed. Monitor vitals, urinalysis, labs. Respiratory and Pulmonary support prn. Monitor diet/nutritional support. Pain management. Accu-check daily,continue DM meds as directed. Continue present care management. Nutritional Asmnt/Malnutr-PDOC - Dietary Evaluation Malnutrition Findings (Please click <Entered> for more info): Nutritional Asmnt/Malnutrition Start: 11/24/18 16: 39 Text: Status: Complete Freq: Protocol: Document 11/24/18 16:39 QIANA (Rec: 11/24/18 16:42 QIANA [email or web address]) Nutritional Asmnt/Malnutrition Patient General Information Nutritional Screening Low Risk Diagnosis Psychosis Pertinent Medical Hx/Surgical Hx Pneumonia, Psychosis, Mild Anemia, Dementia, Asthma/COPD, Osteomyelitis, GERD, Cognitive Communication Deficit, DM Subjective Information Pt is a 83-year-old female admitted on 11/18 d/t 5150 hold with hostile behavior toward staff. Pt is eating 75- 100% of meals Per Meal/ Nutrition Activity Record. Dietary is currently providing an estimated 2600 kcals and 106 gm Pro, per Pt PO intake this is providing an estimated 2275 kcals and 93gm Pro to meet 100+% kcal and 100+% Pro needs. Anthropometrics HT: 52 WT: 135 LB (61.36 kg) BMI: 24.69 (Normal) GI/ Skin Integrity GI: WNL, Flat, Soft, Non- tender BM: 11/20 x1 I/O: 1370/Not Noted Skin: WNL, Intact Mariano: 22 Diet Order: Regular Estimated Energy Needs: ( Geriatric, CBW) 1911-7464 kcals (25-30 kcals/ kg) 61-74g Pro (1.0-1.2 g/kg) 4652-8341 ml (25-30 ml/kg) Current Diet Order/ Nutrition Support Regular Pertinent Medications Maalox (PRN), Albuterol (PRN), Glutose 40% (PRN), Glucagon ( PRN), INS-SS, MOM (PRN), Theragran, Protonix, Januvia Pertinent Labs POC Glucose (11/22-11/23): 71, 112, 118, 96, 94, 162 Nutritional Hx/Data Height 1.57 m Height (Calculated Centimeters) 157.5 Current Weight (lbs) 61.235 kg Weight (Calculated Kilograms) 61.2 Weight (Calculated Grams) 01239.0 [place] Body Weight 110 LB (50 kg) % [place] Body Weight 123 Body Mass Index (BMI) 24.7 Weight Status Approriate GI Symptoms GI Symptoms None Last BM 11/20 x1 Skin Integrity/Comment: Skin: WNL, Intact Mariano: 22 Current %PO Good (75-100%) Estimated Nutritional Goals BEE in Kcals: Using Current wt Calories/Kcals/Kg 25-30 Kcals Calculated 1088-6589 Protein: Using Current wt Protein g/k.0-1.2 Protein Calculated 61-74 Fluid: ml 1668-4857 ml (25-30 ml/kg) Nutritional Problem 1. Problem Problem Impaired nutrient utilization Etiology r/t endocrine dysfunction Signs/Symptoms: aeb Hx DM, POC Glucose (11/22- 11/23): 71, 112, 118, 96, 94, 162. Malnutrition Related to Morbid Obesity Malnutrition related to morbid obesity No Intervention/Recommendation Comments 1. Continue with Regular diet as ordered. 2. Consider adding CCHO to Diet Rx if BG levels do not trend WNL. Expected Outcomes/Goals Expected Outcomes/Goals 1. PO intake to continue to meet >75% of nutritional needs . 2. Monitor PO intake, wt, nutrition related labs to trend WNL, and skin integrity. 3. F/U as low risk in 7-10 days, 12/02-12/04
--- NOTE | 2018-11-27 20:38 | Progress Notes ---
DATE: 11/27/2018 SUBJECTIVE: Chart reviewed and the patient interviewed. Also discussed the patient's condition with the staff and reviewed records and labs. The patient continued to be forgetful and confused and unable to provide any safe plan for self-care. The patient also still unpredictable and is still repeating the same questions over and over. The patient also is compliant with taking his medications, but he is still confused and impulsive. Otherwise, the patient denies any side effects of medications. ASSESSMENT: The patient is still confused and needs lots of redirections. TREATMENT PLAN: Continue Namenda and we will increase Aricept to 10 mg at bedtime. Also, continue Seroquel and Keppra and continue to follow. JOB# [id number]
[2018-11-28] MEDS: Budesonide 0.5 Mg/2 mL Ud HHN SCH ×2 (06:13→20:51)
[2018-11-28] MEDS: INSULIN LISPRO SLIDING SCALE 100 UNITS/ML UNIT SUBQ SCH ×4 (06:38→20:50)
[2018-11-28] MEDS: Pantoprazole 40 mg EC Tab PO SCH (06:38)
[2018-11-28] MEDS: Multivitamin Tab PO SCH (08:11)
--- NOTE | 2018-11-28 10:47 | Internal Medicine Prog Note ---
Internal Medicine Subjective - Subjective Service Date: 11/28/18 Patient seen and examined:: with staff Patient is:: awake, verbal, agitated, confused Patient Complaints of:: other (Hx of UTI) Per staff patient has:: no adverse event, no episodes of fall Internal Medicine Objective - Results Recent Labs: Laboratory Last Values POC Glucose 90 MG/DL (70 - 105) 11/28/18 05:40 - Physical Exam Vitals and I&O: Vital Signs Temp 98.1 F 11/28/18 06:30 Pulse 64 11/28/18 06:30 Resp 19 11/28/18 06:30 BP 123/74 11/28/18 06:30 Pulse Ox 97 11/28/18 06:30 Intake & Output 11/27/18 11/28/18 11/28/18 18:59 06:59 18:59 Intake Total 120 Balance 120 Intake: Oral 120 Other: # Voids 3 Active Medications: Current Medications Acetaminophen (Tylenol) 650 mg PO Q4HR PRN PRN Reason: Mild Pain (Scale 1-3) Stop: 01/18/19 04:55 Acetaminophen (Tylenol) 650 mg PO Q4H PRN PRN Reason: TEMP ABOVE 100 Stop: 01/24/19 09:48 Acetaminophen/Hydrocodone Bitart ([place] 5mg/325mg) 1 tab PO Q8H PRN PRN Reason: Pain (Moderate) 4-7 Stop: 01/18/19 04:55 Al Hydrox/Mg Hydrox/Simethicone (Maalox) 30 ml PO Q4HR PRN PRN Reason: GI DISTRESS Stop: 01/17/19 17:06 Albuterol/Ipratropium (Duoneb Neb) 3 ml HHN Q4HRT PRN PRN Reason: Shortness of Breath Stop: 01/18/19 04:55 Budesonide (Pulmicort) 0.5 mg HHN BIDRT [facility] Stop: 01/18/19 06:59 Last Admin: 11/28/18 06:13 Dose: 0.5 mg Dextrose (Glutose 40%) 18.75 gm PO PRN PRN PRN Reason: Blood Glucose less than 70 Stop: 01/18/19 05:15 Donepezil HCl (Aricept) 10 mg PO HS [facility] Stop: 01/26/19 20:59 Last Admin: 11/27/18 20:44 Dose: 10 mg Glucagon (Glucagen) 1 mg IM PRN PRN PRN Reason: Blood Glucose less than 70 Stop: 01/18/19 05:15 Insulin Human Lispro (Humalog Insulin Sliding Scale) 0 units SUBQ ACHS [facility]; Protocol Stop: 01/18/19 07:29 Last Admin: 11/28/18 06:38 Dose: Not Given Levetiracetam (Keppra) 250 mg PO HS [facility] Stop: 01/18/19 20:59 Last Admin: 11/27/18 20:44 Dose: 250 mg Lorazepam (Ativan) 0.5 mg PO Q4HR PRN; Protocol PRN Reason: Agitation Stop: 01/17/19 17:10 Last Admin: 11/21/18 21:14 Dose: 0.5 mg Magnesium Hydroxide (Milk Of Magnesia) 30 ml PO HS PRN PRN Reason: Constipation Memantine (Namenda) 10 mg PO BID [facility] Stop: 01/23/19 16:59 Last Admin: 11/28/18 08:11 Dose: 10 mg Montelukast Sodium (Singulair) 10 mg PO HS [facility] Stop: 01/18/19 20:59 Last Admin: 11/27/18 20:45 Dose: 10 mg Multivitamins/Vitamin C (Theragran) 1 tab PO DAILY [facility] Stop: 01/18/19 08:59 Last Admin: 11/28/18 08:11 Dose: 1 tab Naproxen (Naprosyn) 250 mg PO BID [facility] Stop: 01/18/19 08:59 Last Admin: 11/28/18 08:11 Dose: Not Given Pantoprazole Sodium (Protonix) 40 mg PO DAILY@0730 [facility] Stop: 01/18/19 07:29 Last Admin: 11/28/18 06:38 Dose: 40 mg Quetiapine Fumarate (Seroquel) 25 mg PO HS [facility]; Protocol Stop: 01/17/19 20:59 Last Admin: 11/27/18 20:45 Dose: 25 mg Sitagliptin Phosphate (Januvia) 50 mg PO DAILY [facility] Stop: 01/18/19 08:59 Last Admin: 11/28/18 08:11 Dose: 50 mg Zolpidem Tartrate (Ambien) 5 mg PO HS PRN PRN Reason: Insomnia Stop: 01/17/19 20:55 Last Admin: 11/26/18 00:52 Dose: 5 mg Physical Exam: Patient is still very anxious, forgetful and is easily agitated. General: demented, NAD HEENT: NC/AT Neck: Supple, No JVD Lungs: other (no acute respiratory distress) Cardiovascular: Normal S1, Normal S2 Abdomen: soft Extremities: clear Neurological: no change, disorganized Internal Medicine Assmt/Plan - Assessment Assessment: 5150 Hold. Psychosis/Hallucinating. Pneumonia, improving. Asthma/Copd, stable. Dementia. Mild Anemia. History of Diabetes Mellitus. History of Osteomyelitis. History of Gerd. History of Cognitive communication deficit. - Plan Plan: Continuation of care Psych management per psych. Continue present antibiotics and meds as directed. Monitor vitals, urinalysis, labs. Respiratory and Pulmonary support prn. Monitor diet/nutritional support. Pain management. Accu-check daily,continue DM meds as directed. Continue present care management. Nutritional Asmnt/Malnutr-PDOC - Dietary Evaluation Malnutrition Findings (Please click <Entered> for more info): Nutritional Asmnt/Malnutrition Start: 11/24/18 16: 39 Text: Status: Complete Freq: Protocol: Document 11/24/18 16:39 QIANA (Rec: 11/24/18 16:42 QIANA [email or web address]) Nutritional Asmnt/Malnutrition Patient General Information Nutritional Screening Low Risk Diagnosis Psychosis Pertinent Medical Hx/Surgical Hx Pneumonia, Psychosis, Mild Anemia, Dementia, Asthma/COPD, Osteomyelitis, GERD, Cognitive Communication Deficit, DM Subjective Information Pt is a 83-year-old female admitted on 11/18 d/t 5150 hold with hostile behavior toward staff. Pt is eating 75- 100% of meals Per Meal/ Nutrition Activity Record. Dietary is currently providing an estimated 2600 kcals and 106 gm Pro, per Pt PO intake this is providing an estimated 2275 kcals and 93gm Pro to meet 100+% kcal and 100+% Pro needs. Anthropometrics HT: 52 WT: 135 LB (61.36 kg) BMI: 24.69 (Normal) GI/ Skin Integrity GI: WNL, Flat, Soft, Non- tender BM: 11/20 x1 I/O: 1370/Not Noted Skin: WNL, Intact Mariano: 22 Diet Order: Regular Estimated Energy Needs: ( Geriatric, CBW) 0897-6466 kcals (25-30 kcals/ kg) 61-74g Pro (1.0-1.2 g/kg) 6952-4476 ml (25-30 ml/kg) Current Diet Order/ Nutrition Support Regular Pertinent Medications Maalox (PRN), Albuterol (PRN), Glutose 40% (PRN), Glucagon ( PRN), INS-SS, MOM (PRN), Theragran, Protonix, Januvia Pertinent Labs POC Glucose (11/22-11/23): 71, 112, 118, 96, 94, 162 Nutritional Hx/Data Height 1.57 m Height (Calculated Centimeters) 157.5 Current Weight (lbs) 61.235 kg Weight (Calculated Kilograms) 61.2 Weight (Calculated Grams) 29290.0 [place] Body Weight 110 LB (50 kg) % [place] Body Weight 123 Body Mass Index (BMI) 24.7 Weight Status Approriate GI Symptoms GI Symptoms None Last BM 11/20 x1 Skin Integrity/Comment: Skin: WNL, Intact Mariano: 22 Current %PO Good (75-100%) Estimated Nutritional Goals BEE in Kcals: Using Current wt Calories/Kcals/Kg 25-30 Kcals Calculated 7636-3876 Protein: Using Current wt Protein g/k.0-1.2 Protein Calculated 61-74 Fluid: ml 1721-8126 ml (25-30 ml/kg) Nutritional Problem 1. Problem Problem Impaired nutrient utilization Etiology r/t endocrine dysfunction Signs/Symptoms: aeb Hx DM, POC Glucose (11/22- 11/23): 71, 112, 118, 96, 94, 162. Malnutrition Related to Morbid Obesity Malnutrition related to morbid obesity No Intervention/Recommendation Comments 1. Continue with Regular diet as ordered. 2. Consider adding CCHO to Diet Rx if BG levels do not trend WNL. Expected Outcomes/Goals Expected Outcomes/Goals 1. PO intake to continue to meet >75% of nutritional needs . 2. Monitor PO intake, wt, nutrition related labs to trend WNL, and skin integrity. 3. F/U as low risk in 7-10 days, 12/02-12/04
--- NOTE | 2018-11-28 13:11 | Progress Notes ---
DATE: 11/28/2018 SUBJECTIVE: Case was discussed with staff of the patient, reviewed records. The patient continues to be unpredictable, impulsive, needing redirection. Continues to have poor insight. Continues to be demented, confused, needing redirection. No side effects with the medication, no sedation, no nausea, no extrapyramidal symptoms. We will continue to work with the patient in group therapy, milieu therapy, and adjust the medication as needed. [facility]# [id number]
[2018-11-29] MEDS: INSULIN LISPRO SLIDING SCALE 100 UNITS/ML UNIT SUBQ SCH ×4 (06:37→20:28)
[2018-11-29] MEDS: Budesonide 0.5 Mg/2 mL Ud HHN SCH ×2 (06:38→20:27)
[2018-11-29] MEDS: Pantoprazole 40 mg EC Tab PO SCH (06:38)
[2018-11-29] MEDS: Multivitamin Tab PO SCH (08:18)
--- NOTE | 2018-11-29 13:55 | Progress Notes ---
DATE: Case was discussed with staff of the patient, reviewed records. The patient continues to be unpredictable, impulsive, poor insight, demented, confused. She is sleeping better, eating better. No side effects of the medication, no sedation, no nausea. She is demented, confused, unable to make safe plan for self-care. I will continue outpatient group therapy, milieu therapy, and adjust medications as needed. [facility]# [id number]
--- NOTE | 2018-11-29 14:29 | Progress Notes ---
DATE: 11/29/2018 Case was discussed with staff of the patient, reviewed records. The patient continues to be confused, continues to be unpredictable and impulsive. The patient continues to be confused, unpredictable, impulsive, needing redirection, unable to make safe plan for self-care or make any reasonable conversation, needing redirection, confused, continues to have poor insight. No side effects with the medication, no sedation, no nausea, no extrapyramidal symptoms. We will continue to work with the patient in group therapy, milieu therapy, adjust medication as needed. JOB# [id number]
--- NOTE | 2018-11-29 14:38 | Internal Medicine Prog Note ---
Internal Medicine Subjective - Subjective Service Date: 11/29/18 Patient is:: awake, verbal, agitated, confused Patient Complaints of:: other (Hx of UTI) Per staff patient has:: no adverse event, no episodes of fall Internal Medicine Objective - Results Recent Labs: Laboratory Last Values POC Glucose 126 MG/DL (70 - 105) H 11/29/18 11:31 - Physical Exam Vitals and I&O: Vital Signs Temp 97.2 F 11/29/18 06:31 Pulse 55 11/29/18 06:31 Resp 20 11/29/18 06:31 BP 132/61 11/29/18 06:31 Pulse Ox 99 11/29/18 06:31 Intake & Output 11/28/18 11/29/18 11/29/18 18:59 06:59 18:59 Intake Total 240 Balance 240 Intake: Oral 240 Other: # Voids 1 # Bowel Movements 1 Active Medications: Current Medications Acetaminophen (Tylenol) 650 mg PO Q4HR PRN PRN Reason: Mild Pain (Scale 1-3) Stop: 01/18/19 04:55 Acetaminophen (Tylenol) 650 mg PO Q4H PRN PRN Reason: TEMP ABOVE 100 Stop: 01/24/19 09:48 Acetaminophen/Hydrocodone Bitart ([place] 5mg/325mg) 1 tab PO Q8H PRN PRN Reason: Pain (Moderate) 4-7 Stop: 01/18/19 04:55 Al Hydrox/Mg Hydrox/Simethicone (Maalox) 30 ml PO Q4HR PRN PRN Reason: GI DISTRESS Stop: 01/17/19 17:06 Albuterol/Ipratropium (Duoneb Neb) 3 ml HHN Q4HRT PRN PRN Reason: Shortness of Breath Stop: 01/18/19 04:55 Budesonide (Pulmicort) 0.5 mg HHN BIDRT [facility] Stop: 01/18/19 06:59 Last Admin: 11/29/18 06:38 Dose: 0.5 mg Dextrose (Glutose 40%) 18.75 gm PO PRN PRN PRN Reason: Blood Glucose less than 70 Stop: 01/18/19 05:15 Donepezil HCl (Aricept) 10 mg PO HS [facility] Stop: 01/26/19 20:59 Last Admin: 11/28/18 20:50 Dose: 10 mg Glucagon (Glucagen) 1 mg IM PRN PRN PRN Reason: Blood Glucose less than 70 Stop: 01/18/19 05:15 Insulin Human Lispro (Humalog Insulin Sliding Scale) 0 units SUBQ ACHS [facility]; Protocol Stop: 01/18/19 07:29 Last Admin: 11/29/18 11:47 Dose: Not Given Levetiracetam (Keppra) 250 mg PO HS [facility] Stop: 01/18/19 20:59 Last Admin: 11/28/18 20:51 Dose: 250 mg Lorazepam (Ativan) 0.5 mg PO Q4HR PRN; Protocol PRN Reason: Agitation Stop: 01/17/19 17:10 Last Admin: 11/21/18 21:14 Dose: 0.5 mg Magnesium Hydroxide (Milk Of Magnesia) 30 ml PO HS PRN PRN Reason: Constipation Memantine (Namenda) 10 mg PO BID [facility] Stop: 01/23/19 16:59 Last Admin: 11/29/18 08:18 Dose: 10 mg Montelukast Sodium (Singulair) 10 mg PO HS [facility] Stop: 01/18/19 20:59 Last Admin: 11/28/18 20:52 Dose: 10 mg Multivitamins/Vitamin C (Theragran) 1 tab PO DAILY [facility] Stop: 01/18/19 08:59 Last Admin: 11/29/18 08:18 Dose: 1 tab Naproxen (Naprosyn) 250 mg PO BID [facility] Stop: 01/18/19 08:59 Last Admin: 11/29/18 08:18 Dose: 250 mg Pantoprazole Sodium (Protonix) 40 mg PO DAILY@0730 [facility] Stop: 01/18/19 07:29 Last Admin: 11/29/18 06:38 Dose: 40 mg Quetiapine Fumarate (Seroquel) 25 mg PO HS [facility]; Protocol Stop: 01/17/19 20:59 Last Admin: 11/28/18 20:51 Dose: 25 mg Sitagliptin Phosphate (Januvia) 50 mg PO DAILY [facility] Stop: 01/18/19 08:59 Last Admin: 11/29/18 08:19 Dose: 50 mg Zolpidem Tartrate (Ambien) 5 mg PO HS PRN PRN Reason: Insomnia Stop: 01/17/19 20:55 Last Admin: 11/26/18 00:52 Dose: 5 mg General: demented, NAD HEENT: NC/AT Neck: Supple, No JVD Lungs: other (no acute respiratory distress) Cardiovascular: Normal S1, Normal S2 Abdomen: soft Extremities: clear Neurological: no change, disorganized Internal Medicine Assmt/Plan - Assessment Assessment: Psychosis/Hallucinating. Pneumonia, improving. Asthma/Copd, stable. Dementia. Mild Anemia. History of Diabetes Mellitus. History of Osteomyelitis. History of Gerd. History of Cognitive communication deficit. - Plan Plan: Continue current treatment plan. Monitor Labs. Continue current medications Continue to monitor VS Monitor Diet/Nutritional support. Psych management per Psychiatry. Pain Management. PT/OT prnSafety precaution, Fall precaution, frequent nursing round. Supportive care. \ Continue collaborating with consulting specialists, case management and nursing team Nutritional Asmnt/Malnutr-PDOC - Dietary Evaluation Malnutrition Findings (Please click <Entered> for more info): Nutritional Asmnt/Malnutrition Start: 11/24/18 16: 39 Text: Status: Complete Freq: Protocol: Document 11/24/18 16:39 QIANA (Rec: 11/24/18 16:42 QIANA [email or web address]) Nutritional Asmnt/Malnutrition Patient General Information Nutritional Screening Low Risk Diagnosis Psychosis Pertinent Medical Hx/Surgical Hx Pneumonia, Psychosis, Mild Anemia, Dementia, Asthma/COPD, Osteomyelitis, GERD, Cognitive Communication Deficit, DM Subjective Information Pt is a 83-year-old female admitted on 11/18 d/t 5150 hold with hostile behavior toward staff. Pt is eating 75- 100% of meals Per Meal/ Nutrition Activity Record. Dietary is currently providing an estimated 2600 kcals and 106 gm Pro, per Pt PO intake this is providing an estimated 2275 kcals and 93gm Pro to meet 100+% kcal and 100+% Pro needs. Anthropometrics HT: 52 WT: 135 LB (61.36 kg) BMI: 24.69 (Normal) GI/ Skin Integrity GI: WNL, Flat, Soft, Non- tender BM: 11/20 x1 I/O: 1370/Not Noted Skin: WNL, Intact Mariano: 22 Diet Order: Regular Estimated Energy Needs: ( Geriatric, CBW) 8658-8596 kcals (25-30 kcals/ kg) 61-74g Pro (1.0-1.2 g/kg) 3489-7055 ml (25-30 ml/kg) Current Diet Order/ Nutrition Support Regular Pertinent Medications Maalox (PRN), Albuterol (PRN), Glutose 40% (PRN), Glucagon ( PRN), INS-SS, MOM (PRN), Theragran, Protonix, Januvia Pertinent Labs POC Glucose (11/22-11/23): 71, 112, 118, 96, 94, 162 Nutritional Hx/Data Height 5 ft 2 in Height (Calculated Centimeters) 157.5 Current Weight (lbs) 135 lb Weight (Calculated Kilograms) 61.2 Weight (Calculated Grams) 04539.0 [place] Body Weight 110 LB (50 kg) % [place] Body Weight 123 Body Mass Index (BMI) 24.7 Weight Status Approriate GI Symptoms GI Symptoms None Last BM 11/20 x1 Skin Integrity/Comment: Skin: WNL, Intact Mariano: 22 Current %PO Good (75-100%) Estimated Nutritional Goals BEE in Kcals: Using Current wt Calories/Kcals/Kg 25-30 Kcals Calculated 9709-4507 Protein: Using Current wt Protein g/k.0-1.2 Protein Calculated 61-74 Fluid: ml 8199-1421 ml (25-30 ml/kg) Nutritional Problem 1. Problem Problem Impaired nutrient utilization Etiology r/t endocrine dysfunction Signs/Symptoms: aeb Hx DM, POC Glucose (11/22- 11/23): 71, 112, 118, 96, 94, 162. Malnutrition Related to Morbid Obesity Malnutrition related to morbid obesity No Intervention/Recommendation Comments 1. Continue with Regular diet as ordered. 2. Consider adding CCHO to Diet Rx if BG levels do not trend WNL. Expected Outcomes/Goals Expected Outcomes/Goals 1. PO intake to continue to meet >75% of nutritional needs . 2. Monitor PO intake, wt, nutrition related labs to trend WNL, and skin integrity. 3. F/U as low risk in 7-10 days, 12/02-12/04
[2018-11-30] MEDS: Budesonide 0.5 Mg/2 mL Ud HHN SCH ×2 (06:07→20:35)
[2018-11-30] MEDS: Pantoprazole 40 mg EC Tab PO SCH (06:41)
[2018-11-30] MEDS: INSULIN LISPRO SLIDING SCALE 100 UNITS/ML UNIT SUBQ SCH ×4 (07:01→21:07)
[2018-11-30] MEDS: Multivitamin Tab PO SCH (08:27)
--- NOTE | 2018-11-30 11:36 | Internal Medicine Prog Note ---
Internal Medicine Subjective - Subjective Service Date: 11/30/18 Patient seen and examined:: with staff, chart reviewed Patient is:: awake, verbal, agitated, confused Patient Complaints of:: other (Hx of UTI) Per staff patient has:: no adverse event, no episodes of fall Internal Medicine Objective - Results Recent Labs: Laboratory Last Values POC Glucose 126 MG/DL (70 - 105) H 11/29/18 11:31 - Physical Exam Vitals and I&O: Vital Signs Temp 97.2 F 11/30/18 06:37 Pulse 52 11/30/18 06:37 Resp 18 11/30/18 08:00 BP 132/61 11/30/18 06:37 Pulse Ox 95 11/30/18 06:37 Intake & Output 11/29/18 11/30/18 11/30/18 18:59 06:59 18:59 Intake Total 800 120 Balance 800 120 Intake: Oral 800 120 Other: # Voids 4 3 # Bowel Movements 1 0 Active Medications: Current Medications Acetaminophen (Tylenol) 650 mg PO Q4HR PRN PRN Reason: Mild Pain (Scale 1-3) Stop: 01/18/19 04:55 Acetaminophen (Tylenol) 650 mg PO Q4H PRN PRN Reason: TEMP ABOVE 100 Stop: 01/24/19 09:48 Acetaminophen/Hydrocodone Bitart ([place] 5mg/325mg) 1 tab PO Q8H PRN PRN Reason: Pain (Moderate) 4-7 Stop: 01/18/19 04:55 Al Hydrox/Mg Hydrox/Simethicone (Maalox) 30 ml PO Q4HR PRN PRN Reason: GI DISTRESS Stop: 01/17/19 17:06 Albuterol/Ipratropium (Duoneb Neb) 3 ml HHN Q4HRT PRN PRN Reason: Shortness of Breath Stop: 01/18/19 04:55 Budesonide (Pulmicort) 0.5 mg HHN BIDRT [facility] Stop: 01/18/19 06:59 Last Admin: 11/30/18 06:07 Dose: 0.5 mg Dextrose (Glutose 40%) 18.75 gm PO PRN PRN PRN Reason: Blood Glucose less than 70 Stop: 01/18/19 05:15 Donepezil HCl (Aricept) 10 mg PO HS [facility] Stop: 01/26/19 20:59 Last Admin: 11/29/18 20:50 Dose: 10 mg Glucagon (Glucagen) 1 mg IM PRN PRN PRN Reason: Blood Glucose less than 70 Stop: 01/18/19 05:15 Insulin Human Lispro (Humalog Insulin Sliding Scale) 0 units SUBQ ACHS [facility]; Protocol Stop: 01/18/19 07:29 Last Admin: 11/30/18 07:01 Dose: Not Given Levetiracetam (Keppra) 250 mg PO HS [facility] Stop: 01/18/19 20:59 Last Admin: 11/29/18 20:50 Dose: 250 mg Lorazepam (Ativan) 0.5 mg PO Q4HR PRN; Protocol PRN Reason: Agitation Stop: 01/17/19 17:10 Last Admin: 11/21/18 21:14 Dose: 0.5 mg Magnesium Hydroxide (Milk Of Magnesia) 30 ml PO HS PRN PRN Reason: Constipation Memantine (Namenda) 10 mg PO BID [facility] Stop: 01/23/19 16:59 Last Admin: 11/30/18 08:27 Dose: 10 mg Montelukast Sodium (Singulair) 10 mg PO HS [facility] Stop: 01/18/19 20:59 Last Admin: 11/29/18 20:50 Dose: 10 mg Multivitamins/Vitamin C (Theragran) 1 tab PO DAILY [facility] Stop: 01/18/19 08:59 Last Admin: 11/30/18 08:27 Dose: 1 tab Naproxen (Naprosyn) 250 mg PO BID [facility] Stop: 01/18/19 08:59 Last Admin: 11/30/18 08:25 Dose: Not Given Pantoprazole Sodium (Protonix) 40 mg PO DAILY@0730 [facility] Stop: 01/18/19 07:29 Last Admin: 11/30/18 06:41 Dose: 40 mg Quetiapine Fumarate (Seroquel) 25 mg PO HS [facility]; Protocol Stop: 01/17/19 20:59 Last Admin: 11/29/18 20:50 Dose: 25 mg Sitagliptin Phosphate (Januvia) 50 mg PO DAILY [facility] Stop: 01/18/19 08:59 Last Admin: 11/30/18 08:27 Dose: 50 mg Zolpidem Tartrate (Ambien) 5 mg PO HS PRN PRN Reason: Insomnia Stop: 01/17/19 20:55 Last Admin: 11/26/18 00:52 Dose: 5 mg Physical Exam: Patient continues to be impulsive, unpredictable, still very demented, needs monitoring. General: demented, NAD HEENT: NC/AT Neck: Supple, No JVD Lungs: other (no acute respiratory distress) Cardiovascular: Normal S1, Normal S2 Abdomen: soft Extremities: clear Neurological: no change, disorganized Internal Medicine Assmt/Plan - Assessment Assessment: 5150 Hold. Psychosis/Hallucinating. Pneumonia, improving. Asthma/Copd, stable. Dementia. Mild Anemia. History of Diabetes Mellitus. History of Osteomyelitis. History of Gerd. History of Cognitive communication deficit. - Plan Plan: Continuation of care Psych management per psych. Continue present antibiotics and meds as directed. Monitor vitals, urinalysis, labs. Respiratory and Pulmonary support prn. Monitor diet/nutritional support. Pain management. Accu-check daily,continue DM meds as directed. Continue present care management. Nutritional Asmnt/Malnutr-PDOC - Dietary Evaluation Malnutrition Findings (Please click <Entered> for more info): Nutritional Asmnt/Malnutrition Start: 11/24/18 16: 39 Text: Status: Complete Freq: Protocol: Document 11/24/18 16:39 QIANA (Rec: 11/24/18 16:42 QIANA [email or web address]) Nutritional Asmnt/Malnutrition Patient General Information Nutritional Screening Low Risk Diagnosis Psychosis Pertinent Medical Hx/Surgical Hx Pneumonia, Psychosis, Mild Anemia, Dementia, Asthma/COPD, Osteomyelitis, GERD, Cognitive Communication Deficit, DM Subjective Information Pt is a 83-year-old female admitted on 11/18 d/t 5150 hold with hostile behavior toward staff. Pt is eating 75- 100% of meals Per Meal/ Nutrition Activity Record. Dietary is currently providing an estimated 2600 kcals and 106 gm Pro, per Pt PO intake this is providing an estimated 2275 kcals and 93gm Pro to meet 100+% kcal and 100+% Pro needs. Anthropometrics HT: 52 WT: 135 LB (61.36 kg) BMI: 24.69 (Normal) GI/ Skin Integrity GI: WNL, Flat, Soft, Non- tender BM: 11/20 x1 I/O: 1370/Not Noted Skin: WNL, Intact Mariano: 22 Diet Order: Regular Estimated Energy Needs: ( Geriatric, CBW) 1756-3727 kcals (25-30 kcals/ kg) 61-74g Pro (1.0-1.2 g/kg) 8329-7765 ml (25-30 ml/kg) Current Diet Order/ Nutrition Support Regular Pertinent Medications Maalox (PRN), Albuterol (PRN), Glutose 40% (PRN), Glucagon ( PRN), INS-SS, MOM (PRN), Theragran, Protonix, Januvia Pertinent Labs POC Glucose (11/22-11/23): 71, 112, 118, 96, 94, 162 Nutritional Hx/Data Height 1.57 m Height (Calculated Centimeters) 157.5 Current Weight (lbs) 61.235 kg Weight (Calculated Kilograms) 61.2 Weight (Calculated Grams) 33059.0 [place] Body Weight 110 LB (50 kg) % [place] Body Weight 123 Body Mass Index (BMI) 24.7 Weight Status Approriate GI Symptoms GI Symptoms None Last BM 11/20 x1 Skin Integrity/Comment: Skin: WNL, Intact Mariano: 22 Current %PO Good (75-100%) Estimated Nutritional Goals BEE in Kcals: Using Current wt Calories/Kcals/Kg 25-30 Kcals Calculated 9340-7462 Protein: Using Current wt Protein g/k.0-1.2 Protein Calculated 61-74 Fluid: ml 4044-3325 ml (25-30 ml/kg) Nutritional Problem 1. Problem Problem Impaired nutrient utilization Etiology r/t endocrine dysfunction Signs/Symptoms: aeb Hx DM, POC Glucose (11/22- 11/23): 71, 112, 118, 96, 94, 162. Malnutrition Related to Morbid Obesity Malnutrition related to morbid obesity No Intervention/Recommendation Comments 1. Continue with Regular diet as ordered. 2. Consider adding CCHO to Diet Rx if BG levels do not trend WNL. Expected Outcomes/Goals Expected Outcomes/Goals 1. PO intake to continue to meet >75% of nutritional needs . 2. Monitor PO intake, wt, nutrition related labs to trend WNL, and skin integrity. 3. F/U as low risk in 7-10 days, 12/02-12/04
--- NOTE | 2018-11-30 13:16 | Progress Notes ---
DATE: 11/30/2018 Case was discussed with staff of the patient, reviewed records. The patient continues to show some progress. She is less agitated. She is sleeping better, eating better. No side effects with the medication, no sedation, no nausea, no extrapyramidal symptoms. Working on discharge plan. We will continue outpatient group therapy, milieu therapy, adjust medication as needed. JOB# [id number]
--- NOTE | 2018-11-30 13:18 | Progress Notes ---
DATE: 11/28/2018 Case was discussed with staff of the patient, reviewed records. The patient continues to be unpredictable, impulsive, needing redirection. Continues to have poor insight, continues to be unable to make safe plan for self-care. No side effects with the medication, no sedation, no nausea, no extrapyramidal symptoms, confused. We will continue outpatient group therapy, milieu therapy, adjust medication as needed. [facility]# [id number]
[2018-12-01] MEDS: Budesonide 0.5 Mg/2 mL Ud HHN SCH (06:28)
[2018-12-01] MEDS: INSULIN LISPRO SLIDING SCALE 100 UNITS/ML UNIT SUBQ SCH ×4 (06:44→21:37)
[2018-12-01] MEDS: Pantoprazole 40 mg EC Tab PO SCH (06:51)
[2018-12-01] MEDS: Multivitamin Tab PO SCH ×2 (09:10→12:30)
--- NOTE | 2018-12-01 10:35 | Internal Medicine Prog Note ---
Internal Medicine Subjective - Subjective Service Date: 12/01/18 Patient seen and examined:: with staff Patient is:: awake, verbal, agitated, confused Patient Complaints of:: other (Hx of UTI) Per staff patient has:: no adverse event, no episodes of fall Internal Medicine Objective - Results Recent Labs: Laboratory Last Values POC Glucose 126 MG/DL (70 - 105) H 11/29/18 11:31 - Physical Exam Vitals and I&O: Vital Signs Temp 98.4 F 12/01/18 06:36 Pulse 60 12/01/18 06:36 Resp 18 12/01/18 06:36 BP 120/76 12/01/18 06:36 Pulse Ox 98 12/01/18 06:36 Intake & Output 11/30/18 12/01/18 12/01/18 18:59 06:59 18:59 Intake Total 120 Balance 120 Intake: Oral 120 Other: # Voids 2 3 # Bowel Movements 1 Active Medications: Current Medications Acetaminophen (Tylenol) 650 mg PO Q4HR PRN PRN Reason: Mild Pain (Scale 1-3) Stop: 01/18/19 04:55 Acetaminophen (Tylenol) 650 mg PO Q4H PRN PRN Reason: TEMP ABOVE 100 Stop: 01/24/19 09:48 Acetaminophen/Hydrocodone Bitart ([place] 5mg/325mg) 1 tab PO Q8H PRN PRN Reason: Pain (Moderate) 4-7 Stop: 01/18/19 04:55 Al Hydrox/Mg Hydrox/Simethicone (Maalox) 30 ml PO Q4HR PRN PRN Reason: GI DISTRESS Stop: 01/17/19 17:06 Albuterol/Ipratropium (Duoneb Neb) 3 ml HHN Q4HRT PRN PRN Reason: Shortness of Breath Stop: 01/18/19 04:55 Budesonide (Pulmicort) 0.5 mg HHN BIDRT [facility] Stop: 01/18/19 06:59 Last Admin: 12/01/18 06:28 Dose: 0.5 mg Dextrose (Glutose 40%) 18.75 gm PO PRN PRN PRN Reason: Blood Glucose less than 70 Stop: 01/18/19 05:15 Donepezil HCl (Aricept) 10 mg PO HS [facility] Stop: 01/26/19 20:59 Last Admin: 11/30/18 21:06 Dose: 10 mg Glucagon (Glucagen) 1 mg IM PRN PRN PRN Reason: Blood Glucose less than 70 Stop: 01/18/19 05:15 Insulin Human Lispro (Humalog Insulin Sliding Scale) 0 units SUBQ ACHS [facility]; Protocol Stop: 01/18/19 07:29 Last Admin: 12/01/18 06:44 Dose: Not Given Levetiracetam (Keppra) 250 mg PO HS [facility] Stop: 01/18/19 20:59 Last Admin: 11/30/18 21:06 Dose: 250 mg Lorazepam (Ativan) 0.5 mg PO Q4HR PRN; Protocol PRN Reason: Agitation Stop: 01/17/19 17:10 Last Admin: 11/21/18 21:14 Dose: 0.5 mg Magnesium Hydroxide (Milk Of Magnesia) 30 ml PO HS PRN PRN Reason: Constipation Memantine (Namenda) 10 mg PO BID [facility] Stop: 01/23/19 16:59 Last Admin: 11/30/18 16:24 Dose: 10 mg Montelukast Sodium (Singulair) 10 mg PO HS [facility] Stop: 01/18/19 20:59 Last Admin: 11/30/18 21:06 Dose: 10 mg Multivitamins/Vitamin C (Theragran) 1 tab PO DAILY [facility] Stop: 01/18/19 08:59 Last Admin: 11/30/18 08:27 Dose: 1 tab Naproxen (Naprosyn) 250 mg PO BID [facility] Stop: 01/18/19 08:59 Last Admin: 11/30/18 16:46 Dose: Not Given Pantoprazole Sodium (Protonix) 40 mg PO DAILY@0730 [facility] Stop: 01/18/19 07:29 Last Admin: 12/01/18 06:51 Dose: 40 mg Quetiapine Fumarate (Seroquel) 25 mg PO HS [facility]; Protocol Stop: 01/17/19 20:59 Last Admin: 11/30/18 21:06 Dose: 25 mg Sitagliptin Phosphate (Januvia) 50 mg PO DAILY [facility] Stop: 01/18/19 08:59 Last Admin: 11/30/18 08:27 Dose: 50 mg Zolpidem Tartrate (Ambien) 5 mg PO HS PRN PRN Reason: Insomnia Stop: 01/17/19 20:55 Last Admin: 11/26/18 00:52 Dose: 5 mg Physical Exam: Patient remains dis-oriented, eating better and sleeping better. General: demented, NAD HEENT: NC/AT Neck: Supple, No JVD Lungs: other (no acute respiratory distress) Cardiovascular: Normal S1, Normal S2 Abdomen: soft Extremities: clear Neurological: no change, disorganized Internal Medicine Assmt/Plan - Assessment Assessment: 5150 Hold. Psychosis/Hallucinating. Pneumonia, improving. Asthma/Copd, stable. Dementia. Mild Anemia. History of Diabetes Mellitus. History of Osteomyelitis. History of Gerd. History of Cognitive communication deficit. - Plan Plan: Continuation of care Psych management per psych. Continue present antibiotics and meds as directed. Monitor vitals, urinalysis, labs. Respiratory and Pulmonary support prn. Monitor diet/nutritional support. Pain management. Accu-check daily,continue DM meds as directed. Continue present care management. Nutritional Asmnt/Malnutr-PDOC - Dietary Evaluation Malnutrition Findings (Please click <Entered> for more info): Nutritional Asmnt/Malnutrition Start: 11/24/18 16: 39 Text: Status: Complete Freq: Protocol: Document 11/24/18 16:39 QIANA (Rec: 11/24/18 16:42 QIANA [email or web address]) Nutritional Asmnt/Malnutrition Patient General Information Nutritional Screening Low Risk Diagnosis Psychosis Pertinent Medical Hx/Surgical Hx Pneumonia, Psychosis, Mild Anemia, Dementia, Asthma/COPD, Osteomyelitis, GERD, Cognitive Communication Deficit, DM Subjective Information Pt is a 83-year-old female admitted on 11/18 d/t 5150 hold with hostile behavior toward staff. Pt is eating 75- 100% of meals Per Meal/ Nutrition Activity Record. Dietary is currently providing an estimated 2600 kcals and 106 gm Pro, per Pt PO intake this is providing an estimated 2275 kcals and 93gm Pro to meet 100+% kcal and 100+% Pro needs. Anthropometrics HT: 52 WT: 135 LB (61.36 kg) BMI: 24.69 (Normal) GI/ Skin Integrity GI: WNL, Flat, Soft, Non- tender BM: 11/20 x1 I/O: 1370/Not Noted Skin: WNL, Intact Mariano: 22 Diet Order: Regular Estimated Energy Needs: ( Geriatric, CBW) 2125-4345 kcals (25-30 kcals/ kg) 61-74g Pro (1.0-1.2 g/kg) 5117-2959 ml (25-30 ml/kg) Current Diet Order/ Nutrition Support Regular Pertinent Medications Maalox (PRN), Albuterol (PRN), Glutose 40% (PRN), Glucagon ( PRN), INS-SS, MOM (PRN), Theragran, Protonix, Januvia Pertinent Labs POC Glucose (11/22-11/23): 71, 112, 118, 96, 94, 162 Nutritional Hx/Data Height 1.57 m Height (Calculated Centimeters) 157.5 Current Weight (lbs) 61.235 kg Weight (Calculated Kilograms) 61.2 Weight (Calculated Grams) 65832.0 [place] Body Weight 110 LB (50 kg) % [place] Body Weight 123 Body Mass Index (BMI) 24.7 Weight Status Approriate GI Symptoms GI Symptoms None Last BM 11/20 x1 Skin Integrity/Comment: Skin: WNL, Intact Mariano: 22 Current %PO Good (75-100%) Estimated Nutritional Goals BEE in Kcals: Using Current wt Calories/Kcals/Kg 25-30 Kcals Calculated 6822-2465 Protein: Using Current wt Protein g/k.0-1.2 Protein Calculated 61-74 Fluid: ml 1943-4247 ml (25-30 ml/kg) Nutritional Problem 1. Problem Problem Impaired nutrient utilization Etiology r/t endocrine dysfunction Signs/Symptoms: aeb Hx DM, POC Glucose (11/22- 11/23): 71, 112, 118, 96, 94, 162. Malnutrition Related to Morbid Obesity Malnutrition related to morbid obesity No Intervention/Recommendation Comments 1. Continue with Regular diet as ordered. 2. Consider adding CCHO to Diet Rx if BG levels do not trend WNL. Expected Outcomes/Goals Expected Outcomes/Goals 1. PO intake to continue to meet >75% of nutritional needs . 2. Monitor PO intake, wt, nutrition related labs to trend WNL, and skin integrity. 3. F/U as low risk in 7-10 days, 12/02-12/04
--- NOTE | 2018-12-01 10:58 | Discharge Summary ---
DATE OF DISCHARGE: 12/01/2018 Case was discussed with staff of the patient, reviewed records. The patient continues to be demented, confused, unable to make safe plan for self-care, unpredictable, impulsive, needing redirection. Sleeping better, eating better. No side effects with the medication, no sedation, no nausea, no extrapyramidal symptoms. I will be making minor adjustments to her Seroquel to 37.5 mg at bedtime. No side effects with the medication, no sedation, no nausea, no extrapyramidal symptoms. We will continue the patient in group therapy, milieu therapy, adjust medication as needed. [facility]# [id number]
[2018-12-02] MEDS: Pantoprazole 40 mg EC Tab PO SCH (06:33)
[2018-12-02] MEDS: INSULIN LISPRO SLIDING SCALE 100 UNITS/ML UNIT SUBQ SCH ×4 (06:33→20:11)
[2018-12-02] MEDS: Multivitamin Tab PO SCH (09:12)
--- NOTE | 2018-12-02 13:44 | Progress Notes ---
DATE: Case was discussed with staff of the patient, reviewed records. The patient was not discharged. Apparently, they made a mistake and put my progress note as a discharge summary which is not, the patient continues to be unpredictable, impulsive, needing redirection. Continues to have poor insight, sleeping better, eating better. No side effects from the medication, no sedation, no nausea. No side effects with the medication and the only lab work, I have is her high blood sugar and we will continue outpatient group therapy, milieu therapy, and adjust medication as needed. JOB# [id number]
--- NOTE | 2018-12-02 18:14 | Internal Medicine Prog Note ---
Internal Medicine Subjective - Subjective Service Date: 12/02/18 Patient is:: awake, verbal, agitated, confused Patient Complaints of:: other (Hx of UTI) Per staff patient has:: no adverse event, no episodes of fall Internal Medicine Objective - Results Recent Labs: Laboratory Last Values POC Glucose 126 MG/DL (70 - 105) H 11/29/18 11:31 - Physical Exam Vitals and I&O: Vital Signs Temp 97.8 F 12/02/18 14:00 Pulse 72 12/02/18 14:00 Resp 20 12/02/18 14:00 BP 112/71 12/02/18 14:00 Pulse Ox 98 12/02/18 14:00 Intake & Output 12/01/18 12/02/18 12/02/18 18:59 06:59 18:59 Intake Total 1812 736 8430 Balance 1827 455 2943 Intake: Oral 5881 506 6690 Other: # Voids 4 3 # Bowel Movements 1 1 Active Medications: Current Medications Acetaminophen (Tylenol) 650 mg PO Q4HR PRN PRN Reason: Mild Pain (Scale 1-3) Stop: 01/18/19 04:55 Acetaminophen (Tylenol) 650 mg PO Q4H PRN PRN Reason: TEMP ABOVE 100 Stop: 01/24/19 09:48 Acetaminophen/Hydrocodone Bitart ([place] 5mg/325mg) 1 tab PO Q8H PRN PRN Reason: Pain (Moderate) 4-7 Stop: 01/18/19 04:55 Al Hydrox/Mg Hydrox/Simethicone (Maalox) 30 ml PO Q4HR PRN PRN Reason: GI DISTRESS Stop: 01/17/19 17:06 Albuterol/Ipratropium (Duoneb Neb) 3 ml HHN Q4HRT PRN PRN Reason: Shortness of Breath Stop: 01/18/19 04:55 Budesonide (Pulmicort) 0.5 mg HHN BIDRT [facility] Stop: 01/18/19 06:59 Last Admin: 12/01/18 06:28 Dose: 0.5 mg Dextrose (Glutose 40%) 18.75 gm PO PRN PRN PRN Reason: Blood Glucose less than 70 Stop: 01/18/19 05:15 Donepezil HCl (Aricept) 10 mg PO HS [facility] Stop: 01/26/19 20:59 Last Admin: 12/01/18 21:20 Dose: 10 mg Glucagon (Glucagen) 1 mg IM PRN PRN PRN Reason: Blood Glucose less than 70 Stop: 01/18/19 05:15 Insulin Human Lispro (Humalog Insulin Sliding Scale) 0 units SUBQ ACHS [facility]; Protocol Stop: 01/18/19 07:29 Last Admin: 12/02/18 16:56 Dose: Not Given Levetiracetam (Keppra) 250 mg PO HS [facility] Stop: 01/18/19 20:59 Last Admin: 12/01/18 21:20 Dose: 250 mg Lorazepam (Ativan) 0.5 mg PO Q4HR PRN; Protocol PRN Reason: Agitation Stop: 01/17/19 17:10 Last Admin: 11/21/18 21:14 Dose: 0.5 mg Magnesium Hydroxide (Milk Of Magnesia) 30 ml PO HS PRN PRN Reason: Constipation Memantine (Namenda) 10 mg PO BID [facility] Stop: 01/23/19 16:59 Last Admin: 12/02/18 16:56 Dose: Not Given Montelukast Sodium (Singulair) 10 mg PO HS [facility] Stop: 01/18/19 20:59 Last Admin: 12/01/18 21:20 Dose: 10 mg Multivitamins/Vitamin C (Theragran) 1 tab PO DAILY [facility] Stop: 01/18/19 08:59 Last Admin: 12/02/18 09:12 Dose: Not Given Naproxen (Naprosyn) 250 mg PO BID [facility] Stop: 01/18/19 08:59 Last Admin: 12/02/18 16:56 Dose: Not Given Pantoprazole Sodium (Protonix) 40 mg PO DAILY@0730 [facility] Stop: 01/18/19 07:29 Last Admin: 12/02/18 06:33 Dose: 40 mg Quetiapine Fumarate (Seroquel) 37.5 mg PO HS [facility]; Protocol Stop: 01/30/19 20:59 Last Admin: 12/01/18 21:18 Dose: 37.5 mg Sitagliptin Phosphate (Januvia) 50 mg PO DAILY [facility] Stop: 01/18/19 08:59 Last Admin: 12/02/18 09:12 Dose: Not Given Zolpidem Tartrate (Ambien) 5 mg PO HS PRN PRN Reason: Insomnia Stop: 01/17/19 20:55 Last Admin: 11/26/18 00:52 Dose: 5 mg General: demented, NAD HEENT: NC/AT Neck: Supple, No JVD Lungs: other (no acute respiratory distress) Cardiovascular: Normal S1, Normal S2 Abdomen: soft Extremities: clear Neurological: no change, disorganized Internal Medicine Assmt/Plan - Assessment Assessment: Psychosis/Hallucinating. Pneumonia, improving. Asthma/Copd, stable. Dementia. Mild Anemia. History of Diabetes Mellitus. History of Osteomyelitis. History of Gerd. History of Cognitive communication deficit. - Plan Plan: Continue current treatment plan. Monitor Labs. Continue current medications Continue to monitor VS Monitor Diet/Nutritional support. Psych management per Psychiatry. Pain Management. PT/OT prnSafety precaution, Fall precaution, frequent nursing round. Supportive care. \ Continue collaborating with consulting specialists, case management and nursing team Nutritional Asmnt/Malnutr-PDOC - Dietary Evaluation Malnutrition Findings (Please click <Entered> for more info): Nutritional Asmnt/Malnutrition Start: 11/24/18 16: 39 Text: Status: Complete Freq: Protocol: Document 11/24/18 16:39 QIANA (Rec: 11/24/18 16:42 QIANA [id number]) Nutritional Asmnt/Malnutrition Patient General Information Nutritional Screening Low Risk Diagnosis Psychosis Pertinent Medical Hx/Surgical Hx Pneumonia, Psychosis, Mild Anemia, Dementia, Asthma/COPD, Osteomyelitis, GERD, Cognitive Communication Deficit, DM Subjective Information Pt is a 83-year-old female admitted on 11/18 d/t 5150 hold with hostile behavior toward staff. Pt is eating 75- 100% of meals Per Meal/ Nutrition Activity Record. Dietary is currently providing an estimated 2600 kcals and 106 gm Pro, per Pt PO intake this is providing an estimated 2275 kcals and 93gm Pro to meet 100+% kcal and 100+% Pro needs. Anthropometrics HT: 52 WT: 135 LB (61.36 kg) BMI: 24.69 (Normal) GI/ Skin Integrity GI: WNL, Flat, Soft, Non- tender BM: 11/20 x1 I/O: 1370/Not Noted Skin: WNL, Intact Mariano: 22 Diet Order: Regular Estimated Energy Needs: ( Geriatric, CBW) 6660-6218 kcals (25-30 kcals/ kg) 61-74g Pro (1.0-1.2 g/kg) 0609-0915 ml (25-30 ml/kg) Current Diet Order/ Nutrition Support Regular Pertinent Medications Maalox (PRN), Albuterol (PRN), Glutose 40% (PRN), Glucagon ( PRN), INS-SS, MOM (PRN), Theragran, Protonix, Januvia Pertinent Labs POC Glucose (11/22-11/23): 71, 112, 118, 96, 94, 162 Nutritional Hx/Data Height 5 ft 2 in Height (Calculated Centimeters) 157.5 Current Weight (lbs) 135 lb Weight (Calculated Kilograms) 61.2 Weight (Calculated Grams) 40371.0 [place] Body Weight 110 LB (50 kg) % [place] Body Weight 123 Body Mass Index (BMI) 24.7 Weight Status Approriate GI Symptoms GI Symptoms None Last BM 11/20 x1 Skin Integrity/Comment: Skin: WNL, Intact Mariano: 22 Current %PO Good (75-100%) Estimated Nutritional Goals BEE in Kcals: Using Current wt Calories/Kcals/Kg 25-30 Kcals Calculated 5226-2493 Protein: Using Current wt Protein g/k.0-1.2 Protein Calculated 61-74 Fluid: ml 2048-9931 ml (25-30 ml/kg) Nutritional Problem 1. Problem Problem Impaired nutrient utilization Etiology r/t endocrine dysfunction Signs/Symptoms: aeb Hx DM, POC Glucose (11/22- 11/23): 71, 112, 118, 96, 94, 162. Malnutrition Related to Morbid Obesity Malnutrition related to morbid obesity No Intervention/Recommendation Comments 1. Continue with Regular diet as ordered. 2. Consider adding CCHO to Diet Rx if BG levels do not trend WNL. Expected Outcomes/Goals Expected Outcomes/Goals 1. PO intake to continue to meet >75% of nutritional needs . 2. Monitor PO intake, wt, nutrition related labs to trend WNL, and skin integrity. 3. F/U as low risk in 7-10 days, 12/02-12/04
[2018-12-02] MEDS: Budesonide 0.5 Mg/2 mL Ud HHN SCH (19:50)
[2018-12-03] MEDS: Budesonide 0.5 Mg/2 mL Ud HHN SCH ×2 (06:01→18:16)
[2018-12-03] MEDS: INSULIN LISPRO SLIDING SCALE 100 UNITS/ML UNIT SUBQ SCH ×4 (06:38→20:44)
[2018-12-03] MEDS: Pantoprazole 40 mg EC Tab PO SCH (06:40)
[2018-12-03] MEDS: Multivitamin Tab PO SCH (08:09)
--- NOTE | 2018-12-03 09:17 | Progress Notes ---
DATE: 12/03/2018 SUBJECTIVE: The patient was seen in her room, having breakfast. The patient appears to be guarded, easily gets frustrated, still has some poor impulse control and needs a lot of redirection. Otherwise, the patient appears to be in no acute distress. OBJECTIVE: VITAL SIGNS: Temperature 98.2, heart rate 62, blood pressure 115/59, respirations 20, 98% on room air. HEENT: Head is atraumatic and normocephalic. Eyes: Bilateral conjunctivae are clear. Bilateral pupils equal, round, reactive. NECK: Supple. No JVD. CARDIOVASCULAR: S1 and S2, without murmur. PULMONARY: Clear to auscultation. GASTROINTESTINAL: Soft and nontender without guarding. Positive bowel sounds. MUSCULOSKELETAL: No clubbing, no cyanosis noted. ASSESSMENT: 1. Dementia. 2. Asthma. 3. Osteoarthritis. 4. Gastroesophageal reflux disease. 5. History of diabetes. PLAN: We will continue to put the patient to inpatient Psychiatric Unit. We will follow up with the psychiatrist to monitor the patient's condition and behavior, continue to put the patient on fall precaution. Treatment plans were discussed with the patient's nurse. Treatment plans were discussed with Dr. Vargas. JOB# [id number]
--- NOTE | 2018-12-03 16:06 | Internal Medicine Prog Note ---
Internal Medicine Subjective - Subjective Service Date: 12/03/18 Patient seen and examined:: with staff, chart reviewed Patient is:: awake, verbal, agitated, confused Patient Complaints of:: other (Hx of UTI) Per staff patient has:: no adverse event, no episodes of fall Internal Medicine Objective - Results Recent Labs: Laboratory Last Values POC Glucose 126 MG/DL (70 - 105) H 11/29/18 11:31 - Physical Exam Vitals and I&O: Vital Signs Temp 97.3 F 12/03/18 14:00 Pulse 94 12/03/18 14:00 Resp 18 12/03/18 14:00 BP 150/78 12/03/18 14:00 Pulse Ox 97 12/03/18 14:00 Intake & Output 12/02/18 12/03/18 12/03/18 18:59 06:59 18:59 Intake Total 1200 240 Balance 1200 240 Intake: Oral 1200 240 Other: # Voids 1 # Bowel Movements 1 Active Medications: Current Medications Acetaminophen (Tylenol) 650 mg PO Q4HR PRN PRN Reason: Mild Pain (Scale 1-3) Stop: 01/18/19 04:55 Acetaminophen (Tylenol) 650 mg PO Q4H PRN PRN Reason: TEMP ABOVE 100 Stop: 01/24/19 09:48 Acetaminophen/Hydrocodone Bitart ([place] 5mg/325mg) 1 tab PO Q8H PRN PRN Reason: Pain (Moderate) 4-7 Stop: 01/18/19 04:55 Al Hydrox/Mg Hydrox/Simethicone (Maalox) 30 ml PO Q4HR PRN PRN Reason: GI DISTRESS Stop: 01/17/19 17:06 Albuterol/Ipratropium (Duoneb Neb) 3 ml HHN Q4HRT PRN PRN Reason: Shortness of Breath Stop: 01/18/19 04:55 Budesonide (Pulmicort) 0.5 mg HHN BIDRT [facility] Stop: 01/18/19 06:59 Last Admin: 12/03/18 06:01 Dose: 0.5 mg Dextrose (Glutose 40%) 18.75 gm PO PRN PRN PRN Reason: Blood Glucose less than 70 Stop: 01/18/19 05:15 Donepezil HCl (Aricept) 10 mg PO HS [facility] Stop: 01/26/19 20:59 Last Admin: 12/02/18 20:50 Dose: 10 mg Glucagon (Glucagen) 1 mg IM PRN PRN PRN Reason: Blood Glucose less than 70 Stop: 01/18/19 05:15 Insulin Human Lispro (Humalog Insulin Sliding Scale) 0 units SUBQ ACHS [facility]; Protocol Stop: 01/18/19 07:29 Last Admin: 12/03/18 11:40 Dose: Not Given Levetiracetam (Keppra) 250 mg PO HS [facility] Stop: 01/18/19 20:59 Last Admin: 12/02/18 20:50 Dose: 250 mg Lorazepam (Ativan) 0.5 mg PO Q4HR PRN; Protocol PRN Reason: Agitation Stop: 01/17/19 17:10 Last Admin: 11/21/18 21:14 Dose: 0.5 mg Magnesium Hydroxide (Milk Of Magnesia) 30 ml PO HS PRN PRN Reason: Constipation Memantine (Namenda) 10 mg PO BID [facility] Stop: 01/23/19 16:59 Last Admin: 12/03/18 08:09 Dose: 10 mg Montelukast Sodium (Singulair) 10 mg PO HS [facility] Stop: 01/18/19 20:59 Last Admin: 12/02/18 20:50 Dose: 10 mg Multivitamins/Vitamin C (Theragran) 1 tab PO DAILY [facility] Stop: 01/18/19 08:59 Last Admin: 12/03/18 08:09 Dose: 1 tab Naproxen (Naprosyn) 250 mg PO BID [facility] Stop: 01/18/19 08:59 Last Admin: 12/03/18 08:09 Dose: 250 mg Pantoprazole Sodium (Protonix) 40 mg PO DAILY@0730 [facility] Stop: 01/18/19 07:29 Last Admin: 12/03/18 06:40 Dose: 40 mg Quetiapine Fumarate (Seroquel) 50 mg PO HS [facility]; Protocol Stop: 02/01/19 20:59 Sitagliptin Phosphate (Januvia) 50 mg PO DAILY [facility] Stop: 01/18/19 08:59 Last Admin: 12/03/18 08:09 Dose: 50 mg Zolpidem Tartrate (Ambien) 5 mg PO HS PRN PRN Reason: Insomnia Stop: 01/17/19 20:55 Last Admin: 11/26/18 00:52 Dose: 5 mg Physical Exam: Patient is very impulsive, easily agitated, in n acute distress. General: demented, NAD HEENT: NC/AT Neck: Supple, No JVD Lungs: other (no acute respiratory distress) Cardiovascular: Normal S1, Normal S2 Abdomen: soft Extremities: clear Neurological: no change, disorganized Internal Medicine Assmt/Plan - Assessment Assessment: 5150 Hold. Psychosis/Hallucinating. Pneumonia, improving. Asthma/Copd, stable. Dementia. Mild Anemia. History of Diabetes Mellitus. History of Osteomyelitis. History of Gerd. History of Cognitive communication deficit. - Plan Plan: Continuation of care Psych management per psych. Continue present antibiotics and meds as directed. Monitor vitals, urinalysis, labs. Respiratory and Pulmonary support prn. Monitor diet/nutritional support. Pain management. Accu-check daily,continue DM meds as directed. Continue present care management. Nutritional Asmnt/Malnutr-PDOC - Dietary Evaluation Malnutrition Findings (Please click <Entered> for more info): Nutritional Asmnt/Malnutrition Start: 11/24/18 16: 39 Text: Status: Complete Freq: Protocol: Document 11/24/18 16:39 QIANA (Rec: 11/24/18 16:42 QIANA [id number]) Nutritional Asmnt/Malnutrition Patient General Information Nutritional Screening Low Risk Diagnosis Psychosis Pertinent Medical Hx/Surgical Hx Pneumonia, Psychosis, Mild Anemia, Dementia, Asthma/COPD, Osteomyelitis, GERD, Cognitive Communication Deficit, DM Subjective Information Pt is a 83-year-old female admitted on 11/18 d/t 5150 hold with hostile behavior toward staff. Pt is eating 75- 100% of meals Per Meal/ Nutrition Activity Record. Dietary is currently providing an estimated 2600 kcals and 106 gm Pro, per Pt PO intake this is providing an estimated 2275 kcals and 93gm Pro to meet 100+% kcal and 100+% Pro needs. Anthropometrics HT: 52 WT: 135 LB (61.36 kg) BMI: 24.69 (Normal) GI/ Skin Integrity GI: WNL, Flat, Soft, Non- tender BM: 11/20 x1 I/O: 1370/Not Noted Skin: WNL, Intact Mariano: 22 Diet Order: Regular Estimated Energy Needs: ( Geriatric, CBW) 8393-9669 kcals (25-30 kcals/ kg) 61-74g Pro (1.0-1.2 g/kg) 5655-9705 ml (25-30 ml/kg) Current Diet Order/ Nutrition Support Regular Pertinent Medications Maalox (PRN), Albuterol (PRN), Glutose 40% (PRN), Glucagon ( PRN), INS-SS, MOM (PRN), Theragran, Protonix, Januvia Pertinent Labs POC Glucose (11/22-11/23): 71, 112, 118, 96, 94, 162 Nutritional Hx/Data Height 1.57 m Height (Calculated Centimeters) 157.5 Current Weight (lbs) 61.235 kg Weight (Calculated Kilograms) 61.2 Weight (Calculated Grams) 25564.0 [place] Body Weight 110 LB (50 kg) % [place] Body Weight 123 Body Mass Index (BMI) 24.7 Weight Status Approriate GI Symptoms GI Symptoms None Last BM 11/20 x1 Skin Integrity/Comment: Skin: WNL, Intact Mariano: 22 Current %PO Good (75-100%) Estimated Nutritional Goals BEE in Kcals: Using Current wt Calories/Kcals/Kg 25-30 Kcals Calculated 5111-5154 Protein: Using Current wt Protein g/k.0-1.2 Protein Calculated 61-74 Fluid: ml 7452-4169 ml (25-30 ml/kg) Nutritional Problem 1. Problem Problem Impaired nutrient utilization Etiology r/t endocrine dysfunction Signs/Symptoms: aeb Hx DM, POC Glucose (11/22- 11/23): 71, 112, 118, 96, 94, 162. Malnutrition Related to Morbid Obesity Malnutrition related to morbid obesity No Intervention/Recommendation Comments 1. Continue with Regular diet as ordered. 2. Consider adding CCHO to Diet Rx if BG levels do not trend WNL. Expected Outcomes/Goals Expected Outcomes/Goals 1. PO intake to continue to meet >75% of nutritional needs . 2. Monitor PO intake, wt, nutrition related labs to trend WNL, and skin integrity. 3. F/U as low risk in 7-10 days, 12/02-12/04
--- NOTE | 2018-12-03 21:01 | Progress Notes ---
DATE: 12/03/2018 SUBJECTIVE: Case was discussed with staff of the patient, reviewed records. The patient reports she is unable to sleep. Continues to be irritable, confused, continues to be unable to make safe plan for self-care. Continues to be easily agitated. She has been compliant with the medication with no side effects, no sedation, no nausea, no extrapyramidal symptoms. I will be increasing her Seroquel to 50 mg at bedtime to help with her sleep and irritability. No side effects with the medication, no sedation, no nausea, no extrapyramidal symptoms. We will continue outpatient group therapy, milieu therapy, and adjust medications as needed. JOB# [id number]
[2018-12-04] MEDS: Budesonide 0.5 Mg/2 mL Ud HHN SCH ×2 (06:14→18:24)
[2018-12-04] MEDS: Pantoprazole 40 mg EC Tab PO SCH (06:43)
[2018-12-04] MEDS: INSULIN LISPRO SLIDING SCALE 100 UNITS/ML UNIT SUBQ SCH ×4 (07:03→21:50)
[2018-12-04] MEDS: Multivitamin Tab PO SCH (09:07)
--- NOTE | 2018-12-04 14:52 | Internal Medicine Prog Note ---
Internal Medicine Subjective - Subjective Patient is:: awake, verbal, in bed, agitated, confused Patient Complaints of:: other (Hx of UTI) Per staff patient has:: no adverse event, no episodes of fall Internal Medicine Objective - Results Recent Labs: Laboratory Last Values POC Glucose 126 MG/DL (70 - 105) H 11/29/18 11:31 - Physical Exam Vitals and I&O: Vital Signs Temp 97.5 F 12/04/18 06:48 Pulse 54 12/04/18 06:48 Resp 18 12/04/18 08:00 BP 153/67 12/04/18 06:48 Pulse Ox 92 12/04/18 06:48 Intake & Output 12/03/18 12/04/18 12/04/18 18:59 06:59 18:59 Intake Total 1200 240 Balance 1200 240 Intake: Oral 1200 240 Other: # Voids 3 1 # Bowel Movements 0 Active Medications: Current Medications Acetaminophen (Tylenol) 650 mg PO Q4HR PRN PRN Reason: Mild Pain (Scale 1-3) Stop: 01/18/19 04:55 Acetaminophen (Tylenol) 650 mg PO Q4H PRN PRN Reason: TEMP ABOVE 100 Stop: 01/24/19 09:48 Acetaminophen/Hydrocodone Bitart ([place] 5mg/325mg) 1 tab PO Q8H PRN PRN Reason: Pain (Moderate) 4-7 Stop: 01/18/19 04:55 Al Hydrox/Mg Hydrox/Simethicone (Maalox) 30 ml PO Q4HR PRN PRN Reason: GI DISTRESS Stop: 01/17/19 17:06 Albuterol/Ipratropium (Duoneb Neb) 3 ml HHN Q4HRT PRN PRN Reason: Shortness of Breath Stop: 01/18/19 04:55 Budesonide (Pulmicort) 0.5 mg HHN BIDRT [facility] Stop: 01/18/19 06:59 Last Admin: 12/04/18 06:14 Dose: 0.5 mg Dextrose (Glutose 40%) 18.75 gm PO PRN PRN PRN Reason: Blood Glucose less than 70 Stop: 01/18/19 05:15 Donepezil HCl (Aricept) 10 mg PO HS [facility] Stop: 01/26/19 20:59 Last Admin: 12/03/18 20:29 Dose: 10 mg Glucagon (Glucagen) 1 mg IM PRN PRN PRN Reason: Blood Glucose less than 70 Stop: 01/18/19 05:15 Insulin Human Lispro (Humalog Insulin Sliding Scale) 0 units SUBQ ACHS [facility]; Protocol Stop: 01/18/19 07:29 Last Admin: 12/04/18 11:12 Dose: Not Given Levetiracetam (Keppra) 250 mg PO HS [facility] Stop: 01/18/19 20:59 Last Admin: 12/03/18 20:29 Dose: 250 mg Lorazepam (Ativan) 0.5 mg PO Q4HR PRN; Protocol PRN Reason: Agitation Stop: 01/17/19 17:10 Last Admin: 11/21/18 21:14 Dose: 0.5 mg Magnesium Hydroxide (Milk Of Magnesia) 30 ml PO HS PRN PRN Reason: Constipation Memantine (Namenda) 10 mg PO BID [facility] Stop: 01/23/19 16:59 Last Admin: 12/04/18 09:07 Dose: 10 mg Montelukast Sodium (Singulair) 10 mg PO HS [facility] Stop: 01/18/19 20:59 Last Admin: 12/03/18 20:29 Dose: 10 mg Multivitamins/Vitamin C (Theragran) 1 tab PO DAILY [facility] Stop: 01/18/19 08:59 Last Admin: 12/04/18 09:07 Dose: 1 tab Naproxen (Naprosyn) 250 mg PO BID [facility] Stop: 01/18/19 08:59 Last Admin: 12/04/18 09:07 Dose: 250 mg Pantoprazole Sodium (Protonix) 40 mg PO DAILY@0730 [facility] Stop: 01/18/19 07:29 Last Admin: 12/04/18 06:43 Dose: 40 mg Quetiapine Fumarate (Seroquel) 50 mg PO HS [facility]; Protocol Stop: 02/01/19 20:59 Last Admin: 12/03/18 20:29 Dose: 50 mg Sitagliptin Phosphate (Januvia) 50 mg PO DAILY [facility] Stop: 01/18/19 08:59 Last Admin: 12/04/18 09:07 Dose: 50 mg Zolpidem Tartrate (Ambien) 5 mg PO HS PRN PRN Reason: Insomnia Stop: 01/17/19 20:55 Last Admin: 11/26/18 00:52 Dose: 5 mg General: demented, NAD HEENT: NC/AT Neck: Supple, No JVD Lungs: other (no acute respiratory distress) Cardiovascular: Normal S1, Normal S2 Abdomen: soft Extremities: clear Neurological: no change, disorganized Internal Medicine Assmt/Plan - Assessment Assessment: Psychosis/Hallucinating. Pneumonia, improving. Asthma/Copd, stable. Dementia. Mild Anemia. History of Diabetes Mellitus. History of Osteomyelitis. History of Gerd. History of Cognitive communication deficit. - Plan Plan: Continue current treatment plan. Monitor Labs. Continue current medications Continue to monitor VS Monitor Diet/Nutritional support. Psych management per Psychiatry. Pain Management. PT/OT prnSafety precaution, Fall precaution, frequent nursing round. Supportive care. Continue collaborating with consulting specialists, case management and nursing team Nutritional Asmnt/Malnutr-PDOC - Dietary Evaluation Malnutrition Findings (Please click <Entered> for more info): Nutritional Asmnt/Malnutrition Start: 11/24/18 16: 39 Text: Status: Complete Freq: Protocol: Document 11/24/18 16:39 QIANA (Rec: 11/24/18 16:42 QIANA [id number]) Nutritional Asmnt/Malnutrition Patient General Information Nutritional Screening Low Risk Diagnosis Psychosis Pertinent Medical Hx/Surgical Hx Pneumonia, Psychosis, Mild Anemia, Dementia, Asthma/COPD, Osteomyelitis, GERD, Cognitive Communication Deficit, DM Subjective Information Pt is a 83-year-old female admitted on 11/18 d/t 5150 hold with hostile behavior toward staff. Pt is eating 75- 100% of meals Per Meal/ Nutrition Activity Record. Dietary is currently providing an estimated 2600 kcals and 106 gm Pro, per Pt PO intake this is providing an estimated 2275 kcals and 93gm Pro to meet 100+% kcal and 100+% Pro needs. Anthropometrics HT: 52 WT: 135 LB (61.36 kg) BMI: 24.69 (Normal) GI/ Skin Integrity GI: WNL, Flat, Soft, Non- tender BM: 11/20 x1 I/O: 1370/Not Noted Skin: WNL, Intact Mariano: 22 Diet Order: Regular Estimated Energy Needs: ( Geriatric, CBW) 8910-0668 kcals (25-30 kcals/ kg) 61-74g Pro (1.0-1.2 g/kg) 2092-6608 ml (25-30 ml/kg) Current Diet Order/ Nutrition Support Regular Pertinent Medications Maalox (PRN), Albuterol (PRN), Glutose 40% (PRN), Glucagon ( PRN), INS-SS, MOM (PRN), Theragran, Protonix, Januvia Pertinent Labs POC Glucose (11/22-11/23): 71, 112, 118, 96, 94, 162 Nutritional Hx/Data Height 5 ft 2 in Height (Calculated Centimeters) 157.5 Current Weight (lbs) 135 lb Weight (Calculated Kilograms) 61.2 Weight (Calculated Grams) 89559.0 [place] Body Weight 110 LB (50 kg) % [place] Body Weight 123 Body Mass Index (BMI) 24.7 Weight Status Approriate GI Symptoms GI Symptoms None Last BM 11/20 x1 Skin Integrity/Comment: Skin: WNL, Intact Mariano: 22 Current %PO Good (75-100%) Estimated Nutritional Goals BEE in Kcals: Using Current wt Calories/Kcals/Kg 25-30 Kcals Calculated 6793-8836 Protein: Using Current wt Protein g/k.0-1.2 Protein Calculated 61-74 Fluid: ml 1043-6602 ml (25-30 ml/kg) Nutritional Problem 1. Problem Problem Impaired nutrient utilization Etiology r/t endocrine dysfunction Signs/Symptoms: aeb Hx DM, POC Glucose (11/22- 11/23): 71, 112, 118, 96, 94, 162. Malnutrition Related to Morbid Obesity Malnutrition related to morbid obesity No Intervention/Recommendation Comments 1. Continue with Regular diet as ordered. 2. Consider adding CCHO to Diet Rx if BG levels do not trend WNL. Expected Outcomes/Goals Expected Outcomes/Goals 1. PO intake to continue to meet >75% of nutritional needs . 2. Monitor PO intake, wt, nutrition related labs to trend WNL, and skin integrity. 3. F/U as low risk in 7-10 days, 12/02-12/04
--- NOTE | 2018-12-04 20:15 | Progress Notes ---
DATE: 12/04/2018 Case was discussed with staff of the patient, reviewed records. The patient tolerated an increase in Seroquel because of lack of sleep. Continues to be unpredictable, impulsive, confused, unable to make safe plan for self-care, needing redirection, demented, confused. No side effects with the medication, no sedation, no nausea, no extrapyramidal symptoms. We will continue to work with the patient in group therapy, milieu therapy, adjust the medication as needed. JOB# [id number]
[2018-12-05] MEDS: Budesonide 0.5 Mg/2 mL Ud HHN SCH ×2 (06:44→18:22)
[2018-12-05] MEDS: Pantoprazole 40 mg EC Tab PO SCH (06:44)
[2018-12-05] MEDS: INSULIN LISPRO SLIDING SCALE 100 UNITS/ML UNIT SUBQ SCH ×4 (06:44→20:38)
[2018-12-05] MEDS: Multivitamin Tab PO SCH (08:16)
--- NOTE | 2018-12-05 17:36 | Internal Medicine Prog Note ---
Internal Medicine Subjective - Subjective Service Date: 12/05/18 Patient seen and examined:: with staff Patient is:: awake, verbal, in bed, agitated, confused Patient Complaints of:: other (Hx of UTI) Per staff patient has:: no adverse event, no episodes of fall Internal Medicine Objective - Results Recent Labs: Laboratory Last Values POC Glucose 126 MG/DL (70 - 105) H 11/29/18 11:31 - Physical Exam Vitals and I&O: Vital Signs Temp 97.7 F 12/05/18 14:42 Pulse 59 12/05/18 14:42 Resp 18 12/05/18 14:42 BP 115/45 12/05/18 14:42 Pulse Ox 94 12/05/18 14:42 Intake & Output 12/04/18 12/05/18 12/05/18 18:59 06:59 18:59 Intake Total 950 160 Balance 950 160 Intake: Oral 950 160 Other: # Voids 4 1 # Bowel Movements 1 0 Active Medications: Current Medications Acetaminophen (Tylenol) 650 mg PO Q4HR PRN PRN Reason: Mild Pain (Scale 1-3) Stop: 01/18/19 04:55 Acetaminophen (Tylenol) 650 mg PO Q4H PRN PRN Reason: TEMP ABOVE 100 Stop: 01/24/19 09:48 Acetaminophen/Hydrocodone Bitart ([place] 5mg/325mg) 1 tab PO Q8H PRN PRN Reason: Pain (Moderate) 4-7 Stop: 01/18/19 04:55 Al Hydrox/Mg Hydrox/Simethicone (Maalox) 30 ml PO Q4HR PRN PRN Reason: GI DISTRESS Stop: 01/17/19 17:06 Albuterol/Ipratropium (Duoneb Neb) 3 ml HHN Q4HRT PRN PRN Reason: Shortness of Breath Stop: 01/18/19 04:55 Budesonide (Pulmicort) 0.5 mg HHN BIDRT [facility] Stop: 01/18/19 06:59 Last Admin: 12/05/18 06:44 Dose: 0.5 mg Dextrose (Glutose 40%) 18.75 gm PO PRN PRN PRN Reason: Blood Glucose less than 70 Stop: 01/18/19 05:15 Donepezil HCl (Aricept) 10 mg PO HS [facility] Stop: 01/26/19 20:59 Last Admin: 12/04/18 21:06 Dose: 10 mg Glucagon (Glucagen) 1 mg IM PRN PRN PRN Reason: Blood Glucose less than 70 Stop: 01/18/19 05:15 Insulin Human Lispro (Humalog Insulin Sliding Scale) 0 units SUBQ ACHS [facility]; Protocol Stop: 01/18/19 07:29 Last Admin: 12/05/18 16:49 Dose: Not Given Levetiracetam (Keppra) 250 mg PO HS [facility] Stop: 01/18/19 20:59 Last Admin: 12/04/18 21:05 Dose: 250 mg Lorazepam (Ativan) 0.5 mg PO Q4HR PRN; Protocol PRN Reason: Agitation Stop: 01/17/19 17:10 Last Admin: 11/21/18 21:14 Dose: 0.5 mg Magnesium Hydroxide (Milk Of Magnesia) 30 ml PO HS PRN PRN Reason: Constipation Memantine (Namenda) 10 mg PO BID [facility] Stop: 01/23/19 16:59 Last Admin: 12/05/18 17:13 Dose: 10 mg Montelukast Sodium (Singulair) 10 mg PO HS [facility] Stop: 01/18/19 20:59 Last Admin: 12/04/18 21:06 Dose: 10 mg Multivitamins/Vitamin C (Theragran) 1 tab PO DAILY [facility] Stop: 01/18/19 08:59 Last Admin: 12/05/18 08:16 Dose: 1 tab Naproxen (Naprosyn) 250 mg PO BID [facility] Stop: 01/18/19 08:59 Last Admin: 12/05/18 17:13 Dose: 250 mg Pantoprazole Sodium (Protonix) 40 mg PO DAILY@0730 [facility] Stop: 01/18/19 07:29 Last Admin: 12/05/18 06:44 Dose: 40 mg Quetiapine Fumarate 50 mg/ (Quetiapine Fumarate 12.5 mg) 62.5 mg PO HS [facility] Stop: 02/03/19 20:59 Sitagliptin Phosphate (Januvia) 50 mg PO DAILY [facility] Stop: 01/18/19 08:59 Last Admin: 12/05/18 08:16 Dose: 50 mg Zolpidem Tartrate (Ambien) 5 mg PO HS PRN PRN Reason: Insomnia Stop: 01/17/19 20:55 Last Admin: 11/26/18 00:52 Dose: 5 mg Physical Exam: Patient is upset, irritable and restless, needs monitoring closely. General: demented, NAD HEENT: NC/AT Neck: Supple, No JVD Lungs: other (no acute respiratory distress) Cardiovascular: Normal S1, Normal S2 Abdomen: soft Extremities: clear Neurological: no change, disorganized Internal Medicine Assmt/Plan - Assessment Assessment: 5150 Hold. Psychosis/Hallucinating. Pneumonia, improving. Asthma/Copd, stable. Dementia. Mild Anemia. History of Diabetes Mellitus. History of Osteomyelitis. History of Gerd. History of Cognitive communication deficit. - Plan Plan: Continuation of care Psych management per psych. Continue present antibiotics and meds as directed. Monitor vitals, urinalysis, labs. Respiratory and Pulmonary support prn. Monitor diet/nutritional support. Pain management. Accu-check daily,continue DM meds as directed. Continue present care management. Nutritional Asmnt/Malnutr-PDOC - Dietary Evaluation Malnutrition Findings (Please click <Entered> for more info): Nutritional Asmnt/Malnutrition Start: 11/24/18 16: 39 Text: Status: Complete Freq: Protocol: Document 11/24/18 16:39 QIANA (Rec: 11/24/18 16:42 QIANA [email or web address]) Nutritional Asmnt/Malnutrition Patient General Information Nutritional Screening Low Risk Diagnosis Psychosis Pertinent Medical Hx/Surgical Hx Pneumonia, Psychosis, Mild Anemia, Dementia, Asthma/COPD, Osteomyelitis, GERD, Cognitive Communication Deficit, DM Subjective Information Pt is a 83-year-old female admitted on 11/18 d/t 5150 hold with hostile behavior toward staff. Pt is eating 75- 100% of meals Per Meal/ Nutrition Activity Record. Dietary is currently providing an estimated 2600 kcals and 106 gm Pro, per Pt PO intake this is providing an estimated 2275 kcals and 93gm Pro to meet 100+% kcal and 100+% Pro needs. Anthropometrics HT: 52 WT: 135 LB (61.36 kg) BMI: 24.69 (Normal) GI/ Skin Integrity GI: WNL, Flat, Soft, Non- tender BM: 11/20 x1 I/O: 1370/Not Noted Skin: WNL, Intact Mariano: 22 Diet Order: Regular Estimated Energy Needs: ( Geriatric, CBW) 1037-4567 kcals (25-30 kcals/ kg) 61-74g Pro (1.0-1.2 g/kg) 0698-7579 ml (25-30 ml/kg) Current Diet Order/ Nutrition Support Regular Pertinent Medications Maalox (PRN), Albuterol (PRN), Glutose 40% (PRN), Glucagon ( PRN), INS-SS, MOM (PRN), Theragran, Protonix, Januvia Pertinent Labs POC Glucose (11/22-11/23): 71, 112, 118, 96, 94, 162 Nutritional Hx/Data Height 1.57 m Height (Calculated Centimeters) 157.5 Current Weight (lbs) 61.235 kg Weight (Calculated Kilograms) 61.2 Weight (Calculated Grams) 79494.0 [place] Body Weight 110 LB (50 kg) % [place] Body Weight 123 Body Mass Index (BMI) 24.7 Weight Status Approriate GI Symptoms GI Symptoms None Last BM 11/20 x1 Skin Integrity/Comment: Skin: WNL, Intact Mariano: 22 Current %PO Good (75-100%) Estimated Nutritional Goals BEE in Kcals: Using Current wt Calories/Kcals/Kg 25-30 Kcals Calculated 6562-9715 Protein: Using Current wt Protein g/k.0-1.2 Protein Calculated 61-74 Fluid: ml 7078-0142 ml (25-30 ml/kg) Nutritional Problem 1. Problem Problem Impaired nutrient utilization Etiology r/t endocrine dysfunction Signs/Symptoms: aeb Hx DM, POC Glucose (11/22- 11/23): 71, 112, 118, 96, 94, 162. Malnutrition Related to Morbid Obesity Malnutrition related to morbid obesity No Intervention/Recommendation Comments 1. Continue with Regular diet as ordered. 2. Consider adding CCHO to Diet Rx if BG levels do not trend WNL. Expected Outcomes/Goals Expected Outcomes/Goals 1. PO intake to continue to meet >75% of nutritional needs . 2. Monitor PO intake, wt, nutrition related labs to trend WNL, and skin integrity. 3. F/U as low risk in 7-10 days, 12/02-12/04
[2018-12-05] MEDS: QUEtiapine Fumarate 50 MG, QUEtiapine Fumarate 12.5 MG PO SCH (20:37)
--- NOTE | 2018-12-05 21:07 | Progress Notes ---
DATE: 12/05/2018 FOLLOWUP PROGRESS NOTE Case was discussed with staff of the patient, reviewed records. The patient reported by staff to be yelling and screaming. Continues to have poor insight with episodes of not sleeping well. I did increase her Seroquel dose yesterday to 50 mg, I will make further increase today by 12.5 mg to 62.5. No side effects with the medication, no sedation, no nausea, no extrapyramidal symptoms. Continues to be not ready to go to a lesser level of care because of agitation, yelling and screaming, not sleeping and no side effects with the medication, no sedation, no nausea, no extrapyramidal symptoms. We will continue to work with the patient in group therapy, milieu therapy, and adjust the medications as needed. JOB# [id number]
[2018-12-06] MEDS: Budesonide 0.5 Mg/2 mL Ud HHN SCH ×2 (06:21→18:05)
[2018-12-06] MEDS: Pantoprazole 40 mg EC Tab PO SCH (06:37)
[2018-12-06] MEDS: INSULIN LISPRO SLIDING SCALE 100 UNITS/ML UNIT SUBQ SCH ×4 (07:03→20:57)
[2018-12-06] MEDS: Multivitamin Tab PO SCH (08:31)
--- NOTE | 2018-12-06 17:19 | Internal Medicine Prog Note ---
Internal Medicine Subjective - Subjective Service Date: 12/06/18 Patient is:: awake, verbal, in bed, agitated, confused Patient Complaints of:: other (Hx of UTI) Per staff patient has:: no adverse event, no episodes of fall Internal Medicine Objective - Results Recent Labs: Laboratory Last Values POC Glucose 126 MG/DL (70 - 105) H 11/29/18 11:31 - Physical Exam Vitals and I&O: Vital Signs Temp 98.3 F 12/06/18 15:07 Pulse 59 12/06/18 15:07 Resp 18 12/06/18 15:07 BP 150/62 12/06/18 15:07 Pulse Ox 98 12/06/18 15:07 Intake & Output 12/05/18 12/06/18 12/06/18 18:59 06:59 18:59 Intake Total 1200 360 Balance 1200 360 Intake: Oral 1200 360 Other: # Voids 3 1 # Bowel Movements 1 0 Active Medications: Current Medications Acetaminophen (Tylenol) 650 mg PO Q4HR PRN PRN Reason: Mild Pain (Scale 1-3) Stop: 01/18/19 04:55 Acetaminophen (Tylenol) 650 mg PO Q4H PRN PRN Reason: TEMP ABOVE 100 Stop: 01/24/19 09:48 Acetaminophen/Hydrocodone Bitart ([place] 5mg/325mg) 1 tab PO Q8H PRN PRN Reason: Pain (Moderate) 4-7 Stop: 01/18/19 04:55 Al Hydrox/Mg Hydrox/Simethicone (Maalox) 30 ml PO Q4HR PRN PRN Reason: GI DISTRESS Stop: 01/17/19 17:06 Albuterol/Ipratropium (Duoneb Neb) 3 ml HHN Q4HRT PRN PRN Reason: Shortness of Breath Stop: 01/18/19 04:55 Budesonide (Pulmicort) 0.5 mg HHN BIDRT [facility] Stop: 01/18/19 06:59 Last Admin: 12/06/18 06:21 Dose: 0.5 mg Dextrose (Glutose 40%) 18.75 gm PO PRN PRN PRN Reason: Blood Glucose less than 70 Stop: 01/18/19 05:15 Donepezil HCl (Aricept) 10 mg PO HS [facility] Stop: 01/26/19 20:59 Last Admin: 12/05/18 20:38 Dose: 10 mg Glucagon (Glucagen) 1 mg IM PRN PRN PRN Reason: Blood Glucose less than 70 Stop: 01/18/19 05:15 Insulin Human Lispro (Humalog Insulin Sliding Scale) 0 units SUBQ ACHS [facility]; Protocol Stop: 01/18/19 07:29 Last Admin: 12/06/18 12:08 Dose: Not Given Levetiracetam (Keppra) 250 mg PO HS [facility] Stop: 01/18/19 20:59 Last Admin: 12/05/18 20:38 Dose: 250 mg Lorazepam (Ativan) 0.5 mg PO Q4HR PRN; Protocol PRN Reason: Agitation Stop: 01/17/19 17:10 Last Admin: 11/21/18 21:14 Dose: 0.5 mg Magnesium Hydroxide (Milk Of Magnesia) 30 ml PO HS PRN PRN Reason: Constipation Memantine (Namenda) 10 mg PO BID [facility] Stop: 01/23/19 16:59 Last Admin: 12/06/18 08:31 Dose: 10 mg Montelukast Sodium (Singulair) 10 mg PO HS [facility] Stop: 01/18/19 20:59 Last Admin: 12/05/18 20:38 Dose: 10 mg Multivitamins/Vitamin C (Theragran) 1 tab PO DAILY [facility] Stop: 01/18/19 08:59 Last Admin: 12/06/18 08:31 Dose: 1 tab Naproxen (Naprosyn) 250 mg PO BID [facility] Stop: 01/18/19 08:59 Last Admin: 12/06/18 08:31 Dose: 250 mg Pantoprazole Sodium (Protonix) 40 mg PO DAILY@0730 [facility] Stop: 01/18/19 07:29 Last Admin: 12/06/18 06:37 Dose: 40 mg Quetiapine Fumarate 50 mg/ (Quetiapine Fumarate 12.5 mg) 62.5 mg PO HS [facility] Stop: 02/03/19 20:59 Last Admin: 12/05/18 20:37 Dose: 62.5 mg Sitagliptin Phosphate (Januvia) 50 mg PO DAILY [facility] Stop: 01/18/19 08:59 Last Admin: 12/06/18 08:31 Dose: 50 mg Zolpidem Tartrate (Ambien) 5 mg PO HS PRN PRN Reason: Insomnia Stop: 01/17/19 20:55 Last Admin: 11/26/18 00:52 Dose: 5 mg General: demented, NAD HEENT: NC/AT Neck: Supple, No JVD Lungs: other (no acute respiratory distress) Cardiovascular: Normal S1, Normal S2 Abdomen: soft Extremities: clear Neurological: no change, disorganized Internal Medicine Assmt/Plan - Assessment Assessment: Psychosis/Hallucinating. Pneumonia, improving. Asthma/Copd, stable. Dementia. Mild Anemia. History of Diabetes Mellitus. History of Osteomyelitis. History of Gerd. History of Cognitive communication deficit. - Plan Plan: Continue current treatment plan. Monitor Labs. Continue current medications Continue to monitor VS Monitor Diet/Nutritional support. Psych management per Psychiatry. Pain Management. PT/OT prnSafety precaution, Fall precaution, frequent nursing round. Supportive care. \ Continue collaborating with consulting specialists, case management and nursing team Nutritional Asmnt/Malnutr-PDOC - Dietary Evaluation Malnutrition Findings (Please click <Entered> for more info): Nutritional Asmnt/Malnutrition Start: 11/24/18 16: 39 Text: Status: Complete Freq: Protocol: Document 11/24/18 16:39 QIANA (Rec: 11/24/18 16:42 QIANA [email or web address]) Nutritional Asmnt/Malnutrition Patient General Information Nutritional Screening Low Risk Diagnosis Psychosis Pertinent Medical Hx/Surgical Hx Pneumonia, Psychosis, Mild Anemia, Dementia, Asthma/COPD, Osteomyelitis, GERD, Cognitive Communication Deficit, DM Subjective Information Pt is a 83-year-old female admitted on 11/18 d/t 5150 hold with hostile behavior toward staff. Pt is eating 75- 100% of meals Per Meal/ Nutrition Activity Record. Dietary is currently providing an estimated 2600 kcals and 106 gm Pro, per Pt PO intake this is providing an estimated 2275 kcals and 93gm Pro to meet 100+% kcal and 100+% Pro needs. Anthropometrics HT: 52 WT: 135 LB (61.36 kg) BMI: 24.69 (Normal) GI/ Skin Integrity GI: WNL, Flat, Soft, Non- tender BM: 11/20 x1 I/O: 1370/Not Noted Skin: WNL, Intact Mariano: 22 Diet Order: Regular Estimated Energy Needs: ( Geriatric, CBW) 2516-1593 kcals (25-30 kcals/ kg) 61-74g Pro (1.0-1.2 g/kg) 4662-0085 ml (25-30 ml/kg) Current Diet Order/ Nutrition Support Regular Pertinent Medications Maalox (PRN), Albuterol (PRN), Glutose 40% (PRN), Glucagon ( PRN), INS-SS, MOM (PRN), Theragran, Protonix, Januvia Pertinent Labs POC Glucose (11/22-11/23): 71, 112, 118, 96, 94, 162 Nutritional Hx/Data Height 5 ft 2 in Height (Calculated Centimeters) 157.5 Current Weight (lbs) 135 lb Weight (Calculated Kilograms) 61.2 Weight (Calculated Grams) 74111.0 [place] Body Weight 110 LB (50 kg) % [place] Body Weight 123 Body Mass Index (BMI) 24.7 Weight Status Approriate GI Symptoms GI Symptoms None Last BM 11/20 x1 Skin Integrity/Comment: Skin: WNL, Intact Mariano: 22 Current %PO Good (75-100%) Estimated Nutritional Goals BEE in Kcals: Using Current wt Calories/Kcals/Kg 25-30 Kcals Calculated 8024-0449 Protein: Using Current wt Protein g/k.0-1.2 Protein Calculated 61-74 Fluid: ml 9322-5251 ml (25-30 ml/kg) Nutritional Problem 1. Problem Problem Impaired nutrient utilization Etiology r/t endocrine dysfunction Signs/Symptoms: aeb Hx DM, POC Glucose (11/22- 11/23): 71, 112, 118, 96, 94, 162. Malnutrition Related to Morbid Obesity Malnutrition related to morbid obesity No Intervention/Recommendation Comments 1. Continue with Regular diet as ordered. 2. Consider adding CCHO to Diet Rx if BG levels do not trend WNL. Expected Outcomes/Goals Expected Outcomes/Goals 1. PO intake to continue to meet >75% of nutritional needs . 2. Monitor PO intake, wt, nutrition related labs to trend WNL, and skin integrity. 3. F/U as low risk in 7-10 days, 12/02-12/04
--- NOTE | 2018-12-06 17:52 | Progress Notes ---
DATE: 12/06/2018 Case was discussed with staff of the patient, reviewed records. The patient is calmer in general. Today, she is not yelling and screaming. She slept better, tolerated the increase in Seroquel yesterday to ____ mg at bedtime with no side effects, no sedation, no nausea, no extrapyramidal symptoms, responding better to redirection. No sedation, nausea, no extrapyramidal symptoms. She is still confused, demented, unable to make safe plan for self-care. I will continue to work with the patient in group therapy, milieu therapy, and adjust the medications as needed. JOB# [id number]
[2018-12-06] MEDS: QUEtiapine Fumarate 50 MG, QUEtiapine Fumarate 12.5 MG PO SCH (20:59)
[2018-12-07] MEDS: Budesonide 0.5 Mg/2 mL Ud HHN SCH ×2 (06:08→19:43)
[2018-12-07] MEDS: INSULIN LISPRO SLIDING SCALE 100 UNITS/ML UNIT SUBQ SCH ×4 (06:42→20:18)
[2018-12-07] MEDS: Pantoprazole 40 mg EC Tab PO SCH (06:43)
[2018-12-07] MEDS: Multivitamin Tab PO SCH (09:01)
--- NOTE | 2018-12-07 10:21 | Internal Medicine Prog Note ---
Internal Medicine Subjective - Subjective Service Date: 12/07/18 Patient seen and examined:: with staff Patient is:: awake, verbal, in bed, agitated, confused Patient Complaints of:: other (Hx of UTI) Per staff patient has:: no adverse event, no episodes of fall Internal Medicine Objective - Results Recent Labs: Laboratory Last Values POC Glucose 126 MG/DL (70 - 105) H 11/29/18 11:31 - Physical Exam Vitals and I&O: Vital Signs Temp 97.8 F 12/07/18 06:50 Pulse 52 12/07/18 06:50 Resp 19 12/07/18 06:50 BP 118/58 12/07/18 06:50 Pulse Ox 96 12/07/18 06:50 Intake & Output 12/06/18 12/07/18 12/07/18 18:59 06:59 18:59 Intake Total 120 Balance 120 Intake: Oral 120 Other: # Voids 3 # Bowel Movements 0 Active Medications: Current Medications Acetaminophen (Tylenol) 650 mg PO Q4HR PRN PRN Reason: Mild Pain (Scale 1-3) Stop: 01/18/19 04:55 Acetaminophen (Tylenol) 650 mg PO Q4H PRN PRN Reason: TEMP ABOVE 100 Stop: 01/24/19 09:48 Acetaminophen/Hydrocodone Bitart ([place] 5mg/325mg) 1 tab PO Q8H PRN PRN Reason: Pain (Moderate) 4-7 Stop: 01/18/19 04:55 Al Hydrox/Mg Hydrox/Simethicone (Maalox) 30 ml PO Q4HR PRN PRN Reason: GI DISTRESS Stop: 01/17/19 17:06 Albuterol/Ipratropium (Duoneb Neb) 3 ml HHN Q4HRT PRN PRN Reason: Shortness of Breath Stop: 01/18/19 04:55 Budesonide (Pulmicort) 0.5 mg HHN BIDRT [facility] Stop: 01/18/19 06:59 Last Admin: 12/07/18 06:08 Dose: 0.5 mg Dextrose (Glutose 40%) 18.75 gm PO PRN PRN PRN Reason: Blood Glucose less than 70 Stop: 01/18/19 05:15 Donepezil HCl (Aricept) 10 mg PO HS [facility] Stop: 01/26/19 20:59 Last Admin: 12/06/18 20:57 Dose: 10 mg Glucagon (Glucagen) 1 mg IM PRN PRN PRN Reason: Blood Glucose less than 70 Stop: 01/18/19 05:15 Insulin Human Lispro (Humalog Insulin Sliding Scale) 0 units SUBQ ACHS [facility]; Protocol Stop: 01/18/19 07:29 Last Admin: 12/07/18 06:42 Dose: Not Given Levetiracetam (Keppra) 250 mg PO HS [facility] Stop: 01/18/19 20:59 Last Admin: 12/06/18 20:58 Dose: 250 mg Lorazepam (Ativan) 0.5 mg PO Q4HR PRN; Protocol PRN Reason: Agitation Stop: 01/17/19 17:10 Last Admin: 11/21/18 21:14 Dose: 0.5 mg Magnesium Hydroxide (Milk Of Magnesia) 30 ml PO HS PRN PRN Reason: Constipation Memantine (Namenda) 10 mg PO BID [facility] Stop: 01/23/19 16:59 Last Admin: 12/07/18 09:01 Dose: 10 mg Montelukast Sodium (Singulair) 10 mg PO HS [facility] Stop: 01/18/19 20:59 Last Admin: 12/06/18 20:58 Dose: 10 mg Multivitamins/Vitamin C (Theragran) 1 tab PO DAILY [facility] Stop: 01/18/19 08:59 Last Admin: 12/07/18 09:01 Dose: 1 tab Naproxen (Naprosyn) 250 mg PO BID [facility] Stop: 01/18/19 08:59 Last Admin: 12/07/18 09:16 Dose: 250 mg Pantoprazole Sodium (Protonix) 40 mg PO DAILY@0730 [facility] Stop: 01/18/19 07:29 Last Admin: 12/07/18 06:43 Dose: 40 mg Quetiapine Fumarate 50 mg/ (Quetiapine Fumarate 12.5 mg) 62.5 mg PO HS [facility] Stop: 02/03/19 20:59 Last Admin: 12/06/18 20:59 Dose: 62.5 mg Sitagliptin Phosphate (Januvia) 50 mg PO DAILY [facility] Stop: 01/18/19 08:59 Last Admin: 12/07/18 09:01 Dose: 50 mg Zolpidem Tartrate (Ambien) 5 mg PO HS PRN PRN Reason: Insomnia Stop: 01/17/19 20:55 Last Admin: 11/26/18 00:52 Dose: 5 mg Physical Exam: Patient is less agitated, sleeping better. General: demented, NAD HEENT: NC/AT Neck: Supple, No JVD Lungs: other (no acute respiratory distress) Cardiovascular: Normal S1, Normal S2 Abdomen: soft Extremities: clear Neurological: no change, disorganized Internal Medicine Assmt/Plan - Assessment Assessment: 5150 Hold. Psychosis/Hallucinating. Pneumonia, improving. Asthma/Copd, stable. Dementia. Mild Anemia. History of Diabetes Mellitus. History of Osteomyelitis. History of Gerd. History of Cognitive communication deficit. - Plan Plan: Continuation of care Psych management per psych. Continue present antibiotics and meds as directed. Monitor vitals, urinalysis, labs. Respiratory and Pulmonary support prn. Monitor diet/nutritional support. Pain management. Accu-check daily,continue DM meds as directed. Continue present care management. Nutritional Asmnt/Malnutr-PDOC - Dietary Evaluation Malnutrition Findings (Please click <Entered> for more info): Nutritional Asmnt/Malnutrition Start: 11/24/18 16: 39 Text: Status: Complete Freq: Protocol: Document 11/24/18 16:39 QIANA (Rec: 11/24/18 16:42 QIANA [email or web address]) Nutritional Asmnt/Malnutrition Patient General Information Nutritional Screening Low Risk Diagnosis Psychosis Pertinent Medical Hx/Surgical Hx Pneumonia, Psychosis, Mild Anemia, Dementia, Asthma/COPD, Osteomyelitis, GERD, Cognitive Communication Deficit, DM Subjective Information Pt is a 83-year-old female admitted on 11/18 d/t 5150 hold with hostile behavior toward staff. Pt is eating 75- 100% of meals Per Meal/ Nutrition Activity Record. Dietary is currently providing an estimated 2600 kcals and 106 gm Pro, per Pt PO intake this is providing an estimated 2275 kcals and 93gm Pro to meet 100+% kcal and 100+% Pro needs. Anthropometrics HT: 52 WT: 135 LB (61.36 kg) BMI: 24.69 (Normal) GI/ Skin Integrity GI: WNL, Flat, Soft, Non- tender BM: 11/20 x1 I/O: 1370/Not Noted Skin: WNL, Intact Mariano: 22 Diet Order: Regular Estimated Energy Needs: ( Geriatric, CBW) 0859-9350 kcals (25-30 kcals/ kg) 61-74g Pro (1.0-1.2 g/kg) 9421-0976 ml (25-30 ml/kg) Current Diet Order/ Nutrition Support Regular Pertinent Medications Maalox (PRN), Albuterol (PRN), Glutose 40% (PRN), Glucagon ( PRN), INS-SS, MOM (PRN), Theragran, Protonix, Januvia Pertinent Labs POC Glucose (11/22-11/23): 71, 112, 118, 96, 94, 162 Nutritional Hx/Data Height 1.57 m Height (Calculated Centimeters) 157.5 Current Weight (lbs) 61.235 kg Weight (Calculated Kilograms) 61.2 Weight (Calculated Grams) 18569.0 [place] Body Weight 110 LB (50 kg) % [place] Body Weight 123 Body Mass Index (BMI) 24.7 Weight Status Approriate GI Symptoms GI Symptoms None Last BM 11/20 x1 Skin Integrity/Comment: Skin: WNL, Intact Mariano: 22 Current %PO Good (75-100%) Estimated Nutritional Goals BEE in Kcals: Using Current wt Calories/Kcals/Kg 25-30 Kcals Calculated 5764-4301 Protein: Using Current wt Protein g/k.0-1.2 Protein Calculated 61-74 Fluid: ml 5304-7938 ml (25-30 ml/kg) Nutritional Problem 1. Problem Problem Impaired nutrient utilization Etiology r/t endocrine dysfunction Signs/Symptoms: aeb Hx DM, POC Glucose (11/22- 11/23): 71, 112, 118, 96, 94, 162. Malnutrition Related to Morbid Obesity Malnutrition related to morbid obesity No Intervention/Recommendation Comments 1. Continue with Regular diet as ordered. 2. Consider adding CCHO to Diet Rx if BG levels do not trend WNL. Expected Outcomes/Goals Expected Outcomes/Goals 1. PO intake to continue to meet >75% of nutritional needs . 2. Monitor PO intake, wt, nutrition related labs to trend WNL, and skin integrity. 3. F/U as low risk in 7-10 days, 12/02-12/04
[2018-12-07] MEDS: QUEtiapine Fumarate 50 MG, QUEtiapine Fumarate 12.5 MG PO SCH (20:17)
--- NOTE | 2018-12-07 23:55 | Progress Notes ---
DATE: 12/07/2018 Case was discussed with staff of the patient, reviewed records. The patient tolerated increase in Seroquel with no side effects. Her yelling and screaming is not as prominent. She still gets agitated. She continues to have poor insight, unable to make safe plan for self-care, unpredictable, impulsive, demented, confused with episodes of agitation and irritability. No side effects with the medication, no sedation, no nausea, no extrapyramidal symptoms. We will continue outpatient group therapy, milieu therapy, adjust the medication as needed. JOB# [id number]
[2018-12-08] MEDS: Budesonide 0.5 Mg/2 mL Ud HHN SCH (06:29)
[2018-12-08] MEDS: INSULIN LISPRO SLIDING SCALE 100 UNITS/ML UNIT SUBQ SCH ×4 (06:41→21:00)
[2018-12-08] MEDS: Pantoprazole 40 mg EC Tab PO SCH (06:41)
[2018-12-08] MEDS: Multivitamin Tab PO SCH (09:36)
--- NOTE | 2018-12-08 15:15 | Internal Medicine Prog Note ---
Internal Medicine Subjective - Subjective Service Date: 12/08/18 Patient is:: awake, verbal, in bed, agitated, confused Patient Complaints of:: other (Hx of UTI) Per staff patient has:: no adverse event, no episodes of fall Internal Medicine Objective - Results Recent Labs: Laboratory Last Values POC Glucose 126 MG/DL (70 - 105) H 11/29/18 11:31 - Physical Exam Vitals and I&O: Vital Signs Temp 98.2 F 12/08/18 07:07 Pulse 56 12/08/18 07:07 Resp 20 12/08/18 07:07 BP 135/72 12/08/18 07:07 Pulse Ox 98 12/08/18 07:07 Intake & Output 12/07/18 12/08/18 12/08/18 18:59 06:59 18:59 Intake Total 1200 120 Balance 1200 120 Intake: Oral 1200 120 Other: # Voids 2 # Bowel Movements 1 0 Active Medications: Current Medications Acetaminophen (Tylenol) 650 mg PO Q4HR PRN PRN Reason: Mild Pain (Scale 1-3) Stop: 01/18/19 04:55 Acetaminophen (Tylenol) 650 mg PO Q4H PRN PRN Reason: TEMP ABOVE 100 Stop: 01/24/19 09:48 Acetaminophen/Hydrocodone Bitart ([place] 5mg/325mg) 1 tab PO Q8H PRN PRN Reason: Pain (Moderate) 4-7 Stop: 01/18/19 04:55 Last Admin: 12/07/18 17:21 Dose: 1 tab Al Hydrox/Mg Hydrox/Simethicone (Maalox) 30 ml PO Q4HR PRN PRN Reason: GI DISTRESS Stop: 01/17/19 17:06 Albuterol/Ipratropium (Duoneb Neb) 3 ml HHN Q4HRT PRN PRN Reason: Shortness of Breath Stop: 01/18/19 04:55 Budesonide (Pulmicort) 0.5 mg HHN BIDRT [facility] Stop: 01/18/19 06:59 Last Admin: 12/08/18 06:29 Dose: 0.5 mg Dextrose (Glutose 40%) 18.75 gm PO PRN PRN PRN Reason: Blood Glucose less than 70 Stop: 01/18/19 05:15 Donepezil HCl (Aricept) 10 mg PO HS [facility] Stop: 01/26/19 20:59 Last Admin: 12/07/18 20:18 Dose: 10 mg Glucagon (Glucagen) 1 mg IM PRN PRN PRN Reason: Blood Glucose less than 70 Stop: 01/18/19 05:15 Insulin Human Lispro (Humalog Insulin Sliding Scale) 0 units SUBQ ACHS [facility]; Protocol Stop: 01/18/19 07:29 Last Admin: 12/08/18 11:25 Dose: Not Given Levetiracetam (Keppra) 250 mg PO HS [facility] Stop: 01/18/19 20:59 Last Admin: 12/07/18 20:18 Dose: 250 mg Lorazepam (Ativan) 0.5 mg PO Q4HR PRN; Protocol PRN Reason: Agitation Stop: 01/17/19 17:10 Last Admin: 12/07/18 17:22 Dose: 0.5 mg Magnesium Hydroxide (Milk Of Magnesia) 30 ml PO HS PRN PRN Reason: Constipation Memantine (Namenda) 10 mg PO BID [facility] Stop: 01/23/19 16:59 Last Admin: 12/08/18 09:36 Dose: 10 mg Montelukast Sodium (Singulair) 10 mg PO HS [facility] Stop: 01/18/19 20:59 Last Admin: 12/07/18 20:18 Dose: 10 mg Multivitamins/Vitamin C (Theragran) 1 tab PO DAILY [facility] Stop: 01/18/19 08:59 Last Admin: 12/08/18 09:36 Dose: 1 tab Naproxen (Naprosyn) 250 mg PO BID [facility] Stop: 01/18/19 08:59 Last Admin: 12/08/18 09:35 Dose: 250 mg Pantoprazole Sodium (Protonix) 40 mg PO DAILY@0730 [facility] Stop: 01/18/19 07:29 Last Admin: 12/08/18 06:41 Dose: 40 mg Quetiapine Fumarate 50 mg/ (Quetiapine Fumarate 12.5 mg) 62.5 mg PO HS [facility] Stop: 02/03/19 20:59 Last Admin: 12/07/18 20:17 Dose: 62.5 mg Sitagliptin Phosphate (Januvia) 50 mg PO DAILY [facility] Stop: 01/18/19 08:59 Last Admin: 12/08/18 09:36 Dose: 50 mg Zolpidem Tartrate (Ambien) 5 mg PO HS PRN PRN Reason: Insomnia Stop: 01/17/19 20:55 Last Admin: 11/26/18 00:52 Dose: 5 mg General: demented, NAD HEENT: NC/AT Neck: Supple, No JVD Lungs: other (no acute respiratory distress) Cardiovascular: Normal S1, Normal S2 Abdomen: soft Extremities: clear Neurological: no change, disorganized Internal Medicine Assmt/Plan - Assessment Assessment: Psychosis/Hallucinating. Pneumonia, improving. Asthma/Copd, stable. Dementia. Mild Anemia. History of Diabetes Mellitus. History of Osteomyelitis. History of Gerd. History of Cognitive communication deficit. - Plan Plan: Continue current treatment plan. Monitor Labs. Continue current medications Continue to monitor VS Monitor Diet/Nutritional support. Psych management per Psychiatry. Pain Management. PT/OT prnSafety precaution, Fall precaution, frequent nursing round. Supportive care. \ Continue collaborating with consulting specialists, case management and nursing team Nutritional Asmnt/Malnutr-PDOC - Dietary Evaluation Malnutrition Findings (Please click <Entered> for more info): Nutritional Asmnt/Malnutrition Start: 11/24/18 16: 39 Text: Status: Complete Freq: Protocol: Document 11/24/18 16:39 QIANA (Rec: 11/24/18 16:42 QIANA [email or web address]) Nutritional Asmnt/Malnutrition Patient General Information Nutritional Screening Low Risk Diagnosis Psychosis Pertinent Medical Hx/Surgical Hx Pneumonia, Psychosis, Mild Anemia, Dementia, Asthma/COPD, Osteomyelitis, GERD, Cognitive Communication Deficit, DM Subjective Information Pt is a 83-year-old female admitted on 11/18 d/t 5150 hold with hostile behavior toward staff. Pt is eating 75- 100% of meals Per Meal/ Nutrition Activity Record. Dietary is currently providing an estimated 2600 kcals and 106 gm Pro, per Pt PO intake this is providing an estimated 2275 kcals and 93gm Pro to meet 100+% kcal and 100+% Pro needs. Anthropometrics HT: 52 WT: 135 LB (61.36 kg) BMI: 24.69 (Normal) GI/ Skin Integrity GI: WNL, Flat, Soft, Non- tender BM: 11/20 x1 I/O: 1370/Not Noted Skin: WNL, Intact Mariano: 22 Diet Order: Regular Estimated Energy Needs: ( Geriatric, CBW) 2822-3194 kcals (25-30 kcals/ kg) 61-74g Pro (1.0-1.2 g/kg) 6265-3402 ml (25-30 ml/kg) Current Diet Order/ Nutrition Support Regular Pertinent Medications Maalox (PRN), Albuterol (PRN), Glutose 40% (PRN), Glucagon ( PRN), INS-SS, MOM (PRN), Theragran, Protonix, Januvia Pertinent Labs POC Glucose (11/22-11/23): 71, 112, 118, 96, 94, 162 Nutritional Hx/Data Height 5 ft 2 in Height (Calculated Centimeters) 157.5 Current Weight (lbs) 135 lb Weight (Calculated Kilograms) 61.2 Weight (Calculated Grams) 90360.0 [place] Body Weight 110 LB (50 kg) % Inlet Body Weight 123 Body Mass Index (BMI) 24.7 Weight Status Approriate GI Symptoms GI Symptoms None Last BM 11/20 x1 Skin Integrity/Comment: Skin: WNL, Intact Mariano: 22 Current %PO Good (75-100%) Estimated Nutritional Goals BEE in Kcals: Using Current wt Calories/Kcals/Kg 25-30 Kcals Calculated 2116-9027 Protein: Using Current wt Protein g/k.0-1.2 Protein Calculated 61-74 Fluid: ml 7725-9093 ml (25-30 ml/kg) Nutritional Problem 1. Problem Problem Impaired nutrient utilization Etiology r/t endocrine dysfunction Signs/Symptoms: aeb Hx DM, POC Glucose (11/22- 11/23): 71, 112, 118, 96, 94, 162. Malnutrition Related to Morbid Obesity Malnutrition related to morbid obesity No Intervention/Recommendation Comments 1. Continue with Regular diet as ordered. 2. Consider adding CCHO to Diet Rx if BG levels do not trend WNL. Expected Outcomes/Goals Expected Outcomes/Goals 1. PO intake to continue to meet >75% of nutritional needs . 2. Monitor PO intake, wt, nutrition related labs to trend WNL, and skin integrity. 3. F/U as low risk in 7-10 days, 12/02-12/04
[2018-12-08] MEDS: QUEtiapine Fumarate 50 MG, QUEtiapine Fumarate 12.5 MG PO SCH (20:29)
--- NOTE | 2018-12-08 23:44 | Progress Notes ---
DATE: 12/08/2018 Case was discussed with staff of the patient, reviewed records. The patient seems to be doing better on the current increased on her medications. She is less agitated, sleeping better, eating better. She is already on Aricept 10 mg at bedtime and Namenda 10 mg twice a day with no side effects. Consider increasing Seroquel and the patient states continues to do well. I do have plan to discharge her tomorrow and working on discharge plan. We will continue outpatient group therapy, milieu therapy, and adjust medication as needed. JOB# [id number]
[2018-12-09] MEDS: Pantoprazole 40 mg EC Tab PO SCH (06:43)
[2018-12-09] MEDS: Budesonide 0.5 Mg/2 mL Ud HHN SCH (06:44)
[2018-12-09] MEDS: INSULIN LISPRO SLIDING SCALE 100 UNITS/ML UNIT SUBQ SCH ×2 (07:04→11:15)
[2018-12-09] MEDS: Multivitamin Tab PO SCH ×2 (08:25→08:44)
--- NOTE | 2018-12-09 11:58 | Discharge Summary ---
DATE OF DISCHARGE: 12/09/2018 IDENTIFYING INFORMATION: The patient is an 83-year-old female. CHIEF COMPLAINT: "why I am here." HISTORY OF PRESENT ILLNESS: Brought on a hold. She has been agitated with mood swings, hostile towards staff, brought in here from her nursing facility with a history of diabetes, urinary tract infection, pneumonia. The patient was a poor historian. She was very irritable, anxious, minimally interacting with the interviewer, was done by Dr. Brantley, preoccupied, unable to participate in meaningful conversation or make safe plan for self-care with a history of differential living in a nursing facility. The patient upon admission was on Seroquel 25 mg at bedtime, Keppra, melatonin, Aricept 10 mg daily, Januvia, Naprosyn. COURSE IN THE HOSPITAL: The patient was continued with her medication and Seroquel was added and increased to 62.5 mg at bedtime. I also added Namenda, increased to 10 mg twice a day. The patient also was on Singulair, multivitamin, and insulin, hydrocodone as needed. The patient progressively got better. She was no longer agitated. She was sleeping well, eating well. She was accepted back at the nursing facility where after she was improved, we felt the patient no longer meeting criteria for the inpatient treatment, was discharged to a lesser level of care. FINAL DIAGNOSES: Dementia with behavior disturbances; psychosis, not otherwise specified. MEDICAL DIAGNOSES: Urinary tract infection, diabetes with a history of pneumonia. The patient will be going back to the nursing facility. We will follow up with psychiatrist and primary care physician. EXPECTED OUTCOME: Stable if the patient complies with the above. JOB# [id number] [place]
--- NOTE | 2018-12-09 14:25 | Internal Medicine Prog Note ---
Internal Medicine Subjective - Subjective Service Date: 12/09/18 Patient seen and examined:: with staff Patient is:: awake, verbal, in bed, agitated, confused Patient Complaints of:: other (Hx of UTI) Per staff patient has:: no adverse event, no episodes of fall Internal Medicine Objective - Results Recent Labs: Laboratory Last Values POC Glucose 126 MG/DL (70 - 105) H 11/29/18 11:31 - Physical Exam Vitals and I&O: Vital Signs Temp 97.6 F 12/09/18 06:22 Pulse 53 12/09/18 06:22 Resp 18 12/09/18 08:00 BP 120/68 12/09/18 06:22 Pulse Ox 99 12/09/18 06:22 Intake & Output 12/08/18 12/09/18 12/09/18 18:59 06:59 18:59 Intake Total 1080 120 Balance 1080 120 Intake: Oral 1080 120 Other: # Voids 4 2 # Bowel Movements 1 0 Active Medications: Current Medications Acetaminophen (Tylenol) 650 mg PO Q4HR PRN PRN Reason: Mild Pain (Scale 1-3) Stop: 01/18/19 04:55 Acetaminophen (Tylenol) 650 mg PO Q4H PRN PRN Reason: TEMP ABOVE 100 Stop: 01/24/19 09:48 Acetaminophen/Hydrocodone Bitart ([place] 5mg/325mg) 1 tab PO Q8H PRN PRN Reason: Pain (Moderate) 4-7 Stop: 01/18/19 04:55 Last Admin: 12/07/18 17:21 Dose: 1 tab Al Hydrox/Mg Hydrox/Simethicone (Maalox) 30 ml PO Q4HR PRN PRN Reason: GI DISTRESS Stop: 01/17/19 17:06 Albuterol/Ipratropium (Duoneb Neb) 3 ml HHN Q4HRT PRN PRN Reason: Shortness of Breath Stop: 01/18/19 04:55 Budesonide (Pulmicort) 0.5 mg HHN BIDRT [facility] Stop: 01/18/19 06:59 Last Admin: 12/09/18 06:44 Dose: 0.5 mg Dextrose (Glutose 40%) 18.75 gm PO PRN PRN PRN Reason: Blood Glucose less than 70 Stop: 01/18/19 05:15 Donepezil HCl (Aricept) 10 mg PO HS [facility] Stop: 01/26/19 20:59 Last Admin: 12/08/18 20:30 Dose: 10 mg Glucagon (Glucagen) 1 mg IM PRN PRN PRN Reason: Blood Glucose less than 70 Stop: 01/18/19 05:15 Insulin Human Lispro (Humalog Insulin Sliding Scale) 0 units SUBQ ACHS [facility]; Protocol Stop: 01/18/19 07:29 Last Admin: 12/09/18 11:15 Dose: Not Given Levetiracetam (Keppra) 250 mg PO HS [facility] Stop: 01/18/19 20:59 Last Admin: 12/08/18 20:30 Dose: 250 mg Lorazepam (Ativan) 0.5 mg PO Q4HR PRN; Protocol PRN Reason: Agitation Stop: 01/17/19 17:10 Last Admin: 12/07/18 17:22 Dose: 0.5 mg Magnesium Hydroxide (Milk Of Magnesia) 30 ml PO HS PRN PRN Reason: Constipation Memantine (Namenda) 10 mg PO BID [facility] Stop: 01/23/19 16:59 Last Admin: 12/09/18 08:44 Dose: 10 mg Montelukast Sodium (Singulair) 10 mg PO HS [facility] Stop: 01/18/19 20:59 Last Admin: 12/08/18 20:30 Dose: 10 mg Multivitamins/Vitamin C (Theragran) 1 tab PO DAILY [facility] Stop: 01/18/19 08:59 Last Admin: 12/09/18 08:44 Dose: 1 tab Naproxen (Naprosyn) 250 mg PO BID [facility] Stop: 01/18/19 08:59 Last Admin: 12/09/18 08:24 Dose: Not Given Pantoprazole Sodium (Protonix) 40 mg PO DAILY@0730 [facility] Stop: 01/18/19 07:29 Last Admin: 12/09/18 06:43 Dose: 40 mg Quetiapine Fumarate 50 mg/ (Quetiapine Fumarate 12.5 mg) 62.5 mg PO HS [facility] Stop: 02/03/19 20:59 Last Admin: 12/08/18 20:29 Dose: 62.5 mg Sitagliptin Phosphate (Januvia) 50 mg PO DAILY [facility] Stop: 01/18/19 08:59 Last Admin: 12/09/18 08:44 Dose: 50 mg Zolpidem Tartrate (Ambien) 5 mg PO HS PRN PRN Reason: Insomnia Stop: 01/17/19 20:55 Last Admin: 12/08/18 20:30 Dose: 5 mg Physical Exam: Patient has improved and is being discharged today. General: demented, NAD HEENT: NC/AT Neck: Supple, No JVD Lungs: other (no acute respiratory distress) Cardiovascular: Normal S1, Normal S2 Abdomen: soft Extremities: clear Neurological: no change, disorganized Internal Medicine Assmt/Plan - Assessment Assessment: Dementia with behavioral disturbances. Psychosis. Pneumonia, resolved. Asthma/Copd, stable. Anemia, improving. History of Diabetes Mellitus. History of Osteomyelitis. History of Gerd. History of Cognitive communication deficit. - Plan Plan: Continuation of care. Discharging to [facility]. Psych management per psych. Continue present antibiotics and meds as directed. Monitor vitals, urinalysis, labs. Respiratory and Pulmonary support prn. Monitor diet/nutritional support. Pain management. Accu-check daily,continue DM meds as directed. Continue present care management. Nutritional Asmnt/Malnutr-PDOC - Dietary Evaluation Malnutrition Findings (Please click <Entered> for more info): Nutritional Asmnt/Malnutrition Start: 11/24/18 16: 39 Text: Status: Complete Freq: Protocol: Document 11/24/18 16:39 QIANA (Rec: 11/24/18 16:42 QIANA [email or web address]) Nutritional Asmnt/Malnutrition Patient General Information Nutritional Screening Low Risk Diagnosis Psychosis Pertinent Medical Hx/Surgical Hx Pneumonia, Psychosis, Mild Anemia, Dementia, Asthma/COPD, Osteomyelitis, GERD, Cognitive Communication Deficit, DM Subjective Information Pt is a 83-year-old female admitted on 11/18 d/t 5150 hold with hostile behavior toward staff. Pt is eating 75- 100% of meals Per Meal/ Nutrition Activity Record. Dietary is currently providing an estimated 2600 kcals and 106 gm Pro, per Pt PO intake this is providing an estimated 2275 kcals and 93gm Pro to meet 100+% kcal and 100+% Pro needs. Anthropometrics HT: 52 WT: 135 LB (61.36 kg) BMI: 24.69 (Normal) GI/ Skin Integrity GI: WNL, Flat, Soft, Non- tender BM: 11/20 x1 I/O: 1370/Not Noted Skin: WNL, Intact Mariano: 22 Diet Order: Regular Estimated Energy Needs: ( Geriatric, CBW) 7700-6816 kcals (25-30 kcals/ kg) 61-74g Pro (1.0-1.2 g/kg) 6137-2274 ml (25-30 ml/kg) Current Diet Order/ Nutrition Support Regular Pertinent Medications Maalox (PRN), Albuterol (PRN), Glutose 40% (PRN), Glucagon ( PRN), INS-SS, MOM (PRN), Theragran, Protonix, Januvia Pertinent Labs POC Glucose (11/22-11/23): 71, 112, 118, 96, 94, 162 Nutritional Hx/Data Height 1.57 m Height (Calculated Centimeters) 157.5 Current Weight (lbs) 61.235 kg Weight (Calculated Kilograms) 61.2 Weight (Calculated Grams) 00574.0 [place] Body Weight 110 LB (50 kg) % [place] Body Weight 123 Body Mass Index (BMI) 24.7 Weight Status Approriate GI Symptoms GI Symptoms None Last BM 11/20 x1 Skin Integrity/Comment: Skin: WNL, Intact Mariano: 22 Current %PO Good (75-100%) Estimated Nutritional Goals BEE in Kcals: Using Current wt Calories/Kcals/Kg 25-30 Kcals Calculated 7773-5600 Protein: Using Current wt Protein g/k.0-1.2 Protein Calculated 61-74 Fluid: ml 0129-9410 ml (25-30 ml/kg) Nutritional Problem 1. Problem Problem Impaired nutrient utilization Etiology r/t endocrine dysfunction Signs/Symptoms: aeb Hx DM, POC Glucose (11/22- 11/23): 71, 112, 118, 96, 94, 162. Malnutrition Related to Morbid Obesity Malnutrition related to morbid obesity No Intervention/Recommendation Comments 1. Continue with Regular diet as ordered. 2. Consider adding CCHO to Diet Rx if BG levels do not trend WNL. Expected Outcomes/Goals Expected Outcomes/Goals 1. PO intake to continue to meet >75% of nutritional needs . 2. Monitor PO intake, wt, nutrition related labs to trend WNL, and skin integrity. 3. F/U as low risk in 7-10 days, 12/02-12/04
== END 2018-12-09 15:15 | DRG 885 ==
LOC: GERO 15:15
PROVIDERS: ADMIT Psychiatry & Neurology Psychiatry; ATTEND Psychiatry & Neurology Psychiatry
DX: F29 Unspecified psychosis not due to a substance or known physiological condition (principal); J18.9 Pneumonia, unspecified organism; F03.91 Unspecified dementia, unspecified severity, with behavioral disturbance; N39.0 Urinary tract infection, site not specified; J44.0 Chronic obstructive pulmonary disease with (acute) lower respiratory infection; E11.9 Type 2 diabetes mellitus without complications; K21.9 Gastro-esophageal reflux disease without esophagitis; D64.9 Anemia, unspecified; M19.90 Unspecified osteoarthritis, unspecified site; Z79.4 Long term (current) use of insulin
CPT/HCPCS: 82948-90; 83036-90; G0410; Z7610